=== PATIENT | female | born 1940 | race Caucasian/White ===

== ENCOUNTER 2017-06-12 18:31 | Inpatient (IN) | payer MEDICARE, MEDICAID ==
[~2017-06-12] VITALS: Ht 162.6 cm; Wt 72.6 kg
[~2017-06-12 18:31] MED LIST: ACET325T53 PO; BENZ0.5T3 PO; CLON0.5T4 PO; DEXT15DR6 EACHEYE; DOCU-141 PO; HYDR25TA4 PO; LEVO88TA5 PO; LISI-607 PO; MAG30ORA PO; MAGN400O6 PO; NA P133E RC; RISP1TAB7 PO; TEMA7.5C12 PO
--- NOTE | 2017-06-12 18:42 | NUR ---
PT BIBRA FROM SNF TO ER BED 14. PER REPORT , GENERALIZED WEAKNESS. PT IS C/O COUGH AND CONGESTION FOR WEEKS NOW. PLACED ON MONITOR. NAD NOTED. AWAITING MD JONES.
--- NOTE | 2017-06-12 19:03 | NUR ---
DR NASH AT BEDSIDE FOR EVAL.
--- NOTE | 2017-06-12 19:15 | NUR ---
IV LINE STARTED BLOOD DRAWN AND SENT TO LAB.
[2017-06-12 19:18] LABS: BASOPHILS # (AUTO) 0.2 /CMM (0.0-0.2); BASOPHILS % (AUTO) 2.9 % (0.0-2.0); EOSINOPHILS # (AUTO) 0.1 /CMM (0.0-0.7); EOSINOPHILS % (AUTO) 2.1 % (0.0-6.0); HEMATOCRIT 34 % (33-45); HEMOGLOBIN 11.7 g/dL (11.5-14.8); LYMPHOCYTES # (AUTO) 1.9 /CMM (0.8-4.8); LYMPHOCYTES % (AUTO) 26.7 % (20.0-44.0); MEAN CORPUSCULAR HEMOGLOBIN 30 PG (26.0-33.0); MEAN CORPUSCULAR HGB CONC 34 g/dl (31.0-36.0); MEAN CORPUSCULAR VOLUME 89 fL (82-100); MONOCYTES # (AUTO) 0.6 /CMM (0.1-1.30); MONOCYTES % (AUTO) 8.3 % (2.0-12.0); NEUTROPHILS # (AUTO) 4.3 /CMM (1.8-8.9); PLATELET COUNT (AUTO) 642 /CMM (150-450); RDW COEFFICIENT OF VARIATION 15.1 (11.5-15.0); RED BLOOD CELL COUNT(AUTO) 3.85 MIL/uL (4.0-5.2); WHITE BLOOD COUNT (AUTO) 7.1 K/uL (4.3-11.0)
[2017-06-12 19:29] LABS: CARBON DIOXIDE 25 mmol/L (21-32); CHLORIDE 103 mmol/L (98-107); GLUCOSE 170 mg/dL (74-106); POTASSIUM 4.1 mmol/L (3.5-5.1); SODIUM SERUM 133 mmol/L (136-145); UREA NITROGEN, BLOOD 13 mg/dL (7-18)
[2017-06-12] MEDS ORDERED: IPRATROPIUM NEB FS 0.5 MG/2.5 ML AMPUL.NEB NEB ONE (19:30)
[2017-06-12] MEDS ORDERED: ALBUTEROL FS 2.5 MG/3 ML VIAL.NEB NEB ONE (19:30)
[2017-06-12 19:33] LABS: INR 0.95 (0.85-1.15)
[2017-06-12 19:38] LABS: TROPONIN I < 0.017 ng/mL (0.00-0.056)
[2017-06-12] MEDS ORDERED: IPRATROPIUM NEB FS 0.5 MG/2.5 ML AMPUL.NEB ONE (19:49)
[2017-06-12] MEDS ORDERED: ALBUTEROL FS 2.5 MG/0.5 ML VIAL.NEB ONE (19:49)
[2017-06-12 20:29] LABS: APPEARANCE,URINE Clear (CLEAR); BILIRUBIN,URINE Negative (NEGATIVE); BLOOD, URINE Negative Ery/uL (NEGATIVE); COLOR,URINE Light yellow (YELLOW); KETONES,URINE Negative (NEGATIVE); LEUKOCYTE ESTERASE ,URINE Trace (NEGATIVE); NITRITE, URINE Negative (NEGATIVE); PROTEIN,URINE Negative (NEGATIVE); UGLUCOSE Negative (NEGATIVE); UROBILINOGEN,URINE 0.2 EU/dL (0.2)
[2017-06-12 20:43] LABS: BACTERIA,URINE Few /HPF (None Seen); RBC,URINE NONE SEEN /HPF (0-2); SQUAMOUS EPITHELIAL CELL,UR Rare /HPF (None Seen); YEAST,URINE Moderate /HPF (None Seen)
[2017-06-12] MEDS ORDERED: NITROFURANTOIN/NITROFURAN MAC 100 MG CAPSULE PO ONE (21:00)
[2017-06-12] MEDS ORDERED: NITROFURANTOIN/NITROFURAN MAC 100 MG CAPSULE ONE (21:03)
--- NOTE | 2017-06-12 22:02 | NUR ---
BLOOD SUGAR 139. ER AWARE.
[2017-06-12] MEDS ORDERED: ONDANSETRON HCL/PF 4 MG/2 ML VIAL IVP PRN (22:30)
[2017-06-12] MEDS ORDERED: MORPHINE SULFATE INJ 2 MG/ML DISP.SYRIN IV PRN (22:30)
[2017-06-12] MEDS ORDERED: ACETAMINOPHEN 325 MG TABLET PO PRN (22:30)
--- NOTE | 2017-06-12 22:48 | NUR ---
REPORT GIVEN TO JUVENCIO. PT AWAITING TRANSFER TO FLOOR.
[2017-06-12 23:00] VITALS: BP 118/52
[2017-06-12] MEDS ORDERED: IV NS 0.9% 1,000 ML IV PRN (23:00)
[2017-06-12] MEDS ORDERED: IPRATROPIUM NEB FS 0.5 MG/2.5 ML AMPUL.NEB NEB PRN (23:00)
[2017-06-12] MEDS ORDERED: ALBUTEROL FS 2.5 MG/3 ML VIAL.NEB NEB PRN (23:00)
[2017-06-12] MEDS ORDERED: GUAIFENESIN/D-METHORPHAN HB 5 ML UDC PO PRN (23:00)
[2017-06-12] MEDS ORDERED: MAG HYDROX/AL HYDROX/SIMETH 30 ML UDC PO PRN (23:00)
[2017-06-12] MEDS ORDERED: TEMAZEPAM 7.5 MG CAPSULE PO PRN (23:00)
[2017-06-12] MEDS ORDERED: MAGNESIUM HYDROXIDE 30 ML UDC PO PRN (23:00)
--- NOTE | 2017-06-12 23:05 | NUR ---
RN ADMITTING NOTES RECEIVED REPORT FROM ASSEMBLY HAND MABLE. Pt WAS BROUGHT UP VIA GURNEY, WAS ABLE TO AMBULATE FROM ER [place] TO ROOM BED WITH A STEADY GAIT. NO S/S OF ACUTE DISTRESS OR SOB NOTED. Pt IS A/OX3, VERBAL, ABLE TO MAKE TO NEEDS KNOWN. IV ACCESS ON RHAND #20G. SAFETY MEASURES IN PLACE. BED LOW, LOCKED, HOB ELEVATED, SIDE RAILS UP, CALL LIGHT AND BEDSIDE TABLE WITHIN REACH. WILL CONTINUE TO MONITOR Pt THROUGHOUT THE NIGHT FOR SAFETY.
[2017-06-12] MEDS ORDERED: BLOOD SUGAR DIAGNOSTIC 1 EACH STRIP IN ONE (23:45)
[2017-06-12] MEDS ORDERED: FLUCONAZOLE (100 MG) 100 MG TABLET PO ONE (23:45)
--- NOTE | 2017-06-13 | NUR ---
RN NOTES ACCUCHECK BG 106.
[2017-06-13] MEDS ORDERED: CEFTRIAXONE 1 G VIAL ONE (00:35)
[2017-06-13] MEDS: CEFTRIAXONE 1 G in IV D5W 50 ML IV SCH ×2 (00:43→23:15)
[2017-06-13] MEDS ORDERED: DEXTROSE 50%-WATER 50 ML DISP.SYRIN IV PRN (06:00)
[2017-06-13] MEDS: BLOOD SUGAR DIAGNOSTIC 1 EACH STRIP IN SCH ×3 (06:07→17:13)
[2017-06-13 06:27] LABS: ALANINE AMINOTRANSFERASE 20 U/L (12-78); ALBUMIN 2.6 g/dL (3.4-5.0); ALKALINE PHOSPHATASE 87 U/L (46-116); ASPARTATE AMINOTRANSFERASE 16 U/L (15-37); BILIRUBIN,TOTAL 0.3 mg/dL (0.2-1.0); CALCIUM, SERUM 9.5 mg/dL (8.5-10.1); CARBON DIOXIDE 25 mmol/L (21-32); CHLORIDE 107 mmol/L (98-107); CREATININE 0.7 mg/dL (0.6-1.3); GLUCOSE 110 mg/dL (74-106); PHOSPHORUS 3.2 mg/dL (2.5-4.9); POTASSIUM 3.8 mmol/L (3.5-5.1); SODIUM SERUM 139 mmol/L (136-145); TOTAL PROTEIN, SERUM 6.9 g/dL (6.4-8.2); UREA NITROGEN, BLOOD 13 mg/dL (7-18)
[2017-06-13 06:28] LABS: BASOPHILS % (AUTO) 0.2 % (0.0-2.0); EOSINOPHILS # (AUTO) 0.1 /CMM (0.0-0.7); EOSINOPHILS % (AUTO) 2.2 % (0.0-6.0); HEMATOCRIT 35 % (33-45); HEMOGLOBIN 11.8 g/dL (11.5-14.8); LYMPHOCYTES # (AUTO) 1.8 /CMM (0.8-4.8); LYMPHOCYTES % (AUTO) 29.9 % (20.0-44.0); MEAN CORPUSCULAR HEMOGLOBIN 31 PG (26.0-33.0); MEAN CORPUSCULAR HGB CONC 34 g/dl (31.0-36.0); MEAN CORPUSCULAR VOLUME 92 fL (82-100); MONOCYTES # (AUTO) 0.7 /CMM (0.1-1.30); NEUTROPHILS # (AUTO) 3.4 /CMM (1.8-8.9); NEUTROPHILS % (AUTO) 56.7 % (43.0-81.0); PLATELET COUNT (AUTO) 519 /CMM (150-450); RDW COEFFICIENT OF VARIATION 16.6 (11.5-15.0); RED BLOOD CELL COUNT(AUTO) 3.82 MIL/uL (4.0-5.2)
--- NOTE | 2017-06-13 06:30 | NUR ---
AC BG 103.
--- NOTE | 2017-06-13 06:40 | NUR ---
RN CLOSING NOTES NO SIGNIFICANT CHANGES IN Pt's CONDITION. Pt REMAINS IN STABLE CONDITION AT THIS TIME. NO S/S OF ACUTE DISTRESS OR SOB NOTED DURING THE NIGHT. ALL NEEDS MET AND ATTENDED TO. SAFETY MEASURES IN PLACE. WILL ENDORSE TO DAYSHIFT RN FOR Pt's HAILE.
[2017-06-13 06:41] LABS: CHOLESTEROL 205 mg/dL (<200); HDL CHOLESTEROL 62 mg/dL (40-60); LDL 132 mg/dL (0-99); THYROID STIMULATING HORMONE 19.947 uIU/mL (0.358-3.74); TRIGLYCERIDES 88 mg/dL (30-150)
--- NOTE | 2017-06-13 07:26 | NUR ---
MS RN OPENING NOTES PATIENT RECEIVED IN BED AWAKE AND IN NO ACUTE SIGNS OF DISTRESS. A/O X 3, SAME ABLE TO COMMUNICATE VERBALLY, DENIES PAIN OR DISCOMFORTS AT THIS TIME. ON ROOM AIR, BREATHING EVEN AND UNLABORED. IV ACCESS ON RIGHT HAND G#20 INTACT AND PATENT, IVF OF NS RUNNING @ 70ML/HR, NO SIGNS OF INFILTRATION NOTED. BED LOCKED AND IN LOWEST POSITION WITH SIDE-RAILS UP X2. BED ALARM ON AND CALL LIGHT IN REACH. WILL CONTINUE TO MONITOR PT ACCORDINGLY.
[2017-06-13 08:00] VITALS: BP 127/78
[2017-06-13] MEDS: LEVOTHYROXINE SODIUM 88 MCG TABLET PO SCH (08:24)
[2017-06-13] MEDS: DOCUSATE SODIUM 100 MG CAPSULE PO SCH (08:24)
[2017-06-13] MEDS: HYDROCHLOROTHIAZIDE 25 MG TABLET PO SCH (08:24)
[2017-06-13] MEDS: PANTOPRAZOLE 40 MG TABLET.DR PO SCH (08:24)
[2017-06-13] MEDS: FLUCONAZOLE (100 MG) 100 MG TABLET PO SCH (08:24)
[2017-06-13] MEDS: LISINOPRIL (5MG) 5 MG TABLET PO SCH (08:25)
[2017-06-13] MEDS ORDERED: POLYVINYL ALCOHOL 15 ML BOTTLE EACHEYE PRN (09:00)
[2017-06-13] MEDS ORDERED: MORPHINE SULFATE INJ 4 MG/ML DISP.SYRIN IV PRN (09:00)
[2017-06-13] MEDS: risperiDONE 1 MG TABLET PO SCH ×2 (09:34→17:10)
[2017-06-13] MEDS: BENZTROPINE MESYLATE (1 MG) 1 MG TABLET PO SCH ×2 (09:34→17:10)
[2017-06-13 16:00] VITALS: BP 106/66
--- NOTE | 2017-06-13 18:22 | NUR ---
MS RN CLOSING NOTES PATIENT RESTING AND WATCHING TV IN BED AT THIS TIME. A/O X 3, SAME VERBALLY RESPONSIVE. CALMED , QUIET AND COOPERATIVE DURING THE SHIFT. ON ROOM AIR, BREATHING EVEN AND UNLABORED. IV ACCESS ON RIGHT HAND G#20 INTACT AND PATENT WITH IVF OF NS @ 70ML/HR INFUSING WELL, NO SIGNS OF INFILTRATION NOTED. HOB KEPT ELEVATED. BED LOCKED AND IN LOWEST POSITION WITH SIDE-RAILS UP X2. BED ALARM ON AND CALL LIGHT IN REACH. ALL NEEDS AND CARE ATTENDED WELL. WILL ENDORSED TO AIR QUALITY MANAGER NURSE FOR HAILE.
[2017-06-13 20:00] VITALS: BP 115/67
--- NOTE | 2017-06-13 20:06 | NUR ---
RECEIVED PATIENT IN BED AWAKE AND ALERT NO ACUTE SIGNS OF DISTRESS.PATIENT IS A/O X 3, ABLE TO COMMUNICATE VERBALLY, DENIES PAIN OR DISCOMFORTS AT THIS TIME. ON ROOM AIR, BREATHING EVEN AND UNLABORED. IV ACCESS ON RIGHT HAND G#20 INTACT AND PATENT, IVF OF NS RUNNING @ 70ML/HR, NO SIGNS OF INFILTRATION NOTED. BED LOCKED AND IN LOWEST POSITION WITH SIDE-RAILS UP X2. BED ALARM ON AND CALL LIGHT IN REACH. WILL CONTINUE TO MONITOR PT ACCORDINGLY,FOR SAFETY AND FALL.
--- NOTE | 2017-06-14 05:16 | NUR ---
END OF SHIFT NOTE-NO CHANGES FROM BASE LINE PATIENT REMAIN STABLE CONDITIONS DENIES ANY PAIN OR DISCOMFORT AT THIS TIME, VITAL SIGN STABLE BREATHING EVEN UNLABORED NORMAL, AMBULATORY TO BATHROOM WITH ASSIST WILL ENDORSE TO THE MORNING NURSE TO CONTINUITY OF CARE.
[2017-06-14 06:40] LABS: BASOPHILS % (AUTO) 0.6 % (0.0-2.0); EOSINOPHILS # (AUTO) 0.1 /CMM (0.0-0.7); EOSINOPHILS % (AUTO) 2.6 % (0.0-6.0); HEMATOCRIT 34 % (33-45); HEMOGLOBIN 11.7 g/dL (11.5-14.8); LYMPHOCYTES # (AUTO) 1.8 /CMM (0.8-4.8); LYMPHOCYTES % (AUTO) 32.2 % (20.0-44.0); MEAN CORPUSCULAR HEMOGLOBIN 31 PG (26.0-33.0); MEAN CORPUSCULAR HGB CONC 34 g/dl (31.0-36.0); MEAN CORPUSCULAR VOLUME 90 fL (82-100); MONOCYTES # (AUTO) 0.6 /CMM (0.1-1.30); MONOCYTES % (AUTO) 9.9 % (2.0-12.0); NEUTROPHILS # (AUTO) 3.1 /CMM (1.8-8.9); NEUTROPHILS % (AUTO) 54.7 % (43.0-81.0); PLATELET COUNT (AUTO) 537 /CMM (150-450); RED BLOOD CELL COUNT(AUTO) 3.76 MIL/uL (4.0-5.2); WHITE BLOOD COUNT (AUTO) 5.7 K/uL (4.3-11.0)
[2017-06-14 06:54] LABS: CALCIUM, SERUM 9.2 mg/dL (8.5-10.1); CARBON DIOXIDE 21 mmol/L (21-32); CHLORIDE 104 mmol/L (98-107); CREATININE 0.9 mg/dL (0.6-1.3); GLUCOSE 123 mg/dL (74-106); MAGNESIUM 1.8 mg/dL (1.8-2.4); PHOSPHORUS 3.6 mg/dL (2.5-4.9); POTASSIUM 3.8 mmol/L (3.5-5.1); SODIUM SERUM 138 mmol/L (136-145); UREA NITROGEN, BLOOD 15 mg/dL (7-18)
--- NOTE | 2017-06-14 07:30 | NUR ---
MS/RN Patient received Patient received from carpenter labor supervisor. No needs at this time. Call light within re, will continue to monitor and ensure safety.
[2017-06-14 08:00] VITALS: BP 126/76
[2017-06-14] MEDS: FLUCONAZOLE (100 MG) 100 MG TABLET PO SCH (08:10)
[2017-06-14] MEDS: LEVOTHYROXINE SODIUM 88 MCG TABLET PO SCH (08:10)
[2017-06-14] MEDS: risperiDONE 1 MG TABLET PO SCH ×2 (08:10→16:31)
[2017-06-14] MEDS: DOCUSATE SODIUM 100 MG CAPSULE PO SCH (08:10)
[2017-06-14] MEDS: PANTOPRAZOLE 40 MG TABLET.DR PO SCH (08:10)
[2017-06-14] MEDS: BENZTROPINE MESYLATE (1 MG) 1 MG TABLET PO SCH ×2 (08:10→16:31)
[2017-06-14] MEDS: BLOOD SUGAR DIAGNOSTIC 1 EACH STRIP IN SCH ×2 (08:11→16:31)
[2017-06-14] MEDS: HYDROCHLOROTHIAZIDE 25 MG TABLET PO SCH (08:11)
[2017-06-14] MEDS: LISINOPRIL (5MG) 5 MG TABLET PO SCH (08:11)
--- NOTE | 2017-06-14 09:00 | NUR ---
MS/RN Medications Morning medications administered as ordered.
--- NOTE | 2017-06-14 12:28 | NUR ---
MS/RN S/B Dr Portillo Seen by Dr Portillo - patient for discharge back to [facility] tomorrow.
[2017-06-14 16:03] VITALS: BP 137/75
--- NOTE | 2017-06-14 18:28 | NUR ---
MS/RN End note No changes in care, patient for discharge planning back to SNF tomorrow per Dr Portillo. All needs attended, will endorse to machinist 2nd shift.
--- NOTE | 2017-06-14 19:00 | NUR ---
MS RN NOTE: PATIENT RESTING IN BED, A/OX 3. STABLE, NO ACUTE DISTRESS NOTED. BREATHING EVEN AND UNLABORED, NO SOB NOTED. BED LOCKED AND IN LOWEST POSITION, CALL LIGHT IN REACH. WILL CONTINUE TO MONITOR.
[2017-06-14 19:52] VITALS: BP 123/70
[2017-06-14 20:00] VITALS: BP 123/70
[2017-06-14] MEDS: CEFTRIAXONE 1 G in IV D5W 50 ML IV SCH (22:46)
--- NOTE | 2017-06-15 06:23 | NUR ---
MS RN CLOSING NOTES PT COMFORTABLY ASLEEP AND EASILY AWAKEN, TOLERATING ROOM AIR 02 SAT 98% IN STABLE CONDITION. RESPIRATION EVEN AND UNLABORED. KEPT CLEAN AND DRY AND COMFORTABLE, ALL NURSING CARE RENDERED. NEEDS ATTENDED AND ANTICIPATED, FREQUENT VISUAL CHECK DONE FOR SAFETY EVERY 2 HOURS. NO COMPLAINS OF PAIN. ON LOW BED AT ALL TIMES TO ENSURE SAFETY. SAFE HAZARD FREE ENVIRONMENT PROVIDED. CALL LIGHT WITHIN EASY TO REACH. WILL ENDORSE NEXT SHIFT CONTINUITY OF CARE
[2017-06-15 06:47] LABS: CALCIUM, SERUM 9.8 mg/dL (8.5-10.1); CARBON DIOXIDE 24 mmol/L (21-32); CHLORIDE 97 mmol/L (98-107); CREATININE 0.9 mg/dL (0.6-1.3); GLUCOSE 125 mg/dL (74-106); MAGNESIUM 1.9 mg/dL (1.8-2.4); PHOSPHORUS 3.8 mg/dL (2.5-4.9); POTASSIUM 3.9 mmol/L (3.5-5.1); SODIUM SERUM 131 mmol/L (136-145); UREA NITROGEN, BLOOD 19 mg/dL (7-18)
--- NOTE | 2017-06-15 07:20 | NUR ---
RN OPEN NOTES RECEIVED REPORT FROM TECHNOLOGY APPLICATIONS TEACHER NURSE. PATIENT IS IN BED, WITH HER EYES CLOSED. NO SIGNS AND SYMPTOMS OF DISTRESS. EASILY AROUSED TO CALLING HIS NAME. BED IN LOW POSITION, LOCKED AND TWO SIDE RAILS FOR SAFETY. CALL LIGHT WITHIN REACH FOR SAFETY. WILL CONTINUE TO ASSESS AND MONITOR PATIENT
[2017-06-15 07:23] LABS: BASOPHILS % (AUTO) 0.6 % (0.0-2.0); EOSINOPHILS # (AUTO) 0.2 /CMM (0.0-0.7); EOSINOPHILS % (AUTO) 2.7 % (0.0-6.0); HEMATOCRIT 35 % (33-45); HEMOGLOBIN 11.8 g/dL (11.5-14.8); LYMPHOCYTES # (AUTO) 1.7 /CMM (0.8-4.8); LYMPHOCYTES % (AUTO) 28.9 % (20.0-44.0); MEAN CORPUSCULAR HEMOGLOBIN 31 PG (26.0-33.0); MEAN CORPUSCULAR HGB CONC 34 g/dl (31.0-36.0); MEAN CORPUSCULAR VOLUME 90 fL (82-100); MONOCYTES # (AUTO) 0.7 /CMM (0.1-1.30); MONOCYTES % (AUTO) 11.4 % (2.0-12.0); NEUTROPHILS # (AUTO) 3.4 /CMM (1.8-8.9); NEUTROPHILS % (AUTO) 56.4 % (43.0-81.0); PLATELET COUNT (AUTO) 498 /CMM (150-450); RDW COEFFICIENT OF VARIATION 15.8 (11.5-15.0); RED BLOOD CELL COUNT(AUTO) 3.83 MIL/uL (4.0-5.2)
[2017-06-15 08:00] VITALS: BP 129/69
[2017-06-15] MEDS: DOCUSATE SODIUM 100 MG CAPSULE PO SCH (08:28)
[2017-06-15] MEDS: LEVOTHYROXINE SODIUM 88 MCG TABLET PO SCH (08:28)
[2017-06-15] MEDS: PANTOPRAZOLE 40 MG TABLET.DR PO SCH (08:28)
[2017-06-15] MEDS: FLUCONAZOLE (100 MG) 100 MG TABLET PO SCH (08:29)
[2017-06-15] MEDS: risperiDONE 1 MG TABLET PO SCH (08:29)
[2017-06-15 08:30] VITALS: BP 129/69
[2017-06-15] MEDS: HYDROCHLOROTHIAZIDE 25 MG TABLET PO SCH (08:30)
[2017-06-15] MEDS: BENZTROPINE MESYLATE (1 MG) 1 MG TABLET PO SCH (08:30)
[2017-06-15] MEDS: LISINOPRIL (5MG) 5 MG TABLET PO SCH (08:30)
[2017-06-15] MEDS: BLOOD SUGAR DIAGNOSTIC 1 EACH STRIP IN SCH (08:32)
[2017-06-15] MEDS ORDERED: FLUC100T8 PO (11:08)
--- NOTE | 2017-06-15 12:22 | NUR ---
REPORT WAS GIVEN TO JAS AT [facility]. PATIENT IS GOING TO ROOM 37C
--- NOTE | 2017-06-15 13:40 | NUR ---
LINEN CLERK NOTES DISCHARGE NOTES RECEIVED AND CHERYL OUT. PATIENT IS GOING BACK TO [facility]. PATIENT IS LEAVING IN A STABLE CONDITION. ALL PERSONAL BELONGING WITH PATIENT AT TIME OF DISCHARGE. ALL DISCHARGE INSTRUCTIONS EXPLAINED TO PATIENT AND REPORT GAVE TO [facility] RN JAS. PATIENT SIGNED BOTH BELONGING LIST FORM AND DISCHARGE PAPERS. BOTH PLACED IN THE CHART. IV SITE REMOVED. ID BAND REMOVED. SKIN IS INTACT, NO NEEDS FOR PICTURES. PATIENT PICKED UP BY AMBULANCE PROVIDED BY SO AND 2 coordinator of online programs
== END 2017-06-15 13:40 | DRG 758 ==
LOC: ER 18:35 → MEDSG2 22:44
PROVIDERS: ADMIT Nurse Practitioner Acute Care; ATTEND Nurse Practitioner Acute Care
DX: B37.49 Other urogenital candidiasis (principal); E87.1 Hypo-osmolality and hyponatremia; E87.8 Other disorders of electrolyte and fluid balance, not elsewhere classified; G20 Parkinson's disease; N39.0 Urinary tract infection, site not specified; F20.9 Schizophrenia, unspecified; F02.80 Dementia in other diseases classified elsewhere, unspecified severity, without behavioral disturbance, psychotic disturbance, mood disturbance, and anxiety; E03.9 Hypothyroidism, unspecified; I10 Essential (primary) hypertension; K21.9 Gastro-esophageal reflux disease without esophagitis; R53.1 Weakness; B96.89 Other specified bacterial agents as the cause of diseases classified elsewhere; F29 Unspecified psychosis not due to a substance or known physiological condition; J06.9 Acute upper respiratory infection, unspecified
CPT/HCPCS: 36415; 71045-TC; 80048-TC; 80053-TC; 80061-TC; 81000-TC; 82962-TC; 83735-TC; 84100-TC; 84443-TC; 84484-TC; 85025-TC; 85730-TC; 87081-TC; 87086-TC; 87400; A4606; J0696; J7030; J7060; Z7610

== ENCOUNTER 2018-06-19 15:56 | Inpatient (IN) | payer MEDICARE, MEDICAID ==
[~2018-06-19] VITALS: Ht 162.6 cm; Wt 63.0 kg
[~2018-06-19 15:56] MED LIST changes: -BENZ0.5T3 PO; +BENZ0.5T43 PO; +CLON0.5T12 PO; -CLON0.5T4 PO; +FLUC100T8 PO
[2018-06-19] MEDS ORDERED: ONDANSETRON HCL/PF 4 MG/2 ML VIAL ONE (16:23)
[2018-06-19] MEDS ORDERED: ONDANSETRON HCL/PF 4 MG/2 ML VIAL IVP ONE (16:30)
[2018-06-19] MEDS ORDERED: IV NS 0.9% 1,000 ML BAG IV ONE (16:30)
[2018-06-19 16:46] LABS: BASOPHILS # (AUTO) 0.1 /CMM (0.0-0.2); BASOPHILS % (AUTO) 0.7 % (0.0-2.0); EOSINOPHILS % (AUTO) 3.4 % (0.0-6.0); HEMATOCRIT 40 % (33-45); HEMOGLOBIN 13.4 g/dL (11.5-14.8); LYMPHOCYTES # (AUTO) 1.7 /CMM (0.8-4.8); LYMPHOCYTES % (AUTO) 20.1 % (20.0-44.0); MEAN CORPUSCULAR HGB CONC 33 g/dl (31.0-36.0); MEAN CORPUSCULAR VOLUME 91 fL (82-100); MONOCYTES # (AUTO) 0.8 /CMM (0.1-1.30); MONOCYTES % (AUTO) 9.5 % (2.0-12.0); NEUTROPHILS # (AUTO) 5.4 /CMM (1.8-8.9); NEUTROPHILS % (AUTO) 66.3 % (43.0-81.0); PLATELET COUNT (AUTO) 162 /CMM (150-450); RED BLOOD CELL COUNT(AUTO) 4.42 MIL/uL (4.0-5.2); WHITE BLOOD COUNT (AUTO) 8.2 K/uL (4.3-11.0)
--- NOTE | 2018-06-19 17:03 | NUR ---
URINE COLLECTED AND SENT TO STAT LAB
[2018-06-19 17:11] LABS: CALCIUM, SERUM 10.3 mg/dL (8.5-10.1); CARBON DIOXIDE 26 mmol/L (21-32); CHLORIDE 94 mmol/L (98-107); GLUCOSE 191 mg/dL (74-106); SODIUM SERUM 128 mmol/L (136-145); UREA NITROGEN, BLOOD 18 mg/dL (7-18)
[2018-06-19 17:17] LABS: ALANINE AMINOTRANSFERASE 16 U/L (12-78); ALBUMIN 3.3 g/dL (3.4-5.0); ALCOHOL, BLOOD < 3 mg/dL (0-0); ALKALINE PHOSPHATASE 88 U/L (46-116); ASPARTATE AMINOTRANSFERASE 14 U/L (15-37); BILIRUBIN,DIRECT 0.1 mg/dL (0.0-0.2); BILIRUBIN,TOTAL 0.3 mg/dL (0.2-1.0); TOTAL PROTEIN, SERUM 7.3 g/dL (6.4-8.2)
[2018-06-19 17:21] LABS: APPEARANCE,URINE Slightly Cloudy (CLEAR); BILIRUBIN,URINE Negative (NEGATIVE); BLOOD, URINE Trace-intact Ery/uL (NEGATIVE); COLOR,URINE Yellow (YELLOW); KETONES,URINE Negative (NEGATIVE); LEUKOCYTE ESTERASE ,URINE Large (NEGATIVE); NITRITE, URINE Positive (NEGATIVE); PROTEIN,URINE Negative (NEGATIVE); UGLUCOSE Negative (NEGATIVE); UROBILINOGEN,URINE 0.2 EU/dL (0.2)
[2018-06-19 17:28] LABS: BACTERIA,URINE Many /HPF (None Seen); SQUAMOUS EPITHELIAL CELL,UR Few /HPF (None Seen); URINE AMORPHOUS URATE Moderate /HPF (None Seen); WBC,URINE 81-100 /HPF (0-3)
[2018-06-19] MEDS ORDERED: CEFEPIME 1 GM in IV D5W 50 ML IV ONE (17:30)
[2018-06-19] MEDS ORDERED: CEFEPIME 1 GM VIAL ONE (17:32)
[2018-06-19] MEDS ORDERED: GLUC1TAB20 PO (18:03)
[2018-06-19] MEDS ORDERED: KRIL1CAP PO (18:03)
[2018-06-19] MEDS ORDERED: SENN-168 PO (18:03)
--- NOTE | 2018-06-19 18:04 | NUR ---
BIB PRIVATE EMT FROM [facility] PRIOR TO ADMISSION TO [facility]. PT IS AOX3, AMB, VSS, RR EVEN AND UNLABORED. SKIN INTACT. NO ACUTE DISTRESS NOTED. HOOKED TO MONITOR. READY FOR EVAL.
--- NOTE | 2018-06-19 18:10 | NUR ---
GOT BED 115-2
--- NOTE | 2018-06-19 18:22 | NUR ---
ASSISTED PT TO RESTROOM
--- NOTE | 2018-06-19 18:22 | NUR ---
KADIE SCHUSTER [phone] WILL BE HERE IN 60 MINS
--- NOTE | 2018-06-19 18:32 | NUR ---
CANCELLED MARIELY [phone]
--- NOTE | 2018-06-19 18:46 | NUR ---
REPORT GIVEN TO ELEN ARTHUR FOR 115-2 M/S
--- NOTE | 2018-06-19 18:50 | NUR ---
RECEIVED REPORT FROM ARUNA MYRICK. PATIENT IS BEING ADMITTED TO MS. WILL ENDORSE TO PM NURSE FOR ADMISSION AND HAILE.
--- NOTE | 2018-06-19 19:00 | NUR ---
REPORT GIVEN TO NIGHT RN FOR ADMISSION AND HAILE.
--- NOTE | 2018-06-19 19:00 | NUR ---
RN INITIAL NOTE PT A/O X3. PT RECEIVED FROM ED VIA STRETCHER. WAS GIVEN A SANDWICH. AMBULATES W/O ASSISTANCE BUT UNSTEADY GAIT - UTILIZED BRP AND PERFORMED ORAL SELF-CARE. IV L HAND 20G PATENT - FLUIDS INFUSED ORDERED. PT ORIENTED TO ROOM AND PLAN OF CARE DISCUSSED W PATIENT. ALL SAFETY PRECAUTIONS TAKEN, BED IN LOW AND LOCKED POSITION WITH BED ALARM ON. DVT PUMPS ON. CALL LIGHT WITHIN REACH. WILL CONTINUE TO MONITOR.
--- NOTE | 2018-06-19 19:01 | NUR ---
PT TRANSFERRED TO [facility]
[2018-06-19] MEDS ORDERED: MAG HYDROX/AL HYDROX/SIMETH 30 ML UDC PO PRN (19:30)
[2018-06-19] MEDS ORDERED: MAGNESIUM HYDROXIDE 30 ML UDC PO PRN (19:30)
[2018-06-19] MEDS ORDERED: HYDROCODONE/APAP 5/325MG 1 EACH TABLET PO PRN (19:30)
[2018-06-19] MEDS ORDERED: ZOLPIDEM TARTRATE 5 MG TABLET PO PRN (19:30)
[2018-06-19] MEDS ORDERED: ACETAMINOPHEN 325 MG TABLET PO PRN (19:30)
[2018-06-19] MEDS ORDERED: Z GUARD REMEDY 2 OZ OINT TP PRN (19:30)
[2018-06-19] MEDS ORDERED: ONDANSETRON HCL/PF 4 MG/2 ML VIAL IVP PRN (19:30)
[2018-06-19 20:00] VITALS: BP 145/89
[2018-06-19] MEDS: IV NS 0.9% 1,000 ML IV PRN (20:01)
[2018-06-19] MEDS: CEFTRIAXONE 1 G in IV D5W 50 ML IV SCH (20:56)
[2018-06-19] MEDS: SENNOSIDES 8.6 MG TABLET PO SCH (21:13)
[2018-06-20 04:00] VITALS: BP 119/65
--- NOTE | 2018-06-20 06:32 | NUR ---
RN CLOSING NOTES NO CHANGE IN PTS CONDITION OVER NIGHT, PT WAS ADMITTED. ALL NEEDS ANTICIPATED AND MET. ALL SAFETY PRECAUTIONS TAKEN. ALL DUE MEDS GIVEN. WILL ENDORSE TO AM RN.
[2018-06-20] MEDS ORDERED: LEVOTHYROXINE SODIUM 88 MCG TABLET PO SCH (07:30)
[2018-06-20 07:31] LABS: CALCIUM, SERUM 9.3 mg/dL (8.5-10.1); CARBON DIOXIDE 23 mmol/L (21-32); CHLORIDE 103 mmol/L (98-107); CREATININE 0.9 mg/dL (0.6-1.3); GLUCOSE 132 mg/dL (74-106); MAGNESIUM 2.1 mg/dL (1.8-2.4); PHOSPHORUS 3.1 mg/dL (2.5-4.9); POTASSIUM 4.4 mmol/L (3.5-5.1); SODIUM SERUM 136 mmol/L (136-145); UREA NITROGEN, BLOOD 13 mg/dL (7-18)
[2018-06-20 08:00] VITALS: BP 124/71
[2018-06-20 08:13] LABS: BASOPHILS # (AUTO) 0.1 /CMM (0.0-0.2); EOSINOPHILS % (AUTO) 4.1 % (0.0-6.0); HEMATOCRIT 35 % (33-45); LYMPHOCYTES # (AUTO) 1.6 /CMM (0.8-4.8); LYMPHOCYTES % (AUTO) 21.1 % (20.0-44.0); MEAN CORPUSCULAR HGB CONC 34 g/dl (31.0-36.0); MEAN CORPUSCULAR VOLUME 89 fL (82-100); MONOCYTES # (AUTO) 0.7 /CMM (0.1-1.30); MONOCYTES % (AUTO) 9.6 % (2.0-12.0); NEUTROPHILS # (AUTO) 4.8 /CMM (1.8-8.9); NEUTROPHILS % (AUTO) 64.2 % (43.0-81.0); PLATELET COUNT (AUTO) 296 /CMM (150-450); WHITE BLOOD COUNT (AUTO) 7.5 K/uL (4.3-11.0)
[2018-06-20] MEDS: DOCUSATE SODIUM 100 MG CAPSULE PO SCH ×2 (08:17→17:33)
[2018-06-20] MEDS: BENZTROPINE MESYLATE (1 MG) 1 MG TABLET PO SCH ×2 (08:17→17:34)
[2018-06-20] MEDS: risperiDONE 1 MG TABLET PO SCH ×2 (08:18→17:33)
[2018-06-20 08:23] LABS: CHOLESTEROL 164 mg/dL (<200); HDL CHOLESTEROL 67 mg/dL (40-60); LDL 88 mg/dL (0-99); THYROID STIMULATING HORMONE 0.304 uIU/mL (0.358-3.74); TRIGLYCERIDES 32 mg/dL (30-150)
[2018-06-20] MEDS: IV NS 0.9% 1,000 ML IV PRN (08:28)
[2018-06-20] MEDS ORDERED: LISINOPRIL (5MG) 5 MG TABLET PO SCH (09:00)
[2018-06-20] MEDS ORDERED: CEPH-570 PO (12:42)
[2018-06-20 16:00] VITALS: BP 123/61
--- NOTE | 2018-06-20 19:38 | NUR ---
PT REMAIN STABLE, A/O X4 , NEEDS ATTENDED. PT KEPT KLEAN AND COMFORTABLE. WILL ENDORSE TO NEXT SHIFT FOR HAILE.
--- NOTE | 2018-06-20 19:41 | NUR ---
MS RN RECEIVED PT ON BED, A/O X 3, NOT IN ANY FORM OF DISTRESS, RESPIRATIONS EVEN AND UNLABORED, NO SOB NOTED, STABLE CONDITION. SAFETY MEASURES IN PLACE. WILL CONTINUE TO MONITOR. FOR D/C GPS
[2018-06-20] MEDS: CEFTRIAXONE 1 G in IV D5W 50 ML IV SCH (20:49)
--- NOTE | 2018-06-20 21:00 | NUR ---
PT DOESNT WANT TO SIGN DC PAPERS CHARGE NURSE SIGNED DC PAPERS ALL BELONGINGS WAS SENT Addendum: 06/20/18 at 2222 by MAYA ROGER RN PT REFUSED TO SIGN DC PAPERS DESPITE EXPLAINING RISKS AND BENEFITS
[2018-06-20] MEDS: SENNOSIDES 8.6 MG TABLET PO SCH (21:12)
--- NOTE | 2018-06-20 21:32 | NUR ---
TRANSFERRED TO GPS STABLE CONDITION. PER PT SHE RECEIVED HER FLU VACCINE 02/2018 PT REFUSED PNUEMONIA VACCINE DESPITE EXPLAINING RISKS AND BENEFITS HOSPITALIST AWARE.
--- NOTE | 2018-06-20 22:09 | NUR ---
TRANSFER PT TO GPS UNIT ROOM 218 PATIENT ON STABLE CONDITION NO S/S OF DISTRESS NOTED, TOLERATING ROOM AIR, GAVE FULL REPORT TO GPS RN JAI. HEALTH EDUCATION AND EXIT CARE WAS PROVIDED, EDUCATION ABOUT DISEASE AND RISKS AND BENEFITS FOLLOW UP CARE PROVIDED, VERBALIZED UNDERSTANDING. DOCUMENTS WAS PROVIDED. CONTINUE MEDICATION PRESCRIPTION WAS PROVIDED. IV PERIPHERAL HEPLOCK WAS REMOVED KEPT CLEAN AND DRY. SPOKE TO PT'S RP SON RITCHIE GARCIA FOR TRANSFER SON APPRECIATIVE TO NURSES AND THANKFUL.
--- NOTE | 2018-06-21 01:19 | NUR ---
PER PT SHE RECEIVE PNA AND FLU VACCINE SHOT ALREADY Addendum: 06/21/18 at 0120 by MAYA ROGER RN DOCUMENTATION FOR 06/20/18 2100
== END 2018-06-20 21:47 | DRG 689 ==
LOC: ER 16:02 → MEDSG2 18:04 → MEDSG1 18:14
DX: N39.0 Urinary tract infection, site not specified (principal); G93.41 Metabolic encephalopathy; E87.1 Hypo-osmolality and hyponatremia; I10 Essential (primary) hypertension; F03.90 Unspecified dementia, unspecified severity, without behavioral disturbance, psychotic disturbance, mood disturbance, and anxiety; K21.9 Gastro-esophageal reflux disease without esophagitis; E03.9 Hypothyroidism, unspecified; B96.89 Other specified bacterial agents as the cause of diseases classified elsewhere; G20 Parkinson's disease; F20.9 Schizophrenia, unspecified; R26.9 Unspecified abnormalities of gait and mobility; T50.2X5A Adverse effect of carbonic-anhydrase inhibitors, benzothiadiazides and other diuretics, initial encounter
CPT/HCPCS: 36415; 80048-TC; 80061-TC; 80076-TC; 80305; 81000-TC; 83735-TC; 84100-TC; 84443-TC; 84484-TC; 85025-TC; 87081-TC; 87086-TC; 87186-TC; G0378; G0480; J0692; J0696; J2405; J7030; J7060

== ENCOUNTER 2018-06-20 22:44 | Inpatient (IN) | payer MEDICARE, MEDICAID ==
[~2018-06-20] VITALS: Ht 162.6 cm; Wt 63.0 kg
[2018-06-20 21:45] VITALS: BP 132/65
[~2018-06-20 22:44] MED LIST changes: +CEPH-570 PO; -CLON0.5T12 PO; -FLUC100T8 PO; +GLUC1TAB20 PO; +KRIL1CAP PO; +SENN-168 PO; -TEMA7.5C12 PO
[2018-06-20 23:00] VITALS: BP 132/65
--- NOTE | 2018-06-20 23:00 | NUR ---
GPS ADMISSION NOTE, RECEIVED PATIENT FROM [facility]. PATIENT ARRIVED ON THIS UNIT AT 2300 VIA STRETCHER WITH 1 GROUND INTELLIGENCE OFFICER ESCORT. PATIENT ADMITTED ON A 5150 HOLD FOR GD. PER HOLD PATIENT HAS BEEN INCREASINGLY PARANOID AND DELUSIONAL, PATIENT THINKS STAFF IS POISONING HER. PATIENT IS MAKING FALSE ACCUSATION TOWARD STAFF, ARGUING WITH ROOMMATE, AND STEALING HER ROOMMATES BELONGINGS WHILE CLAIMING THAT IT BELONGS TO HER. PATIENT IS UNABLE TO CARE FOR SELF IN THIS STATE. THE 5150 WAS REVIEWED AND THE DOCUMENTATION IN THE 5150 HOLD APPEARS TO REFLECT THE PRESENTATION OF THE PATIENT. UPON FACE TO FACE ASSESSMENT PATIENT IS CURRENTLY LYING IN BED AWAKE, HAS NO S/S OR COMPLAINTS OF PAIN. PATIENT IS DISPLAYING NO S/S OF APPARENT DISTRESS. PATIENT BREATHING IS UNLABORED WITH EQUAL RISE AND FALL OF THE CHEST. PATIENT IS ALERT AND ORIENTATED X 2 ON ROOM AIR. PATIENT ASSISTED WITH TURING AND REPOSITIONING Q2HR AND PRN FOR COMFORT AND CIRCULATION. PATIENT HAS NO NEEDS AT THIS TIME. PATIENT IS NOTED TO BEING PARANOID, ANXIOUS, DISHEVELED, DISORGANIZED, CONFUSED AT TIMES, COOPERATIVE, AND NEEDS REDIRECTION. PATIENT DENIES SUICIDE IDEATIONS AND HOMICIDAL IDEATIONS AT THIS TIME. PATIENT IS UNDER THE PSYCHIATRIC CARE OF DR. SOLIZ AND THE MEDICAL CARE OF DR LAM. PATIENT BELONGINGS WERE INVENTORIED AND CHECKED FOR CONTRABAND. ALL CONTRABAND REMOVED AND STORED IN PATIENT HALLWAY LOCKER. PATIENT ADVANCED DIRECTIVES PREFERENCE, IMMUNIZATIONS QUESTIONER, NECESSARY PAPERWORK COMPLETED. PATIENT REFUSES TO HAVE SKIN ASSESSMENT DONE AND REFUSES ALL PICTURES AND REFUSES TO SIGN PAPERWORK. PATIENT ORIENTATED TO ROOM, FLOOR, AND STAFF WITH ALL QUESTIONS ANSWERED. PATIENT EDUCATED ON THE USE OF THE CALL LACY. PATIENT BED SIDE RAILS ARE UP X 2 FOR SAFETY. PATIENT BED IS LOCKED, LOW AND I WILL CONTINUE TO MONITOR THIS PATIENT Q 15 MIN WITH THE HELP OF STAFF TO MAINTAIN SAFETY.
[2018-06-21] MEDS ORDERED: MAG HYDROX/AL HYDROX/SIMETH 30 ML UDC PO PRN ×2 (01:00→01:30)
[2018-06-21] MEDS ORDERED: LORAZEPAM 0.5 MG TABLET PO PRN (01:00)
[2018-06-21] MEDS ORDERED: ACETAMINOPHEN 325 MG TABLET PO PRN ×2 (01:00→01:30)
[2018-06-21] MEDS ORDERED: MAGNESIUM HYDROXIDE 30 ML UDC PO PRN ×2 (01:00→01:30)
[2018-06-21] MEDS ORDERED: NA PHOS,M-B/NA PHOS,DI-BA 1 EA ENEMA RC PRN (01:30)
[2018-06-21 08:00] VITALS: BP 127/68
[2018-06-21] MEDS: CEPHALEXIN MONOHYDRATE 500 MG CAPSULE PO SCH ×2 (09:01→16:34)
[2018-06-21] MEDS: DOCUSATE SODIUM 100 MG CAPSULE PO SCH ×2 (09:01→16:34)
[2018-06-21] MEDS: HYDROCHLOROTHIAZIDE 25 MG TABLET PO SCH (09:01)
[2018-06-21] MEDS: LEVOTHYROXINE SODIUM 88 MCG TABLET PO SCH (09:01)
[2018-06-21] MEDS: LISINOPRIL (5MG) 5 MG TABLET PO SCH (09:02)
--- NOTE | 2018-06-21 11:57 | NUR ---
MELANI called Jaime ([phone]), pt's son, and informed him that the pt has been admitted to [facility] and that the plan is currently for her to return to [facility]. MELANI informed him that the pt may not want to return and in that case we will look into other placements if possible. He stated that he would like to be informed regarding her treatment.
--- NOTE | 2018-06-21 12:01 | NUR ---
Initial Discharge Plan: Pt currently resides at [facility] located at [address] [place] [id number]; ([phone]). Per pt, she is not certain that she would want to return to that facility and may want to try a different one. SW contact Betzaida ([phone]), from [facility], and she stated that the pt can return. MELANI will work with the pt and the MD regarding appropriate discharge planning. MELANI will form a safe and proper discharge.
[2018-06-21] MEDS: POLYVINYL ALCOHOL 15 ML BOTTLE EACHEYE SCH ×3 (13:35→16:40)
[2018-06-21 16:00] VITALS: BP 120/71
[2018-06-21 20:00] VITALS: BP 159/83
[2018-06-21] MEDS: OLANZAPINE 2.5 MG TABLET PO SCH (21:31)
[2018-06-21] MEDS: SENNOSIDES 8.6 MG TABLET PO SCH (21:31)
[2018-06-22 08:00] VITALS: BP 135/73
[2018-06-22] MEDS: CEPHALEXIN MONOHYDRATE 500 MG CAPSULE PO SCH ×3 (09:00→17:29)
--- NOTE | 2018-06-22 09:00 | NUR ---
RN NOTES PATIENT REFUSED TAKE KEFLEX 500 PO SCHEDULED . PATIENT STATE "I HAVE A ALLERGY, AND I AM NOT GOING TO TAKE MEDICATION". EXPLAINED PATIENT HAS NO ALLERGY, BUT STILL REFUSED, CONTINUED MONITORING.
[2018-06-22] MEDS: DOCUSATE SODIUM 100 MG CAPSULE PO SCH ×2 (09:46→17:28)
[2018-06-22] MEDS: LEVOTHYROXINE SODIUM 88 MCG TABLET PO SCH (09:46)
[2018-06-22] MEDS: HYDROCHLOROTHIAZIDE 25 MG TABLET PO SCH (09:47)
[2018-06-22] MEDS: LISINOPRIL (5MG) 5 MG TABLET PO SCH (09:48)
[2018-06-22] MEDS: POLYVINYL ALCOHOL 15 ML BOTTLE EACHEYE SCH ×3 (09:48→17:29)
[2018-06-22 10:48] LABS: BASOPHILS % (AUTO) 0.7 % (0.0-2.0); CHOLESTEROL 174 mg/dL (<200); EOSINOPHILS % (AUTO) 3.1 % (0.0-6.0); HDL CHOLESTEROL 66 mg/dL (40-60); HEMATOCRIT 38 % (33-45); HEMOGLOBIN 12.8 g/dL (11.5-14.8); LDL 99 mg/dL (0-99); LYMPHOCYTES % (AUTO) 19.4 % (20.0-44.0); MEAN CORPUSCULAR HGB CONC 34 g/dl (31.0-36.0); MEAN CORPUSCULAR VOLUME 89 fL (82-100); MONOCYTES # (AUTO) 0.6 /CMM (0.1-1.30); MONOCYTES % (AUTO) 10.8 % (2.0-12.0); NEUTROPHILS # (AUTO) 3.5 /CMM (1.8-8.9); PLATELET COUNT (AUTO) 316 /CMM (150-450); RED BLOOD CELL COUNT(AUTO) 4.25 MIL/uL (4.0-5.2); TRIGLYCERIDES 48 mg/dL (30-150); WHITE BLOOD COUNT (AUTO) 5.2 K/uL (4.3-11.0)
[2018-06-22 10:52] LABS: ALANINE AMINOTRANSFERASE 13 U/L (12-78); ALKALINE PHOSPHATASE 73 U/L (46-116); ASPARTATE AMINOTRANSFERASE 11 U/L (15-37); BILIRUBIN,TOTAL 0.4 mg/dL (0.2-1.0); CALCIUM, SERUM 9.3 mg/dL (8.5-10.1); CARBON DIOXIDE 25 mmol/L (21-32); CHLORIDE 99 mmol/L (98-107); CREATININE 0.8 mg/dL (0.6-1.3); GLUCOSE 161 mg/dL (74-106); POTASSIUM 3.6 mmol/L (3.5-5.1); SODIUM SERUM 133 mmol/L (136-145); TOTAL PROTEIN, SERUM 6.8 g/dL (6.4-8.2); UREA NITROGEN, BLOOD 17 mg/dL (7-18)
[2018-06-22 16:00] VITALS: BP 147/60
[2018-06-22 20:00] VITALS: BP 150/77
[2018-06-22] MEDS: OLANZAPINE 2.5 MG TABLET PO SCH (21:36)
[2018-06-22] MEDS: SENNOSIDES 8.6 MG TABLET PO SCH (21:36)
[2018-06-22] MEDS: TEMAZEPAM 7.5 MG CAPSULE PO PRN (22:09)
[2018-06-23 08:00] VITALS: BP 125/66
[2018-06-23] MEDS: DOCUSATE SODIUM 100 MG CAPSULE PO SCH ×2 (09:25→16:34)
[2018-06-23] MEDS: CEPHALEXIN MONOHYDRATE 500 MG CAPSULE PO SCH ×2 (09:25→16:34)
[2018-06-23] MEDS: LEVOTHYROXINE SODIUM 88 MCG TABLET PO SCH (09:25)
[2018-06-23] MEDS: LISINOPRIL (5MG) 5 MG TABLET PO SCH (09:26)
[2018-06-23] MEDS: HYDROCHLOROTHIAZIDE 25 MG TABLET PO SCH (09:26)
[2018-06-23] MEDS: POLYVINYL ALCOHOL 15 ML BOTTLE EACHEYE SCH ×3 (09:27→16:36)
[2018-06-23 16:00] VITALS: BP 132/69
[2018-06-23 20:00] VITALS: BP 144/76
[2018-06-23] MEDS: SENNOSIDES 8.6 MG TABLET PO SCH (21:32)
[2018-06-23] MEDS: OLANZAPINE 2.5 MG TABLET PO SCH (21:32)
[2018-06-23] MEDS: TEMAZEPAM 7.5 MG CAPSULE PO PRN (22:05)
[2018-06-24 08:00] VITALS: BP 130/90
[2018-06-24] MEDS: DOCUSATE SODIUM 100 MG CAPSULE PO SCH ×2 (08:21→16:30)
[2018-06-24] MEDS: LEVOTHYROXINE SODIUM 88 MCG TABLET PO SCH (08:21)
[2018-06-24] MEDS: HYDROCHLOROTHIAZIDE 25 MG TABLET PO SCH (08:21)
[2018-06-24] MEDS: CEPHALEXIN MONOHYDRATE 500 MG CAPSULE PO SCH ×2 (08:21→16:30)
[2018-06-24] MEDS: LISINOPRIL (5MG) 5 MG TABLET PO SCH (08:22)
[2018-06-24] MEDS: POLYVINYL ALCOHOL 15 ML BOTTLE EACHEYE SCH ×3 (08:22→16:30)
--- NOTE | 2018-06-24 13:40 | NUR ---
MELANI faxed a referral to a detention facility called [facility] with attention to Dana to the fax number: [phone].
--- NOTE | 2018-06-24 13:57 | NUR ---
Sami ([phone]), admissions county administrator from [facility], called the SW and informed her that the pt is accepted to their facility. She inquired about the pt's discharge date but the SW stated that she does not have that information at this time but once she does she will be informing her.
[2018-06-24 16:00] VITALS: BP 134/71
[2018-06-24 20:00] VITALS: BP 140/65
[2018-06-24] MEDS: OLANZAPINE 2.5 MG TABLET PO SCH (21:36)
[2018-06-24] MEDS: SENNOSIDES 8.6 MG TABLET PO SCH (21:36)
[2018-06-25 08:00] VITALS: BP 121/56
[2018-06-25] MEDS: CEPHALEXIN MONOHYDRATE 500 MG CAPSULE PO SCH ×2 (08:42→18:07)
[2018-06-25] MEDS: HYDROCHLOROTHIAZIDE 25 MG TABLET PO SCH (08:42)
[2018-06-25] MEDS: DOCUSATE SODIUM 100 MG CAPSULE PO SCH ×2 (08:42→18:07)
[2018-06-25] MEDS: LEVOTHYROXINE SODIUM 88 MCG TABLET PO SCH (08:42)
[2018-06-25] MEDS: POLYVINYL ALCOHOL 15 ML BOTTLE EACHEYE SCH ×3 (08:43→18:07)
--- NOTE | 2018-06-25 09:27 | NUR ---
SW received a call from Dr. Marcin Marshall, automotive brake specialist, who stated that the pt has been a watermelon inspector pt at [facility] and asked the SW to speak to the pt to determine the reasoning behind her not wanting to return and asked if the SW can explain how these facilities work so that she would be willing to return. SW stated that she would speak to the pt to obtain more information.
--- NOTE | 2018-06-25 09:30 | NUR ---
SW spoke to the pt who stated that she does not have a problem returning to [facility] if the staff do not continue to poison her food and she can receive word from someone from the facility about this issue. SW stated that they will not be poisoning her food and that they will be taking very appropriate care of her. SW also stated that she would have someone from the facility speak to her for reassurance.
--- NOTE | 2018-06-25 09:32 | NUR ---
Betzaida ([phone]) from [facility] came to speak to the pt about their facility and reassured her that she does not have to worry about her food because as a facility they ensure that everything is safe for the pts. The pt stated that she would be willing to return to [facility] at her time of discharge.
--- NOTE | 2018-06-25 14:07 | NUR ---
MELANI called Jaime ([phone]), pt's son, and informed him that the pt has agreed to return to [facility] and that the facility is accepting her back as well.
[2018-06-25] MEDS: LISINOPRIL (5MG) 5 MG TABLET PO SCH (14:37)
[2018-06-25 16:08] VITALS: BP 121/61
--- NOTE | 2018-06-25 18:00 | NUR ---
QUIET,ISOLATIVE,MED COMPLIANT.
[2018-06-25] MEDS: OLANZAPINE 2.5 MG TABLET PO SCH (21:39)
[2018-06-25] MEDS: SENNOSIDES 8.6 MG TABLET PO SCH (21:39)
[2018-06-26 08:00] VITALS: BP 156/85
[2018-06-26] MEDS: LISINOPRIL (5MG) 5 MG TABLET PO SCH (09:26)
[2018-06-26] MEDS: DOCUSATE SODIUM 100 MG CAPSULE PO SCH ×2 (09:26→16:45)
[2018-06-26] MEDS: POLYVINYL ALCOHOL 15 ML BOTTLE EACHEYE SCH ×3 (09:26→16:47)
[2018-06-26] MEDS: CEPHALEXIN MONOHYDRATE 500 MG CAPSULE PO SCH ×2 (09:27→16:45)
[2018-06-26] MEDS: LEVOTHYROXINE SODIUM 88 MCG TABLET PO SCH (09:27)
[2018-06-26] MEDS: HYDROCHLOROTHIAZIDE 25 MG TABLET PO SCH (09:27)
[2018-06-26] MEDS ORDERED: SERTRALINE HCL 25 MG TABLET PO SCH (14:00)
[2018-06-26 16:00] VITALS: BP 157/88
[2018-06-26 20:29] VITALS: BP 120/55
[2018-06-26] MEDS: OLANZAPINE 2.5 MG TABLET PO SCH (21:40)
[2018-06-26] MEDS: SENNOSIDES 8.6 MG TABLET PO SCH (21:41)
[2018-06-26] MEDS: TEMAZEPAM 7.5 MG CAPSULE PO PRN (22:10)
[2018-06-27 08:00] VITALS: BP 107/61
[2018-06-27] MEDS: LEVOTHYROXINE SODIUM 88 MCG TABLET PO SCH (08:15)
[2018-06-27] MEDS: HYDROCHLOROTHIAZIDE 25 MG TABLET PO SCH (08:15)
[2018-06-27] MEDS: LISINOPRIL (5MG) 5 MG TABLET PO SCH (08:15)
[2018-06-27] MEDS: DOCUSATE SODIUM 100 MG CAPSULE PO SCH ×2 (08:15→16:10)
[2018-06-27] MEDS: POLYVINYL ALCOHOL 15 ML BOTTLE EACHEYE SCH ×3 (08:18→17:08)
[2018-06-27] MEDS: OLANZAPINE 2.5 MG TABLET PO SCH ×2 (11:27→21:41)
[2018-06-27 16:00] VITALS: BP 124/80
[2018-06-27 20:00] VITALS: BP 102/52
[2018-06-27] MEDS: SENNOSIDES 8.6 MG TABLET PO SCH (21:41)
[2018-06-28 08:00] VITALS: BP 114/68
[2018-06-28] MEDS: OLANZAPINE 2.5 MG TABLET PO SCH ×2 (08:27→22:12)
[2018-06-28] MEDS: LEVOTHYROXINE SODIUM 88 MCG TABLET PO SCH (08:27)
[2018-06-28] MEDS: DOCUSATE SODIUM 100 MG CAPSULE PO SCH ×3 (08:27→16:41)
[2018-06-28] MEDS: LISINOPRIL (5MG) 5 MG TABLET PO SCH (08:28)
[2018-06-28] MEDS: HYDROCHLOROTHIAZIDE 25 MG TABLET PO SCH (08:28)
[2018-06-28] MEDS: POLYVINYL ALCOHOL 15 ML BOTTLE EACHEYE SCH ×3 (09:10→16:41)
[2018-06-28 16:00] VITALS: BP 137/80
[2018-06-28 20:00] VITALS: BP 139/82
[2018-06-28] MEDS: SENNOSIDES 8.6 MG TABLET PO SCH (22:12)
[2018-06-28] MEDS: TEMAZEPAM 7.5 MG CAPSULE PO PRN (22:42)
[2018-06-29 08:00] VITALS: BP 138/71
[2018-06-29] MEDS: OLANZAPINE 2.5 MG TABLET PO SCH ×3 (08:34→21:33)
[2018-06-29] MEDS: LISINOPRIL (5MG) 5 MG TABLET PO SCH (08:35)
[2018-06-29] MEDS: LEVOTHYROXINE SODIUM 88 MCG TABLET PO SCH (08:35)
[2018-06-29] MEDS: DOCUSATE SODIUM 100 MG CAPSULE PO SCH ×2 (08:35→17:25)
[2018-06-29] MEDS: HYDROCHLOROTHIAZIDE 25 MG TABLET PO SCH (08:36)
[2018-06-29] MEDS: POLYVINYL ALCOHOL 15 ML BOTTLE EACHEYE SCH ×3 (08:37→17:25)
[2018-06-29 16:00] VITALS: BP 120/67
--- NOTE | 2018-06-29 19:30 | NUR ---
GPS RN NOTE, RECEIVED PATIENT AWAKE AND IN BED NO S/S OR COMPLAINTS OF PAIN AT THIS TIME. PATIENT IS DISPLAYING NO S/S OF APPARENT DISTRESS AT THIS TIME. PATIENT BREATHING IS UNLABORED WITH EQUAL RISE AND FALL OF THE CHEST. PATIENT IS ALERT AND ORIENTED X 2 ON ROOM AIR WITH A SPO2 0F 95%. PATIENT IS MED COMPLIANT, DISORGANIZED, DELUSIONAL, COOPERATIVE, CONFUSED AT TIME, ISOLATIVE, AND NEEDS REORIENTATION. PATIENT DENIES SUICIDE AND HOMICIDAL IDEATIONS AT THIS TIME. PATIENT ASSISTED WITH TURNING AND REPOSITIONING Q2HR AND PRN FOR COMFORT AND CIRCULATION. PATIENT HAS NO NEEDS AT THIS TIME. PATIENT EDUCATED ON THE USE OF THE CALL LACY. PATIENT BED SIDE RAILS ARE UP X 2 FOR SAFETY, BED IS LOCKED AND LOW. WILL CONTINUE TO MONITOR AND MAINTAIN SAFETY Q15 MIN WITH THE HELP OF STAFF.
[2018-06-29 20:00] VITALS: BP 116/59
[2018-06-29] MEDS: SENNOSIDES 8.6 MG TABLET PO SCH (21:33)
[2018-06-30] MEDS: LEVOTHYROXINE SODIUM 88 MCG TABLET PO SCH (07:30)
[2018-06-30 08:00] VITALS: BP 128/60
[2018-06-30] MEDS: OLANZAPINE 2.5 MG TABLET PO SCH ×3 (08:00→21:53)
[2018-06-30] MEDS: LISINOPRIL (5MG) 5 MG TABLET PO SCH (09:00)
[2018-06-30] MEDS: HYDROCHLOROTHIAZIDE 25 MG TABLET PO SCH (09:00)
[2018-06-30] MEDS: DOCUSATE SODIUM 100 MG CAPSULE PO SCH ×2 (09:00→18:20)
[2018-06-30] MEDS: POLYVINYL ALCOHOL 15 ML BOTTLE EACHEYE SCH ×3 (09:00→18:19)
[2018-06-30] MEDS: risperiDONE 0.25 MG TABLET PO SCH ×2 (12:49→18:20)
[2018-06-30] MEDS: LORAZEPAM 0.5 MG TABLET PO SCH ×2 (13:42→18:19)
[2018-06-30 16:00] VITALS: BP 130/67
--- NOTE | 2018-06-30 19:30 | NUR ---
GPS RN NOTE, RECEIVED PATIENT AWAKE AND IN BED NO S/S OR COMPLAINTS OF PAIN AT THIS TIME. PATIENT IS DISPLAYING NO S/S OF APPARENT DISTRESS AT THIS TIME. PATIENT BREATHING IS UNLABORED WITH EQUAL RISE AND FALL OF THE CHEST. PATIENT IS ALERT AND ORIENTED X 2 ON ROOM AIR WITH A SPO2 0F 95%. PATIENT IS MED COMPLIANT, DISORGANIZED, DEPRESSED, COOPERATIVE, CONFUSED AT TIME, ISOLATIVE, AND NEEDS REORIENTATION. PATIENT DENIES SUICIDE AND HOMICIDAL IDEATIONS AT THIS TIME. PATIENT ASSISTED WITH TURNING AND REPOSITIONING Q2HR AND PRN FOR COMFORT AND CIRCULATION. PATIENT HAS NO NEEDS AT THIS TIME. PATIENT EDUCATED ON THE USE OF THE CALL LACY. PATIENT BED SIDE RAILS ARE UP X 2 FOR SAFETY, BED IS LOCKED AND LOW. WILL CONTINUE TO MONITOR AND MAINTAIN SAFETY Q15 MIN WITH THE HELP OF STAFF.
[2018-06-30 20:30] VITALS: BP 118/70
[2018-06-30] MEDS: SENNOSIDES 8.6 MG TABLET PO SCH (21:52)
--- NOTE | 2018-06-30 21:53 | NUR ---
GPS RN NOTE, PATIENT REFUSED TO TAKE SENOKOT 8.6MG PO HS AND ZYPREXA 5 MG PO HS. OFFERED SENOKOT AND ZYPREXA THREE TIMES AND STILL PATIENT REFUSED STATING, " I'M HAVING LOSE STOOL AND I THINK I'M GETTING TO MUCH ZYPREXA ". EDUCATED THIS PATIENT ON THE RISKS AND BENEFITS OF TAKING AND REFUSING ZYPREXA AND SENOKOT. WILL CONTINUE TO MONITOR THIS PATIENT.
[2018-07-01 08:00] VITALS: BP 100/56
[2018-07-01] MEDS: OLANZAPINE 2.5 MG TABLET PO SCH ×3 (08:00→21:39)
[2018-07-01] MEDS: LORAZEPAM 0.5 MG TABLET PO SCH ×3 (08:31→17:45)
[2018-07-01] MEDS: LEVOTHYROXINE SODIUM 88 MCG TABLET PO SCH (08:31)
[2018-07-01] MEDS: HYDROCHLOROTHIAZIDE 25 MG TABLET PO SCH (08:32)
[2018-07-01] MEDS: LISINOPRIL (5MG) 5 MG TABLET PO SCH (08:33)
[2018-07-01] MEDS: DOCUSATE SODIUM 100 MG CAPSULE PO SCH ×2 (08:34→18:22)
[2018-07-01] MEDS: risperiDONE 0.25 MG TABLET PO SCH ×2 (08:41→17:00)
[2018-07-01] MEDS: POLYVINYL ALCOHOL 15 ML BOTTLE EACHEYE SCH ×3 (09:09→17:00)
[2018-07-01 16:00] VITALS: BP 102/55
[2018-07-01 20:14] VITALS: BP 125/57
[2018-07-01] MEDS: SENNOSIDES 8.6 MG TABLET PO SCH (21:40)
[2018-07-01] MEDS: TEMAZEPAM 7.5 MG CAPSULE PO PRN (21:40)
[2018-07-02] MEDS: HYDROCHLOROTHIAZIDE 25 MG TABLET PO SCH (08:32)
[2018-07-02] MEDS: DOCUSATE SODIUM 100 MG CAPSULE PO SCH ×2 (08:32→17:41)
[2018-07-02] MEDS: LORAZEPAM 0.5 MG TABLET PO SCH ×3 (08:32→17:41)
[2018-07-02] MEDS: LEVOTHYROXINE SODIUM 88 MCG TABLET PO SCH (08:32)
[2018-07-02] MEDS: LISINOPRIL (5MG) 5 MG TABLET PO SCH (08:32)
[2018-07-02] MEDS: OLANZAPINE 2.5 MG TABLET PO SCH ×3 (08:33→21:25)
[2018-07-02] MEDS: risperiDONE 0.25 MG TABLET PO SCH ×2 (08:34→17:41)
[2018-07-02] MEDS: POLYVINYL ALCOHOL 15 ML BOTTLE EACHEYE SCH ×3 (08:35→17:42)
--- NOTE | 2018-07-02 08:35 | NUR ---
RN-NOTES PATIENT WAS BROUGHT IN FROM GEROPSYCH UNIT, AWAKE,ALERT SITTING IN THE WHEELCHAIR ,NO ACUTE DISTRESS NOTED. PATIENT WAS ASSISTED UP IN THE BED. ALL NEEDS ATTENDED AND ANTICIPATED. WILL CONT. MONITORING Q15 MINS. FOR SAFETY AND BEHAVIOR.
--- NOTE | 2018-07-02 14:34 | NUR ---
SW spoke to the pt in her room and she stated that she feels nervous about any placement that becomes an option for her because she does not trust people easily and is worried about the finances. The SW stated that the pt does not have to worry about the finances because her insurance is handling that aspect. SW encouraged her to give these placements an opportunity to assist her with her needs and informed her that if it is not a good fit for her then she has the right to go to a different facility.
--- NOTE | 2018-07-02 16:15 | NUR ---
MELANI faxed a referral to [facility] with attention to Christopher to the fax number: [phone].
--- NOTE | 2018-07-02 16:17 | NUR ---
MELANI called Jaime ([phone]), pt's son, and informed him that the SW sent a referral to the [facility] facility that is next to [facility] called [facility]. MELANI stated that the reason for this is because the pt does not trust the staff at [facility] and would like to be placed elsewhere. MELANI stated that the pt's psychiatrist and coffee machine technician would remain the same. MELANI also informed him that the pt was refusing her medications for two days but she did take them today so her discharge is tentatively set for .
--- NOTE | 2018-07-02 18:51 | NUR ---
RN-NOTES PATIENT SLEEPING IN BED ,NO ACUTE DISTRESS NOTED.PATIENT GUARDED,CALM AND COOPERATIVE ,COMPLIANT WITH MEDICATIONS. AMBULATORY WITH ASSIST. ALL NEEDS ATTENDED AND ANTICIPATED. ON 1:1 MONITORING FOR SAFETY AND BEHAVIOR.WILL ENDORSE TO INCOMING NURSE FOR CONTINUITY OF CARE.
--- NOTE | 2018-07-02 20:21 | NUR ---
RECIEVED ALERT AND ORIENTATED X3 SPEECH CLEAR REQUISTING TO AMBULATE IN THE CORRIDOR WITH WALKER. SHE IS PLEASENT AND COOPERATIVE. OOB WITH CROCHETER HAND AND SHE AMBULATED THE CORRIDOR WITH CROCHETER HAND FOR STANDBY ASSIST AND SHE USING A WALKER. SLOW AND STEADY.
[2018-07-02] MEDS: SENNOSIDES 8.6 MG TABLET PO SCH (21:24)
[2018-07-02 23:22] VITALS: BP 105/62
[2018-07-03] MEDS: TEMAZEPAM 7.5 MG CAPSULE PO PRN (02:04)
--- NOTE | 2018-07-03 05:02 | NUR ---
ENDING NOTES: AMBULATED THE HALLS LAST LAST NIGHT. COMMENTED SHE FEEL LESS LIKE A ZOMBIE AND HAS "MORE ENERGY" SHE REQUESTED THE SLEEPING PILL, REFUSING EARLIER WHEN OFFERED. SHE IS POLITE AND GRATEFUL TO THE NURSES EXPRESSING HER THANKS. SNACK SERVED LAST NIGHT AND SHE CONSUMED THE SNACK 100%. SITTER AT THE BEDSIDE THRU THE NIGHT. SHE WAS COOPERATIVE. NO PARANOIA VERBALIZED OR BEHAVIOR SEEN. SHE WILL LOOK AT THE MEDICINE GIVEN TO HER AND QUESTION WHAT THEY ARE FOR.
--- NOTE | 2018-07-03 07:35 | NUR ---
GPS RN OPENING NOTE, RECEIVED PATIENT IN BED, ALERT ORIENTED X3. ON ROOM AIR, TOLERATING WELL, IN NO NO APPARENT DISTRESS OR DISCOMFORT AT THIS TIME. RESPIRATIONS EVEN AND UNLABORED. DENIES PAIN AND SOB. PATIENT IS COMPLIANT AND COOPERATIVE. PATIENT DENIES SUICIDE AND HOMICIDAL IDEATIONS AT THIS TIME. PATIENT REQUIRES MINIMAL ASSISTANCE WITH MOBILITY, ABLE TO COMMUNICATE NEEDS. SITTER AT BEDSIDE. SAFETY MEASURES IN PLACE, BED IN LOW LOCKED POSITION, SIDE RAILS UP X2, CALL LIGHT WITHIN EASY REACH. WILL CONTINUE TO MONITOR AND MAINTAIN SAFETY Q15 MIN WITH THE HELP OF STAFF.
[2018-07-03 08:00] VITALS: BP 105/54
[2018-07-03] MEDS: LEVOTHYROXINE SODIUM 88 MCG TABLET PO SCH (08:57)
[2018-07-03] MEDS: DOCUSATE SODIUM 100 MG CAPSULE PO SCH ×2 (08:57→17:30)
[2018-07-03] MEDS: LORAZEPAM 0.5 MG TABLET PO SCH ×3 (08:58→17:30)
[2018-07-03] MEDS: OLANZAPINE 2.5 MG TABLET PO SCH ×3 (08:59→21:32)
[2018-07-03] MEDS: risperiDONE 0.25 MG TABLET PO SCH ×3 (08:59→17:30)
[2018-07-03] MEDS: LISINOPRIL (5MG) 5 MG TABLET PO SCH (09:00)
[2018-07-03] MEDS: HYDROCHLOROTHIAZIDE 25 MG TABLET PO SCH (09:00)
[2018-07-03] MEDS: POLYVINYL ALCOHOL 15 ML BOTTLE EACHEYE SCH ×3 (09:01→17:29)
--- NOTE | 2018-07-03 13:52 | NUR ---
RECEIVED TELEPHONE ORDER FROM DR. SOLIZ TO ORDER RISPERDAL 0.25 MG PO DAILY AT 1300, FIRST DOSE NOW. ORDER READ BACK AND VERIFIED. NOTED AND CARRIED OUT.
--- NOTE | 2018-07-03 14:33 | NUR ---
Tramaine ([phone]), behavioral health care coordinator for [facility], contacted the SW and informed her that the pt was accepted to their facility. SW informed him that she would be discharged by Sunday.
--- NOTE | 2018-07-03 19:49 | NUR ---
GPS RN CLOSING NOTE, PATIENT IN BED, ALERT ORIENTED X3. ON ROOM AIR, TOLERATING WELL, IN NO NO APPARENT DISTRESS OR DISCOMFORT AT THIS TIME. RESPIRATIONS EVEN AND UNLABORED. DENIES PAIN AND SOB. PATIENT IS COMPLIANT AND COOPERATIVE. PATIENT DENIES SUICIDE AND HOMICIDAL IDEATIONS AT THIS TIME. PATIENT REQUIRES MINIMAL ASSISTANCE WITH MOBILITY, ABLE TO COMMUNICATE NEEDS. SITTER AT BEDSIDE. SAFETY MEASURES IN PLACE, BED IN LOW LOCKED POSITION, SIDE RAILS UP X2, CALL LIGHT WITHIN EASY REACH. WILL ENDORSE TO PM NURSE FOR HAILE.
[2018-07-03] MEDS: SENNOSIDES 8.6 MG TABLET PO SCH (21:32)
[2018-07-03 21:34] VITALS: BP 120/69
--- NOTE | 2018-07-04 06:32 | NUR ---
MS RN/GPS OVERFLOW No acute events overnight. Calm and cooperative, compliant with medication, denies pain. Ambulates with walker, standby assist. Psych following, continued on [facility]/GPS hosp. 14 day hold . Labs today. Sitter at the bedside. Will endorse to oncoming RN.
--- NOTE | 2018-07-04 08:15 | NUR ---
ms rn received on bed, awake,alert,oriented x3,gps overflow,not in any form of distress, respirations even and unlabored,no sob noted, w/ sitter for safety and comfort, will monitor patient.
[2018-07-04 08:49] LABS: CALCIUM, SERUM 9.5 mg/dL (8.5-10.1); CARBON DIOXIDE 21 mmol/L (21-32); CHLORIDE 103 mmol/L (98-107); CREATININE 0.8 mg/dL (0.6-1.3); GLUCOSE 83 mg/dL (74-106); MAGNESIUM 2.1 mg/dL (1.8-2.4); POTASSIUM 4.8 mmol/L (3.5-5.1); SODIUM SERUM 135 mmol/L (136-145); UREA NITROGEN, BLOOD 21 mg/dL (7-18)
[2018-07-04 08:53] LABS: BASOPHILS # (AUTO) 0.1 /CMM (0.0-0.2); BASOPHILS % (AUTO) 1.9 % (0.0-2.0); EOSINOPHILS % (AUTO) 5.9 % (0.0-6.0); HEMATOCRIT 36 % (33-45); HEMOGLOBIN 12.2 g/dL (11.5-14.8); LYMPHOCYTES # (AUTO) 1.8 /CMM (0.8-4.8); LYMPHOCYTES % (AUTO) 25.4 % (20.0-44.0); MEAN CORPUSCULAR HGB CONC 34 g/dl (31.0-36.0); MEAN CORPUSCULAR VOLUME 90 fL (82-100); MONOCYTES # (AUTO) 0.7 /CMM (0.1-1.30); MONOCYTES % (AUTO) 10.2 % (2.0-12.0); NEUTROPHILS % (AUTO) 56.6 % (43.0-81.0); RED BLOOD CELL COUNT(AUTO) 3.96 MIL/uL (4.0-5.2); WHITE BLOOD COUNT (AUTO) 7.1 K/uL (4.3-11.0)
[2018-07-04 08:57] LABS: PLATELET COUNT (AUTO) 103 /CMM (150-450)
[2018-07-04] MEDS: POLYVINYL ALCOHOL 15 ML BOTTLE EACHEYE SCH ×3 (09:00→17:00)
--- NOTE | 2018-07-04 10:00 | NUR ---
MS MYRICK BREAKFAST SERVED,DUE MEDS GIVEN,TOLERATED WELL.
[2018-07-04] MEDS: LORAZEPAM 0.5 MG TABLET PO SCH ×3 (10:14→18:38)
[2018-07-04] MEDS: risperiDONE 0.25 MG TABLET PO SCH ×3 (10:15→18:38)
[2018-07-04] MEDS: DOCUSATE SODIUM 100 MG CAPSULE PO SCH ×2 (10:15→18:38)
[2018-07-04] MEDS: LISINOPRIL (5MG) 5 MG TABLET PO SCH (10:16)
[2018-07-04] MEDS: HYDROCHLOROTHIAZIDE 25 MG TABLET PO SCH (10:17)
[2018-07-04] MEDS: LEVOTHYROXINE SODIUM 88 MCG TABLET PO SCH (10:20)
[2018-07-04] MEDS: OLANZAPINE 2.5 MG TABLET PO SCH ×2 (10:20→13:55)
--- NOTE | 2018-07-04 16:16 | NUR ---
MELANI called Jaime ([phone]), pt's son, and informed him that the pt will be discharged tomorrow at 11AM to [facility]. He stated that he would try to visit her over the weekend.
--- NOTE | 2018-07-04 16:17 | NUR ---
MELANI called Priscilla ([phone]), from the [employer], and informed her that the pt will be discharged to [facility] tomorrow.
--- NOTE | 2018-07-04 18:00 | NUR ---
M SRN ON BED, NO DISTRESS NOTED,ALL NEEDS ATTENDED.
--- NOTE | 2018-07-04 19:27 | NUR ---
MS RN PT RECEIVE IN BED. A/O X 3 WITH PERIOD OF FORGETFULNESS. NOT IN ANY FORM OF DISTRESS, RESPIRATIONS EVEN AND UNLABORED, NO SOB NOTED, STABLE CONDITION. SAFETY MEASURES IN PLACE. WILL CONTINUE TO MONITOR.
[2018-07-04 20:00] VITALS: BP 108/55
[2018-07-04] MEDS: TEMAZEPAM 7.5 MG CAPSULE PO PRN (21:09)
[2018-07-04] MEDS: SENNOSIDES 8.6 MG TABLET PO SCH (21:09)
[2018-07-04] MEDS ORDERED: OLANZAPINE 2.5 MG TABLET PO SCH (22:00)
--- NOTE | 2018-07-05 06:28 | NUR ---
RN CLOSING NOTE ASLEEP AND EASILY AWAKEN. IN NO APPARENT DISTRESS OR DISCOMFORT AT THIS TIME. RESPIRATIONS EVEN AND UNLABORED. DENIES PAIN AND SOB AT THIS TIME. PATIENT KEPT CLEAN AND COMFORTABLE. ALL NEEDS ATTENDED. 1:1 SITTER AT BEDSIDE, NO PSYCHIATRIC INSTABILITY. SAFETY MEASURES IN PLACE, BED IN LOW LOCKED POSITION, CALL LIGHT WITHIN EASY REACH. ENDORSE TO NEXT SHIFT CONTINUITY OF CARE.
--- NOTE | 2018-07-05 07:26 | NUR ---
GPS RN OPENING NOTES RECEIVED PT AWAKE, RESTING IN BED BED, A/O X3. TOLERATING RA WITH NO ANY ACUTE RESPIRATORY DISTRESS. DENIES PAIN OR ANY DISCOMFORT AT THIS MOMENT. 1:1 SITTER PRESENT BEDSIDE. PT KEPT IN BED; IN LOWEST, LOCKED POSITION. CALL LIGHT KEPT WITHIN REACH. WILL CONTINUE PLAN OF CARE.
[2018-07-05] MEDS: LEVOTHYROXINE SODIUM 88 MCG TABLET PO SCH (07:49)
[2018-07-05] MEDS: OLANZAPINE 2.5 MG TABLET PO SCH (07:49)
[2018-07-05] MEDS: LORAZEPAM 0.5 MG TABLET PO SCH (08:46)
[2018-07-05] MEDS: DOCUSATE SODIUM 100 MG CAPSULE PO SCH (08:46)
[2018-07-05] MEDS: risperiDONE 0.25 MG TABLET PO SCH (08:46)
[2018-07-05 08:47] VITALS: BP 120/67
[2018-07-05] MEDS: LISINOPRIL (5MG) 5 MG TABLET PO SCH (08:47)
[2018-07-05] MEDS: HYDROCHLOROTHIAZIDE 25 MG TABLET PO SCH (08:47)
[2018-07-05] MEDS: POLYVINYL ALCOHOL 15 ML BOTTLE EACHEYE SCH (08:53)
--- NOTE | 2018-07-05 10:08 | NUR ---
DR. SOLIZ GAVE AN ORDER TO D/C HOLD AND [facility], TO CONTINUE SAME MEDS INCLUDING PRN AND TO FOLLOW UP WITH PSYCH AND MEDICAL DOCTORS.
--- NOTE | 2018-07-05 11:39 | NUR ---
GPS OVERFLOW DISCHARGE NOTES PT AWAKE A/O X3. [facility], REPORT GIVEN TO DAISY AT THAT SNF. PT REFUSED TO SIGN DISCHARGE PAPERS DUE TO VISUAL PROBLEM. PT TOLERATING RA, WITHOUT DISTRESS NOTED. DENIES HISI. DENIES ANY PAIN OR DISCOMFORT AT THE TIME OF GIVING DISCHARGE INSTRUCTION AT 1115. PT ABLE TO TRANSFER HERSELF WITH FWW TO [facility], WITH 2 PERSON ASSIST OF INVENTORY TRANSCRIBER. ALL NEEDS AND CARE PROVIDED. PT LEFT THE UNIT AT 1120 WITH 2 INVENTORY TRANSCRIBER. CN AND MD AWARE OF DISCHARGE. Addendum: 07/05/18 at 1222 by SEBLE [facility] RN ADDENDUM: PATIENT DENIES HI/SI.
--- NOTE | 2018-07-05 12:29 | NUR ---
Discharge Note: Pt was discharged to [facility] (SNF) [place] [address] [place] [address]; ([phone]). Pt was transported via [facility] (Trip #[id number]) at 11AM. Pts son, Jaime ([phone]), was informed of the discharge. Upon discharge, the pt appeared to be in a depressed mood and presented with an anxious affect. Pt denied both suicidal and homicidal ideation as well as auditory and visual hallucinations. Pt stated that she was feeling anxious about her placement because she is not sure if she can trust the staff at the next facility. Pt will be under the care of her psychiatrist, Dr. Loredo, [place] at [address] [place] [address]; and her consultant in ergonomics and safety, Dr. Dunne, located at [address], [address] [place] [address]; .
== END 2018-07-05 11:27 | DRG 885 ==
LOC: GPS 22:44 → GPSOV 07-02 08:46
PROVIDERS: ADMIT Psychiatry & Neurology Psychosomatic Medicine
DX: F25.1 Schizoaffective disorder, depressive type (principal); N39.0 Urinary tract infection, site not specified; E87.1 Hypo-osmolality and hyponatremia; F41.9 Anxiety disorder, unspecified; E78.5 Hyperlipidemia, unspecified; E03.9 Hypothyroidism, unspecified; F03.90 Unspecified dementia, unspecified severity, without behavioral disturbance, psychotic disturbance, mood disturbance, and anxiety; I10 Essential (primary) hypertension; B96.20 Unspecified Escherichia coli [E. coli] as the cause of diseases classified elsewhere; F09 Unspecified mental disorder due to known physiological condition
CPT/HCPCS: 36415; 80048-TC; 80053-TC; 80061-TC; 83735-TC; 84100-TC; 85025-TC

== ENCOUNTER 2018-09-07 22:03 | Emergency (ER) | payer MEDICARE, MEDICAID ==
[~2018-09-07] VITALS: Ht 160 cm; Wt 64.9 kg
--- NOTE | 2018-09-07 22:10 | NUR ---
PT [id number] FROM [facility] C/O "VERTIGO" X 1 WEEK. DENIES N/V. NAD NOTED. RESP EVEN AND UNLABORED. PT DENIES PAIN AT THIS TIME. AOX4. PT ON MONITOR IN BED 10. WILL CONTINUE TO MONITOR.
[2018-09-07] MEDS ORDERED: MECLIZINE HCL 12.5 MG TABLET PO ONE (22:30)
[2018-09-07] MEDS ORDERED: IV NS 0.9% 500 ML BAG IV ONE (22:30)
--- NOTE | 2018-09-07 22:30 | NUR ---
URINE COLLECTED AND SENT TO LAB
--- NOTE | 2018-09-07 22:37 | NUR ---
BLOOD DRAWN AND GIVEN TO LAB
[2018-09-07 22:38] LABS: APPEARANCE,URINE Clear (CLEAR); BILIRUBIN,URINE Negative (NEGATIVE); BLOOD, URINE Negative Ery/uL (NEGATIVE); COLOR,URINE Light yellow (YELLOW); KETONES,URINE Negative (NEGATIVE); LEUKOCYTE ESTERASE ,URINE Negative (NEGATIVE); NITRITE, URINE Negative (NEGATIVE); PROTEIN,URINE Negative (NEGATIVE); UGLUCOSE Negative (NEGATIVE); UROBILINOGEN,URINE 0.2 EU/dL (0.2)
[2018-09-07 22:46] LABS: BASOPHILS % (AUTO) 0.7 % (0.0-2.0); EOSINOPHILS % (AUTO) 6.2 % (0.0-6.0); HEMATOCRIT 36 % (33-45); HEMOGLOBIN 12.5 g/dL (11.5-14.8); LYMPHOCYTES # (AUTO) 2.2 /CMM (0.8-4.8); LYMPHOCYTES % (AUTO) 35.5 % (20.0-44.0); MEAN CORPUSCULAR HGB CONC 35 g/dl (31.0-36.0); MEAN CORPUSCULAR VOLUME 90 fL (82-100); MONOCYTES # (AUTO) 0.7 /CMM (0.1-1.30); MONOCYTES % (AUTO) 11.2 % (2.0-12.0); NEUTROPHILS # (AUTO) 2.8 /CMM (1.8-8.9); NEUTROPHILS % (AUTO) 46.4 % (43.0-81.0); PLATELET COUNT (AUTO) 326 /CMM (150-450); RED BLOOD CELL COUNT(AUTO) 4.03 MIL/uL (4.0-5.2); WHITE BLOOD COUNT (AUTO) 6.1 K/uL (4.3-11.0)
[2018-09-07] MEDS ORDERED: MECLIZINE HCL 25 MG TABLET ONE (22:52)
[2018-09-07 22:54] LABS: CALCIUM, SERUM 9.5 mg/dL (8.5-10.1); CARBON DIOXIDE 26 mmol/L (21-32); CHLORIDE 102 mmol/L (98-107); CREATININE 0.9 mg/dL (0.6-1.3); GLUCOSE 107 mg/dL (74-106); SODIUM SERUM 136 mmol/L (136-145); UREA NITROGEN, BLOOD 23 mg/dL (7-18)
--- NOTE | 2018-09-07 22:59 | NUR ---
PT RETURNED FROM RADIOLOGY. PT TOLERATED WELL.
[2018-09-07 23:00] LABS: ALANINE AMINOTRANSFERASE 18 U/L (12-78); ALBUMIN 3.1 g/dL (3.4-5.0); ALKALINE PHOSPHATASE 99 U/L (46-116); ASPARTATE AMINOTRANSFERASE 15 U/L (15-37); BILIRUBIN,TOTAL 0.2 mg/dL (0.2-1.0); TOTAL PROTEIN, SERUM 7.3 g/dL (6.4-8.2)
--- NOTE | 2018-09-07 23:03 | NUR ---
TECH AT BEDSIDE FOR EKG
[2018-09-08 00:07] VITALS: BP 139/111
--- NOTE | 2018-09-08 00:08 | NUR ---
PT RESTING COMFORTABLY IN BED. NO PAIN AT THIS TIME. VSS.
--- NOTE | 2018-09-08 00:37 | NUR ---
[facility] CALLED FOR BLS TRANSPORT. ETA 2-2.5 HRS.
--- NOTE | 2018-09-08 02:38 | NUR ---
REPORT GIVEN TO DAVE AT [facility] FOR HAILE
== END 2018-09-08 02:47 | disposition home or self-care (01) ==
LOC: ER 22:06
DX: R42 Dizziness and giddiness (principal); I10 Essential (primary) hypertension; G20 Parkinson's disease; F02.80 Dementia in other diseases classified elsewhere, unspecified severity, without behavioral disturbance, psychotic disturbance, mood disturbance, and anxiety; K21.9 Gastro-esophageal reflux disease without esophagitis; M62.81 Muscle weakness (generalized); F20.9 Schizophrenia, unspecified; F41.9 Anxiety disorder, unspecified; E03.9 Hypothyroidism, unspecified; Z87.442 Personal history of urinary calculi; Z87.440 Personal history of urinary (tract) infections; Z90.89 Acquired absence of other organs; Z98.890 Other specified postprocedural states
CPT/HCPCS: 36415; 70450; 80048; 80076; 81001; 84484; 85025; 85730; 93005; 99284; J7040; J8597; 81000-TC

== ENCOUNTER 2019-03-28 18:35 | Emergency (ER) | payer MEDICAID, MEDICARE ==
[~2019-03-28] VITALS: Ht 160 cm; Wt 74.8 kg
--- NOTE | 2019-03-28 18:55 | NUR ---
PT AAOX4. AMBULATORY USING WALKER. BRENDA FROM [facility], C/O GEN WEAKNESS FOR 2 DAYS, HX SYNCOPAL. RR EVEN AND UNLABORED. NO ACUTE DISTRESS NOTED. PT ABLE TO GRASP HANDS, PUSH AND PULL. PLACED ON MONITOR AND PULSE OX. AWAITING FOR MD FOR EVAL.
[2019-03-28] MEDS ORDERED: NA P133E RC (19:03)
[2019-03-28] MEDS ORDERED: OLAN2.5T3 PO ×2 (19:03)
[2019-03-28] MEDS ORDERED: LORA-259 PO (19:03)
[2019-03-28] MEDS ORDERED: POLY15DR40 EACHEYE (19:03)
[2019-03-28] MEDS ORDERED: BISA10SU11 RC (19:03)
[2019-03-28] MEDS ORDERED: OMEG1CAP PO (19:03)
--- NOTE | 2019-03-28 19:18 | NUR ---
PT AMBULATED TO RESTROOM USING WALKER.
[2019-03-28 20:21] LABS: BASOPHILS # (AUTO) 0.1 /CMM (0.0-0.2); BASOPHILS % (AUTO) 1.1 % (0.0-2.0); EOSINOPHILS % (AUTO) 7.1 % (0.0-6.0); HEMATOCRIT 37 % (33-45); HEMOGLOBIN 12.8 g/dL (11.5-14.8); LYMPHOCYTES # (AUTO) 1.9 /CMM (0.8-4.8); LYMPHOCYTES % (AUTO) 32.1 % (20.0-44.0); MEAN CORPUSCULAR HGB CONC 34 g/dl (31.0-36.0); MEAN CORPUSCULAR VOLUME 89 fL (82-100); MONOCYTES # (AUTO) 0.7 /CMM (0.1-1.30); MONOCYTES % (AUTO) 11.1 % (2.0-12.0); NEUTROPHILS # (AUTO) 2.8 /CMM (1.8-8.9); NEUTROPHILS % (AUTO) 48.6 % (43.0-81.0); PLATELET COUNT (AUTO) 307 /CMM (150-450); RED BLOOD CELL COUNT(AUTO) 4.17 MIL/uL (4.0-5.2); WHITE BLOOD COUNT (AUTO) 5.9 K/uL (4.3-11.0)
[2019-03-28 20:31] LABS: CALCIUM, SERUM 9.6 mg/dL (8.5-10.1); CARBON DIOXIDE 26 mmol/L (21-32); CHLORIDE 97 mmol/L (98-107); GLUCOSE 141 mg/dL (74-106); POTASSIUM 3.7 mmol/L (3.5-5.1); SODIUM SERUM 130 mmol/L (136-145); UREA NITROGEN, BLOOD 19 mg/dL (7-18)
[2019-03-28] MEDS ORDERED: IV NS 0.9% 1,000 ML BAG IV ONE (21:30)
--- NOTE | 2019-03-28 21:31 | NUR ---
SPOKE TO [facility] WAS TOLD PT VERBALIZED SHE HAS BEEN HAVING [facility] FOR THE PAST WEEK AND IS NOT ABLE TO "AMBULATE PER USUAL" WAS SENT FOR EVAL OF [facility].
--- NOTE | 2019-03-28 21:46 | NUR ---
URINE COLLECTED AND SENT TO LAB
[2019-03-28 21:53] LABS: APPEARANCE,URINE Clear (CLEAR); BILIRUBIN,URINE Negative (NEGATIVE); BLOOD, URINE Negative Ery/uL (NEGATIVE); COLOR,URINE Yellow (YELLOW); KETONES,URINE Negative (NEGATIVE); LEUKOCYTE ESTERASE ,URINE Trace (NEGATIVE); NITRITE, URINE Negative (NEGATIVE); PROTEIN,URINE Negative (NEGATIVE); UGLUCOSE Negative (NEGATIVE); UROBILINOGEN,URINE 0.2 EU/dL (0.2)
[2019-03-28 22:31] LABS: BACTERIA,URINE None seen /HPF (None Seen); RBC,URINE 0-2 /HPF (0-2); SQUAMOUS EPITHELIAL CELL,UR Few /HPF (None Seen)
--- NOTE | 2019-03-28 22:34 | NUR ---
[facility] ETA [address] [facility] [id number]
--- NOTE | 2019-03-28 23:21 | NUR ---
[facility] AT BEDSIDE REPORT GIVEN
--- NOTE | 2019-03-28 23:30 | NUR ---
Patient discharged to home in stable condition. Written and verbal after care instructions given. Patient verbalizes understanding of instruction. IV removed. Catheter intact and site benign. Pressure and 4x4 applied to site. No bleeding noted. Copies of labs given to [facility] to hand to facility. PT transfered via [facility].
[2019-03-28 23:58] VITALS: BP 124/68
== END 2019-03-28 23:40 ==
LOC: ER 18:36
DX: R55 Syncope and collapse (principal); G20 Parkinson's disease; F02.80 Dementia in other diseases classified elsewhere, unspecified severity, without behavioral disturbance, psychotic disturbance, mood disturbance, and anxiety; I10 Essential (primary) hypertension; E03.9 Hypothyroidism, unspecified; K21.9 Gastro-esophageal reflux disease without esophagitis; R53.1 Weakness; F20.9 Schizophrenia, unspecified; F41.9 Anxiety disorder, unspecified; Z87.442 Personal history of urinary calculi; Z87.440 Personal history of urinary (tract) infections; Z90.89 Acquired absence of other organs; Z98.890 Other specified postprocedural states; Z88.0 Allergy status to penicillin; Z88.2 Allergy status to sulfonamides; Z88.1 Allergy status to other antibiotic agents; Z79.899 Other long term (current) drug therapy
CPT/HCPCS: 36415; 71045; 80048; 81001; 84484; 85025; 93005; 99285; J7040; 81000-TC; J7030

== ENCOUNTER 2020-12-30 14:26 | Inpatient (IN) | payer MEDICARE, OTHER ==
[~2020-12-30] VITALS: Ht 160 cm; Wt 73.5 kg
[~2020-12-30 14:26] MED LIST changes: -BENZ0.5T43 PO; +BISA10SU11 RC; -CEPH-570 PO; -DEXT15DR6 EACHEYE; -KRIL1CAP PO; -LISI-607 PO; +LISI-768 PO; +LORA-259 PO; -MAG30ORA PO; +OLAN2.5T3 PO; +OMEG1CAP PO; +POLY15DR40 EACHEYE; -RISP1TAB7 PO; -SENN-168 PO
--- NOTE | 2020-12-30 14:33 | NUR ---
CALLED DR. KUNZ, SPEAKING WITH DR. HARRY. [phone]
--- NOTE | 2020-12-30 14:40 | NUR ---
CALLED [facility] [phone] ABOUT PT COVID VACCINE STATUS MODERNA 05/12/20 AND 06/10/20 PER NAHOMY
--- NOTE | 2020-12-30 14:50 | NUR ---
[facility], SENT FOR L BREAST BIOPSY. DENIES ANY DISCOMFORT PER EMS REPORT [facility] SN[facility] FOR L BREAST LESION. THE PATIENT DENIES PAIN. IN ROOM AIR AND DENIES SOB. RESPIRATION REGULAR AND UNLABORED. WILL CONTINUE TO MONITOR THE PATIENT.
[2020-12-30] MEDS ORDERED: CARB15DR OP (15:17)
[2020-12-30] MEDS ORDERED: MELA3TAB41 PO (15:17)
[2020-12-30] MEDS ORDERED: CRAN400C PO (15:17)
[2020-12-30] MEDS ORDERED: LORA-258 PO (15:17)
[2020-12-30] MEDS ORDERED: NEPA3DRO EACHEYE (15:17)
[2020-12-30] MEDS ORDERED: SODI100037 PO (15:17)
[2020-12-30 15:35] LABS: BASOPHILS # (AUTO) 0.1 K/uL (0.0-0.2); HEMATOCRIT 37 % (33-45); HEMOGLOBIN 12.4 g/dL (11.5-14.8); LYMPHOCYTES # (AUTO) 1.3 K/uL (0.8-4.8); MEAN CORPUSCULAR HGB CONC 34 g/dl (31.0-36.0); MEAN CORPUSCULAR VOLUME 91 fL (82-100); MONOCYTES # (AUTO) 0.6 K/uL (0.1-1.30); MONOCYTES % (AUTO) 11.9 % (2.0-12.0); NEUTROPHILS # (AUTO) 3.3 K/uL (1.8-8.9); NEUTROPHILS % (AUTO) 62.1 % (43.0-81.0); PLATELET COUNT (AUTO) 292 K/uL (150-450); RED BLOOD CELL COUNT(AUTO) 4.06 MIL/uL (4.0-5.2); WHITE BLOOD COUNT (AUTO) 5.4 K/uL (4.3-11.0)
--- NOTE | 2020-12-30 15:56 | NUR ---
COVID SWAB DONE AND SENT TO THE LAB
[2020-12-30 16:07] LABS: CALCIUM, SERUM 9.3 mg/dL (8.5-10.1); CREATININE 1.1 mg/dL (0.6-1.3); POTASSIUM 4.2 mmol/L (3.5-5.1)
--- NOTE | 2020-12-30 17:02 | NUR ---
PSYCHIATRIC CALLED [facility].
[2020-12-30] MEDS ORDERED: MAGNESIUM HYDROXIDE 30 ML UDC PO PRN ×2 (19:30)
[2020-12-30] MEDS ORDERED: ACETAMINOPHEN 325 MG TABLET PO PRN ×2 (19:30)
[2020-12-30] MEDS ORDERED: ZOLPIDEM TARTRATE 5 MG TABLET PO PRN (19:30)
[2020-12-30] MEDS ORDERED: ONDANSETRON HCL/PF 4 MG/2 ML VIAL IVP PRN (19:30)
[2020-12-30] MEDS ORDERED: Z GUARD REMEDY 2 OZ OINT TP PRN (19:30)
[2020-12-30] MEDS ORDERED: MAG HYDROX/AL HYDROX/SIMETH 30 ML UDC PO PRN (19:30)
[2020-12-30] MEDS ORDERED: NA PHOS,M-B/NA PHOS,DI-BA 1 EA ENEMA RC PRN (19:30)
--- NOTE | 2020-12-30 19:30 | NUR ---
RONENID SWABBED, SENT TO LAB.
--- NOTE | 2020-12-30 21:13 | NUR ---
REPORT GIVEN TO SHAHEEN MYRICK FOR HAILE
--- NOTE | 2020-12-30 21:32 | NUR ---
PT TRANSFERED PER ACLS PROTOCOL
[2020-12-30 22:00] VITALS: BP 165/68
[2020-12-30] MEDS: LORAZEPAM 0.5 MG TABLET PO SCH (22:00)
[2020-12-30] MEDS ORDERED: MELATONIN 3 MG TABLET PO SCH (22:00)
[2020-12-30] MEDS: SODIUM CHLORIDE 1000 MG TABLET PO SCH (22:00)
--- NOTE | 2020-12-30 22:00 | NUR ---
ADMITTED PATIENT FROM ED DUE TO LEFT BREAST MASS AND NEEDING TO HAVE A BIOPSY. ALERT/ORIENTED X3, LUNGS ARE CLEAR, ABDOMEN SOFT AND NON-TENDER, COVID VACCINATED MODERNA X2, AFEBRILE, 98% ON ROOM AIR, NO COUGHING, CXR CLEAR. GENERALIZED WEAKNESS, HX OF PARKINSON'S DISEASE, UNSTEADY GAIT, NEEDS ASSISTANCE WITH AMBULATION, CONTINENT OF BOWEL AND BLADDER, BRP WITH ASSIST. LEFT BREAST ASSESSED, SKIN INTACT, PALPABLE MASS.
--- NOTE | 2020-12-30 22:09 | NUR ---
Melatonin not given, medication not available
[2020-12-31 00:29] VITALS: BP 154/68
--- NOTE | 2020-12-31 06:27 | NUR ---
ALERT/ORIENTED X3, ROOM AIR, CALM, COOPERATIVE, AFEBRILE, NO COUGHING, PENDING PCR TEST, ASSISTED TO TOILET, GENERALIZED WEAKNESS, FOR LEFT BREAST BIOPSY, CONSENT SIGNED AND IN CHART.
--- NOTE | 2020-12-31 07:18 | NUR ---
MS RN OPENING NOTE RECEIVED ON BED ALERT AND ORIENTED x 4. NO S/SX OF ACUTE DISTRESS AT THIS TIME. NO SOB NOTED, WITH REGULAR, EVEN AND UNLABORED BREATHING. ON ROOM AIR WITH OXYGEN SATURATION OF 95%. NOTED IV SITE ON L AC#20; PATENT, INTACT AND FLUSHING WELL; NO S/S OF INFECTION OR INFILTRATION. PATIENT IS AMBULATORY WITH ASSIST AND ABLE TO VERBALIZE NEEDS. SAFETY MEASURES HAVE BEEN PROVIDED AND IMPLEMENTED. PATIENT BED ALARM IS ON. HEAD OF BED ELEVATED. BED IS LOCKED AND IN LOWEST POSITION AND SIDE RAILS UP. CALL LIGHT WITHIN REACH OF THE PATIENT. APPLICABLE ISOLATION PRECAUTIONS IN PLACE. WILL CONTINUE TO MONITOR PATIENT.
--- NOTE | 2020-12-31 08:30 | NUR ---
MS RN NOTE RECEIVED A CALL FROM [facility] OF RADIOLOGY DEPARTMENT SAYING THE BIOPSY CANNOT BE DONE BECAUSE THEY DONT HAVE THE BIOPSY SET AND THAT IT IS USUALLY DONE OUTPATIENT AND THAT ULTRASOUND SHOULD BE DONE WHERE BIOPSY WILL BE DONE. CHARGE NURSE AWARE. WILL WAIT FOR FURTHER ORDER. WILL CONTINUE TO MONITOR PATIENT.
[2020-12-31] MEDS: LEVOTHYROXINE SODIUM 75 MCG TABLET PO SCH (08:33)
[2020-12-31] MEDS: DOCUSATE SODIUM 100 MG CAPSULE PO SCH ×2 (08:38→16:50)
[2020-12-31] MEDS: LORAZEPAM 0.5 MG TABLET PO SCH ×2 (08:39→21:23)
[2020-12-31] MEDS: OLANZAPINE 2.5 MG TABLET PO SCH ×3 (08:39→16:51)
[2020-12-31] MEDS: LISINOPRIL (5MG) 5 MG TABLET PO SCH (08:39)
[2020-12-31] MEDS ORDERED: Medication Not On Formulary EA (Nepafenac (Nevanac) 1 DROP) OP SCH (09:00)
[2020-12-31] MEDS: CARBOXYMETHYLCELLULOSE SODIUM 0.4 ML DROPERETTE OP SCH ×3 (10:09→16:51)
--- NOTE | 2020-12-31 15:00 | NUR ---
MS RN NOTE PATIENT SEEN BY DREW BENTLEY UNDER DR. KUNZ WITH ORDER FOR CT SCAN WITH CONTRAST BUT PATIENT VERBALIZED NOT BEING COMFORTABLE GETTING THE CT SCAN WITHOUT CONTRAST. INITIALLY SHE SAID THAT SHE HAVE/ MIGHT HAVE AN ALLERGY. WHEN ASKED WHAT KIND OF REACTION SHE HAD/ MIGHT HAVE GOTTEN BEFORE, SHE SAID SHE IS AFTRAID SHE MIGHT HAVE A REACTION AND PREFERS TO HAVE THE CT SCAN WITHOUT CONTRAST. DREW BENTLEY NOTIFIED. AWAITING ORDER/ INSTRUCTION. WILL CONTINUE TO MONITOR PATIENT.
[2020-12-31] MEDS ORDERED: Medication Not On Formulary EA (Omega-3 Fatty Acids/Fish Oil (Fish Oil 1,000 Mg Capsule) PO SCH (17:00)
--- NOTE | 2020-12-31 18:00 | NUR ---
MS RN NOTE PATIENT REFUSED TO HAVE CT SCAN DONE ALTOGETHER. HARDBOARD SUPERVISOR MC NOTIFIED. SHE SAID SHE WILL TALK TO PATIENT AGAIN TOMORROW TO DISCUSS RISKS AND BENEFITS FOR THE PATIENT. WILL CONTINUE TO MONITOR PATIENT.
--- NOTE | 2020-12-31 18:58 | NUR ---
MS RN CLOSING NOTE PATIENT ON BED ALERT AND ORIENTED x 4. NO S/SX OF ACUTE DISTRESS AT THIS TIME. NO SOB NOTED, WITH REGULAR, EVEN AND UNLABORED BREATHING. ON ROOM AIR WITH OXYGEN SATURATION OF 95%. NOTED IV SITE ON L AC#20; PATENT, INTACT AND FLUSHING WELL; NO S/S OF INFECTION OR INFILTRATION. PATIENT IS AMBULATORY WITH ASSIST AND ABLE TO VERBALIZE NEEDS. SAFETY MEASURES HAVE BEEN PROVIDED AND IMPLEMENTED. PATIENT BED ALARM IS ON. HEAD OF BED ELEVATED. BED IS LOCKED AND IN LOWEST POSITION AND SIDE RAILS UP. CALL LIGHT WITHIN REACH OF THE PATIENT. APPLICABLE ISOLATION PRECAUTIONS IN PLACE. WILL ENDORSE TO NEXT SHIFT FOR CONTINUITY OF CARE.
[2020-12-31 20:00] VITALS: BP 151/69
[2020-12-31] MEDS: SODIUM CHLORIDE 1000 MG TABLET PO SCH (21:23)
[2020-12-31 22:09] LABS: BASOPHILS # (AUTO) 0.1 K/uL (0.0-0.2); BASOPHILS % (AUTO) 1.3 % (0.0-2.0); EOSINOPHILS % (AUTO) 0.1 % (0.0-6.0); HEMATOCRIT 34 % (33-45); HEMOGLOBIN 11.8 g/dL (11.5-14.8); LYMPHOCYTES # (AUTO) 1.6 K/uL (0.8-4.8); LYMPHOCYTES % (AUTO) 27.9 % (20.0-44.0); MEAN CORPUSCULAR HGB CONC 34 g/dl (31.0-36.0); MEAN CORPUSCULAR VOLUME 90 fL (82-100); MONOCYTES # (AUTO) 0.7 K/uL (0.1-1.30); MONOCYTES % (AUTO) 11.8 % (2.0-12.0); NEUTROPHILS # (AUTO) 3.5 K/uL (1.8-8.9); NEUTROPHILS % (AUTO) 58.9 % (43.0-81.0); PLATELET COUNT (AUTO) 316 K/uL (150-450); RED BLOOD CELL COUNT(AUTO) 3.81 MIL/uL (4.0-5.2); WHITE BLOOD COUNT (AUTO) 5.9 K/uL (4.3-11.0)
[2020-12-31 22:24] LABS: PHOSPHORUS 2.8 mg/dL (2.5-4.9); POTASSIUM 3.9 mmol/L (3.5-5.1)
[2021-01-01 04:00] VITALS: BP 149/76
--- NOTE | 2021-01-01 07:30 | NUR ---
RN NOTE PT FOUND IN SEMI FOWLERS POSITION, DISPLAYING NO S/S OF DISTRESS, PT ENDORSES NO PAIN AND BREATHING IS EVEN AND UNLABORED. L AC 20G, IV PATIENT AND INTACT. WILL CONTINUE TO MONITOR. SAFETY MEASURES IN PLACE, BED LOCKED AND IN LOWEST POSITION, SIDE RAILS UPX2, CALL LIGHT WITHIN REACH, PT INSTRUCTED TO CALL FOR ASSISTANCE.
[2021-01-01] MEDS: LEVOTHYROXINE SODIUM 75 MCG TABLET PO SCH (08:29)
[2021-01-01] MEDS: LISINOPRIL (5MG) 5 MG TABLET PO SCH (09:16)
[2021-01-01] MEDS: CARBOXYMETHYLCELLULOSE SODIUM 0.4 ML DROPERETTE OP SCH ×3 (09:16→17:33)
[2021-01-01] MEDS: LORAZEPAM 0.5 MG TABLET PO SCH ×2 (09:17→21:17)
[2021-01-01] MEDS: OLANZAPINE 2.5 MG TABLET PO SCH ×3 (09:17→17:33)
[2021-01-01] MEDS: DOCUSATE SODIUM 100 MG CAPSULE PO SCH ×2 (09:17→17:33)
--- NOTE | 2021-01-01 10:00 | NUR ---
MD VISIT DR KAYE SAW PT. ADVISED PT TO GET CT W/ CONTRAST AND BIOPSY. PT NEITHER AGREED NOR DENIED PROCEDURE. DR KAYE INFORMED PT THAT HE'LL COMMUNICATE WITH OTHER PROVIDER.
[2021-01-01 12:00] VITALS: BP 158/67
[2021-01-01] MEDS ORDERED: CLONIDINE HCL 0.1 MG TABLET PO PRN (17:30)
--- NOTE | 2021-01-01 19:00 | NUR ---
RN NOTE PT FOUND IN SEMI FOWLERS POSITION, DISPLAYING NO S/S OF DISTRESS, PT ENDORSES NO PAIN AND BREATHING IS EVEN AND UNLABORED. L AC 20G, IV PATIENT AND INTACT. SAFETY MEASURES IN PLACE, BED LOCKED AND IN LOWEST POSITION, SIDE RAILS UPX2, CALL LIGHT WITHIN REACH, PT INSTRUCTED TO CALL FOR ASSISTANCE. DESPATCHING AND RECEIVING CLERK GIVEN REPORT, ALL QUESTIONS ANSWERED.
[2021-01-01 20:00] VITALS: BP 123/71
[2021-01-01] MEDS: SODIUM CHLORIDE 1000 MG TABLET PO SCH (21:16)
[2021-01-02 04:00] VITALS: BP 149/57
--- NOTE | 2021-01-02 07:10 | NUR ---
RN OPENING NOTES RECEIVED PT IN BED. A/O X4. STABLE ON ROOM AIR. NO SOB OR ANY S/SX OF ACUTE RESPIRATORY DISTRESS NOTED. IV SITE ON L AC#20 INTACT, PATENT AND FLUSHED. AMBULATORY WITH ASSIST. NO PAIN REPORTED AT THIS TIME. SAFETY MEASURES IMPLEMENTED. CALL LIGHT WITHIN REACH. HOB ELEVATED. BED LOCKED AND IN LOWEST POSITION WITH SIDE RAILS UP X2. WILL CONTINUE TO MONITOR.
[2021-01-02] MEDS: LEVOTHYROXINE SODIUM 75 MCG TABLET PO SCH (08:26)
[2021-01-02] MEDS: DOCUSATE SODIUM 100 MG CAPSULE PO SCH ×2 (08:27→17:26)
[2021-01-02] MEDS: LORAZEPAM 0.5 MG TABLET PO SCH ×2 (08:27→21:14)
[2021-01-02] MEDS: LISINOPRIL (5MG) 5 MG TABLET PO SCH (08:27)
[2021-01-02] MEDS: OLANZAPINE 2.5 MG TABLET PO SCH ×3 (08:27→17:26)
[2021-01-02] MEDS: CARBOXYMETHYLCELLULOSE SODIUM 0.4 ML DROPERETTE OP SCH ×3 (09:21→17:26)
[2021-01-02 12:00] VITALS: BP 147/83
--- NOTE | 2021-01-02 18:50 | NUR ---
RN CLOSING NOTES NO SIGNIFICANT CHANGES THROUGHOUT THE SHIFT. NO SOB OR ANY DISTRESS NOTED. NO PAIN REPORTED AT THIS TIME. KEPT CLEAN AND COMFORTABLE. ALL DUE MEDS GIVEN. NEEDS ATTENDED. SAFETY MEASURES IN PLACE. WILL ENDORSE TO NIGHT RN FOR HAILE.
[2021-01-02 20:00] VITALS: BP 145/75
[2021-01-02] MEDS: SODIUM CHLORIDE 1000 MG TABLET PO SCH (21:15)
[2021-01-03 04:00] VITALS: BP 139/64
--- NOTE | 2021-01-03 06:59 | NUR ---
RN CLOSING NOTES NO SIGNIFICANT CHANGES IN CONDITION DURING THE NIGHT, REMAIN STABLE, NO SOB OR ANY DISTRESS NOTED AT ROOM AIR, ALL SAFETY MEASURES IN PLACE, AMBULATORY WITH WALKER, SUPERVISION REQUIRED, CALL LIGHT W/I REACH, BED LOCKED AND LOWEST CONDITION, WILL ENDORSE TO ONCOMING NURSE FOR CONTINUATION CARE.
[2021-01-03 07:34] LABS: BASOPHILS # (AUTO) 0.1 K/uL (0.0-0.2); BASOPHILS % (AUTO) 1.2 % (0.0-2.0); HEMATOCRIT 37 % (33-45); HEMOGLOBIN 12.4 g/dL (11.5-14.8); LYMPHOCYTES # (AUTO) 1.9 K/uL (0.8-4.8); LYMPHOCYTES % (AUTO) 33.3 % (20.0-44.0); MEAN CORPUSCULAR HGB CONC 34 g/dl (31.0-36.0); MEAN CORPUSCULAR VOLUME 91 fL (82-100); MONOCYTES # (AUTO) 0.6 K/uL (0.1-1.30); MONOCYTES % (AUTO) 10.4 % (2.0-12.0); NEUTROPHILS # (AUTO) 3.2 K/uL (1.8-8.9); NEUTROPHILS % (AUTO) 55.1 % (43.0-81.0); PLATELET COUNT (AUTO) 323 K/uL (150-450); RED BLOOD CELL COUNT(AUTO) 4.06 MIL/uL (4.0-5.2); WHITE BLOOD COUNT (AUTO) 5.8 K/uL (4.3-11.0)
[2021-01-03 07:37] LABS: CALCIUM, SERUM 9.6 mg/dL (8.5-10.1); CREATININE 0.8 mg/dL (0.6-1.3); MAGNESIUM 2.4 mg/dL (1.8-2.4); PHOSPHORUS 3.4 mg/dL (2.5-4.9); POTASSIUM 4.2 mmol/L (3.5-5.1)
--- NOTE | 2021-01-03 07:45 | NUR ---
MS RN Opening Note Received patient in bed, a/o x4, stable on room air with no SOB or any s/sx of respiratory distress. IV site on L AC #20 infiltrated on assessment. Patient is ambulatory with assist, reporting no pain at this time. Safety measure in place with bed in lowest, locked position, call light within reach and HOB elevated, with side rails up x2.
[2021-01-03] MEDS: OLANZAPINE 2.5 MG TABLET PO SCH ×3 (08:07→16:07)
[2021-01-03] MEDS: LORAZEPAM 0.5 MG TABLET PO SCH ×2 (08:07→20:46)
[2021-01-03] MEDS: DOCUSATE SODIUM 100 MG CAPSULE PO SCH ×2 (08:07→16:07)
[2021-01-03] MEDS: LISINOPRIL (5MG) 5 MG TABLET PO SCH (08:08)
[2021-01-03] MEDS: LEVOTHYROXINE SODIUM 75 MCG TABLET PO SCH (08:08)
[2021-01-03] MEDS: CARBOXYMETHYLCELLULOSE SODIUM 0.4 ML DROPERETTE OP SCH ×3 (08:17→16:10)
--- NOTE | 2021-01-03 11:31 | NUR ---
MS RN Notes Removed patient's L AC 20 gauge. Pt refusing insertion of new IV access. Educated pt on importance of maintaining IV access. Pt still refused.
[2021-01-03 12:00] VITALS: BP 126/63
--- NOTE | 2021-01-03 12:00 | NUR ---
RN NOTE PATIENT REFUSED CT WITH CONTRAST. EXPLAINED BENEFITS/RISKS OF PROCEDURE. PATIENT STILL REFUSED.
--- NOTE | 2021-01-03 18:03 | NUR ---
MS RN Note Notified MD of BP 146/76. Said it was okay to give PRN clonidine 0.1mg.
--- NOTE | 2021-01-03 18:35 | NUR ---
MS RN Closing Note Pt alert and eating dinner in bed comfortably on RA, with no signs of respiratory distress and no complaints of pain. Pt will be NPO after midnight for procedure 01/04 @0800. Pt able to make needs known. Safety measures in place with bed in lowest locked position and call light within reach.
[2021-01-03 20:00] VITALS: BP 130/60
[2021-01-03] MEDS: SODIUM CHLORIDE 1000 MG TABLET PO SCH (21:07)
[2021-01-04 04:00] VITALS: BP 127/48
[2021-01-04] MEDS: LEVOTHYROXINE SODIUM 75 MCG TABLET PO SCH (07:56)
[2021-01-04 08:00] VITALS: BP 159/70
[2021-01-04] MEDS: CARBOXYMETHYLCELLULOSE SODIUM 0.4 ML DROPERETTE OP SCH ×3 (08:00→17:38)
[2021-01-04] MEDS: DOCUSATE SODIUM 100 MG CAPSULE PO SCH ×2 (08:01→17:38)
[2021-01-04] MEDS: OLANZAPINE 2.5 MG TABLET PO SCH ×3 (08:02→17:38)
[2021-01-04] MEDS: LISINOPRIL (5MG) 5 MG TABLET PO SCH (08:03)
[2021-01-04] MEDS: LORAZEPAM 0.5 MG TABLET PO SCH ×2 (08:06→20:41)
--- NOTE | 2021-01-04 08:20 | NUR ---
RN NOTES, PATIENT TAKEN TO CT SCAN, PATIENT REFUSED AGAIN CT WITH CONTRAST, EDUCATION PROVIDED PRONS AND CONS , STILL REFUSED, WILL HAVE CT WO CONTRAST.
[2021-01-04 12:00] VITALS: BP 118/54
[2021-01-04 16:00] VITALS: BP 124/58
--- NOTE | 2021-01-04 19:12 | NUR ---
RN NOTES, PATIENT STABLE, WILL BE NPO AFTER MIDNIGHT FOR MRI IN AM 0800, SEEN BY DR KUNZ'S POOL HAND SUKHDEV Gillespie AND EXPLAINED PLAN OF CARE, WILL ENDORSE TO ONCOMING NURSE FOR CONTINUITY OF CARE.
--- NOTE | 2021-01-04 19:20 | NUR ---
RN NOTE RECEIVED PATIENT IN BED RESTING ALERT ORIENTED X3 VERBALLY RESPONSIVE ON ROOM AIR O2:96% AMBULATORY BY WALKER CONTINET TO BOWEL/BLADDER,SAFETY MEASURE IMPLEMENT, CALL LIGHT WITHIN REACH,PATIENT IN NPO AFTER MIDNIGHT FOR MRI TOMORROW MORNING,CONTINUE TO MONITOR.
[2021-01-04 20:00] VITALS: BP 129/67
[2021-01-04] MEDS: SODIUM CHLORIDE 1000 MG TABLET PO SCH (21:02)
--- NOTE | 2021-01-04 23:53 | NUR ---
RN NOTE STARTED A NEW IV LINE ON RIGHT HAND 24 G WITH GOOD BLOOD RETURN NO SWELLING NO INFILTRATION CONTINUE TO MONITOR.
[2021-01-05 04:00] VITALS: BP 141/71
--- NOTE | 2021-01-05 06:43 | NUR ---
RN NOTE PATIENT REMAINS ON ALERT ORIENTED X3 VERBALLY RESPONSIVE ON ROOM AIR O2:96% NO SOB NOT ACUTE DISTRESS NOTED AMBULATORY BY WALKER CONTINET TO BOWEL/BLADDER,IV SITE IS ON RIGHT HAND INTACT PATENT NPO AFTER MIDNIGHT FOR MRI WITHOUT CONTRAST,KEPT CALL LIGHT WITHIN REACH,ALL NEEDS MET ENDORSE NEXT COMING SHIFT FOR CONTINUATION OF CARE.
--- NOTE | 2021-01-05 07:54 | NUR ---
RN OPENING NOTE Pt is asleep, arousable to stimuli, no respiratory distress, no SOB, denies any distress. Right hand IV 24G intact with no s/sx of infiltration. Safety precautions implemented, bed locked in lowest position, call light within reach.
[2021-01-05] MEDS: OLANZAPINE 2.5 MG TABLET PO SCH ×3 (09:47→17:59)
[2021-01-05] MEDS: LISINOPRIL (5MG) 5 MG TABLET PO SCH (09:48)
[2021-01-05] MEDS: DOCUSATE SODIUM 100 MG CAPSULE PO SCH ×2 (09:48→17:59)
[2021-01-05] MEDS: LORAZEPAM 0.5 MG TABLET PO SCH ×2 (09:48→21:38)
[2021-01-05] MEDS: LEVOTHYROXINE SODIUM 75 MCG TABLET PO SCH (09:49)
[2021-01-05] MEDS: CARBOXYMETHYLCELLULOSE SODIUM 0.4 ML DROPERETTE OP SCH ×3 (10:05→17:59)
[2021-01-05 12:00] VITALS: BP 131/92
--- NOTE | 2021-01-05 12:30 | NUR ---
TRANSFER FROM [facility] TO [place] Endorsed and gave report to ELEN Linares for continuation of care.
--- NOTE | 2021-01-05 12:40 | NUR ---
RECEIVED PT. PER W/C.ALERT AND ORIENTED,VERY WORRIESOME.VS STABLE.SIDE RAILS UP. INSTRUCTED NOT TO GET OOB WITHOUT HELP.
[2021-01-05 13:00] VITALS: BP 126/63
[2021-01-05 16:00] VITALS: BP 145/63
--- NOTE | 2021-01-05 18:00 | NUR ---
NO CHANGE IN STATUS.CONSENT SIGNED FOR BX TOMORROW.
[2021-01-05 20:00] VITALS: BP 133/73
--- NOTE | 2021-01-05 20:37 | NUR ---
RN NOTES RECEIVED PATIENT IN BED RESTING ALERT ORIENTED X3 VERBALLY RESPONSIVE ON ROOM AIR O2:96% AMBULATORY BY WALKER CONTINENT TO BOWEL/BLADDER,SAFETY MEASURE IMPLEMENT, CALL LIGHT WITHIN REACH, CONTINUE TO MONITOR.
[2021-01-05] MEDS: SODIUM CHLORIDE 1000 MG TABLET PO SCH (21:38)
--- NOTE | 2021-01-06 06:42 | NUR ---
RN NOTES PATIENT IN BED RESTING ALERT ORIENTED X3 VERBALLY RESPONSIVE ON ROOM AIR O2:96% AMBULATORY BY WALKER CONTINENT TO BOWEL/BLADDER,SAFETY MEASURE IMPLEMENT, CALL LIGHT WITHIN REACH, ALL SAFETY MEASURES FOLLOWED AT ALL TIMES. WILL ENDORSE CARE.
[2021-01-06 07:04] LABS: BILIRUBIN,TOTAL 0.3 mg/dL (0.2-1.0); CALCIUM, SERUM 9.1 mg/dL (8.5-10.1); CREATININE 0.9 mg/dL (0.6-1.3); POTASSIUM 3.7 mmol/L (3.5-5.1); TOTAL PROTEIN, SERUM 7.5 g/dL (6.4-8.2)
[2021-01-06 07:20] LABS: BASOPHILS % (AUTO) 0.9 % (0.0-2.0); HEMATOCRIT 35 % (33-45); HEMOGLOBIN 11.9 g/dL (11.5-14.8); LYMPHOCYTES # (AUTO) 1.7 K/uL (0.8-4.8); LYMPHOCYTES % (AUTO) 32.1 % (20.0-44.0); MEAN CORPUSCULAR HGB CONC 34 g/dl (31.0-36.0); MEAN CORPUSCULAR VOLUME 91 fL (82-100); MONOCYTES # (AUTO) 0.6 K/uL (0.1-1.30); MONOCYTES % (AUTO) 10.7 % (2.0-12.0); NEUTROPHILS % (AUTO) 56.3 % (43.0-81.0); PLATELET COUNT (AUTO) 299 K/uL (150-450); RED BLOOD CELL COUNT(AUTO) 3.88 MIL/uL (4.0-5.2); WHITE BLOOD COUNT (AUTO) 5.3 K/uL (4.3-11.0)
--- NOTE | 2021-01-06 07:30 | NUR ---
MS RN NOTES RECEIVED PATIENT IN BED, AWAKE, ALERT ORIENTED X3 VERBALLY RESPONSIVE. ON ROOM AIR TOLERATING WELL, IN NO ACUTE DISTRESS NOTED, AMBULATORY BY WALKER, CONTINENT TO BOWEL/BLADDER. SAFETY MEASURE IN PLACE: BED ON LOWEST LOCKED POSITION, SIDE RAILS UP X 2, CALL LIGHT WITHIN REACH. WILL CONTINUE TO MONITOR ACCORDINGLY.
[2021-01-06] MEDS: LEVOTHYROXINE SODIUM 75 MCG TABLET PO SCH (07:44)
[2021-01-06 08:00] VITALS: BP 146/82
[2021-01-06] MEDS: LISINOPRIL (5MG) 5 MG TABLET PO SCH (08:58)
[2021-01-06] MEDS: OLANZAPINE 2.5 MG TABLET PO SCH ×2 (08:58→14:24)
[2021-01-06] MEDS: DOCUSATE SODIUM 100 MG CAPSULE PO SCH (08:59)
[2021-01-06] MEDS: LORAZEPAM 0.5 MG TABLET PO SCH (08:59)
[2021-01-06] MEDS: CARBOXYMETHYLCELLULOSE SODIUM 0.4 ML DROPERETTE OP SCH ×2 (09:16→13:00)
[2021-01-06 15:53] VITALS: BP 141/69
--- NOTE | 2021-01-06 17:02 | NUR ---
MS TEST DATA DEVELOPER NOTES DISCHARGED PATIENT IN STABLE CONDITION. VITAL SIGNS WITHIN NORMAL LIMITS. MEDICATION INSTRUCTIONS PROVIDED TO PATIENT AND SNF RN TARAN, HEALTH EDUCATION PROVIDED. REPORT GIVEN TO T[facility] MYRICK [facility], INFORMED SNF RN TO FOLLOW UP BIOPSY RESULT IN 3 DAYS. BELONGINGS ACCOUNTED AND SIGNED FOR. IV ACCESS REMOVED, COVER WITH GAUZE AND SECURE WITH TAPE. NO BLEEDING NOTED. ARMBAND REMOVED. PICKED UP BY 2 EMT'S FROM [facility] [address] AT 1700. LEFT UNIT IN STABLE CONDITION.
== END 2021-01-06 17:00 | DRG 598 ==
LOC: ER 14:41 → MEDSG1 21:20 → MED 01-05 12:40
PROVIDERS: ADMIT Internal Medicine; ATTEND Internal Medicine
PROC: 0H9U3ZX Drainage of Left Breast, Percutaneous Approach, Diagnostic (ICD-10-PCS; principal; 2021-01-06)
DX: C50.612 Malignant neoplasm of axillary tail of left female breast (principal); E87.1 Hypo-osmolality and hyponatremia; C77.3 Secondary and unspecified malignant neoplasm of axilla and upper limb lymph nodes; Z20.822 Contact with and (suspected) exposure to COVID-19; K21.9 Gastro-esophageal reflux disease without esophagitis; Z88.0 Allergy status to penicillin; Z88.2 Allergy status to sulfonamides; E03.9 Hypothyroidism, unspecified; J42 Unspecified chronic bronchitis; I10 Essential (primary) hypertension; F02.80 Dementia in other diseases classified elsewhere, unspecified severity, without behavioral disturbance, psychotic disturbance, mood disturbance, and anxiety; G20 Parkinson's disease; Z87.442 Personal history of urinary calculi; R26.9 Unspecified abnormalities of gait and mobility; F20.9 Schizophrenia, unspecified; I70.8 Atherosclerosis of other arteries; E78.5 Hyperlipidemia, unspecified; M79.7 Fibromyalgia; F41.9 Anxiety disorder, unspecified; Z79.899 Other long term (current) drug therapy; Z88.1 Allergy status to other antibiotic agents; E86.1 Hypovolemia; K42.9 Umbilical hernia without obstruction or gangrene; K44.9 Diaphragmatic hernia without obstruction or gangrene; K57.90 Diverticulosis of intestine, part unspecified, without perforation or abscess without bleeding; K76.9 Liver disease, unspecified
CPT/HCPCS: 36415; 71045-TC; 71250-TC; 74181-TC; 76641-TC; 76942-TC; 80048-TC; 80053-TC; 83735-TC; 84100-TC; 84484-TC; 85025-TC; 85610-TC; 85730-TC; 86300; 86850-TC; 87081-TC; 88305-TC; 88333-TC; 88341; 88342; 88360; G0378; U0003

== ENCOUNTER 2021-01-25 08:30 | Outpatient (CLI) | payer MEDICARE, OTHER ==
[~2021-01-25 08:30] MED LIST changes: +CARB15DR OP; +CRAN400C PO; -GLUC1TAB20 PO; +LORA-258 PO; -LORA-259 PO; +MELA3TAB41 PO; +NEPA3DRO EACHEYE; -POLY15DR40 EACHEYE; +SODI100037 PO
== END 2021-01-25 23:59 | disposition home health service (06) ==
LOC: WOU 08:30
PROVIDERS: ATTEND Surgery
DX: C50.912 Malignant neoplasm of unspecified site of left female breast (principal); Z87.891 Personal history of nicotine dependence
CPT/HCPCS: G0463

== ENCOUNTER 2021-01-31 12:13 | Inpatient (IN) | payer MEDICARE, OTHER ==
[~2021-01-31] VITALS: Ht 160 cm; Wt 73.5 kg
--- NOTE | 2021-01-31 12:17 | NUR ---
[facility] FOR 2D ECHO AND ANA-CATH INSERTION RECENTLY DIAGNOSED WITH LEFT BREAST CA. THE PATIENT IS ALERT AND ORIENTED X3. DENIES PAIN. IN ROOM AIR AND DENIES SOB. RESPIRATION REGULAR AND UNLABORED. ATTACHED TO THE MONITOR. WARM BLANKET PROVIDED FOR COMFORT. WILL CONTINUE TO MONITOR THE PATIENT.
[2021-01-31] MEDS ORDERED: POLY15DR40 EACHEYE (12:38)
[2021-01-31] MEDS ORDERED: CRAN425C6 PO (12:38)
[2021-01-31] MEDS ORDERED: GLUC1CAP30 PO (12:38)
[2021-01-31] MEDS ORDERED: LACT-58 PO (12:38)
[2021-01-31] MEDS ORDERED: ANAS1TAB50 NG (12:38)
[2021-01-31] MEDS ORDERED: AMIN30LI27 PO (12:38)
--- NOTE | 2021-01-31 13:16 | NUR ---
PHLEBATOMIST IS AT THE BEDSIDE.
--- NOTE | 2021-01-31 13:23 | NUR ---
CALLED [facility] AND PAGED DR LAM.
[2021-01-31 13:33] LABS: BASOPHILS # (AUTO) 0.1 K/uL (0.0-0.2); BASOPHILS % (AUTO) 0.9 % (0.0-2.0); HEMATOCRIT 38 % (33-45); HEMOGLOBIN 12.7 g/dL (11.5-14.8); LYMPHOCYTES # (AUTO) 1.4 K/uL (0.8-4.8); LYMPHOCYTES % (AUTO) 23.4 % (20.0-44.0); MEAN CORPUSCULAR HGB CONC 34 g/dl (31.0-36.0); MEAN CORPUSCULAR VOLUME 91 fL (82-100); MONOCYTES # (AUTO) 0.5 K/uL (0.1-1.30); MONOCYTES % (AUTO) 8.4 % (2.0-12.0); NEUTROPHILS # (AUTO) 4.1 K/uL (1.8-8.9); NEUTROPHILS % (AUTO) 67.3 % (43.0-81.0); PLATELET COUNT (AUTO) 324 K/uL (150-450); RED BLOOD CELL COUNT(AUTO) 4.15 MIL/uL (4.0-5.2); WHITE BLOOD COUNT (AUTO) 6.1 K/uL (4.3-11.0)
--- NOTE | 2021-01-31 14:00 | NUR ---
CONOR IBRAHIM DONE AND SENT TO THE LAB
[2021-01-31 14:02] LABS: CALCIUM, SERUM 9.8 mg/dL (8.5-10.1); CARBON DIOXIDE 26 mmol/L (21-32); CHLORIDE 102 mmol/L (98-107); CREATININE 0.9 mg/dL (0.6-1.3); GLUCOSE 107 mg/dL (74-106); POTASSIUM 4.3 mmol/L (3.5-5.1); SODIUM SERUM 135 mmol/L (136-145); UREA NITROGEN, BLOOD 17 mg/dL (7-18)
--- NOTE | 2021-01-31 14:57 | NUR ---
room 111-1
--- NOTE | 2021-01-31 15:55 | NUR ---
REPORT GIVEN TO NURSE SÁNCHEZ
[2021-01-31 16:00] VITALS: BP 139/73
[2021-01-31] MEDS ORDERED: ACETAMINOPHEN 325 MG TABLET PO PRN (16:00)
[2021-01-31] MEDS ORDERED: MAGNESIUM HYDROXIDE 30 ML UDC PO PRN (16:00)
[2021-01-31] MEDS ORDERED: NA PHOS,M-B/NA PHOS,DI-BA 1 EA ENEMA RC PRN (16:00)
[2021-01-31] MEDS ORDERED: BISACODYL SUPP (10 MG) 10 MG/SUPP.RECT SUPP.RECT RC PRN (16:00)
[2021-01-31] MEDS: DOCUSATE SODIUM 100 MG CAPSULE PO SCH (17:11)
[2021-01-31] MEDS: OLANZAPINE 2.5 MG TABLET PO SCH (17:11)
--- NOTE | 2021-01-31 17:48 | NUR ---
RN NOTE Dr. Marshall with new orders to resume 2gm NA low cholesterol diet for dinner, NPO after midnight for portacath placement at 1030. Noted and carried out.
[2021-01-31] MEDS ORDERED: ANASTROZOLE 1 MG TABLET NG SCH (18:00)
--- NOTE | 2021-01-31 18:03 | NUR ---
RN CLOSING NOTES; RECEIVED PT FROM ER WITH CC FOR 2D ECHO AND ANA CATH INSERTION. PT RECENTLY DIAGNOSED BREAST CANCER. NO SOB, DISTRESS NOTED. PT TOLERATING RA. PT A/OX2 WITH MILD CONFUSION. PT CAN VERBALIZED NEEDS. PT SKIN IS INTACT. PT ON 2GM NA LOW CHOLESTEROL DIET, NPO AFTER MIDNIGHT FOR EHSAN-CATH PLACEMENT IN THE MORNING. SAFETY MEASURES RENDERED, BED IN LOWEST POS. LOCKED, WITH CALL LIGHT WITHIN REACH. ENDORSED TO OIL WELL DIRECTIONAL SURVEYOR NURSE IN STABLE CONDITION.
[2021-01-31] MEDS: ENSURE ENLIVE 237 ML LIQUID (VANILLA) PO SCH (18:26)
[2021-01-31] MEDS ORDERED: ANESTHESIA TRAY IN PYXIS 1 EA TRAY MC ONE (18:42)
[2021-01-31 20:00] VITALS: BP 129/65
[2021-01-31 20:12] LABS: BASOPHILS % (AUTO) 0.6 % (0.0-2.0); HEMATOCRIT 39 % (33-45); HEMOGLOBIN 13.1 g/dL (11.5-14.8); LYMPHOCYTES # (AUTO) 1.8 K/uL (0.8-4.8); LYMPHOCYTES % (AUTO) 25.3 % (20.0-44.0); MEAN CORPUSCULAR HGB CONC 34 g/dl (31.0-36.0); MEAN CORPUSCULAR VOLUME 92 fL (82-100); MONOCYTES # (AUTO) 0.4 K/uL (0.1-1.30); MONOCYTES % (AUTO) 5.1 % (2.0-12.0); NEUTROPHILS # (AUTO) 4.8 K/uL (1.8-8.9); PLATELET COUNT (AUTO) 300 K/uL (150-450); RED BLOOD CELL COUNT(AUTO) 4.25 MIL/uL (4.0-5.2)
[2021-01-31] MEDS: LORAZEPAM 0.5 MG TABLET PO SCH (21:08)
[2021-01-31 21:40] LABS: CALCIUM, SERUM 9.2 mg/dL (8.5-10.1); POTASSIUM 3.6 mmol/L (3.5-5.1)
[2021-02-01] VITALS: BP 130/57
[2021-02-01 04:00] VITALS: BP 130/57
--- NOTE | 2021-02-01 06:27 | NUR ---
monitored the new perm cath left chest wal drsg CDI pt ontundent bed bath given max assit with care aspiration precautions gt feeding 45 ml hr as ordered
[2021-02-01] MEDS ORDERED: HEPARIN SODIUM, PORCINE 1,000 UNIT/ML VIAL ONE (06:47)
[2021-02-01] MEDS ORDERED: LIDOCAINE 1% INJ 50 ML MDV IJ ONE (06:48)
[2021-02-01] MEDS ORDERED: CEFAZOLIN 1 GM VIAL IM SCH (07:00)
[2021-02-01] MEDS ORDERED: LEVOTHYROXINE SODIUM 75 MCG TABLET PO SCH (07:30)
[2021-02-01 08:00] VITALS: BP 122/71
--- NOTE | 2021-02-01 08:00 | NUR ---
MS RN NOTE PATIENT NOT ROOM ,TAKEN TO SURGERY
[2021-02-01] MEDS ORDERED: FENTANYL PF 100MCG/2ML AMPUL ONE (08:07)
[2021-02-01] MEDS ORDERED: CLINDAMYCIN 900 MG/6 ML VIAL ONE (08:10)
[2021-02-01 09:00] VITALS: BP 122/60
[2021-02-01] MEDS ORDERED: HYDROCHLOROTHIAZIDE 25 MG TABLET PO SCH (09:00)
[2021-02-01] MEDS: LORAZEPAM 0.5 MG TABLET PO SCH (09:00)
[2021-02-01] MEDS ORDERED: LISINOPRIL (5MG) 5 MG TABLET PO SCH (09:00)
[2021-02-01] MEDS: DOCUSATE SODIUM 100 MG CAPSULE PO SCH (09:55)
[2021-02-01] MEDS: OLANZAPINE 2.5 MG TABLET PO SCH ×2 (09:55→12:32)
[2021-02-01] MEDS: ENSURE ENLIVE 237 ML LIQUID (VANILLA) PO SCH (09:57)
--- NOTE | 2021-02-01 09:58 | NUR ---
MS RN NOTE PATIENT CAME FROM SURGERY S\P PORTHA CATH, ALERT ,ORIENTED,ON RA NO SOB NOTED AT THIS TIME PER OR DOCTOT OK TO START EAT , ATIVAN AND BP MEDS HELD FOE NOW JUST CAME FROM OR, DR NOGUERA AT BEDSIDE AWARE OF IT . PORTHA CATH IN PLACED DRY INCISION INTACT NO BLEEDING VS TAKEN 122/76 HR 71 SATURATION 97%, NO SOB , LT FA HL INTACT AND FLUSHED WELL
--- NOTE | 2021-02-01 10:00 | NUR ---
MS RN NOTE PER DR CONSTANTINO QUINTANA TO D\C TODAY
--- NOTE | 2021-02-01 12:00 | NUR ---
ms rnn note called to [facility] report given to Jane
--- NOTE | 2021-02-01 14:28 | NUR ---
MS RN NOTE AMBULANCE ARRIVED REPORT GIVEN , HL REMOVED ,BELONGING CHECKED, WENT TO SNF WITH STABLE CONDITION
== END 2021-02-01 19:41 | DRG 580 ==
LOC: ER 12:20 → MEDSG1 14:48
PROVIDERS: ATTEND Internal Medicine
PROC: B546ZZA Ultrasonography of Right Subclavian Vein, Guidance (ICD-10-PCS; 2021-01-31)
PROC: 0JH63WZ Insertion of Totally Implantable Vascular Access Device into Chest Subcutaneous Tissue and Fascia, Percutaneous Approach (ICD-10-PCS; principal; 2021-02-01)
PROC: 02H633Z Insertion of Infusion Device into Right Atrium, Percutaneous Approach (ICD-10-PCS; 2021-02-01)
PROC: B518YZA Fluoroscopy of Superior Vena Cava using Other Contrast, Guidance (ICD-10-PCS; 2021-02-01)
DX: C50.912 Malignant neoplasm of unspecified site of left female breast (principal); E87.1 Hypo-osmolality and hyponatremia; C77.3 Secondary and unspecified malignant neoplasm of axilla and upper limb lymph nodes; Z46.89 Encounter for fitting and adjustment of other specified devices; E03.9 Hypothyroidism, unspecified; E86.1 Hypovolemia; F20.9 Schizophrenia, unspecified; I10 Essential (primary) hypertension; G20 Parkinson's disease; F02.80 Dementia in other diseases classified elsewhere, unspecified severity, without behavioral disturbance, psychotic disturbance, mood disturbance, and anxiety; Z20.822 Contact with and (suspected) exposure to COVID-19; M79.7 Fibromyalgia; J42 Unspecified chronic bronchitis; K21.9 Gastro-esophageal reflux disease without esophagitis; E78.5 Hyperlipidemia, unspecified; Z88.0 Allergy status to penicillin; Z88.2 Allergy status to sulfonamides; R26.9 Unspecified abnormalities of gait and mobility
CPT/HCPCS: 36415; 71045-TC; 80048-TC; 84484-TC; 85025-TC; 85730-TC; 87081-TC; A4649; C1788; G0378; J1644; J2704; J3010; J3490; J7030; U0003

== ENCOUNTER 2021-07-11 15:19 | Inpatient (IN) | payer MEDICARE, OTHER ==
[~2021-07-11] VITALS: Ht 160 cm; Wt 68.9 kg
[~2021-07-11 15:19] MED LIST changes: +AMIN30LI27 PO; +ANAS1TAB50 NG; -CARB15DR OP; -CRAN400C PO; +CRAN425C6 PO; +GLUC1CAP30 PO; +LACT-58 PO; +POLY15DR40 EACHEYE
--- NOTE | 2021-07-11 15:30 | NUR ---
BRENDA FROM [facility] SENT BY PMD FOR LOW HEMOGLOBIN 6.5. THE PATIENT IS ALERT AND ORIENTED X3. IN ROOM AIR AND DENIES SOB. RESPIRATION REGULAR AND UNLABORED. ATTACHED TO THE MONITOR. WARM BLANKET PROVIDED FOR COMFORT. WILL CONTINUE TO MONITOR THE PATIENT.
[2021-07-11] MEDS ORDERED: FERR325T23 PO (15:31)
[2021-07-11] MEDS ORDERED: LOPE-195 PO (15:31)
[2021-07-11] MEDS ORDERED: BENZ1LOZ PO (15:31)
[2021-07-11] MEDS ORDERED: ONDA4TAB5 PO (15:31)
[2021-07-11] MEDS ORDERED: PROC10TA13 PO (15:31)
--- NOTE | 2021-07-11 15:45 | NUR ---
COVID ANTOGEN SWAB DONE AND SENT TO THE LAB
--- NOTE | 2021-07-11 16:06 | NUR ---
Tony rodriguez in [facility] - 07/11/21 at 1617 by GRETTA RAKESH AARON ESTABLISHED, BLOOD DRAWN AND SENT TO LAB
--- NOTE | 2021-07-11 16:08 | NUR ---
MIDLINE INSERTED ON RIGHT UPPER ARM USING G20 NEEDLE. BLOOD DRAWN AND GIVEN TO PRODUCTION LINE.
--- NOTE | 2021-07-11 16:10 | NUR ---
PATIENT HAS A PORTACATH ON THE CHEST.
[2021-07-11 16:29] LABS: BASOPHILS # (AUTO) 0.1 K/uL (0.0-0.2); BASOPHILS % (AUTO) 1.2 % (0.0-2.0); LYMPHOCYTES # (AUTO) 1.4 K/uL (0.8-4.8); LYMPHOCYTES % (AUTO) 19.9 % (20.0-44.0); MEAN CORPUSCULAR HGB CONC 32 g/dl (31.0-36.0); MEAN CORPUSCULAR VOLUME 93 fL (82-100); MONOCYTES # (AUTO) 0.8 K/uL (0.1-1.30); MONOCYTES % (AUTO) 11.9 % (2.0-12.0); NEUTROPHILS # (AUTO) 4.7 K/uL (1.8-8.9); PLATELET COUNT (AUTO) 464 K/uL (150-450); WHITE BLOOD COUNT (AUTO) 7.1 K/uL (4.3-11.0)
[2021-07-11 16:48] LABS: HEMATOCRIT 20 % (33-45); HEMOGLOBIN 6.3 g/dL (11.5-14.8)
[2021-07-11 17:06] LABS: CARBON DIOXIDE 23 mmol/L (21-32); CHLORIDE 102 mmol/L (98-107); GLUCOSE 134 mg/dL (74-106); SODIUM SERUM 133 mmol/L (136-145); UREA NITROGEN, BLOOD 15 mg/dL (7-18)
[2021-07-11 17:24] LABS: ALANINE AMINOTRANSFERASE 21 U/L (12-78); ALBUMIN 2.4 g/dL (3.4-5.0); ALKALINE PHOSPHATASE 92 U/L (46-116); ASPARTATE AMINOTRANSFERASE 56 U/L (15-37); BILIRUBIN,TOTAL 0.2 mg/dL (0.2-1.0); TOTAL PROTEIN, SERUM 6.3 g/dL (6.4-8.2)
--- NOTE | 2021-07-11 17:37 | NUR ---
CALLED NURSING REGARDING PT BED
[2021-07-11 17:57] LABS: LIPASE 129 U/L (73-393)
--- NOTE | 2021-07-11 18:03 | NUR ---
CALLED LAB TO FOLLOW UP COVID RESULTS, WILL FOLLOW UP
--- NOTE | 2021-07-11 18:12 | NUR ---
CUT OFF SAWYER AT BEDSIDE
--- NOTE | 2021-07-11 18:13 | NUR ---
CALLED NURSE CIPRIANO FOR MIDLINE NURSE
--- NOTE | 2021-07-11 18:13 | NUR ---
CXR DONE AT BEDSIDE
[2021-07-11 18:25] LABS: BASOPHILS % (MANUAL) 1 % (0.0-2.0); EOSINOPHILS % (MANUAL) 1 % (0-4); LYMPHOCYTES % (MANUAL) 21 % (16-48); MONOCYTES % (MANUAL) 12 % (0-11.0); NEUTROPHILS % (MANUAL) 65 (42-76)
[2021-07-11] MEDS ORDERED: MAG HYDROX/AL HYDROX/SIMETH 30 ML UDC PO PRN (18:30)
[2021-07-11] MEDS ORDERED: MAGNESIUM HYDROXIDE 30 ML UDC PO PRN ×2 (18:30→19:00)
[2021-07-11] MEDS ORDERED: ZOLPIDEM TARTRATE 5 MG TABLET PO PRN (18:30)
[2021-07-11] MEDS ORDERED: ONDANSETRON HCL/PF 4 MG/2 ML VIAL IVP PRN (18:30)
[2021-07-11] MEDS ORDERED: Z GUARD REMEDY 4 OZ OINT TP PRN (18:30)
[2021-07-11] MEDS ORDERED: ACETAMINOPHEN 325 MG TABLET PO PRN ×2 (18:30→19:00)
[2021-07-11] MEDS ORDERED: IV NS 0.9% 1,000 ML IV PRN (18:30)
--- NOTE | 2021-07-11 18:30 | NUR ---
SEEN BY DR PRESSLEY
--- NOTE | 2021-07-11 18:42 | NUR ---
MIDLINE NURSE AT BEDSIDE
--- NOTE | 2021-07-11 18:59 | NUR ---
ROOM 329 AFTER SHIFT CHANGE
[2021-07-11] MEDS ORDERED: LOPERAMIDE HCL (2 MG CAP) 2 MG CAPSULE PO PRN (19:00)
[2021-07-11] MEDS ORDERED: NA PHOS,M-B/NA PHOS,DI-BA 1 EA ENEMA RC PRN (19:00)
[2021-07-11] MEDS ORDERED: PROCHLORPERAZINE MALEATE 10 MG TABLET PO PRN (19:00)
[2021-07-11] MEDS ORDERED: BISACODYL SUPP (10 MG) 10 MG/SUPP.RECT SUPP.RECT RC PRN (19:00)
[2021-07-11] MEDS: ENSURE ENLIVE CHOC 237 ML CAN PO SCH (19:41)
[2021-07-11] MEDS ORDERED: ONDANSETRON 4 MG TAB.RAPDIS PO PRN (20:00)
[2021-07-11] MEDS ORDERED: MENTHOL/CETYLPYRD (CEPACOL) 1 LOZ LOZENGE PO PRN (20:00)
--- NOTE | 2021-07-11 20:00 | NUR ---
GAVE REPORT TO ELEN VALLES FOR PATIENT WHO WILL BE GOING TO RM 329.
--- NOTE | 2021-07-11 20:20 | NUR ---
TRANSFERRED PATIENT TO [facility] VIA STRETCHER ATTACHED TO AIRPLANE FUELER. PATIENT IS ALERT, ORIENTED X4. TOLERATING THE TRANSFER VERY WELL
--- NOTE | 2021-07-11 20:25 | NUR ---
TRANSFERRED TO 329 UNDER ACLS
[2021-07-11 20:32] VITALS: BP 155/70
[2021-07-11] MEDS ORDERED: [UNRECOGNIZED DRUG - OTHER] PO SCH (21:00)
[2021-07-11] MEDS: LORAZEPAM 0.5 MG TABLET PO SCH (21:00)
--- NOTE | 2021-07-11 23:23 | NUR ---
PT ARRIVED @ 2021 VIA GURNEY ACCOMPANIED BY EMT AND RN. AOx3. ON RA AND TOLERATING WELL. NO SOB NOTED. NO S/SX OF RESPIRATORY DISTRESS. IV ACCESS IN LFA #20 RUNNING NS @ 75 ML/HR AND EDGAR MIDLINE #20. TELE MONITOR DETECTS SINUS RHYTHM WITH RATE OF 87. ER NURSE SAID NO TRANSFUSION WAS GIVEN BECAUSE THERE WAS NO IV ACCESS. PATIENT STATES SHE IS ANXIOUS ABOUT BLOOD TRANSFUSION. PROVIDED PATIENT WITH EDUCATION. SAFETY PRECAUTIONS IN PLACE: BED IN LOWEST, LOCKED POSITION, SIDERAILS UPx2, AND BRAKES ON. TABLE AND CALL LIGHT WITHIN REACH. WILL CONTINUE TO MONITOR.
[2021-07-12] VITALS (10 sets, daily range): BP systolic 109–151; BP diastolic 56–72
--- NOTE | 2021-07-12 02:15 | NUR ---
DR. AYERS MADE AWARE OF SECOND TYPE AND SCREEN BEING CANCELLED. ALSO AWARE OF NO CLS AVAILABLE TO DISTRIBUTE BLOOD. STATED "TO MONITOR PATIENT'S VITALS BECAUSE SHE MAY NEED FLUIDS." WILL CONTINUE TO MONITOR.
[2021-07-12 06:41] LABS: BASOPHILS % (AUTO) 0.6 % (0.0-2.0); LYMPHOCYTES # (AUTO) 1.4 K/uL (0.8-4.8); LYMPHOCYTES % (AUTO) 19.9 % (20.0-44.0); MEAN CORPUSCULAR HGB CONC 32 g/dl (31.0-36.0); MEAN CORPUSCULAR VOLUME 94 fL (82-100); MONOCYTES # (AUTO) 0.8 K/uL (0.1-1.30); MONOCYTES % (AUTO) 10.6 % (2.0-12.0); NEUTROPHILS # (AUTO) 4.9 K/uL (1.8-8.9); NEUTROPHILS % (AUTO) 68.9 % (43.0-81.0); PLATELET COUNT (AUTO) 408 K/uL (150-450); RED BLOOD CELL COUNT(AUTO) 2.06 MIL/uL (4.0-5.2); WHITE BLOOD COUNT (AUTO) 7.1 K/uL (4.3-11.0)
[2021-07-12 06:57] LABS: HEMATOCRIT 19 % (33-45); HEMOGLOBIN 6.2 g/dL (11.5-14.8)
--- NOTE | 2021-07-12 06:57 | NUR ---
RECEIVED CRITICAL VALUE OF 6.2 FOR HEMOGLOBIN. WILL ENDORSE TO DAYSHIFT NURSE FOR HAILE.
[2021-07-12 07:25] LABS: CALCIUM, SERUM 8.5 mg/dL (8.5-10.1); CREATININE 0.8 mg/dL (0.6-1.3); PHOSPHORUS 2.8 mg/dL (2.5-4.9); POTASSIUM 3.9 mmol/L (3.5-5.1)
[2021-07-12] MEDS ORDERED: PANTOPRAZOLE 40 MG TABLET.DR PO SCH (07:30)
--- NOTE | 2021-07-12 07:35 | NUR ---
RN CLOSING NOTES PT IN BED, AWAKE. AOx4. ON RA AND TOLERATING WELL. NO SOB NOTED. NO S/SX OF RESPIRATORY DISTRESS.TELE MONITOR DETECTS SINUS RHYTHM WITH RATE OF 87. IV ACCESS IN LFA #20 RUNNING NS @ 75 ML/HR AND EDGAR MIDLINE #20. BEGAN TRANSFUSION AND NO COMPLAINTS OF SIDE EFFECTS AND TOLERATING WELL. ALL NEEDS MET. PT KEPT CLEAN AND DRY. SAFETY PRECAUTIONS IN PLACE: BED IN LOWEST, LOCKED POSITION, SIDERAILS UPx2, AND BRAKES ON. TABLE AND CALL LIGHT WITHIN REACH. WILL ENDORSE TO ONCOMING SHIFT FOR HAILE.
--- NOTE | 2021-07-12 08:17 | NUR ---
RN OPENING NOTES PATIENT AWAKE, A/O X4. NO S/S OF PAIN NOTED AT THIS TIME. PATIENT ON ROOM AIR, NO DISTRESS OR SHORTNESS OF BREATH. IV ACCESS EDGAR MIDLINE, INTACT, PATENT AND FLUSHING WELL. FALL AND SAFETY MEASURES IN PLACE, BED ALARM ON, BED IN LOW AND LOCK POSITION, CALL LIGHT AND TABLE WITHIN EASY REACH, SIDE RAILS UP X2. WILL CONTINUE TO MONITOR.
[2021-07-12] MEDS ORDERED: Medication Not On Formulary EA (Nepafenac (Nevanac) 1 DROP) OP SCH (09:00)
[2021-07-12] MEDS: PROSOURCE / PROSTAT (PYXIS) 30 ML UDC PO SCH (09:00)
[2021-07-12] MEDS ORDERED: Medication Not On Formulary EA (Cranberry Extract (Cranberry) 850 MG) PO SCH (09:00)
[2021-07-12] MEDS: SODIUM CHLORIDE 1000 MG TABLET PO SCH (09:43)
[2021-07-12] MEDS: DOCUSATE SODIUM 100 MG CAPSULE PO SCH ×2 (09:43→17:00)
[2021-07-12] MEDS: FERROUS SULFATE (325 MG) 325 MG/TAB TABLET PO SCH ×2 (09:43→17:00)
[2021-07-12] MEDS: OLANZAPINE 2.5 MG TABLET PO SCH ×3 (09:44→17:19)
[2021-07-12] MEDS: LEVOTHYROXINE SODIUM 75 MCG TABLET PO SCH (09:45)
[2021-07-12] MEDS: LORAZEPAM 0.5 MG TABLET PO SCH ×2 (09:45→20:05)
[2021-07-12] MEDS: HYDROCHLOROTHIAZIDE 25 MG TABLET PO SCH (09:46)
[2021-07-12] MEDS: LISINOPRIL (5MG) 5 MG TABLET PO SCH (09:47)
[2021-07-12] MEDS: ENSURE ENLIVE CHOC 237 ML CAN PO SCH ×3 (10:21→17:30)
[2021-07-12] MEDS: POLYVINYL ALCOHOL 15 ML BOTTLE EACHEYE SCH ×3 (11:37→17:21)
[2021-07-12] MEDS: PANTOPRAZOLE 40 MG VIAL IV SCH ×2 (11:46→17:18)
--- NOTE | 2021-07-12 12:00 | NUR ---
RN NOTES AMINA COFFMAN CALLED AND OFFERED PATIENT AN UPPER GI ENDOSCOPY BUT PATIENT REFUSED. PATIENT SAID SHE DOES NOT FEEL LIKE DOING AN ENDOSCOPY TODAY.
[2021-07-12] MEDS ORDERED: diphenhydrAMINE HCL 50 MG/ML VIAL IV ONE (12:40)
[2021-07-12 16:34] LABS: HEMOGLOBIN 9.1 g/dL (11.5-14.8)
[2021-07-12 16:55] LABS: IRON, SERUM 27 ug/dl (50-175); TOTAL IRON BINDING CAPACITY 289 ug/dl (250-450)
[2021-07-12 17:15] LABS: FERRITIN 41 ng/mL (8-388)
[2021-07-12] MEDS ORDERED: ANASTROZOLE 1 MG TABLET NG SCH (18:00)
[2021-07-12] MEDS ORDERED: Medication Not On Formulary EA (Omega-3 Fatty Acids/Fish Oil (Fish Oil 1,000 Mg Capsule) PO SCH (18:00)
--- NOTE | 2021-07-12 19:10 | NUR ---
RN CLOSING NOTE PATIENT AWAKE, A/O X4. NO S/S OF PAIN NOTED AT THIS TIME. PATIENT ON ROOM AIR, NO DISTRESS OR SHORTNESS OF BREATH. IV ACCESS EDGAR MIDLINE, LFA #20G INTACT, PATENT AND FLUSHING WELL. PATIENT HAVE EXTERNAL COLLEGE INTERN WITH CURRENT READING OF SR AND HR OF 88. FALL AND SAFETY MEASURES IN PLACE, BED ALARM ON, BED IN LOW AND LOCK POSITION, CALL LIGHT AND TABLE WITHIN EASY REACH, SIDE RAILS UP X2. WILL ENDORSE TO CHILD WELFARE CONSULTANT.
--- NOTE | 2021-07-12 19:59 | NUR ---
RN OPENING NOTES RECEIVED PT IN BED, AWAKE. AOx4, ABLE TO MAKE NEEDS KNOWN. ON RA AND TOLERATING WELL. NO SOB NOTED. NO S/SX OF RESPIRATORY DISTRESS. IV ACCESS IN LFA #20 RUNNING NS @ 75 ML/HR AND EDGAR MIDLINE #20. TELE MONITOR DETECTS SINUS RHYTHM WITH RATE OF 85. SAFETY PRECAUTIONS IN PLACE: BED IN LOWEST, LOCKED POSITION, SIDERAILS UPx2, AND BRAKES ON. TABLE AND CALL LIGHT WITHIN REACH. WILL CONTINUE TO MONITOR.
[2021-07-12 20:20] LABS: HEMOGLOBIN 9.3 g/dL (11.5-14.8)
[2021-07-13] VITALS: BP 119/58
[2021-07-13 03:49] LABS: BASOPHILS % (AUTO) 0.3 % (0.0-2.0); HEMATOCRIT 26 % (33-45); HEMOGLOBIN 8.5 g/dL (11.5-14.8); LYMPHOCYTES # (AUTO) 1.2 K/uL (0.8-4.8); LYMPHOCYTES % (AUTO) 14.7 % (20.0-44.0); MEAN CORPUSCULAR HGB CONC 33 g/dl (31.0-36.0); MEAN CORPUSCULAR VOLUME 92 fL (82-100); MONOCYTES # (AUTO) 0.8 K/uL (0.1-1.30); MONOCYTES % (AUTO) 9.1 % (2.0-12.0); NEUTROPHILS # (AUTO) 6.4 K/uL (1.8-8.9); NEUTROPHILS % (AUTO) 75.9 % (43.0-81.0); PLATELET COUNT (AUTO) 362 K/uL (150-450); RED BLOOD CELL COUNT(AUTO) 2.78 MIL/uL (4.0-5.2); WHITE BLOOD COUNT (AUTO) 8.4 K/uL (4.3-11.0)
[2021-07-13 04:00] VITALS: BP 125/66
--- NOTE | 2021-07-13 06:53 | NUR ---
RN CLOSING NOTES PT IN BED, AWAKE. AOx4, ABLE TO MAKE NEEDS KNOWN. ON RA AND TOLERATING WELL. NO SOB NOTED. NO S/SX OF RESPIRATORY DISTRESS. IV ACCESS IN LFA #20 RUNNING NS @ 75 ML/HR AND EDGAR MIDLINE #20. TELE MONITOR DETECTS SINUS RHYTHM WITH RATE OF 85. ALL NEEDS MET. PT KEPT CLEAN AND DRY. SAFETY PRECAUTIONS IN PLACE: BED IN LOWEST, LOCKED POSITION, SIDERAILS UPx2, AND BRAKES ON. TABLE AND CALL LIGHT WITHIN REACH. WILL ENDORSE TO ONCOMING SHIFT FOR HAILE.
[2021-07-13 08:00] VITALS: BP 136/56
--- NOTE | 2021-07-13 08:30 | NUR ---
verbalizes that she is overwhelmed and sad about her situation,offered social science instructor and pt. changed subject.
[2021-07-13] MEDS: PROSOURCE / PROSTAT (PYXIS) 30 ML UDC PO SCH (09:00)
[2021-07-13] MEDS: FERROUS SULFATE (325 MG) 325 MG/TAB TABLET PO SCH (09:47)
[2021-07-13] MEDS: LORAZEPAM 0.5 MG TABLET PO SCH (09:48)
[2021-07-13] MEDS: LISINOPRIL (5MG) 5 MG TABLET PO SCH (09:48)
[2021-07-13] MEDS: SODIUM CHLORIDE 1000 MG TABLET PO SCH (09:49)
[2021-07-13] MEDS: HYDROCHLOROTHIAZIDE 25 MG TABLET PO SCH (09:49)
[2021-07-13] MEDS: OLANZAPINE 2.5 MG TABLET PO SCH ×2 (09:49→13:00)
[2021-07-13] MEDS: PANTOPRAZOLE 40 MG VIAL IV SCH (09:50)
[2021-07-13] MEDS: DOCUSATE SODIUM 100 MG CAPSULE PO SCH (09:51)
[2021-07-13] MEDS: POLYVINYL ALCOHOL 15 ML BOTTLE EACHEYE SCH ×2 (09:57→13:52)
[2021-07-13] MEDS: LEVOTHYROXINE SODIUM 75 MCG TABLET PO SCH (09:57)
[2021-07-13] MEDS: ENSURE ENLIVE CHOC 237 ML CAN PO SCH ×2 (10:26→12:00)
[2021-07-13 11:49] LABS: HEMOGLOBIN 8.6 g/dL (11.5-14.8)
[2021-07-13 12:00] VITALS: BP 124/56
--- NOTE | 2021-07-13 14:30 | NUR ---
refusing dc photos.hep locks removed.
--- NOTE | 2021-07-13 15:00 | NUR ---
ambulance here,report to drivers,report called to facility.[facility].
== END 2021-07-13 15:00 | DRG 598 ==
LOC: ER 15:23 → TELE 19:25
PROVIDERS: ADMIT Student in an Organized Health Care Education/Training Program; ATTEND Internal Medicine
PROC: 05H633Z Insertion of Infusion Device into Left Subclavian Vein, Percutaneous Approach (ICD-10-PCS; 2021-07-11)
PROC: B547ZZA Ultrasonography of Left Subclavian Vein, Guidance (ICD-10-PCS; 2021-07-11)
PROC: 30233N1 Transfusion of Nonautologous Red Blood Cells into Peripheral Vein, Percutaneous Approach (ICD-10-PCS; principal; 2021-07-12)
DX: C50.912 Malignant neoplasm of unspecified site of left female breast (principal); E44.0 Moderate protein-calorie malnutrition; E87.1 Hypo-osmolality and hyponatremia; C77.3 Secondary and unspecified malignant neoplasm of axilla and upper limb lymph nodes; D63.0 Anemia in neoplastic disease; K21.9 Gastro-esophageal reflux disease without esophagitis; F02.80 Dementia in other diseases classified elsewhere, unspecified severity, without behavioral disturbance, psychotic disturbance, mood disturbance, and anxiety; G20 Parkinson's disease; E03.9 Hypothyroidism, unspecified; E78.5 Hyperlipidemia, unspecified; D50.9 Iron deficiency anemia, unspecified; D75.839 Thrombocytosis, unspecified; E88.09 Other disorders of plasma-protein metabolism, not elsewhere classified; F25.9 Schizoaffective disorder, unspecified; M79.7 Fibromyalgia; Z66 Do not resuscitate; R74.01 Elevation of levels of liver transaminase levels; Z68.26 Body mass index [BMI] 26.0-26.9, adult; I10 Essential (primary) hypertension; Z20.822 Contact with and (suspected) exposure to COVID-19; K64.9 Unspecified hemorrhoids
CPT/HCPCS: 36415; 71045-TC; 80048-TC; 80076-TC; 82728-TC; 83540-TC; 83690-TC; 83735-TC; 84100-TC; 84484-TC; 85025-TC; 85027-TC; 85730-TC; 86850-TC; 87081-TC; C9113; C9803; G0378; J1200; J7030; P9016; Q0162; Q0164

== ENCOUNTER 2022-12-06 18:39 | Inpatient (IN) | payer MEDICARE, OTHER ==
[~2022-12-06] VITALS: Ht 162.6 cm; Wt 73.5 kg
[~2022-12-06 18:39] MED LIST changes: +BENZ1LOZ PO; +FERR325T23 PO; +LOPE-195 PO; -MELA3TAB41 PO; +ONDA4TAB5 PO; +PROC10TA13 PO
[2022-12-06] MEDS ORDERED: ASCO-340 PO (19:24)
[2022-12-06] MEDS ORDERED: ZINC220C6 PO (19:24)
[2022-12-06] MEDS ORDERED: LAPA250T PO (19:24)
[2022-12-06] MEDS ORDERED: CYCL5.5D EACHEYE (19:24)
[2022-12-06] MEDS ORDERED: FLUO10TA PO (19:24)
[2022-12-06] MEDS ORDERED: HYDR12.55 PO (19:24)
[2022-12-06] MEDS ORDERED: LETR2.5T PO (19:24)
[2022-12-06 20:15] LABS: BASOPHILS % (AUTO) 0.4 % (0.0-2.0); HEMATOCRIT 44 % (33-45); HEMOGLOBIN 14.7 g/dL (11.5-14.8); LYMPHOCYTES # (AUTO) 1.7 K/uL (0.8-4.8); LYMPHOCYTES % (AUTO) 20.8 % (20.0-44.0); MEAN CORPUSCULAR HEMOGLOBIN 31 PG (26.0-33.0); MEAN CORPUSCULAR HGB CONC 34 g/dl (31.0-36.0); MEAN CORPUSCULAR VOLUME 91 fL (82-100); MONOCYTES # (AUTO) 0.7 K/uL (0.1-1.30); NEUTROPHILS # (AUTO) 5.6 K/uL (1.8-8.9); NEUTROPHILS % (AUTO) 69.8 % (43.0-81.0); PLATELET COUNT (AUTO) 275 K/uL (150-450); RED BLOOD CELL COUNT(AUTO) 4.83 MIL/uL (4.0-5.2); RED CELL DISTRIBUTION WIDTH 13.6 % (11.5-15.0); WHITE BLOOD COUNT (AUTO) 8.1 K/uL (4.3-11.0)
[2022-12-06 20:32] LABS: CALCIUM, SERUM 10.9 mg/dL (8.5-10.1); CARBON DIOXIDE 21 mmol/L (21-32); CHLORIDE 99 mmol/L (98-107); CREATININE 1.4 mg/dL (0.6-1.3); GLUCOSE 148 mg/dL (74-106); POTASSIUM 4.1 mmol/L (3.5-5.1); SODIUM SERUM 134 mmol/L (136-145); UREA NITROGEN, BLOOD 56 mg/dL (7-18)
[2022-12-06 20:37] LABS: ALANINE AMINOTRANSFERASE 26 U/L (12-78); ALBUMIN 3.3 g/dL (3.4-5.0); ALCOHOL, BLOOD < 3 mg/dL (0-10); ALKALINE PHOSPHATASE 97 U/L (46-116); ASPARTATE AMINOTRANSFERASE 32 U/L (15-37); BILIRUBIN,DIRECT 0.1 mg/dL (0.0-0.2); BILIRUBIN,TOTAL 0.6 mg/dL (0.2-1.0); TOTAL PROTEIN, SERUM 8.7 g/dL (6.4-8.2)
[2022-12-06 20:40] LABS: ACETAMINOPHEN <10 ug/ml (10-30); SALICYLATE < 2.3 mg/dL (2.8-20.0)
[2022-12-06 21:07] LABS: APPEARANCE,URINE CLOUDY (CLEAR); BILIRUBIN,URINE 1+ (NEGATIVE); BLOOD, URINE 2+ Ery/uL (NEGATIVE); COLOR,URINE YELLOW (YELLOW); KETONES,URINE NEGATIVE (NEGATIVE); LEUKOCYTE ESTERASE ,URINE 3+ (NEGATIVE); NITRITE, URINE NEGATIVE (NEGATIVE); PROTEIN,URINE 1+ mg/dl (NEGATIVE); UGLUCOSE NEGATIVE (NEGATIVE); UROBILINOGEN,URINE 0.2 EU/dL (0.2)
[2022-12-06 21:25] LABS: ADD URINE CULTURE YES; BACTERIA,URINE 3+ /HPF (None Seen); WBC,URINE TOO NUMEROUS TO COUN /HPF (0-3)
[2022-12-06 21:26] LABS: MUCUS,URINE Moderate /LPF (None Seen); SQUAMOUS EPITHELIAL CELL,UR 0-2 /HPF (None Seen)
[2022-12-06 21:40] VITALS: BP 130/84; TEMP 97.8; O2SAT 98
[2022-12-06 21:57] LABS: AMPHETAMINE, URINE NEGATIVE (NEGATIVE); BARBITURATE, URINE NEGATIVE (NEGATIVE); BENZODIAZEPINE, URINE NEGATIVE (NEGATIVE); CANNABINOID, URINE NEGATIVE (NEGATIVE); COCCAINE, URINE NEGATIVE (NEGATIVE); OPIATE, URINE NEGATIVE (NEGATIVE); PHENCYCLIDINE SCREEN,URINE NEGATIVE (NEGATIVE)
[2022-12-06] MEDS ORDERED: MAGNESIUM HYDROXIDE 30 ML UDC PO PRN (23:00)
[2022-12-06] MEDS ORDERED: ACETAMINOPHEN 325 MG TABLET PO PRN (23:00)
[2022-12-06] MEDS ORDERED: ONDANSETRON HCL/PF 4 MG/2 ML VIAL IVP PRN (23:00)
[2022-12-06] MEDS ORDERED: MAG HYDROX/AL HYDROX/SIMETH 30 ML UDC PO PRN (23:00)
[2022-12-06] MEDS ORDERED: Z GUARD REMEDY 4 OZ OINT TP PRN (23:00)
[2022-12-06] MEDS: IV NS 0.9% 1,000 ML IV PRN (23:09)
[2022-12-06] MEDS: ENOXAPARIN SODIUM 30 MG/0.3 ML DISP.SYRIN SQ SCH (23:13)
[2022-12-06] MEDS ORDERED: CEFTRIAXONE 1GM BAG (ER ONLY) 50 ML IV ONE (23:33)
[2022-12-06] MEDS: CEFTRIAXONE 1 G in IV D5W 50 ML IV SCH (23:59)
[2022-12-07 04:00] VITALS: BP 144/77; TEMP 97.4; O2SAT 98
[2022-12-07] MEDS: LEVOTHYROXINE SODIUM 75 MCG TABLET PO SCH (07:53)
[2022-12-07 08:17] LABS: BASOPHILS % (AUTO) 0.7 % (0.0-2.0); HEMATOCRIT 44 % (33-45); HEMOGLOBIN 14.5 g/dL (11.5-14.8); LYMPHOCYTES # (AUTO) 1.7 K/uL (0.8-4.8); LYMPHOCYTES % (AUTO) 24.2 % (20.0-44.0); MEAN CORPUSCULAR HEMOGLOBIN 30 PG (26.0-33.0); MEAN CORPUSCULAR HGB CONC 33 g/dl (31.0-36.0); MEAN CORPUSCULAR VOLUME 92 fL (82-100); MONOCYTES # (AUTO) 0.7 K/uL (0.1-1.30); MONOCYTES % (AUTO) 10.1 % (2.0-12.0); NEUTROPHILS # (AUTO) 4.6 K/uL (1.8-8.9); PLATELET COUNT (AUTO) 230 K/uL (150-450); RED BLOOD CELL COUNT(AUTO) 4.76 MIL/uL (4.0-5.2); RED CELL DISTRIBUTION WIDTH 14.3 % (11.5-15.0); WHITE BLOOD COUNT (AUTO) 7.1 K/uL (4.3-11.0)
[2022-12-07] MEDS: ENSURE ENLIVE CHOC 237 ML CAN PO SCH ×3 (08:23→16:46)
[2022-12-07] MEDS: LISINOPRIL (5MG) 5 MG TABLET PO SCH (08:49)
[2022-12-07] MEDS: ASCORBIC ACID 500 MG TABLET PO SCH (08:49)
[2022-12-07] MEDS: SODIUM CHLORIDE 1000 MG TABLET PO SCH ×2 (08:50→16:49)
[2022-12-07] MEDS: DOCUSATE SODIUM 100 MG CAPSULE PO SCH ×2 (08:50→16:49)
[2022-12-07] MEDS: FERROUS SULFATE (325 MG) 325 MG/TAB TABLET PO SCH ×2 (08:50→16:49)
[2022-12-07] MEDS: PANTOPRAZOLE 40 MG VIAL IV SCH (08:51)
[2022-12-07] MEDS: PROSTAT (PYXIS) 30 ML UDC PO SCH (08:51)
[2022-12-07 08:55] LABS: THYROID STIMULATING HORMONE 1.677 uIU/mL (0.358-3.74)
[2022-12-07] MEDS ORDERED: LAPATINIB DITOSYLATE PO SCH (09:00)
[2022-12-07] MEDS ORDERED: Medication Not On Formulary EA (Cyclosporine (Restasis Multidose) 1 DROP) EACHEYE SCH (09:00)
[2022-12-07] MEDS ORDERED: Medication Not On Formulary EA (Cranberry Extract (Cranberry) 850 MG) PO SCH (09:00)
[2022-12-07] MEDS: LETROZOLE 2.5 MG TABLET PO SCH (09:07)
[2022-12-07] MEDS: HYDROCHLOROTHIAZIDE 25 MG TABLET PO SCH (09:07)
[2022-12-07 09:11] LABS: CALCIUM, SERUM 10.8 mg/dL (8.5-10.1); CREATININE 1.1 mg/dL (0.6-1.3); MAGNESIUM 2.5 mg/dL (1.8-2.4); PHOSPHORUS 3.2 mg/dL (2.5-4.9); POTASSIUM 3.8 mmol/L (3.5-5.1)
[2022-12-07 10:00] VITALS: BP 156/67; TEMP 98.5; O2SAT 99
[2022-12-07 12:00] VITALS: BP 156/67; TEMP 98.5; O2SAT 99
[2022-12-07] MEDS: IV NS 0.9% 1,000 ML IV PRN (17:06)
[2022-12-07 20:00] VITALS: BP_SYST 157; BP_SYST 168; BP_DIAS 66; BP_DIAS 98; TEMP 98; O2SAT 98; O2SAT 99
[2022-12-07] MEDS: ENOXAPARIN SODIUM 30 MG/0.3 ML DISP.SYRIN SQ SCH (21:22)
[2022-12-07] MEDS: CEFTRIAXONE 1 G in IV D5W 50 ML IV SCH (23:08)
[2022-12-08 04:00] VITALS: BP 153/86; TEMP 98.3; O2SAT 96
[2022-12-08] MEDS: IV NS 0.9% 1,000 ML IV PRN (06:15)
[2022-12-08 06:39] LABS: BASOPHILS % (AUTO) 0.5 % (0.0-2.0); EOSINOPHILS % (AUTO) 0.1 % (0.0-6.0); HEMATOCRIT 44 % (33-45); HEMOGLOBIN 14.2 g/dL (11.5-14.8); LYMPHOCYTES # (AUTO) 1.2 K/uL (0.8-4.8); LYMPHOCYTES % (AUTO) 20.2 % (20.0-44.0); MEAN CORPUSCULAR HEMOGLOBIN 30 PG (26.0-33.0); MEAN CORPUSCULAR HGB CONC 33 g/dl (31.0-36.0); MEAN CORPUSCULAR VOLUME 93 fL (82-100); MONOCYTES # (AUTO) 0.6 K/uL (0.1-1.30); MONOCYTES % (AUTO) 9.3 % (2.0-12.0); NEUTROPHILS # (AUTO) 4.3 K/uL (1.8-8.9); NEUTROPHILS % (AUTO) 69.9 % (43.0-81.0); PLATELET COUNT (AUTO) 215 K/uL (150-450); RED BLOOD CELL COUNT(AUTO) 4.66 MIL/uL (4.0-5.2); RED CELL DISTRIBUTION WIDTH 14.3 % (11.5-15.0); WHITE BLOOD COUNT (AUTO) 6.1 K/uL (4.3-11.0)
[2022-12-08 06:56] LABS: CALCIUM, SERUM 10.1 mg/dL (8.5-10.1); CREATININE 0.8 mg/dL (0.6-1.3); MAGNESIUM 2.4 mg/dL (1.8-2.4); PHOSPHORUS 2.2 mg/dL (2.5-4.9); POTASSIUM 3.6 mmol/L (3.5-5.1)
[2022-12-08 08:00] VITALS: BP 161/85; TEMP 98.7; O2SAT 96
[2022-12-08] MEDS: PANTOPRAZOLE 40 MG VIAL IV SCH (08:09)
[2022-12-08] MEDS: HYDROCHLOROTHIAZIDE 25 MG TABLET PO SCH (08:10)
[2022-12-08] MEDS: LISINOPRIL (5MG) 5 MG TABLET PO SCH (08:11)
[2022-12-08] MEDS: LEVOTHYROXINE SODIUM 75 MCG TABLET PO SCH (08:11)
[2022-12-08] MEDS: FERROUS SULFATE (325 MG) 325 MG/TAB TABLET PO SCH ×2 (08:11→17:30)
[2022-12-08] MEDS: DOCUSATE SODIUM 100 MG CAPSULE PO SCH ×2 (08:11→17:30)
[2022-12-08] MEDS: SODIUM CHLORIDE 1000 MG TABLET PO SCH ×2 (08:11→17:31)
[2022-12-08] MEDS: ASCORBIC ACID 500 MG TABLET PO SCH (08:11)
[2022-12-08] MEDS: ENSURE ENLIVE CHOC 237 ML CAN PO SCH ×3 (08:12→17:30)
[2022-12-08] MEDS: PROSTAT (PYXIS) 30 ML UDC PO SCH (08:13)
[2022-12-08] MEDS: LETROZOLE 2.5 MG TABLET PO SCH (08:14)
[2022-12-08 10:08] LABS: CANCER AG, 15-3 27.2 U/mL (0.0-25.0)
[2022-12-08] MEDS ORDERED: K PHOS NEUTRAL 250 MG TABLET PO ONE (10:12)
[2022-12-08] MEDS ORDERED: IOHEXOL-300 100 ML VIAL IV ONE (15:20)
[2022-12-08] MEDS ORDERED: IV NS 0.9% 250 ML IV ONE (15:20)
[2022-12-08] MEDS ORDERED: CT SWABBABLE VALVE TRANS SET 1 EA INFUS.SET MC ONE (15:20)
[2022-12-08 16:00] VITALS: BP 146/85; TEMP 98.2; O2SAT 96
[2022-12-08 20:00] VITALS: BP 146/85; TEMP 98.2; O2SAT 96
[2022-12-08] MEDS: CEFTRIAXONE 1 G in IV D5W 50 ML IV SCH (21:45)
[2022-12-08] MEDS: MUPIROCIN OINT 2% 22 GM TUBE TP SCH (21:45)
[2022-12-08] MEDS: ENOXAPARIN SODIUM 30 MG/0.3 ML DISP.SYRIN SQ SCH (21:48)
[2022-12-08] MEDS: ZOLPIDEM TARTRATE 5 MG TABLET PO PRN (22:47)
[2022-12-09 04:00] VITALS: BP 139/82; TEMP 98.2; O2SAT 96
[2022-12-09 06:42] LABS: BASOPHILS % (AUTO) 0.7 % (0.0-2.0); HEMATOCRIT 41 % (33-45); HEMOGLOBIN 13.6 g/dL (11.5-14.8); LYMPHOCYTES # (AUTO) 1.7 K/uL (0.8-4.8); LYMPHOCYTES % (AUTO) 28.6 % (20.0-44.0); MEAN CORPUSCULAR HEMOGLOBIN 31 PG (26.0-33.0); MEAN CORPUSCULAR HGB CONC 34 g/dl (31.0-36.0); MEAN CORPUSCULAR VOLUME 91 fL (82-100); MONOCYTES # (AUTO) 0.5 K/uL (0.1-1.30); MONOCYTES % (AUTO) 8.8 % (2.0-12.0); NEUTROPHILS # (AUTO) 3.8 K/uL (1.8-8.9); NEUTROPHILS % (AUTO) 61.9 % (43.0-81.0); PLATELET COUNT (AUTO) 234 K/uL (150-450); RED BLOOD CELL COUNT(AUTO) 4.44 MIL/uL (4.0-5.2); WHITE BLOOD COUNT (AUTO) 6.1 K/uL (4.3-11.0)
[2022-12-09 07:16] LABS: CALCIUM, SERUM 10.4 mg/dL (8.5-10.1); CREATININE 0.9 mg/dL (0.6-1.3); PHOSPHORUS 3.3 mg/dL (2.5-4.9); POTASSIUM 3.2 mmol/L (3.5-5.1)
[2022-12-09] MEDS: LEVOTHYROXINE SODIUM 75 MCG TABLET PO SCH (07:43)
[2022-12-09 08:00] VITALS: BP 124/71; TEMP 97.9; O2SAT 98
[2022-12-09] MEDS: SODIUM CHLORIDE 1000 MG TABLET PO SCH ×2 (08:39→16:24)
[2022-12-09] MEDS: FERROUS SULFATE (325 MG) 325 MG/TAB TABLET PO SCH ×2 (08:39→16:24)
[2022-12-09] MEDS: LETROZOLE 2.5 MG TABLET PO SCH (08:39)
[2022-12-09] MEDS: ASCORBIC ACID 500 MG TABLET PO SCH (08:40)
[2022-12-09] MEDS: HYDROCHLOROTHIAZIDE 25 MG TABLET PO SCH (08:40)
[2022-12-09] MEDS: DOCUSATE SODIUM 100 MG CAPSULE PO SCH ×2 (08:40→16:24)
[2022-12-09] MEDS: LISINOPRIL (5MG) 5 MG TABLET PO SCH (08:40)
[2022-12-09] MEDS: PANTOPRAZOLE 40 MG TABLET.DR PO SCH (08:40)
[2022-12-09] MEDS: ENSURE ENLIVE CHOC 237 ML CAN PO SCH ×3 (08:41→17:13)
[2022-12-09] MEDS: MUPIROCIN OINT 2% 22 GM TUBE TP SCH ×2 (08:41→21:01)
[2022-12-09] MEDS: PROSTAT (PYXIS) 30 ML UDC PO SCH (09:02)
[2022-12-09] MEDS: POTASSIUM CHLORIDE 20 MEQ POWDER PACKET PO SCH ×2 (10:25→11:36)
[2022-12-09] MEDS ORDERED: POTASSIUM CHLORIDE 20 MEQ TAB.PRT.SR PO SCH (10:30)
[2022-12-09] MEDS: IV NS 0.9% 1,000 ML IV PRN (13:59)
[2022-12-09 16:00] VITALS: BP 114/73; TEMP 98.5; O2SAT 96
[2022-12-09 20:00] VITALS: BP 127/78; TEMP 98.1; O2SAT 96
[2022-12-09] MEDS: ENOXAPARIN SODIUM 30 MG/0.3 ML DISP.SYRIN SQ SCH (20:57)
[2022-12-09] MEDS: CEFTRIAXONE 1 G in IV D5W 50 ML IV SCH (22:03)
[2022-12-09] MEDS: ZOLPIDEM TARTRATE 5 MG TABLET PO PRN (22:10)
[2022-12-10 04:00] VITALS: BP_SYST 112; BP_SYST 143; BP_DIAS 71; BP_DIAS 77; TEMP 97.8; O2SAT 95
[2022-12-10] MEDS: IV NS 0.9% 1,000 ML IV PRN ×2 (05:29→21:22)
[2022-12-10 06:17] LABS: BASOPHILS % (AUTO) 0.5 % (0.0-2.0); HEMATOCRIT 38 % (33-45); HEMOGLOBIN 12.6 g/dL (11.5-14.8); LYMPHOCYTES % (AUTO) 31.8 % (20.0-44.0); MEAN CORPUSCULAR HEMOGLOBIN 30 PG (26.0-33.0); MEAN CORPUSCULAR HGB CONC 34 g/dl (31.0-36.0); MEAN CORPUSCULAR VOLUME 91 fL (82-100); MONOCYTES # (AUTO) 0.6 K/uL (0.1-1.30); MONOCYTES % (AUTO) 8.7 % (2.0-12.0); NEUTROPHILS # (AUTO) 3.8 K/uL (1.8-8.9); PLATELET COUNT (AUTO) 216 K/uL (150-450); RED BLOOD CELL COUNT(AUTO) 4.14 MIL/uL (4.0-5.2); RED CELL DISTRIBUTION WIDTH 13.6 % (11.5-15.0); WHITE BLOOD COUNT (AUTO) 6.4 K/uL (4.3-11.0)
[2022-12-10 06:41] LABS: CALCIUM, SERUM 10.1 mg/dL (8.5-10.1); CARBON DIOXIDE 20 mmol/L (21-32); CHLORIDE 108 mmol/L (98-107); CREATININE 0.7 mg/dL (0.6-1.3); GLUCOSE 108 mg/dL (74-106); MAGNESIUM 1.9 mg/dL (1.8-2.4); PHOSPHORUS 2.5 mg/dL (2.5-4.9); POTASSIUM 3.3 mmol/L (3.5-5.1); SODIUM SERUM 140 mmol/L (136-145); UREA NITROGEN, BLOOD 24 mg/dL (7-18)
[2022-12-10] MEDS: LEVOTHYROXINE SODIUM 75 MCG TABLET PO SCH (07:54)
[2022-12-10] MEDS: DOCUSATE SODIUM 100 MG CAPSULE PO SCH ×2 (07:54→17:06)
[2022-12-10] MEDS: ENSURE ENLIVE CHOC 237 ML CAN PO SCH ×3 (07:54→17:06)
[2022-12-10] MEDS: LETROZOLE 2.5 MG TABLET PO SCH (07:55)
[2022-12-10] MEDS: FERROUS SULFATE (325 MG) 325 MG/TAB TABLET PO SCH ×2 (07:55→17:06)
[2022-12-10] MEDS: MUPIROCIN OINT 2% 22 GM TUBE TP SCH ×2 (07:55→21:12)
[2022-12-10] MEDS: ASCORBIC ACID 500 MG TABLET PO SCH (07:55)
[2022-12-10] MEDS: SODIUM CHLORIDE 1000 MG TABLET PO SCH ×2 (07:55→17:06)
[2022-12-10] MEDS: PANTOPRAZOLE 40 MG TABLET.DR PO SCH (07:56)
[2022-12-10] MEDS: PROSTAT (PYXIS) 30 ML UDC PO SCH (07:58)
[2022-12-10 08:00] VITALS: BP 133/73; TEMP 97.9; O2SAT 98
[2022-12-10] MEDS: HYDROCHLOROTHIAZIDE 25 MG TABLET PO SCH (08:03)
[2022-12-10] MEDS: LISINOPRIL (5MG) 5 MG TABLET PO SCH (08:04)
[2022-12-10] MEDS: SERTRALINE HCL 25 MG TABLET PO SCH (08:39)
[2022-12-10] MEDS ORDERED: POTASSIUM CHLORIDE 20 MEQ TAB.PRT.SR PO ONE (09:30)
[2022-12-10 16:00] VITALS: BP 155/81; TEMP 97.7; O2SAT 96
[2022-12-10 20:00] VITALS: BP 132/85; TEMP 98.2; O2SAT 99
[2022-12-10] MEDS: ENOXAPARIN SODIUM 30 MG/0.3 ML DISP.SYRIN SQ SCH (21:12)
[2022-12-10] MEDS: CEFTRIAXONE 1 G in IV D5W 50 ML IV SCH (22:08)
[2022-12-10] MEDS: ZOLPIDEM TARTRATE 5 MG TABLET PO PRN (22:10)
[2022-12-11 04:00] VITALS: BP 139/69; TEMP 98; O2SAT 99
[2022-12-11] MEDS: LEVOTHYROXINE SODIUM 75 MCG TABLET PO SCH (07:48)
[2022-12-11 08:11] LABS: BASOPHILS % (AUTO) 0.5 % (0.0-2.0); HEMATOCRIT 38 % (33-45); HEMOGLOBIN 12.7 g/dL (11.5-14.8); LYMPHOCYTES # (AUTO) 1.5 K/uL (0.8-4.8); LYMPHOCYTES % (AUTO) 23.6 % (20.0-44.0); MEAN CORPUSCULAR HEMOGLOBIN 30 PG (26.0-33.0); MEAN CORPUSCULAR HGB CONC 33 g/dl (31.0-36.0); MEAN CORPUSCULAR VOLUME 90 fL (82-100); MONOCYTES # (AUTO) 0.6 K/uL (0.1-1.30); MONOCYTES % (AUTO) 8.6 % (2.0-12.0); NEUTROPHILS # (AUTO) 4.4 K/uL (1.8-8.9); NEUTROPHILS % (AUTO) 67.3 % (43.0-81.0); PLATELET COUNT (AUTO) 218 K/uL (150-450); RED CELL DISTRIBUTION WIDTH 13.7 % (11.5-15.0); WHITE BLOOD COUNT (AUTO) 6.5 K/uL (4.3-11.0)
[2022-12-11 08:21] LABS: CALCIUM, SERUM 9.3 mg/dL (8.5-10.1); CREATININE 0.7 mg/dL (0.6-1.3); MAGNESIUM 1.5 mg/dL (1.8-2.4)
[2022-12-11] MEDS: SODIUM CHLORIDE 1000 MG TABLET PO SCH ×2 (08:58→18:03)
[2022-12-11] MEDS: PANTOPRAZOLE 40 MG TABLET.DR PO SCH (08:59)
[2022-12-11] MEDS: HYDROCHLOROTHIAZIDE 25 MG TABLET PO SCH (08:59)
[2022-12-11] MEDS: MUPIROCIN OINT 2% 22 GM TUBE TP SCH ×2 (08:59→21:15)
[2022-12-11] MEDS: SERTRALINE HCL 25 MG TABLET PO SCH (08:59)
[2022-12-11] MEDS: ASCORBIC ACID 500 MG TABLET PO SCH (08:59)
[2022-12-11] MEDS: DOCUSATE SODIUM 100 MG CAPSULE PO SCH ×2 (08:59→18:03)
[2022-12-11] MEDS: LETROZOLE 2.5 MG TABLET PO SCH (09:00)
[2022-12-11] MEDS: LISINOPRIL (5MG) 5 MG TABLET PO SCH (09:00)
[2022-12-11] MEDS: PROSTAT (PYXIS) 30 ML UDC PO SCH (09:00)
[2022-12-11] MEDS: FERROUS SULFATE (325 MG) 325 MG/TAB TABLET PO SCH ×2 (09:00→18:03)
[2022-12-11] MEDS: ENSURE ENLIVE CHOC 237 ML CAN PO SCH ×3 (09:00→18:03)
[2022-12-11 10:21] VITALS: BP 138/73; TEMP 98.1; O2SAT 100
[2022-12-11] MEDS ORDERED: CEFP200T14 PO (11:04)
[2022-12-11] MEDS ORDERED: MAGNESIUM OXIDE 400 MG TABLET PO ONE (12:00)
[2022-12-11] MEDS: POTASSIUM CHLORIDE 20 MEQ TAB.PRT.SR PO SCH ×3 (12:12→13:46)
[2022-12-11] MEDS ORDERED: K PHOS NEUTRAL 250 MG TABLET PO ONE (13:00)
[2022-12-11 18:58] VITALS: BP 170/100; TEMP 98; O2SAT 100
[2022-12-11] MEDS ORDERED: HYDROCHLOROTHIAZIDE 25 MG TABLET PO ONE (19:00)
[2022-12-11 20:00] VITALS: BP 147/77; TEMP 98.2; O2SAT 99
[2022-12-11 20:45] VITALS: BP_SYST 170; BP_SYST 230; BP_DIAS 100; BP_DIAS 110; BP_DIAS 90
[2022-12-11] MEDS ORDERED: hydrALAZINE HCL IV 20 MG VIAL IV PRN (21:00)
[2022-12-11] MEDS: ENOXAPARIN SODIUM 30 MG/0.3 ML DISP.SYRIN SQ SCH (21:19)
[2022-12-11] MEDS: CEFTRIAXONE 1 G in IV D5W 50 ML IV SCH (22:50)
[2022-12-11] MEDS: IV NS 0.9% 1,000 ML IV PRN (22:58)
[2022-12-12] MEDS: ZOLPIDEM TARTRATE 5 MG TABLET PO PRN (00:44)
[2022-12-12 04:00] VITALS: BP 148/82; TEMP 97.1; O2SAT 98
[2022-12-12 08:00] VITALS: BP 143/77; TEMP 97.6; O2SAT 99
[2022-12-12 08:14] LABS: CALCIUM, SERUM 9.4 mg/dL (8.5-10.1); CREATININE 0.7 mg/dL (0.6-1.3); MAGNESIUM 1.7 mg/dL (1.8-2.4); PHOSPHORUS 2.6 mg/dL (2.5-4.9); POTASSIUM 3.2 mmol/L (3.5-5.1)
[2022-12-12] MEDS: MUPIROCIN OINT 2% 22 GM TUBE TP SCH (08:38)
[2022-12-12] MEDS: ASCORBIC ACID 500 MG TABLET PO SCH (08:42)
[2022-12-12] MEDS: PANTOPRAZOLE 40 MG TABLET.DR PO SCH (08:42)
[2022-12-12] MEDS: SERTRALINE HCL 25 MG TABLET PO SCH (08:42)
[2022-12-12] MEDS: LETROZOLE 2.5 MG TABLET PO SCH (08:42)
[2022-12-12] MEDS: LISINOPRIL (5MG) 5 MG TABLET PO SCH (08:42)
[2022-12-12 08:43] VITALS: BP 143/77
[2022-12-12] MEDS: DOCUSATE SODIUM 100 MG CAPSULE PO SCH (08:43)
[2022-12-12] MEDS: SODIUM CHLORIDE 1000 MG TABLET PO SCH (08:43)
[2022-12-12] MEDS: HYDROCHLOROTHIAZIDE 25 MG TABLET PO SCH (08:43)
[2022-12-12] MEDS: ENSURE ENLIVE CHOC 237 ML CAN PO SCH (08:43)
[2022-12-12] MEDS: PROSTAT (PYXIS) 30 ML UDC PO SCH (08:43)
[2022-12-12] MEDS: LEVOTHYROXINE SODIUM 75 MCG TABLET PO SCH (08:43)
[2022-12-12] MEDS: FERROUS SULFATE (325 MG) 325 MG/TAB TABLET PO SCH (08:43)
[2022-12-12] MEDS ORDERED: MAGNESIUM OXIDE 400 MG TABLET PO ONE (11:00)
[2022-12-12] MEDS ORDERED: POTASSIUM CHLORIDE 20 MEQ TAB.PRT.SR PO SCH (11:00)
[2022-12-12] MEDS ORDERED: ALPRAZOLAM 0.25 MG TABLET PO ONE (11:30)
[2022-12-12] MEDS ORDERED: ENOXAPARIN SODIUM 40 MG/0.4 ML DISP.SYRIN SQ SCH (21:00)
== END 2022-12-12 12:32 | DRG 682 ==
LOC: ER 18:42 → MED 21:09 → MEDSG1 21:15
PROVIDERS: ADMIT Nurse Practitioner Acute Care; ATTEND Nurse Practitioner Acute Care
DX: N17.0 Acute kidney failure with tubular necrosis (principal); G93.41 Metabolic encephalopathy; N39.0 Urinary tract infection, site not specified; F02.83 Dementia in other diseases classified elsewhere, unspecified severity, with mood disturbance; F02.84 Dementia in other diseases classified elsewhere, unspecified severity, with anxiety; F02.818 Dementia in other diseases classified elsewhere, unspecified severity, with other behavioral disturbance; C77.3 Secondary and unspecified malignant neoplasm of axilla and upper limb lymph nodes; E87.1 Hypo-osmolality and hyponatremia; G20 Parkinson's disease; F25.9 Schizoaffective disorder, unspecified; I10 Essential (primary) hypertension; E78.5 Hyperlipidemia, unspecified; K21.9 Gastro-esophageal reflux disease without esophagitis; R26.9 Unspecified abnormalities of gait and mobility; R53.1 Weakness; M79.7 Fibromyalgia; E03.9 Hypothyroidism, unspecified; Z98.890 Other specified postprocedural states; F32.A Depression, unspecified; Z88.1 Allergy status to other antibiotic agents; Z88.0 Allergy status to penicillin; Z88.2 Allergy status to sulfonamides; Z79.899 Other long term (current) drug therapy; E83.52 Hypercalcemia; I70.0 Atherosclerosis of aorta; Z79.890 Hormone replacement therapy; C50.912 Malignant neoplasm of unspecified site of left female breast; D63.8 Anemia in other chronic diseases classified elsewhere; B96.20 Unspecified Escherichia coli [E. coli] as the cause of diseases classified elsewhere
CPT/HCPCS: 36415; 71045-TC; 71260-TC; 80048-TC; 80061-TC; 80076-TC; 81001; 82040-TC; 82306; 82378; 82607-TC; 83540-TC; 83735-TC; 83970; 84100-TC; 84443-TC; 85025-TC; 86300; 87081-TC; 87086-TC; 93307-TC; 97112-TC; 97116-TC; 97530-TC; A4223; C9113; G0378; G0480; J0696; J1650; J7030; J7050; J7060; Q9967

== ENCOUNTER 2023-01-01 19:56 | Inpatient (IN) | payer MEDICARE, OTHER ==
[~2023-01-01] VITALS: Ht 160 cm; Wt 68.9 kg
[~2023-01-01 19:56] MED LIST changes: -ANAS1TAB50 NG; +ASCO-340 PO; -BENZ1LOZ PO; +CEFP200T14 PO; +CYCL5.5D EACHEYE; +FLUO10TA PO; +HYDR12.55 PO; -HYDR25TA4 PO; +LAPA250T PO; +LETR2.5T PO; -PROC10TA13 PO; +ZINC220C6 PO
[2023-01-01 21:12] LABS: BASOPHILS % (AUTO) 0.3 % (0.0-2.0); HEMATOCRIT 34 % (33-45); HEMOGLOBIN 11.5 g/dL (11.5-14.8); LYMPHOCYTES # (AUTO) 1.4 K/uL (0.8-4.8); LYMPHOCYTES % (AUTO) 19.6 % (20.0-44.0); MEAN CORPUSCULAR HEMOGLOBIN 30 PG (26.0-33.0); MEAN CORPUSCULAR HGB CONC 34 g/dl (31.0-36.0); MEAN CORPUSCULAR VOLUME 89 fL (82-100); MONOCYTES # (AUTO) 0.9 K/uL (0.1-1.30); MONOCYTES % (AUTO) 12.2 % (2.0-12.0); NEUTROPHILS # (AUTO) 4.9 K/uL (1.8-8.9); NEUTROPHILS % (AUTO) 67.9 % (43.0-81.0); PLATELET COUNT (AUTO) 301 K/uL (150-450); RED BLOOD CELL COUNT(AUTO) 3.82 MIL/uL (4.0-5.2); RED CELL DISTRIBUTION WIDTH 14.4 % (11.5-15.0); WHITE BLOOD COUNT (AUTO) 7.2 K/uL (4.3-11.0)
[2023-01-01 21:21] LABS: CALCIUM, SERUM 9.9 mg/dL (8.5-10.1); CARBON DIOXIDE 24 mmol/L (21-32); CHLORIDE 101 mmol/L (98-107); CREATININE 0.7 mg/dL (0.6-1.3); GLUCOSE 140 mg/dL (74-106); SODIUM SERUM 137 mmol/L (136-145); UREA NITROGEN, BLOOD 7 mg/dL (7-18)
[2023-01-01 21:24] LABS: POTASSIUM 2.8 mmol/L (3.5-5.1)
[2023-01-01 21:29] LABS: APPEARANCE,URINE CLOUDY (CLEAR); BILIRUBIN,URINE 1+ (NEGATIVE); BLOOD, URINE TRACE-INTA Ery/uL (NEGATIVE); COLOR,URINE YELLOW (YELLOW); KETONES,URINE 2+ mg/dL (NEGATIVE); LEUKOCYTE ESTERASE ,URINE 3+ (NEGATIVE); NITRITE, URINE NEGATIVE (NEGATIVE); PROTEIN,URINE 1+ mg/dl (NEGATIVE); UGLUCOSE NEGATIVE (NEGATIVE)
[2023-01-01] MEDS: POTASSIUM CL. PREMIX PERIPHER. 50 ML IV SCH ×2 (21:40→22:55)
[2023-01-01 22:12] LABS: ADD URINE CULTURE YES; BACTERIA,URINE 3+ /HPF (None Seen); SQUAMOUS EPITHELIAL CELL,UR 0-2 /HPF (None Seen); WBC,URINE 51-80 /HPF (0-3)
[2023-01-01] MEDS ORDERED: Z GUARD REMEDY 4 OZ OINT TP PRN (22:30)
[2023-01-01] MEDS ORDERED: ZOLPIDEM TARTRATE 5 MG TABLET PO PRN (22:30)
[2023-01-01] MEDS ORDERED: MAG HYDROX/AL HYDROX/SIMETH 30 ML UDC PO PRN (22:30)
[2023-01-01] MEDS ORDERED: ONDANSETRON HCL/PF 4 MG/2 ML VIAL IVP PRN (22:30)
[2023-01-01] MEDS ORDERED: ACETAMINOPHEN 325 MG TABLET PO PRN (22:30)
[2023-01-01] MEDS ORDERED: MAGNESIUM HYDROXIDE 30 ML UDC PO PRN (22:30)
[2023-01-01] MEDS ORDERED: LEVOFLOXACIN 250 MG /D5W 50 ML 250 MG/50 ML PIGGYBACK IV STA (22:49)
[2023-01-01] MEDS ORDERED: POTASSIUM CL. PREMIX PERIPHER. 50 ML ONE (22:53)
[2023-01-01] MEDS ORDERED: LEVOFLOXACIN 250 MG /D5W 50 ML 50 ML IV ONE (23:03)
[2023-01-01] MEDS ORDERED: CEFTRIAXONE 1GM BAG (ER ONLY) 50 ML IV ONE (23:31)
[2023-01-01] MEDS: IV 1/2NS 1000 ML 1,000 ML IV PRN (23:58)
[2023-01-02] MEDS: CEFTRIAXONE 1 G in IV D5W 50 ML IV SCH ×2 (00:47→23:09)
[2023-01-02] MEDS: ENOXAPARIN SODIUM 40 MG/0.4 ML DISP.SYRIN SQ SCH ×2 (00:49→21:26)
[2023-01-02] MEDS ORDERED: POTASSIUM CL. PREMIX PERIPHER. 100 ML ONE (04:04)
[2023-01-02] MEDS: POTASSIUM CL. PREMIX PERIPHER. 50 ML IV SCH ×2 (04:11→05:11)
[2023-01-02] MEDS: PANTOPRAZOLE 40 MG TABLET.DR PO SCH (07:30)
[2023-01-02 08:00] VITALS: BP 123/83; TEMP 98.2; O2SAT 98
[2023-01-02] MEDS ORDERED: LEVE100S GT (08:04)
[2023-01-02] MEDS ORDERED: SENN-261 PO (08:04)
[2023-01-02] MEDS ORDERED: LEVO88TA5 PO (08:04)
[2023-01-02] MEDS ORDERED: LEVO500T90 PO (08:04)
[2023-01-02] MEDS ORDERED: ATOR20TA PO (08:04)
[2023-01-02] MEDS ORDERED: ASPI-1169 PO (08:04)
[2023-01-02 09:12] LABS: BASOPHILS % (AUTO) 0.3 % (0.0-2.0); HEMATOCRIT 34 % (33-45); HEMOGLOBIN 11.5 g/dL (11.5-14.8); LYMPHOCYTES # (AUTO) 0.9 K/uL (0.8-4.8); LYMPHOCYTES % (AUTO) 9.4 % (20.0-44.0); MEAN CORPUSCULAR HEMOGLOBIN 30 PG (26.0-33.0); MEAN CORPUSCULAR HGB CONC 34 g/dl (31.0-36.0); MEAN CORPUSCULAR VOLUME 90 fL (82-100); MONOCYTES # (AUTO) 0.9 K/uL (0.1-1.30); MONOCYTES % (AUTO) 8.6 % (2.0-12.0); NEUTROPHILS # (AUTO) 8.1 K/uL (1.8-8.9); NEUTROPHILS % (AUTO) 81.7 % (43.0-81.0); PLATELET COUNT (AUTO) 291 K/uL (150-450); RED BLOOD CELL COUNT(AUTO) 3.79 MIL/uL (4.0-5.2); RED CELL DISTRIBUTION WIDTH 14.9 % (11.5-15.0)
[2023-01-02 09:53] LABS: CALCIUM, SERUM 9.7 mg/dL (8.5-10.1); CREATININE 0.7 mg/dL (0.6-1.3); MAGNESIUM 1.9 mg/dL (1.8-2.4); PHOSPHORUS 1.6 mg/dL (2.5-4.9); POTASSIUM 3.5 mmol/L (3.5-5.1)
[2023-01-02] MEDS ORDERED: Z GUARD REMEDY 4 OZ OINT TP PRN (10:00)
[2023-01-02 10:06] LABS: THYROID STIMULATING HORMONE 11.382 uIU/mL (0.358-3.74)
[2023-01-02] MEDS ORDERED: Sodium Phosphate 15 MMOL in IV NS 0.9% 245 ML IV ONE (16:00)
[2023-01-02] MEDS: CLOTRIMAZOLE/BETAMETASONE DIPROPIONATE 15 GM TUBE TP SCH (16:11)
[2023-01-02 16:20] VITALS: BP 147/130; TEMP 100; O2SAT 98
[2023-01-02 20:00] VITALS: BP 115/56; TEMP 99.5; O2SAT 95
[2023-01-02] MEDS ORDERED: ACETAMINOPHEN 650 MG/SUPP.RECT RC PRN (22:00)
[2023-01-03] MEDS: IV 1/2NS 1000 ML 1,000 ML IV PRN ×2 (03:43→20:49)
[2023-01-03 07:00] VITALS: BP 131/60; TEMP 98.6; O2SAT 98
[2023-01-03] MEDS: PANTOPRAZOLE 40 MG TABLET.DR PO SCH (07:30)
[2023-01-03] MEDS: LETROZOLE 2.5 MG TABLET GT SCH (09:00)
[2023-01-03 09:24] LABS: BASOPHILS % (AUTO) 0.1 % (0.0-2.0); HEMATOCRIT 35 % (33-45); HEMOGLOBIN 11.5 g/dL (11.5-14.8); LYMPHOCYTES # (AUTO) 0.9 K/uL (0.8-4.8); LYMPHOCYTES % (AUTO) 6.5 % (20.0-44.0); MEAN CORPUSCULAR HEMOGLOBIN 30 PG (26.0-33.0); MEAN CORPUSCULAR HGB CONC 33 g/dl (31.0-36.0); MEAN CORPUSCULAR VOLUME 92 fL (82-100); MONOCYTES % (AUTO) 6.8 % (2.0-12.0); NEUTROPHILS # (AUTO) 12.1 K/uL (1.8-8.9); NEUTROPHILS % (AUTO) 86.6 % (43.0-81.0); PLATELET COUNT (AUTO) 323 K/uL (150-450); RED BLOOD CELL COUNT(AUTO) 3.83 MIL/uL (4.0-5.2); RED CELL DISTRIBUTION WIDTH 14.7 % (11.5-15.0)
[2023-01-03 09:33] LABS: CALCIUM, SERUM 9.3 mg/dL (8.5-10.1); CARBON DIOXIDE 22 mmol/L (21-32); CHLORIDE 98 mmol/L (98-107); CREATININE 0.7 mg/dL (0.6-1.3); GLUCOSE 143 mg/dL (74-106); POTASSIUM 3.1 mmol/L (3.5-5.1); SODIUM SERUM 132 mmol/L (136-145); UREA NITROGEN, BLOOD 11 mg/dL (7-18)
[2023-01-03] MEDS: CLOTRIMAZOLE/BETAMETASONE DIPROPIONATE 15 GM TUBE TP SCH ×2 (10:31→17:09)
[2023-01-03] MEDS: POTASSIUM CL. PREMIX PERIPHER. 50 ML IV SCH ×4 (11:16→14:32)
[2023-01-03 16:00] VITALS: BP 181/71; TEMP 99.1; O2SAT 98
[2023-01-03] MEDS: hydrALAZINE HCL IV 20 MG VIAL IV PRN ×2 (17:18→23:51)
[2023-01-03 18:12] VITALS: BP 137/57
[2023-01-03 20:00] VITALS: BP 122/50; TEMP 98.6; O2SAT 95
[2023-01-03] MEDS: ENOXAPARIN SODIUM 40 MG/0.4 ML DISP.SYRIN SQ SCH (21:03)
[2023-01-03] MEDS: CEFTRIAXONE 1 G in IV D5W 50 ML IV SCH (23:10)
[2023-01-04] VITALS (22 sets, daily range): BP systolic 81–162; BP diastolic 45–80; TEMP 97.4–99.1; O2SAT 94–98
[2023-01-04] MEDS ORDERED: LORAZEPAM INJ 2 MG/ML VIAL IV STA (01:56)
[2023-01-04] MEDS ORDERED: LEVETIRACETAM (500MG) 1,000 MG in IV NS 0.9% 100 ML IV SCH (02:30)
[2023-01-04] MEDS ORDERED: LEVETIRACETAM (500MG) 500 MG/5 ML VIAL IV ONE (02:44)
[2023-01-04] MEDS ORDERED: Sodium Bicarbonate 150 MEQ in IV D5W 1,000 ML IV PRN (04:30)
[2023-01-04] MEDS ORDERED: Sodium Bicarbonate 150 MEQ in IV D5W 1,000 ML IV SCH ×2 (04:30→07:25)
[2023-01-04] MEDS ORDERED: SODIUM BICARBONATE SYR 50 MEQ/50 ML DISP.SYRIN ONE (04:36)
[2023-01-04] MEDS: hydrALAZINE HCL IV 20 MG VIAL IV PRN (06:04)
[2023-01-04] MEDS: PANTOPRAZOLE 40 MG TABLET.DR PO SCH (07:30)
[2023-01-04] MEDS: LETROZOLE 2.5 MG TABLET GT SCH (08:17)
[2023-01-04 08:29] LABS: ABG BASE EXCESS -12.1 mmol/L; ABG OXYGEN SATURATION 98.3 % (92.0-98.5); ABG PCO2 18.6 mmHg (35.0-45.0); ABG PH 7.375 (7.350-7.450); ABG PO2 122.4 mmHg (75.0-100.0); ABG TOTAL HEMOGLOBIN 13.3 G/dL (12.0-16.0); AaDO2 170.1 mmHg; COHb 0.2 % (0.5-1.5); MetHb 0.2 % (0.0-1.5); O2Hb 97.9 % (94.0-97.0); SITE, ABG Left Radial; VENT MODE, BG Nasal Cannula
[2023-01-04 08:29] LABS: ABG OXYGEN SATURATION 94.3 % (92.0-98.5); ABG PCO2 33.4 mmHg (35.0-45.0); ABG PH 7.343 (7.350-7.450); ABG PO2 75.9 mmHg (75.0-100.0); ABG TOTAL HEMOGLOBIN 12.5 G/dL (12.0-16.0); AaDO2 84.3 mmHg; COHb 0.1 % (0.5-1.5); MetHb 0.1 % (0.0-1.5); O2Hb 94.1 % (94.0-97.0); SITE, ABG Right Radial
[2023-01-04 08:52] LABS: CALCIUM, SERUM 9.4 mg/dL (8.5-10.1); CARBON DIOXIDE 19 mmol/L (21-32); CHLORIDE 94 mmol/L (98-107); MAGNESIUM 1.7 mg/dL (1.8-2.4); POTASSIUM 3.1 mmol/L (3.5-5.1); SODIUM SERUM 129 mmol/L (136-145); UREA NITROGEN, BLOOD 22 mg/dL (7-18)
[2023-01-04 09:05] LABS: GLUCOSE 416 mg/dL (74-106)
[2023-01-04 09:08] LABS: BASOPHILS # (AUTO) 0.1 K/uL (0.0-0.2); BASOPHILS % (AUTO) 0.4 % (0.0-2.0); HEMATOCRIT 33 % (33-45); HEMOGLOBIN 10.9 g/dL (11.5-14.8); LYMPHOCYTES # (AUTO) 0.4 K/uL (0.8-4.8); LYMPHOCYTES % (AUTO) 2.4 % (20.0-44.0); MEAN CORPUSCULAR HEMOGLOBIN 30 PG (26.0-33.0); MEAN CORPUSCULAR HGB CONC 33 g/dl (31.0-36.0); MEAN CORPUSCULAR VOLUME 91 fL (82-100); MONOCYTES # (AUTO) 0.8 K/uL (0.1-1.30); MONOCYTES % (AUTO) 5.2 % (2.0-12.0); NEUTROPHILS # (AUTO) 13.7 K/uL (1.8-8.9); PLATELET COUNT (AUTO) 356 K/uL (150-450); RED BLOOD CELL COUNT(AUTO) 3.63 MIL/uL (4.0-5.2); RED CELL DISTRIBUTION WIDTH 15.1 % (11.5-15.0); WHITE BLOOD COUNT (AUTO) 14.9 K/uL (4.3-11.0)
[2023-01-04] MEDS ORDERED: IV NS 0.9% 250 ML IV ONE (09:30)
[2023-01-04] MEDS ORDERED: NOREPINEPHRINE 8 MG in IV NS 0.9% 242 ML IV PRN (09:30)
[2023-01-04 09:58] LABS: THYROID STIMULATING HORMONE 3.074 uIU/mL (0.358-3.74)
[2023-01-04] MEDS: LEVETIRACETAM (500MG) 1,000 MG in IV NS 0.9% 100 ML IV SCH ×2 (10:07→21:05)
[2023-01-04] MEDS: CLOTRIMAZOLE/BETAMETASONE DIPROPIONATE 15 GM TUBE TP SCH ×2 (10:08→16:31)
[2023-01-04] MEDS: PANTOPRAZOLE 40 MG VIAL IV SCH (10:09)
[2023-01-04] MEDS ORDERED: ANESTHESIA TRAY IN PYXIS 1 EA TRAY MC ONE (13:08)
[2023-01-04] MEDS ORDERED: IV D5W 1,000 ML IV ONE (15:30)
[2023-01-04] MEDS ORDERED: IV D5W 1,000 ML IV PRN (15:30)
[2023-01-04 16:57] LABS: ABG BASE EXCESS -0.6 mmol/L; ABG OXYGEN SATURATION 96.4 % (92.0-98.5); ABG PCO2 23.1 mmHg (35.0-45.0); ABG PH 7.559 (7.350-7.450); ABG PO2 79.9 mmHg (75.0-100.0); ABG TOTAL HEMOGLOBIN 11.7 G/dL (12.0-16.0); AaDO2 106.9 mmHg; COHb 0.3 % (0.5-1.5); MetHb 0.1 % (0.0-1.5); SITE, ABG Right Radial; VENT MODE, BG BIPAP 18/ RR 10
[2023-01-04] MEDS: ENOXAPARIN SODIUM 40 MG/0.4 ML DISP.SYRIN SQ SCH (20:54)
[2023-01-04] MEDS: CEFTRIAXONE 1 G in IV D5W 50 ML IV SCH (23:31)
[2023-01-05] VITALS (24 sets, daily range): BP systolic 99–134; BP diastolic 46–92; TEMP 97.5–99.2; O2SAT 93–99
[2023-01-05 08:38] LABS: BASOPHILS % (AUTO) 0.2 % (0.0-2.0); HEMATOCRIT 27 % (33-45); LYMPHOCYTES # (AUTO) 0.9 K/uL (0.8-4.8); LYMPHOCYTES % (AUTO) 6.6 % (20.0-44.0); MEAN CORPUSCULAR HEMOGLOBIN 30 PG (26.0-33.0); MEAN CORPUSCULAR HGB CONC 34 g/dl (31.0-36.0); MEAN CORPUSCULAR VOLUME 90 fL (82-100); MONOCYTES # (AUTO) 1.1 K/uL (0.1-1.30); NEUTROPHILS # (AUTO) 11.4 K/uL (1.8-8.9); NEUTROPHILS % (AUTO) 85.2 % (43.0-81.0); PLATELET COUNT (AUTO) 229 K/uL (150-450); RED BLOOD CELL COUNT(AUTO) 2.97 MIL/uL (4.0-5.2); RED CELL DISTRIBUTION WIDTH 15.4 % (11.5-15.0); WHITE BLOOD COUNT (AUTO) 13.4 K/uL (4.3-11.0)
[2023-01-05] MEDS: PANTOPRAZOLE 40 MG VIAL IV SCH (08:39)
[2023-01-05] MEDS: LETROZOLE 2.5 MG TABLET GT SCH (08:39)
[2023-01-05] MEDS: CLOTRIMAZOLE/BETAMETASONE DIPROPIONATE 15 GM TUBE TP SCH ×2 (08:40→17:48)
[2023-01-05] MEDS: LEVETIRACETAM (500MG) 1,000 MG in IV NS 0.9% 100 ML IV SCH (08:50)
[2023-01-05] MEDS: IV D5/ 0.9% NACL 1,000 ML IV PRN (08:50)
[2023-01-05 08:55] LABS: ALANINE AMINOTRANSFERASE 16 U/L (12-78); ALBUMIN 1.8 g/dL (3.4-5.0); ALKALINE PHOSPHATASE 61 U/L (46-116); ASPARTATE AMINOTRANSFERASE 13 U/L (15-37); BILIRUBIN,DIRECT 0.1 mg/dL (0.0-0.2); BILIRUBIN,TOTAL 0.3 mg/dL (0.2-1.0); CARBON DIOXIDE 20 mmol/L (21-32); CHLORIDE 105 mmol/L (98-107); CREATININE 0.7 mg/dL (0.6-1.3); GLUCOSE 143 mg/dL (74-106); MAGNESIUM 1.3 mg/dL (1.8-2.4); PHOSPHORUS 1.2 mg/dL (2.5-4.9); SODIUM SERUM 136 mmol/L (136-145); TOTAL PROTEIN, SERUM 5.1 g/dL (6.4-8.2); UREA NITROGEN, BLOOD 23 mg/dL (7-18)
[2023-01-05] MEDS ORDERED: DEXTROSE 50%-WATER 50 ML DISP.SYRIN IV PRN (09:00)
[2023-01-05 09:07] LABS: POTASSIUM 2.2 mmol/L (3.5-5.1)
[2023-01-05] MEDS ORDERED: POTASSIUM CL. PREMIX PERIPHER. 50 ML IV SCH (09:30)
[2023-01-05] MEDS ORDERED: IOHEXOL-350 100 ML VIAL IV ONE (09:47)
[2023-01-05] MEDS ORDERED: IV NS 0.9% 250 ML IV ONE (09:47)
[2023-01-05] MEDS ORDERED: Magnesium 1GM/D5W 100ML PREMIX 100 ML IV SCH (10:00)
[2023-01-05] MEDS: Magnesium 1GM/D5W 100ML PREMIX 100 ML IV SCH ×2 (10:23→10:39)
[2023-01-05] MEDS: POTASSIUM CL. PREMIX PERIPHER. 50 ML IV SCH ×6 (10:39→23:24)
[2023-01-05] MEDS: BLOOD SUGAR DIAGNOSTIC 1 EACH STRIP IN SCH ×2 (11:59→17:46)
[2023-01-05] MEDS: INSULIN REGULAR, HUMAN 100 UNIT/ML 3 ML VIAL SQ PRN (12:03)
[2023-01-05] MEDS: POTASSIUM PHOSPHATE MM 7.5 MMOL in IV NS 0.9% 100 ML IV SCH ×2 (12:14→15:17)
[2023-01-05 16:52] LABS: ABG OXYGEN SATURATION 94.4 % (92.0-98.5); ABG PH 7.506 (7.350-7.450); ABG PO2 71.5 mmHg (75.0-100.0); ABG TOTAL HEMOGLOBIN 10.5 G/dL (12.0-16.0); AaDO2 93.9 mmHg; COHb 0.1 % (0.5-1.5); O2Hb 94.3 % (94.0-97.0); VENT MODE, BG NC @ 2LPM
[2023-01-05] MEDS ORDERED: LEVETIRACETAM (500MG) 2,000 MG in IV NS 0.9% 100 ML IV STA (18:36)
[2023-01-05 19:36] LABS: CALCIUM, SERUM 9.7 mg/dL (8.5-10.1); CARBON DIOXIDE 27 mmol/L (21-32); CHLORIDE 99 mmol/L (98-107); CREATININE 0.8 mg/dL (0.6-1.3); GLUCOSE 157 mg/dL (74-106); MAGNESIUM 2.2 mg/dL (1.8-2.4); PHOSPHORUS 2.3 mg/dL (2.5-4.9); POTASSIUM 3.3 mmol/L (3.5-5.1); SODIUM SERUM 134 mmol/L (136-145); UREA NITROGEN, BLOOD 20 mg/dL (7-18)
[2023-01-05] MEDS ORDERED: LACOSAMIDE 100 MG in IV NS 0.9% 50 ML IV SCH (21:00)
[2023-01-05] MEDS ORDERED: VIMPAT 200 MG in IV NS 0.9% 100 ML IV ONE (21:00)
[2023-01-05] MEDS ORDERED: LACOSAMIDE 200 MG in IV NS 0.9% 100 ML IV ONE (21:00)
[2023-01-05] MEDS: ENOXAPARIN SODIUM 40 MG/0.4 ML DISP.SYRIN SQ SCH (21:42)
[2023-01-05] MEDS: LEVETIRACETAM (500MG) 1,500 MG in IV NS 0.9% 100 ML IV SCH (22:21)
[2023-01-05] MEDS: CEFTRIAXONE 1 G in IV D5W 50 ML IV SCH (22:52)
[2023-01-06] VITALS (24 sets, daily range): BP systolic 112–158; BP diastolic 38–97; TEMP 97.5–99.5; O2SAT 94–100
[2023-01-06] MEDS: BLOOD SUGAR DIAGNOSTIC 1 EACH STRIP IN SCH ×4 (00:24→17:37)
[2023-01-06] MEDS: INSULIN REGULAR, HUMAN 100 UNIT/ML 3 ML VIAL SQ PRN ×2 (00:25→06:26)
[2023-01-06] MEDS: IV D5/ 0.9% NACL 1,000 ML IV PRN ×2 (04:08→19:20)
[2023-01-06] MEDS: IV NS 0.9% 250 ML IV PRN (06:20)
[2023-01-06] MEDS ORDERED: POTASSIUM CL. PREMIX PERIPHER. 50 ML IV SCH (08:00)
[2023-01-06] MEDS ORDERED: POTASSIUM PHOSPHATE MM 7.5 MMOL in IV NS 0.9% 100 ML IV SCH (08:00)
[2023-01-06] MEDS: LETROZOLE 2.5 MG TABLET GT SCH (08:17)
[2023-01-06] MEDS: PANTOPRAZOLE 40 MG VIAL IV SCH (08:17)
[2023-01-06] MEDS: CLOTRIMAZOLE/BETAMETASONE DIPROPIONATE 15 GM TUBE TP SCH ×2 (08:17→16:36)
[2023-01-06 08:21] LABS: BASOPHILS % (AUTO) 0.1 % (0.0-2.0); HEMATOCRIT 28 % (33-45); HEMOGLOBIN 9.2 g/dL (11.5-14.8); LYMPHOCYTES % (AUTO) 7.9 % (20.0-44.0); MEAN CORPUSCULAR HEMOGLOBIN 30 PG (26.0-33.0); MEAN CORPUSCULAR HGB CONC 33 g/dl (31.0-36.0); MEAN CORPUSCULAR VOLUME 91 fL (82-100); MONOCYTES # (AUTO) 0.8 K/uL (0.1-1.30); MONOCYTES % (AUTO) 6.4 % (2.0-12.0); NEUTROPHILS # (AUTO) 10.7 K/uL (1.8-8.9); NEUTROPHILS % (AUTO) 85.6 % (43.0-81.0); PLATELET COUNT (AUTO) 272 K/uL (150-450); RED BLOOD CELL COUNT(AUTO) 3.09 MIL/uL (4.0-5.2); RED CELL DISTRIBUTION WIDTH 15.5 % (11.5-15.0); WHITE BLOOD COUNT (AUTO) 12.5 K/uL (4.3-11.0)
[2023-01-06 08:34] LABS: CALCIUM, SERUM 8.9 mg/dL (8.5-10.1); CARBON DIOXIDE 23 mmol/L (21-32); CHLORIDE 104 mmol/L (98-107); CREATININE 0.7 mg/dL (0.6-1.3); GLUCOSE 172 mg/dL (74-106); MAGNESIUM 1.8 mg/dL (1.8-2.4); PHOSPHORUS 1.7 mg/dL (2.5-4.9); POTASSIUM 3.1 mmol/L (3.5-5.1); SODIUM SERUM 137 mmol/L (136-145); UREA NITROGEN, BLOOD 14 mg/dL (7-18)
[2023-01-06] MEDS: LEVETIRACETAM (500MG) 1,500 MG in IV NS 0.9% 100 ML IV SCH ×2 (08:37→19:28)
[2023-01-06 08:38] LABS: INR 1.11 (0.91-1.10); PROTHROMBIN TIME 11.6 SECS (9.2-11.1)
[2023-01-06] MEDS ORDERED: LACOSAMIDE 100 MG in IV NS 0.9% 50 ML IV SCH (09:00)
[2023-01-06] MEDS: POTASSIUM CL. PREMIX PERIPHER. 50 ML IV SCH ×4 (10:57→15:07)
[2023-01-06] MEDS: FLUCONAZOLE IN NS 100 MG in PREMIX 1 EA IV SCH ×2 (11:38)
[2023-01-06] MEDS: POTASSIUM PHOSPHATE MM 7.5 MMOL in IV NS 0.9% 100 ML IV SCH ×2 (15:07→18:05)
[2023-01-06] MEDS: LACOSAMIDE 100 MG in IV NS 0.9% 50 ML IV SCH (17:16)
[2023-01-06] MEDS: ENOXAPARIN SODIUM 40 MG/0.4 ML DISP.SYRIN SQ SCH (21:15)
[2023-01-07] VITALS (24 sets, daily range): BP systolic 113–162; BP diastolic 46–95; TEMP 98.2–99.6; O2SAT 95–99
[2023-01-07] MEDS: BLOOD SUGAR DIAGNOSTIC 1 EACH STRIP IN SCH ×4 (00:46→17:40)
[2023-01-07] MEDS: INSULIN REGULAR, HUMAN 100 UNIT/ML 3 ML VIAL SQ PRN ×2 (00:47→18:38)
[2023-01-07 04:14] LABS: BASOPHILS % (AUTO) 0.3 % (0.0-2.0); HEMATOCRIT 26 % (33-45); HEMOGLOBIN 8.9 g/dL (11.5-14.8); LYMPHOCYTES % (AUTO) 8.3 % (20.0-44.0); MEAN CORPUSCULAR HEMOGLOBIN 30 PG (26.0-33.0); MEAN CORPUSCULAR HGB CONC 34 g/dl (31.0-36.0); MEAN CORPUSCULAR VOLUME 89 fL (82-100); MONOCYTES # (AUTO) 0.7 K/uL (0.1-1.30); MONOCYTES % (AUTO) 6.2 % (2.0-12.0); NEUTROPHILS # (AUTO) 9.8 K/uL (1.8-8.9); NEUTROPHILS % (AUTO) 85.2 % (43.0-81.0); PLATELET COUNT (AUTO) 280 K/uL (150-450); RED BLOOD CELL COUNT(AUTO) 2.95 MIL/uL (4.0-5.2); RED CELL DISTRIBUTION WIDTH 15.5 % (11.5-15.0); WHITE BLOOD COUNT (AUTO) 11.5 K/uL (4.3-11.0)
[2023-01-07 04:27] LABS: CALCIUM, SERUM 8.8 mg/dL (8.5-10.1); CARBON DIOXIDE 25 mmol/L (21-32); CHLORIDE 106 mmol/L (98-107); CREATININE 0.7 mg/dL (0.6-1.3); GLUCOSE 91 mg/dL (74-106); MAGNESIUM 1.5 mg/dL (1.8-2.4); PHOSPHORUS 2.2 mg/dL (2.5-4.9); POTASSIUM 3.3 mmol/L (3.5-5.1); SODIUM SERUM 138 mmol/L (136-145); UREA NITROGEN, BLOOD 6 mg/dL (7-18)
[2023-01-07] MEDS: IV NS 0.9% 250 ML IV PRN ×2 (06:07→09:44)
[2023-01-07] MEDS: PANTOPRAZOLE 40 MG VIAL IV SCH (07:33)
[2023-01-07] MEDS: POTASSIUM CL. PREMIX PERIPHER. 50 ML IV SCH ×4 (07:33→10:58)
[2023-01-07] MEDS: LEVETIRACETAM (500MG) 1,500 MG in IV NS 0.9% 100 ML IV SCH (07:44)
[2023-01-07] MEDS: LACOSAMIDE 100 MG in IV NS 0.9% 50 ML IV SCH (08:22)
[2023-01-07] MEDS: LETROZOLE 2.5 MG TABLET GT SCH (08:22)
[2023-01-07] MEDS: CLOTRIMAZOLE/BETAMETASONE DIPROPIONATE 15 GM TUBE TP SCH ×2 (09:10→16:24)
[2023-01-07] MEDS ORDERED: LEVETIRACETAM (500MG) 1,000 MG in IV NS 0.9% 100 ML IV ONE (09:30)
[2023-01-07] MEDS: POTASSIUM PHOSPHATE MM 7.5 MMOL in IV NS 0.9% 100 ML IV SCH ×2 (09:36→12:43)
[2023-01-07] MEDS ORDERED: LACOSAMIDE 100 MG in IV NS 0.9% 50 ML IV ONE (10:00)
[2023-01-07] MEDS: FLUCONAZOLE IN NS 100 MG in PREMIX 1 EA IV SCH ×2 (11:35)
[2023-01-07] MEDS: Magnesium 1GM/D5W 100ML PREMIX 100 ML IV SCH ×2 (15:39→16:48)
[2023-01-07] MEDS: IV D5/ 0.9% NACL 1,000 ML IV PRN (16:15)
[2023-01-07] MEDS: hydrALAZINE HCL IV 20 MG VIAL IV PRN (16:20)
[2023-01-07] MEDS: LACOSAMIDE 150 MG in IV NS 0.9% 50 ML IV SCH (17:39)
[2023-01-07] MEDS: LEVETIRACETAM (500MG) 2,000 MG in IV NS 0.9% 100 ML IV SCH ×2 (19:30→19:56)
[2023-01-07] MEDS: LORAZEPAM INJ 2 MG/ML VIAL IV PRN ×2 (19:47→23:56)
[2023-01-07] MEDS: ENOXAPARIN SODIUM 40 MG/0.4 ML DISP.SYRIN SQ SCH (21:08)
[2023-01-08] VITALS (24 sets, daily range): BP systolic 98–164; BP diastolic 43–100; TEMP 96.6–98.3; O2SAT 91–100
[2023-01-08] MEDS: BLOOD SUGAR DIAGNOSTIC 1 EACH STRIP IN SCH ×5 (00:47→23:50)
[2023-01-08] MEDS: INSULIN REGULAR, HUMAN 100 UNIT/ML 3 ML VIAL SQ PRN ×4 (00:52→23:52)
[2023-01-08 04:25] LABS: BASOPHILS % (AUTO) 0.1 % (0.0-2.0); HEMATOCRIT 27 % (33-45); HEMOGLOBIN 8.9 g/dL (11.5-14.8); LYMPHOCYTES # (AUTO) 1.2 K/uL (0.8-4.8); LYMPHOCYTES % (AUTO) 10.4 % (20.0-44.0); MEAN CORPUSCULAR HEMOGLOBIN 31 PG (26.0-33.0); MEAN CORPUSCULAR HGB CONC 34 g/dl (31.0-36.0); MEAN CORPUSCULAR VOLUME 91 fL (82-100); MONOCYTES # (AUTO) 0.8 K/uL (0.1-1.30); MONOCYTES % (AUTO) 6.6 % (2.0-12.0); NEUTROPHILS # (AUTO) 9.7 K/uL (1.8-8.9); NEUTROPHILS % (AUTO) 82.9 % (43.0-81.0); PLATELET COUNT (AUTO) 277 K/uL (150-450); RED BLOOD CELL COUNT(AUTO) 2.94 MIL/uL (4.0-5.2); RED CELL DISTRIBUTION WIDTH 15.9 % (11.5-15.0); WHITE BLOOD COUNT (AUTO) 11.7 K/uL (4.3-11.0)
[2023-01-08 05:05] LABS: CALCIUM, SERUM 8.7 mg/dL (8.5-10.1); CREATININE 0.7 mg/dL (0.6-1.3); PHOSPHORUS 2.5 mg/dL (2.5-4.9); POTASSIUM 3.6 mmol/L (3.5-5.1)
[2023-01-08] MEDS: IV D5/ 0.9% NACL 1,000 ML IV PRN ×2 (05:15→18:02)
[2023-01-08] MEDS: LEVETIRACETAM (500MG) 2,000 MG in IV NS 0.9% 100 ML IV SCH ×2 (07:34→20:17)
[2023-01-08] MEDS: PANTOPRAZOLE 40 MG VIAL IV SCH (07:34)
[2023-01-08] MEDS: CLOTRIMAZOLE/BETAMETASONE DIPROPIONATE 15 GM TUBE TP SCH ×2 (08:57→16:39)
[2023-01-08] MEDS: IV NS 0.9% 250 ML IV PRN (09:24)
[2023-01-08] MEDS: LETROZOLE 2.5 MG TABLET GT SCH (09:24)
[2023-01-08] MEDS: LACOSAMIDE 150 MG in IV NS 0.9% 50 ML IV SCH ×2 (09:30→17:09)
[2023-01-08] MEDS: FLUCONAZOLE IN NS 100 MG in PREMIX 1 EA IV SCH ×2 (10:49)
[2023-01-08] MEDS: GLUCERNA 1.2 1,000 ML BOTTLE NG PRN (12:49)
[2023-01-08 12:51] LABS: ABG BASE EXCESS -1.6 mmol/L; ABG OXYGEN SATURATION 94.9 % (92.0-98.5); ABG PH 7.499 (7.350-7.450); ABG PO2 72.1 mmHg (75.0-100.0); ABG TOTAL HEMOGLOBIN 11.4 G/dL (12.0-16.0); AaDO2 95.7 mmHg; MetHb 0.1 % (0.0-1.5); O2Hb 94.8 % (94.0-97.0); SITE, ABG Right Radial
[2023-01-08] MEDS: hydrALAZINE HCL IV 20 MG VIAL IV PRN (15:09)
[2023-01-08] MEDS: ENOXAPARIN SODIUM 40 MG/0.4 ML DISP.SYRIN SQ SCH (20:19)
[2023-01-09] VITALS (25 sets, daily range): BP systolic 99–168; BP diastolic 46–95; TEMP 97.5–99; O2SAT 95–100
[2023-01-09 04:26] LABS: BASOPHILS % (AUTO) 0.2 % (0.0-2.0); HEMATOCRIT 27 % (33-45); HEMOGLOBIN 9.2 g/dL (11.5-14.8); LYMPHOCYTES # (AUTO) 0.8 K/uL (0.8-4.8); LYMPHOCYTES % (AUTO) 7.7 % (20.0-44.0); MEAN CORPUSCULAR HEMOGLOBIN 31 PG (26.0-33.0); MEAN CORPUSCULAR HGB CONC 34 g/dl (31.0-36.0); MEAN CORPUSCULAR VOLUME 91 fL (82-100); MONOCYTES # (AUTO) 0.8 K/uL (0.1-1.30); NEUTROPHILS # (AUTO) 8.7 K/uL (1.8-8.9); NEUTROPHILS % (AUTO) 84.1 % (43.0-81.0); PLATELET COUNT (AUTO) 294 K/uL (150-450); RED BLOOD CELL COUNT(AUTO) 2.99 MIL/uL (4.0-5.2); RED CELL DISTRIBUTION WIDTH 16.3 % (11.5-15.0); WHITE BLOOD COUNT (AUTO) 10.3 K/uL (4.3-11.0)
[2023-01-09 04:41] LABS: CALCIUM, SERUM 8.8 mg/dL (8.5-10.1); CREATININE 0.8 mg/dL (0.6-1.3); MAGNESIUM 1.7 mg/dL (1.8-2.4); PHOSPHORUS 2.6 mg/dL (2.5-4.9); POTASSIUM 3.2 mmol/L (3.5-5.1)
[2023-01-09] MEDS: IV D5/ 0.9% NACL 1,000 ML IV PRN ×2 (05:24→19:29)
[2023-01-09] MEDS: BLOOD SUGAR DIAGNOSTIC 1 EACH STRIP IN SCH ×4 (05:24→23:10)
[2023-01-09] MEDS: INSULIN REGULAR, HUMAN 100 UNIT/ML 3 ML VIAL SQ PRN ×4 (05:36→23:12)
[2023-01-09] MEDS ORDERED: Magnesium 1GM/D5W 100ML PREMIX 100 ML IV SCH (07:30)
[2023-01-09] MEDS: LACOSAMIDE ORAL SOLN 50 MG/5 ML UDC NG SCH ×2 (09:24→19:10)
[2023-01-09] MEDS: PANTOPRAZOLE 40 MG/PACK PACK NG SCH (09:24)
[2023-01-09] MEDS: LEVETIRACETAM (500MG) 2,000 MG in IV NS 0.9% 100 ML IV SCH (09:24)
[2023-01-09] MEDS: POTASSIUM CL. PREMIX PERIPHER. 50 ML IV SCH ×4 (09:25→13:53)
[2023-01-09] MEDS: LETROZOLE 2.5 MG TABLET GT SCH (09:33)
[2023-01-09] MEDS: CLOTRIMAZOLE/BETAMETASONE DIPROPIONATE 15 GM TUBE TP SCH ×2 (10:09→19:10)
[2023-01-09 11:10] LABS: CHOLESTEROL 178 mg/dL (<200); HDL CHOLESTEROL 44 mg/dL (40-60); LDL 93 mg/dL (0-99); TRIGLYCERIDES 86 mg/dL (30-150)
[2023-01-09] MEDS: FLUCONAZOLE IN NS 100 MG in PREMIX 1 EA IV SCH ×2 (11:34)
[2023-01-09] MEDS: ASPIRIN 81 MG TAB.CHEW NG SCH (11:34)
[2023-01-09] MEDS: GLUCERNA 1.2 1,000 ML BOTTLE NG PRN (13:58)
[2023-01-09] MEDS: CLOPIDOGREL BISULFATE 75 MG TABLET NG SCH (19:07)
[2023-01-09] MEDS: IV NS 0.9% 250 ML IV PRN (19:31)
[2023-01-09] MEDS: LEVETIRACETAM SOL (5 ML) 100 MG/ML UDC GT SCH (21:06)
[2023-01-09] MEDS: ATORVASTATIN 40 MG TABLET NG SCH (21:07)
[2023-01-09] MEDS: ENOXAPARIN SODIUM 40 MG/0.4 ML DISP.SYRIN SQ SCH (21:07)
[2023-01-09] MEDS: hydrALAZINE HCL IV 20 MG VIAL IV PRN (21:19)
[2023-01-10] VITALS (24 sets, daily range): BP systolic 89–157; BP diastolic 48–93; TEMP 97–98.8; O2SAT 96–100
[2023-01-10 03:42] LABS: BASOPHILS % (AUTO) 0.3 % (0.0-2.0); HEMATOCRIT 25 % (33-45); HEMOGLOBIN 8.5 g/dL (11.5-14.8); LYMPHOCYTES # (AUTO) 0.8 K/uL (0.8-4.8); LYMPHOCYTES % (AUTO) 9.4 % (20.0-44.0); MEAN CORPUSCULAR HEMOGLOBIN 31 PG (26.0-33.0); MEAN CORPUSCULAR HGB CONC 34 g/dl (31.0-36.0); MEAN CORPUSCULAR VOLUME 90 fL (82-100); MONOCYTES # (AUTO) 0.9 K/uL (0.1-1.30); MONOCYTES % (AUTO) 10.9 % (2.0-12.0); NEUTROPHILS # (AUTO) 6.6 K/uL (1.8-8.9); NEUTROPHILS % (AUTO) 79.4 % (43.0-81.0); PLATELET COUNT (AUTO) 297 K/uL (150-450); RED BLOOD CELL COUNT(AUTO) 2.75 MIL/uL (4.0-5.2); RED CELL DISTRIBUTION WIDTH 16.1 % (11.5-15.0); WHITE BLOOD COUNT (AUTO) 8.3 K/uL (4.3-11.0)
[2023-01-10 04:05] LABS: CALCIUM, SERUM 8.6 mg/dL (8.5-10.1); CREATININE 0.8 mg/dL (0.6-1.3); MAGNESIUM 1.6 mg/dL (1.8-2.4); PHOSPHORUS 2.2 mg/dL (2.5-4.9); POTASSIUM 3.3 mmol/L (3.5-5.1)
[2023-01-10] MEDS: GLUCERNA 1.2 1,000 ML BOTTLE NG PRN ×2 (05:05→17:49)
[2023-01-10] MEDS: BLOOD SUGAR DIAGNOSTIC 1 EACH STRIP IN SCH ×3 (05:28→17:09)
[2023-01-10] MEDS: INSULIN REGULAR, HUMAN 100 UNIT/ML 3 ML VIAL SQ PRN ×3 (05:33→17:11)
[2023-01-10] MEDS: IV D5/ 0.9% NACL 1,000 ML IV PRN ×2 (06:07→21:58)
[2023-01-10] MEDS ORDERED: MAGNESIUM OXIDE 400 MG TABLET GT ONE ×2 (07:30→10:00)
[2023-01-10] MEDS ORDERED: Magnesium 1GM/D5W 100ML PREMIX 100 ML IV SCH (07:30)
[2023-01-10] MEDS: POTASSIUM CL. PREMIX PERIPHER. 50 ML IV SCH ×4 (07:57→11:16)
[2023-01-10] MEDS: ASPIRIN 81 MG TAB.CHEW NG SCH (08:10)
[2023-01-10] MEDS: LETROZOLE 2.5 MG TABLET GT SCH (08:10)
[2023-01-10] MEDS: CLOPIDOGREL BISULFATE 75 MG TABLET NG SCH (08:10)
[2023-01-10] MEDS: PANTOPRAZOLE 40 MG/PACK PACK NG SCH (08:10)
[2023-01-10] MEDS: CLOTRIMAZOLE/BETAMETASONE DIPROPIONATE 15 GM TUBE TP SCH ×2 (08:11→16:32)
[2023-01-10] MEDS: LORAZEPAM INJ 2 MG/ML VIAL IV PRN ×2 (08:14→23:21)
[2023-01-10] MEDS: hydrALAZINE HCL IV 20 MG VIAL IV PRN (08:14)
[2023-01-10] MEDS: POTASSIUM PHOSPHATE MM 7.5 MMOL in IV NS 0.9% 100 ML IV SCH ×2 (08:53→11:15)
[2023-01-10] MEDS: LEVETIRACETAM SOL (5 ML) 100 MG/ML UDC GT SCH ×2 (09:22→21:24)
[2023-01-10] MEDS ORDERED: GADOTERATE MEGLUMINE 10 MMOL/20 ML VIAL IV ONE (09:23)
[2023-01-10] MEDS: LACOSAMIDE ORAL SOLN 50 MG/5 ML UDC NG SCH ×2 (10:20→16:31)
[2023-01-10] MEDS ORDERED: NEUTRA PHOS 1 POWD.PACKET NG ONE (17:00)
[2023-01-10] MEDS: ATORVASTATIN 40 MG TABLET NG SCH (21:24)
[2023-01-10] MEDS: ENOXAPARIN SODIUM 40 MG/0.4 ML DISP.SYRIN SQ SCH (21:25)
[2023-01-11] VITALS (25 sets, daily range): BP systolic 107–164; BP diastolic 46–97; TEMP 98.3–98.6; O2SAT 95–99
[2023-01-11] MEDS: BLOOD SUGAR DIAGNOSTIC 1 EACH STRIP IN SCH ×4 (00:31→17:21)
[2023-01-11] MEDS: INSULIN REGULAR, HUMAN 100 UNIT/ML 3 ML VIAL SQ PRN ×4 (00:32→17:23)
[2023-01-11 04:36] LABS: BASOPHILS % (AUTO) 0.5 % (0.0-2.0); HEMATOCRIT 26 % (33-45); HEMOGLOBIN 8.7 g/dL (11.5-14.8); LYMPHOCYTES # (AUTO) 0.9 K/uL (0.8-4.8); LYMPHOCYTES % (AUTO) 13.2 % (20.0-44.0); MEAN CORPUSCULAR HEMOGLOBIN 31 PG (26.0-33.0); MEAN CORPUSCULAR HGB CONC 34 g/dl (31.0-36.0); MEAN CORPUSCULAR VOLUME 91 fL (82-100); MONOCYTES % (AUTO) 13.5 % (2.0-12.0); NEUTROPHILS # (AUTO) 5.2 K/uL (1.8-8.9); NEUTROPHILS % (AUTO) 72.8 % (43.0-81.0); PLATELET COUNT (AUTO) 328 K/uL (150-450); RED BLOOD CELL COUNT(AUTO) 2.81 MIL/uL (4.0-5.2); RED CELL DISTRIBUTION WIDTH 16.1 % (11.5-15.0); WHITE BLOOD COUNT (AUTO) 7.2 K/uL (4.3-11.0)
[2023-01-11 04:54] LABS: CALCIUM, SERUM 8.8 mg/dL (8.5-10.1); CARBON DIOXIDE 26 mmol/L (21-32); CHLORIDE 105 mmol/L (98-107); CREATININE 0.7 mg/dL (0.6-1.3); GLUCOSE 220 mg/dL (74-106); MAGNESIUM 1.8 mg/dL (1.8-2.4); PHOSPHORUS 3.5 mg/dL (2.5-4.9); POTASSIUM 4.1 mmol/L (3.5-5.1); SODIUM SERUM 138 mmol/L (136-145); UREA NITROGEN, BLOOD 9 mg/dL (7-18)
[2023-01-11] MEDS: IV NS 0.9% 250 ML IV PRN (07:39)
[2023-01-11] MEDS: LEVETIRACETAM SOL (5 ML) 100 MG/ML UDC GT SCH ×2 (09:17→20:22)
[2023-01-11] MEDS: ASPIRIN 81 MG TAB.CHEW NG SCH (09:17)
[2023-01-11] MEDS: LACOSAMIDE ORAL SOLN 50 MG/5 ML UDC NG SCH ×2 (09:17→16:55)
[2023-01-11] MEDS: LETROZOLE 2.5 MG TABLET GT SCH (09:17)
[2023-01-11] MEDS: CLOPIDOGREL BISULFATE 75 MG TABLET NG SCH (09:17)
[2023-01-11] MEDS: PANTOPRAZOLE 40 MG/PACK PACK NG SCH (09:17)
[2023-01-11] MEDS: CLOTRIMAZOLE/BETAMETASONE DIPROPIONATE 15 GM TUBE TP SCH ×2 (09:18→16:55)
[2023-01-11] MEDS: hydrALAZINE HCL IV 20 MG VIAL IV PRN (10:09)
[2023-01-11] MEDS: IV D5/ 0.9% NACL 1,000 ML IV PRN (10:16)
[2023-01-11] MEDS: GLUCERNA 1.2 1,000 ML BOTTLE NG PRN (11:36)
[2023-01-11] MEDS: ENOXAPARIN SODIUM 40 MG/0.4 ML DISP.SYRIN SQ SCH (20:24)
[2023-01-11] MEDS: ATORVASTATIN 40 MG TABLET NG SCH (21:06)
[2023-01-12] VITALS (24 sets, daily range): BP systolic 116–156; BP diastolic 43–92; TEMP 97.8–99; O2SAT 96–99
[2023-01-12] MEDS: BLOOD SUGAR DIAGNOSTIC 1 EACH STRIP IN SCH ×5 (00:11→23:53)
[2023-01-12] MEDS: INSULIN REGULAR, HUMAN 100 UNIT/ML 3 ML VIAL SQ PRN ×5 (00:12→23:55)
[2023-01-12] MEDS: IV D5/ 0.9% NACL 1,000 ML IV PRN ×2 (00:14→17:26)
[2023-01-12] MEDS ORDERED: DEXTROSE 50%-WATER 50 ML DISP.SYRIN IV PRN (08:00)
[2023-01-12] MEDS ORDERED: MAGNESIUM HYDROXIDE 30 ML UDC NG PRN (08:18)
[2023-01-12] MEDS ORDERED: MAG HYDROX/AL HYDROX/SIMETH 30 ML UDC NG PRN (08:18)
[2023-01-12] MEDS ORDERED: ACETAMINOPHEN 650 MG/20.3 ML UDC NG PRN (08:30)
[2023-01-12 08:44] LABS: BASOPHILS % (AUTO) 0.5 % (0.0-2.0); HEMATOCRIT 24 % (33-45); LYMPHOCYTES # (AUTO) 0.9 K/uL (0.8-4.8); LYMPHOCYTES % (AUTO) 14.9 % (20.0-44.0); MEAN CORPUSCULAR HEMOGLOBIN 31 PG (26.0-33.0); MEAN CORPUSCULAR HGB CONC 34 g/dl (31.0-36.0); MEAN CORPUSCULAR VOLUME 92 fL (82-100); MONOCYTES # (AUTO) 0.7 K/uL (0.1-1.30); MONOCYTES % (AUTO) 11.5 % (2.0-12.0); NEUTROPHILS # (AUTO) 4.4 K/uL (1.8-8.9); NEUTROPHILS % (AUTO) 73.1 % (43.0-81.0); PLATELET COUNT (AUTO) 330 K/uL (150-450); RED BLOOD CELL COUNT(AUTO) 2.58 MIL/uL (4.0-5.2); RED CELL DISTRIBUTION WIDTH 16.4 % (11.5-15.0)
[2023-01-12] MEDS: GLUCERNA 1.2 1,000 ML BOTTLE NG PRN (09:18)
[2023-01-12 09:49] LABS: CALCIUM, SERUM 9.2 mg/dL (8.5-10.1); CREATININE 0.8 mg/dL (0.6-1.3); MAGNESIUM 1.8 mg/dL (1.8-2.4); POTASSIUM 4.1 mmol/L (3.5-5.1)
[2023-01-12] MEDS: PANTOPRAZOLE 40 MG/PACK PACK NG SCH (09:51)
[2023-01-12] MEDS: LETROZOLE 2.5 MG TABLET GT SCH (09:51)
[2023-01-12] MEDS: CLOPIDOGREL BISULFATE 75 MG TABLET NG SCH (09:51)
[2023-01-12] MEDS: ASPIRIN 81 MG TAB.CHEW NG SCH (09:51)
[2023-01-12] MEDS: LEVETIRACETAM SOL (5 ML) 100 MG/ML UDC GT SCH ×2 (09:51→21:29)
[2023-01-12] MEDS: CLOTRIMAZOLE/BETAMETASONE DIPROPIONATE 15 GM TUBE TP SCH ×2 (09:52→17:01)
[2023-01-12] MEDS: LACOSAMIDE ORAL SOLN 50 MG/5 ML UDC NG SCH ×2 (10:08→17:01)
[2023-01-12 18:44] LABS: THYROID STIMULATING HORMONE 44.429 uIU/mL (0.358-3.74); URIC ACID 1.6 mg/dL (2.6-7.2)
[2023-01-12] MEDS: ATORVASTATIN 40 MG TABLET NG SCH (21:29)
[2023-01-12] MEDS: ENOXAPARIN SODIUM 40 MG/0.4 ML DISP.SYRIN SQ SCH (21:30)
[2023-01-13] VITALS (24 sets, daily range): BP systolic 115–146; BP diastolic 47–77; TEMP 97.4–98.1; O2SAT 94–100
[2023-01-13 05:06] LABS: BASOPHILS % (AUTO) 0.3 % (0.0-2.0); HEMATOCRIT 26 % (33-45); HEMOGLOBIN 8.7 g/dL (11.5-14.8); LYMPHOCYTES % (AUTO) 13.4 % (20.0-44.0); MEAN CORPUSCULAR HEMOGLOBIN 30 PG (26.0-33.0); MEAN CORPUSCULAR HGB CONC 33 g/dl (31.0-36.0); MEAN CORPUSCULAR VOLUME 91 fL (82-100); MONOCYTES # (AUTO) 0.7 K/uL (0.1-1.30); MONOCYTES % (AUTO) 9.1 % (2.0-12.0); NEUTROPHILS # (AUTO) 5.6 K/uL (1.8-8.9); NEUTROPHILS % (AUTO) 77.2 % (43.0-81.0); PLATELET COUNT (AUTO) 368 K/uL (150-450); RED BLOOD CELL COUNT(AUTO) 2.87 MIL/uL (4.0-5.2); RED CELL DISTRIBUTION WIDTH 16.3 % (11.5-15.0); WHITE BLOOD COUNT (AUTO) 7.3 K/uL (4.3-11.0)
[2023-01-13 05:20] LABS: CALCIUM, SERUM 9.4 mg/dL (8.5-10.1); CARBON DIOXIDE 28 mmol/L (21-32); CHLORIDE 100 mmol/L (98-107); CREATININE 0.7 mg/dL (0.6-1.3); GLUCOSE 184 mg/dL (74-106); MAGNESIUM 2.1 mg/dL (1.8-2.4); PHOSPHORUS 3.1 mg/dL (2.5-4.9); POTASSIUM 3.9 mmol/L (3.5-5.1); SODIUM SERUM 132 mmol/L (136-145); UREA NITROGEN, BLOOD 8 mg/dL (7-18)
[2023-01-13] MEDS: BLOOD SUGAR DIAGNOSTIC 1 EACH STRIP IN SCH ×3 (06:55→18:16)
[2023-01-13] MEDS: INSULIN REGULAR, HUMAN 100 UNIT/ML 3 ML VIAL SQ PRN ×3 (07:02→18:18)
[2023-01-13] MEDS: GLUCERNA 1.2 1,000 ML BOTTLE NG PRN (08:08)
[2023-01-13] MEDS: LETROZOLE 2.5 MG TABLET GT SCH (10:07)
[2023-01-13] MEDS: LEVETIRACETAM SOL (5 ML) 100 MG/ML UDC GT SCH ×2 (10:08→21:10)
[2023-01-13] MEDS: PANTOPRAZOLE 40 MG/PACK PACK NG SCH (10:08)
[2023-01-13] MEDS: LACOSAMIDE ORAL SOLN 50 MG/5 ML UDC NG SCH ×2 (10:08→18:16)
[2023-01-13] MEDS: CLOPIDOGREL BISULFATE 75 MG TABLET NG SCH (10:09)
[2023-01-13] MEDS: ASPIRIN 81 MG TAB.CHEW NG SCH (10:09)
[2023-01-13] MEDS: CLOTRIMAZOLE/BETAMETASONE DIPROPIONATE 15 GM TUBE TP SCH ×2 (10:09→18:17)
[2023-01-13] MEDS: IV NS 0.9% 250 ML IV PRN (12:05)
[2023-01-13] MEDS: ATORVASTATIN 40 MG TABLET NG SCH (21:10)
[2023-01-13] MEDS: ENOXAPARIN SODIUM 40 MG/0.4 ML DISP.SYRIN SQ SCH (21:11)
[2023-01-14] VITALS (24 sets, daily range): BP systolic 96–153; BP diastolic 44–99; TEMP 97–98.5; O2SAT 88–100
[2023-01-14] MEDS: INSULIN REGULAR, HUMAN 100 UNIT/ML 3 ML VIAL SQ PRN ×4 (00:34→23:33)
[2023-01-14] MEDS: BLOOD SUGAR DIAGNOSTIC 1 EACH STRIP IN SCH ×5 (00:34→23:32)
[2023-01-14] MEDS: GLUCERNA 1.2 1,000 ML BOTTLE NG PRN (05:23)
[2023-01-14 05:57] LABS: BASOPHILS % (AUTO) 0.6 % (0.0-2.0); HEMATOCRIT 26 % (33-45); LYMPHOCYTES # (AUTO) 1.1 K/uL (0.8-4.8); LYMPHOCYTES % (AUTO) 16.7 % (20.0-44.0); MEAN CORPUSCULAR HEMOGLOBIN 31 PG (26.0-33.0); MEAN CORPUSCULAR HGB CONC 34 g/dl (31.0-36.0); MEAN CORPUSCULAR VOLUME 91 fL (82-100); MONOCYTES # (AUTO) 0.7 K/uL (0.1-1.30); MONOCYTES % (AUTO) 10.4 % (2.0-12.0); NEUTROPHILS # (AUTO) 4.7 K/uL (1.8-8.9); NEUTROPHILS % (AUTO) 72.3 % (43.0-81.0); PLATELET COUNT (AUTO) 374 K/uL (150-450); RED CELL DISTRIBUTION WIDTH 15.8 % (11.5-15.0); WHITE BLOOD COUNT (AUTO) 6.5 K/uL (4.3-11.0)
[2023-01-14 06:13] LABS: CALCIUM, SERUM 9.6 mg/dL (8.5-10.1); CREATININE 0.7 mg/dL (0.6-1.3); PHOSPHORUS 3.7 mg/dL (2.5-4.9); POTASSIUM 4.1 mmol/L (3.5-5.1)
[2023-01-14 06:21] LABS: FERRITIN 524 ng/mL (8-388)
[2023-01-14 07:11] LABS: IRON, SERUM 39 ug/dl (50-175); TOTAL IRON BINDING CAPACITY 168 ug/dl (250-450)
[2023-01-14] MEDS: LEVETIRACETAM SOL (5 ML) 100 MG/ML UDC GT SCH ×2 (08:04→21:07)
[2023-01-14] MEDS: CLOPIDOGREL BISULFATE 75 MG TABLET NG SCH (08:04)
[2023-01-14] MEDS: LACOSAMIDE ORAL SOLN 50 MG/5 ML UDC NG SCH ×2 (08:04→17:07)
[2023-01-14] MEDS: ASPIRIN 81 MG TAB.CHEW NG SCH (08:05)
[2023-01-14] MEDS: PANTOPRAZOLE 40 MG/PACK PACK NG SCH (08:05)
[2023-01-14] MEDS: CLOTRIMAZOLE/BETAMETASONE DIPROPIONATE 15 GM TUBE TP SCH ×2 (08:05→16:54)
[2023-01-14] MEDS: LETROZOLE 2.5 MG TABLET GT SCH (08:06)
[2023-01-14] MEDS: ENOXAPARIN SODIUM 40 MG/0.4 ML DISP.SYRIN SQ SCH (21:06)
[2023-01-14] MEDS: ATORVASTATIN 40 MG TABLET NG SCH (21:07)
[2023-01-14] MEDS ORDERED: LORAZEPAM INJ 2 MG/ML VIAL IV ONE (23:00)
[2023-01-15] VITALS (21 sets, daily range): BP systolic 87–156; BP diastolic 47–117; TEMP 97.3–98.2; O2SAT 83–100
[2023-01-15 04:54] LABS: BASOPHILS % (AUTO) 0.7 % (0.0-2.0); HEMATOCRIT 26 % (33-45); HEMOGLOBIN 8.6 g/dL (11.5-14.8); LYMPHOCYTES % (AUTO) 16.8 % (20.0-44.0); MEAN CORPUSCULAR HEMOGLOBIN 31 PG (26.0-33.0); MEAN CORPUSCULAR HGB CONC 34 g/dl (31.0-36.0); MEAN CORPUSCULAR VOLUME 92 fL (82-100); MONOCYTES # (AUTO) 0.6 K/uL (0.1-1.30); NEUTROPHILS # (AUTO) 4.3 K/uL (1.8-8.9); NEUTROPHILS % (AUTO) 72.5 % (43.0-81.0); PLATELET COUNT (AUTO) 412 K/uL (150-450); RED CELL DISTRIBUTION WIDTH 15.9 % (11.5-15.0); WHITE BLOOD COUNT (AUTO) 5.9 K/uL (4.3-11.0)
[2023-01-15 05:24] LABS: CALCIUM, SERUM 9.8 mg/dL (8.5-10.1); CREATININE 0.8 mg/dL (0.6-1.3); MAGNESIUM 2.1 mg/dL (1.8-2.4); PHOSPHORUS 3.9 mg/dL (2.5-4.9); POTASSIUM 3.9 mmol/L (3.5-5.1)
[2023-01-15] MEDS: BLOOD SUGAR DIAGNOSTIC 1 EACH STRIP IN SCH ×3 (06:02→17:13)
[2023-01-15] MEDS: INSULIN REGULAR, HUMAN 100 UNIT/ML 3 ML VIAL SQ PRN ×2 (06:03→11:11)
[2023-01-15] MEDS: GLUCERNA 1.2 1,000 ML BOTTLE NG PRN (07:03)
[2023-01-15 08:06] LABS: IMMUNOGLOBULIN A, SERUM 393 mg/dL (64-422); IMMUNOGLOBULIN G, SERUM 1258 mg/dL (586-1602); IMMUNOGLOBULIN M, SERUM 68 mg/dL (26-217)
[2023-01-15] MEDS: ASPIRIN 81 MG TAB.CHEW NG SCH (08:52)
[2023-01-15] MEDS: CLOTRIMAZOLE/BETAMETASONE DIPROPIONATE 15 GM TUBE TP SCH ×2 (08:52→17:09)
[2023-01-15] MEDS: PANTOPRAZOLE 40 MG/PACK PACK NG SCH (08:52)
[2023-01-15] MEDS: CLOPIDOGREL BISULFATE 75 MG TABLET NG SCH (08:52)
[2023-01-15] MEDS: LEVETIRACETAM SOL (5 ML) 100 MG/ML UDC GT SCH ×2 (08:52→21:37)
[2023-01-15] MEDS: LETROZOLE 2.5 MG TABLET GT SCH (08:54)
[2023-01-15 09:07] LABS: FOLIC ACID 8.2 ng/mL (>3.0)
[2023-01-15] MEDS: LACOSAMIDE ORAL SOLN 50 MG/5 ML UDC NG SCH ×2 (10:24→17:12)
[2023-01-15] MEDS: ENOXAPARIN SODIUM 40 MG/0.4 ML DISP.SYRIN SQ SCH (21:00)
[2023-01-15] MEDS: ATORVASTATIN 40 MG TABLET NG SCH (21:37)
[2023-01-16] VITALS: BP 138/63; TEMP 97.6; O2SAT 99
[2023-01-16] MEDS: BLOOD SUGAR DIAGNOSTIC 1 EACH STRIP IN SCH ×5 (00:17→23:36)
[2023-01-16 05:12] VITALS: BP 144/70; TEMP 97.7; O2SAT 100
[2023-01-16 06:07] LABS: *SPE A/G RATIO 0.7 (0.7-1.7); *SPE ALBUMIN 2.4 g/dL (2.9-4.4); *SPE ALPHA-1-GLOBULIN 0.3 g/dL (0.0-0.4); *SPE ALPHA-2-GLOBULIN 0.9 g/dL (0.4-1.0); *SPE BETA GLOBULIN 0.9 g/dL (0.7-1.3); *SPE GLOBULIN, TOTAL 3.4 g/dL (2.2-3.9); *SPE M-SPIKE Not Observed g/dL (Not Observed); *SPE PROTEIN TOTAL 5.8 g/dL (6.0-8.5); *SPEGAMMA GLOBULIN 1.2 g/dL (0.4-1.8)
[2023-01-16 06:59] LABS: BASOPHILS % (AUTO) 0.7 % (0.0-2.0); HEMATOCRIT 25 % (33-45); HEMOGLOBIN 8.3 g/dL (11.5-14.8); LYMPHOCYTES # (AUTO) 0.9 K/uL (0.8-4.8); LYMPHOCYTES % (AUTO) 18.6 % (20.0-44.0); MEAN CORPUSCULAR HEMOGLOBIN 31 PG (26.0-33.0); MEAN CORPUSCULAR HGB CONC 33 g/dl (31.0-36.0); MEAN CORPUSCULAR VOLUME 92 fL (82-100); MONOCYTES # (AUTO) 0.4 K/uL (0.1-1.30); MONOCYTES % (AUTO) 9.6 % (2.0-12.0); NEUTROPHILS # (AUTO) 3.3 K/uL (1.8-8.9); NEUTROPHILS % (AUTO) 71.1 % (43.0-81.0); PLATELET COUNT (AUTO) 402 K/uL (150-450); RED BLOOD CELL COUNT(AUTO) 2.72 MIL/uL (4.0-5.2); RED CELL DISTRIBUTION WIDTH 16.4 % (11.5-15.0); WHITE BLOOD COUNT (AUTO) 4.7 K/uL (4.3-11.0)
[2023-01-16 07:20] LABS: CALCIUM, SERUM 9.6 mg/dL (8.5-10.1); CREATININE 0.8 mg/dL (0.6-1.3); PHOSPHORUS 3.6 mg/dL (2.5-4.9); POTASSIUM 3.7 mmol/L (3.5-5.1)
[2023-01-16 08:00] VITALS: BP 119/64; TEMP 98.4; O2SAT 100
[2023-01-16] MEDS: LACOSAMIDE ORAL SOLN 50 MG/5 ML UDC NG SCH ×2 (09:00→17:00)
[2023-01-16] MEDS: ASPIRIN 81 MG TAB.CHEW NG SCH (09:00)
[2023-01-16] MEDS: CLOPIDOGREL BISULFATE 75 MG TABLET NG SCH (09:00)
[2023-01-16] MEDS: LETROZOLE 2.5 MG TABLET GT SCH (09:00)
[2023-01-16] MEDS: PANTOPRAZOLE 40 MG/PACK PACK NG SCH (09:00)
[2023-01-16] MEDS: LEVETIRACETAM SOL (5 ML) 100 MG/ML UDC GT SCH ×2 (09:00→21:11)
[2023-01-16] MEDS: CLOTRIMAZOLE/BETAMETASONE DIPROPIONATE 15 GM TUBE TP SCH ×2 (09:27→17:17)
[2023-01-16] MEDS: INSULIN REGULAR, HUMAN 100 UNIT/ML 3 ML VIAL SQ PRN ×3 (11:44→23:38)
[2023-01-16 12:00] VITALS: BP 154/78; TEMP 97.7; O2SAT 100
[2023-01-16 16:00] VITALS: BP 155/69; TEMP 97.7; O2SAT 100
[2023-01-16 20:00] VITALS: BP 154/80; TEMP 98.2; O2SAT 98
[2023-01-16] MEDS: IV D5/ 0.9% NACL 1,000 ML IV PRN (20:42)
[2023-01-16] MEDS: ENOXAPARIN SODIUM 40 MG/0.4 ML DISP.SYRIN SQ SCH (21:00)
[2023-01-16] MEDS: ATORVASTATIN 40 MG TABLET NG SCH (21:11)
[2023-01-17] VITALS: BP 150/75; TEMP 98; O2SAT 97
[2023-01-17 04:00] VITALS: BP 149/78; TEMP 98.4; O2SAT 100
[2023-01-17] MEDS: BLOOD SUGAR DIAGNOSTIC 1 EACH STRIP IN SCH ×3 (06:10→17:11)
[2023-01-17] MEDS: INSULIN REGULAR, HUMAN 100 UNIT/ML 3 ML VIAL SQ PRN ×3 (06:12→17:11)
[2023-01-17 07:07] LABS: BASOPHILS % (AUTO) 0.3 % (0.0-2.0); HEMATOCRIT 26 % (33-45); HEMOGLOBIN 8.9 g/dL (11.5-14.8); LYMPHOCYTES # (AUTO) 0.9 K/uL (0.8-4.8); LYMPHOCYTES % (AUTO) 14.1 % (20.0-44.0); MEAN CORPUSCULAR HEMOGLOBIN 31 PG (26.0-33.0); MEAN CORPUSCULAR HGB CONC 34 g/dl (31.0-36.0); MEAN CORPUSCULAR VOLUME 93 fL (82-100); MONOCYTES # (AUTO) 0.5 K/uL (0.1-1.30); MONOCYTES % (AUTO) 7.9 % (2.0-12.0); NEUTROPHILS # (AUTO) 5.1 K/uL (1.8-8.9); NEUTROPHILS % (AUTO) 77.7 % (43.0-81.0); PLATELET COUNT (AUTO) 428 K/uL (150-450); RED BLOOD CELL COUNT(AUTO) 2.84 MIL/uL (4.0-5.2); RED CELL DISTRIBUTION WIDTH 16.6 % (11.5-15.0); WHITE BLOOD COUNT (AUTO) 6.5 K/uL (4.3-11.0)
[2023-01-17 07:10] LABS: CALCIUM, SERUM 9.9 mg/dL (8.5-10.1); CARBON DIOXIDE 23 mmol/L (21-32); CHLORIDE 101 mmol/L (98-107); CREATININE 0.8 mg/dL (0.6-1.3); GLUCOSE 169 mg/dL (74-106); MAGNESIUM 2.2 mg/dL (1.8-2.4); PHOSPHORUS 3.1 mg/dL (2.5-4.9); POTASSIUM 3.4 mmol/L (3.5-5.1); SODIUM SERUM 133 mmol/L (136-145); UREA NITROGEN, BLOOD 13 mg/dL (7-18)
[2023-01-17 08:00] VITALS: BP 136/65; TEMP 97.3; O2SAT 100
[2023-01-17] MEDS: LACOSAMIDE ORAL SOLN 50 MG/5 ML UDC NG SCH ×2 (09:00→16:50)
[2023-01-17] MEDS: LETROZOLE 2.5 MG TABLET GT SCH (09:00)
[2023-01-17] MEDS: CLOPIDOGREL BISULFATE 75 MG TABLET NG SCH (09:00)
[2023-01-17] MEDS: LEVETIRACETAM SOL (5 ML) 100 MG/ML UDC GT SCH ×2 (09:00→21:00)
[2023-01-17] MEDS: ASPIRIN 81 MG TAB.CHEW NG SCH (09:00)
[2023-01-17] MEDS: PANTOPRAZOLE 40 MG/PACK PACK NG SCH (09:00)
[2023-01-17] MEDS: CLOTRIMAZOLE/BETAMETASONE DIPROPIONATE 15 GM TUBE TP SCH ×2 (09:37→16:54)
[2023-01-17] MEDS ORDERED: POTASSIUM CHLORIDE 20 MEQ TAB.PRT.SR PO ONE (11:00)
[2023-01-17] MEDS ORDERED: POTASSIUM CHLORIDE 20 MEQ POWDER PACKET GT ONE (11:00)
[2023-01-17] MEDS: POTASSIUM CL. PREMIX PERIPHER. 50 ML IV SCH ×2 (11:24→12:25)
[2023-01-17 12:00] VITALS: BP 153/76; TEMP 97.8; O2SAT 100
[2023-01-17 16:00] VITALS: BP 149/64; TEMP 97.9; O2SAT 100
[2023-01-17] MEDS ORDERED: ANESTHESIA TRAY IN PYXIS 1 EA TRAY MC ONE ×2 (19:06→20:18)
[2023-01-17 20:00] VITALS: BP 147/70; TEMP 98.4; O2SAT 99
[2023-01-17] MEDS ORDERED: LEVETIRACETAM (500MG) 1,500 MG in IV NS 0.9% 85 ML IV ONE (21:30)
[2023-01-17] MEDS ORDERED: LEVETIRACETAM (500MG) 500 MG/5 ML VIAL IV ONE ×2 (21:41→21:43)
[2023-01-17] MEDS: IV D5/ 0.9% NACL 1,000 ML IV PRN (21:44)
[2023-01-17] MEDS: ENOXAPARIN SODIUM 40 MG/0.4 ML DISP.SYRIN SQ SCH (21:45)
[2023-01-17] MEDS: ATORVASTATIN 40 MG TABLET NG SCH (22:00)
[2023-01-18] VITALS: BP 168/77; TEMP 98.8; O2SAT 100
[2023-01-18] MEDS: hydrALAZINE HCL IV 20 MG VIAL IV PRN (00:23)
[2023-01-18] MEDS: BLOOD SUGAR DIAGNOSTIC 1 EACH STRIP IN SCH ×3 (00:27→11:27)
[2023-01-18] MEDS: INSULIN REGULAR, HUMAN 100 UNIT/ML 3 ML VIAL SQ PRN ×3 (00:28→11:29)
[2023-01-18 01:25] VITALS: BP 117/57; O2SAT 100
[2023-01-18 04:00] VITALS: BP 154/75; TEMP 98.4; O2SAT 100
[2023-01-18 05:49] LABS: BASOPHILS % (AUTO) 0.3 % (0.0-2.0); HEMATOCRIT 28 % (33-45); LYMPHOCYTES # (AUTO) 0.6 K/uL (0.8-4.8); LYMPHOCYTES % (AUTO) 5.6 % (20.0-44.0); MEAN CORPUSCULAR HEMOGLOBIN 30 PG (26.0-33.0); MEAN CORPUSCULAR HGB CONC 33 g/dl (31.0-36.0); MEAN CORPUSCULAR VOLUME 92 fL (82-100); MONOCYTES # (AUTO) 0.6 K/uL (0.1-1.30); MONOCYTES % (AUTO) 5.2 % (2.0-12.0); NEUTROPHILS % (AUTO) 88.9 % (43.0-81.0); PLATELET COUNT (AUTO) 448 K/uL (150-450); RED CELL DISTRIBUTION WIDTH 16.3 % (11.5-15.0); WHITE BLOOD COUNT (AUTO) 11.2 K/uL (4.3-11.0)
[2023-01-18 06:15] LABS: ALANINE AMINOTRANSFERASE 42 U/L (12-78); ALBUMIN 2.5 g/dL (3.4-5.0); ALKALINE PHOSPHATASE 94 U/L (46-116); ASPARTATE AMINOTRANSFERASE 40 U/L (15-37); BILIRUBIN,TOTAL 0.3 mg/dL (0.2-1.0); CALCIUM, SERUM 9.9 mg/dL (8.5-10.1); CARBON DIOXIDE 21 mmol/L (21-32); CHLORIDE 106 mmol/L (98-107); CREATININE 0.8 mg/dL (0.6-1.3); GLUCOSE 210 mg/dL (74-106); MAGNESIUM 1.9 mg/dL (1.8-2.4); PHOSPHORUS 2.6 mg/dL (2.5-4.9); POTASSIUM 3.9 mmol/L (3.5-5.1); SODIUM SERUM 138 mmol/L (136-145); UREA NITROGEN, BLOOD 12 mg/dL (7-18)
[2023-01-18] MEDS: GLUCERNA 1.2 1,000 ML BOTTLE NG PRN (06:33)
[2023-01-18 07:30] VITALS: BP 157/70; TEMP 98.2; O2SAT 100
[2023-01-18 08:00] VITALS: BP 157/70; TEMP 98.2; O2SAT 100
[2023-01-18] MEDS: CLOPIDOGREL BISULFATE 75 MG TABLET NG SCH (09:06)
[2023-01-18] MEDS: LEVETIRACETAM SOL (5 ML) 100 MG/ML UDC GT SCH (09:06)
[2023-01-18] MEDS: ASPIRIN 81 MG TAB.CHEW NG SCH (09:06)
[2023-01-18] MEDS: PANTOPRAZOLE 40 MG/PACK PACK NG SCH (09:06)
[2023-01-18] MEDS: LETROZOLE 2.5 MG TABLET GT SCH (09:09)
[2023-01-18] MEDS: LACOSAMIDE ORAL SOLN 50 MG/5 ML UDC NG SCH ×2 (09:09→16:18)
[2023-01-18] MEDS: CLOTRIMAZOLE/BETAMETASONE DIPROPIONATE 15 GM TUBE TP SCH ×2 (09:10→16:19)
[2023-01-18] MEDS ORDERED: LETR2.5T GT (15:29)
[2023-01-18] MEDS ORDERED: LEVE100S GT (15:29)
[2023-01-18] MEDS ORDERED: CLOP75TA15 NG (15:29)
[2023-01-18] MEDS ORDERED: PANT40SU2 NG (15:29)
[2023-01-18] MEDS ORDERED: LACO10SO NG (15:29)
[2023-01-18 16:00] VITALS: BP_SYST 138; BP_SYST 147; BP_DIAS 73; BP_DIAS 75; TEMP 97.5; TEMP 98.3; O2SAT 100
== END 2023-01-18 18:28 | DRG 100 ==
LOC: ER 19:57 → MED 22:47 → TELE 01-04 01:45 → ICU 01-04 03:54 → TELE1 01-15 20:11 → MEDSG1 01-18 10:25
PROVIDERS: ADMIT Student in an Organized Health Care Education/Training Program; ATTEND Internal Medicine
PROC: 05HA33Z Insertion of Infusion Device into Left Brachial Vein, Percutaneous Approach (ICD-10-PCS; principal; 2023-01-02)
PROC: 5A09357 Assistance with Respiratory Ventilation, Less than 24 Consecutive Hours, Continuous Positive Airway Pressure (ICD-10-PCS; 2023-01-04)
PROC: 02HV33Z Insertion of Infusion Device into Superior Vena Cava, Percutaneous Approach (ICD-10-PCS; 2023-01-06)
PROC: B548ZZA Ultrasonography of Superior Vena Cava, Guidance (ICD-10-PCS; 2023-01-06)
PROC: 0DH63UZ Insertion of Feeding Device into Stomach, Percutaneous Approach (ICD-10-PCS; 2023-01-17)
DX: R56.9 Unspecified convulsions (principal); G93.41 Metabolic encephalopathy; I63.9 Cerebral infarction, unspecified; B37.49 Other urogenital candidiasis; F02.83 Dementia in other diseases classified elsewhere, unspecified severity, with mood disturbance; I69.351 Hemiplegia and hemiparesis following cerebral infarction affecting right dominant side; F02.818 Dementia in other diseases classified elsewhere, unspecified severity, with other behavioral disturbance; E87.20 Acidosis, unspecified; E22.2 Syndrome of inappropriate secretion of antidiuretic hormone; C77.3 Secondary and unspecified malignant neoplasm of axilla and upper limb lymph nodes; R47.01 Aphasia; R62.7 Adult failure to thrive; I10 Essential (primary) hypertension; G20 Parkinson's disease; M79.7 Fibromyalgia; K21.9 Gastro-esophageal reflux disease without esophagitis; E03.9 Hypothyroidism, unspecified; E83.52 Hypercalcemia; E87.6 Hypokalemia; R13.10 Dysphagia, unspecified; C50.912 Malignant neoplasm of unspecified site of left female breast; K29.70 Gastritis, unspecified, without bleeding; I70.0 Atherosclerosis of aorta; F25.9 Schizoaffective disorder, unspecified; F32.A Depression, unspecified; Z88.1 Allergy status to other antibiotic agents; Z88.2 Allergy status to sulfonamides; Z88.0 Allergy status to penicillin; Z79.899 Other long term (current) drug therapy; B96.89 Other specified bacterial agents as the cause of diseases classified elsewhere; E78.5 Hyperlipidemia, unspecified; Z79.811 Long term (current) use of aromatase inhibitors; Z85.3 Personal history of malignant neoplasm of breast; I65.21 Occlusion and stenosis of right carotid artery; Z98.890 Other specified postprocedural states
CPT/HCPCS: 31720; 36410; 36415; 36569; 36600; 43246; 70450-TC; 70496-TC; 70498-TC; 70553-TC; 71045-TC; 80048-TC; 80053-TC; 80061-TC; 80076-TC; 81001; 82533; 82607-TC; 82728-TC; 82784; 82803-TC; 82962-TC; 83540-TC; 83735-TC; 84100-TC; 84155; 84165; 84300-TC; 84439-TC; 84443-TC; 84550-TC; 85025-TC; 85610-TC; 86334; 87040-TC; 87086-TC; 92526; 92611-TC; 93307-TC; 94799-TC; 95819-TC; A4216; A4223; A9563; A9575; C9113; G0378; J0360; J0696; J1450; J1650; J1815; J1953; J1956; J2060; J2704; J3475; J3480; J3490; J7030; J7040; J7042; J7050; J7060; J7070; Q9967

== ENCOUNTER → 2023-02-02 | Emergency (ER) | payer MEDICARE, OTHER ==
[~2023-02-02] VITALS: Ht 167.6 cm; Wt 73.9 kg
[~2023-02-02] MED LIST changes: -AMIN30LI27 PO; -ASCO-340 PO; +ASPI-1169 PO; +ATOR20TA PO; -CEFP200T14 PO; +CLOP75TA15 NG; -CYCL5.5D EACHEYE; +DIATR MEGLU/DIATRIZOATE SODIUM 30 ML BOTTLE (GASTROGRAPHIN) ONE; -FERR325T23 PO; -FLUO10TA PO; -GLUC1CAP30 PO; +LACO10SO NG; -LACT-58 PO; -LAPA250T PO; +LETR2.5T GT; -LETR2.5T PO; +LEVE100S GT; -LOPE-195 PO; -LORA-258 PO; -NA P133E RC; -NEPA3DRO EACHEYE; -OLAN2.5T3 PO; -OMEG1CAP PO; -ONDA4TAB5 PO; +PANT40SU2 NG; -POLY15DR40 EACHEYE; +SENN-261 PO; -SODI100037 PO; -ZINC220C6 PO
[2023-02-03 02:17] VITALS: BP 98/45; TEMP 98.4; O2SAT 100
== END ==
LOC: ER 23:05
DX: K94.23 Gastrostomy malfunction (principal); G20 Parkinson's disease; F03.90 Unspecified dementia, unspecified severity, without behavioral disturbance, psychotic disturbance, mood disturbance, and anxiety; I10 Essential (primary) hypertension; K21.9 Gastro-esophageal reflux disease without esophagitis; F20.9 Schizophrenia, unspecified; E03.9 Hypothyroidism, unspecified; Z79.82 Long term (current) use of aspirin; Z79.899 Other long term (current) drug therapy; Z98.890 Other specified postprocedural states; Z88.1 Allergy status to other antibiotic agents; Z88.2 Allergy status to sulfonamides
CPT/HCPCS: 99284; 43762; 74018; Q9963

== ENCOUNTER 2023-04-28 01:49 | Inpatient (IN) | payer MEDICARE, OTHER ==
[~2023-04-28] VITALS: Ht 160 cm; Wt 73.5 kg
[~2023-04-28 01:49] MED LIST changes: +ACET325T53 GT; -ACET325T53 PO; +ASPI-1169 GT; -ASPI-1169 PO; +ATOR20TA GT; -ATOR20TA PO; +CRAN425C6 GT; -CRAN425C6 PO; -DIATR MEGLU/DIATRIZOATE SODIUM 30 ML BOTTLE (GASTROGRAPHIN) ONE; +DOCU-141 GT; -DOCU-141 PO; +HYDR12.55 GT; -HYDR12.55 PO; +LISI-768 GT; -LISI-768 PO; +MAGN400O6 GT; -MAGN400O6 PO; +SENN-261 GT; -SENN-261 PO
[2023-04-28 03:09] LABS: BASOPHILS % (AUTO) 0.3 % (0.0-2.0); EOSINOPHILS % (AUTO) 0.3 % (0.0-6.0); HEMATOCRIT 34 % (33-45); HEMOGLOBIN 11.3 g/dL (11.5-14.8); LYMPHOCYTES # (AUTO) 0.9 K/uL (0.8-4.8); LYMPHOCYTES % (AUTO) 14.1 % (20.0-44.0); MEAN CORPUSCULAR HEMOGLOBIN 30 PG (26.0-33.0); MEAN CORPUSCULAR HGB CONC 33 g/dl (31.0-36.0); MEAN CORPUSCULAR VOLUME 90 fL (82-100); MONOCYTES # (AUTO) 0.7 K/uL (0.1-1.30); MONOCYTES % (AUTO) 10.4 % (2.0-12.0); NEUTROPHILS # (AUTO) 4.8 K/uL (1.8-8.9); NEUTROPHILS % (AUTO) 74.9 % (43.0-81.0); PLATELET COUNT (AUTO) 351 K/uL (150-450); RED BLOOD CELL COUNT(AUTO) 3.74 MIL/uL (4.0-5.2); WHITE BLOOD COUNT (AUTO) 6.4 K/uL (4.3-11.0)
[2023-04-28 03:17] LABS: CALCIUM, SERUM 10.1 mg/dL (8.5-10.1); CREATININE 0.7 mg/dL (0.6-1.3); POTASSIUM 4.2 mmol/L (3.5-5.1)
[2023-04-28 03:20] LABS: INR 0.99 (0.91-1.10); PARTIAL THROMBOPLASTIN TIME 27.9 SEC (24.3-34.3); PROTHROMBIN TIME 10.5 SECS (9.2-11.1)
[2023-04-28 03:23] LABS: ALBUMIN 2.9 g/dL (3.4-5.0); BILIRUBIN,DIRECT 0.1 mg/dL (0.0-0.2); BILIRUBIN,TOTAL 0.3 mg/dL (0.2-1.0)
[2023-04-28 04:05] LABS: OCCULT BLOOD STOOL POSITIVE (NEGATIVE)
[2023-04-28] MEDS ORDERED: LORAZEPAM INJ 2 MG/ML VIAL ONE (04:06)
[2023-04-28] MEDS ORDERED: LORAZEPAM INJ 2 MG/ML VIAL IV ONE (04:30)
[2023-04-28] MEDS ORDERED: ACETAMINOPHEN 325 MG TABLET PO PRN (07:30)
[2023-04-28] MEDS ORDERED: ONDANSETRON HCL/PF 4 MG/2 ML VIAL IVP PRN (07:30)
[2023-04-28] MEDS ORDERED: NUTR250L50 GT (08:01)
[2023-04-28] MEDS ORDERED: CHOL100043 GT (08:01)
[2023-04-28] MEDS ORDERED: LACT10SO3 GT (08:01)
[2023-04-28] MEDS ORDERED: CLOP75TA15 GT (08:01)
[2023-04-28] MEDS ORDERED: LEVO200T8 GT (08:01)
[2023-04-28] MEDS ORDERED: HYDR-4303 GT (08:01)
[2023-04-28] MEDS ORDERED: PANT40SU2 GT (08:01)
[2023-04-28] MEDS ORDERED: LORA-259 GT (08:01)
[2023-04-28] MEDS ORDERED: LACO10SO GT (08:01)
[2023-04-28] MEDS ORDERED: LETR2.5T GT (08:01)
[2023-04-28] MEDS ORDERED: LEVE500T9 GT (08:01)
[2023-04-28] MEDS ORDERED: FLUD0.1T GT (08:01)
[2023-04-28] MEDS ORDERED: POLY15DR40 EACHEYE (08:01)
[2023-04-28] MEDS ORDERED: PANTOPRAZOLE 40 MG VIAL IV SCH (09:00)
[2023-04-28 12:46] LABS: HEMOGLOBIN 12.9 g/dL (11.5-14.8)
[2023-04-28] MEDS ORDERED: POLYVINYL ALCOHOL 15 ML BOTTLE EACHEYE PRN (14:30)
[2023-04-28] MEDS ORDERED: BISACODYL SUPP (10 MG) 10 MG/SUPP.RECT SUPP.RECT RC PRN (14:30)
[2023-04-28] MEDS ORDERED: MAGNESIUM HYDROXIDE 30 ML UDC GT PRN (14:30)
[2023-04-28] MEDS ORDERED: LACOSAMIDE ORAL SOLN 50 MG/5 ML UDC ONE (17:28)
[2023-04-28] MEDS: LACOSAMIDE ORAL SOLN 50 MG/5 ML UDC GT SCH (17:49)
[2023-04-28 20:47] VITALS: O2SAT 97
[2023-04-28 21:24] VITALS: BP 117/100; TEMP 98; O2SAT 100
[2023-04-28] MEDS ORDERED: ATORVASTATIN 10 MG TABLET PO SCH (22:00)
[2023-04-28] MEDS: SENNOSIDES 8.6 MG TABLET GT SCH (22:18)
[2023-04-28] MEDS: LORAZEPAM 0.5 MG TABLET GT SCH (22:18)
[2023-04-28] MEDS: LEVETIRACETAM SOL (5 ML) 100 MG/ML UDC GT SCH (22:18)
[2023-04-29] MEDS: IV NS 0.9% 1,000 ML IV PRN ×2 (01:40→16:23)
[2023-04-29] MEDS: HYDROCODONE/APAP 5/325MG TABLET GT PRN ×2 (05:00→14:35)
[2023-04-29] MEDS: LEVOTHYROXINE SODIUM 100 MCG TABLET GT SCH (07:44)
[2023-04-29 08:00] VITALS: BP 102/61; TEMP 98.6; O2SAT 94
[2023-04-29] MEDS: CHOLECALCIFEROL 1,000 UNIT TABLET (VIT D3) GT SCH (08:41)
[2023-04-29] MEDS: LISINOPRIL (5MG) 5 MG TABLET GT SCH (08:42)
[2023-04-29] MEDS: LORAZEPAM 0.5 MG TABLET GT SCH ×2 (08:42→21:12)
[2023-04-29] MEDS: PANTOPRAZOLE 40 MG/PACK PACK GT SCH (08:42)
[2023-04-29] MEDS: LEVETIRACETAM SOL (5 ML) 100 MG/ML UDC GT SCH ×2 (08:42→21:11)
[2023-04-29] MEDS: DOCUSATE SODIUM LIQ 100 MG/10 ML UDC GT SCH (08:42)
[2023-04-29] MEDS: FLUDROCORTISONE 0.1 MG TABLET GT SCH (08:42)
[2023-04-29] MEDS: JEVITY 1.2 CAL 1,000 ML BOTTLE GT PRN (08:44)
[2023-04-29] MEDS ORDERED: KEY,NONCONTROL,TO KEEP IN PYXI 1 EA MC ONE (08:54)
[2023-04-29 09:05] LABS: BASOPHILS % (AUTO) 0.2 % (0.0-2.0); EOSINOPHILS % (AUTO) 0.6 % (0.0-6.0); HEMATOCRIT 33 % (33-45); LYMPHOCYTES # (AUTO) 1.1 K/uL (0.8-4.8); LYMPHOCYTES % (AUTO) 21.3 % (20.0-44.0); MEAN CORPUSCULAR HEMOGLOBIN 30 PG (26.0-33.0); MEAN CORPUSCULAR HGB CONC 34 g/dl (31.0-36.0); MEAN CORPUSCULAR VOLUME 89 fL (82-100); MONOCYTES # (AUTO) 0.5 K/uL (0.1-1.30); MONOCYTES % (AUTO) 9.9 % (2.0-12.0); NEUTROPHILS # (AUTO) 3.6 K/uL (1.8-8.9); PLATELET COUNT (AUTO) 334 K/uL (150-450); RED BLOOD CELL COUNT(AUTO) 3.65 MIL/uL (4.0-5.2); RED CELL DISTRIBUTION WIDTH 13.8 % (11.5-15.0); WHITE BLOOD COUNT (AUTO) 5.3 K/uL (4.3-11.0)
[2023-04-29] MEDS: LACOSAMIDE ORAL SOLN 50 MG/5 ML UDC GT SCH ×2 (09:11→16:52)
[2023-04-29 09:14] LABS: CALCIUM, SERUM 10.3 mg/dL (8.5-10.1); CARBON DIOXIDE 27 mmol/L (21-32); CHLORIDE 96 mmol/L (98-107); CREATININE 0.7 mg/dL (0.6-1.3); GLUCOSE 133 mg/dL (74-106); MAGNESIUM 1.9 mg/dL (1.8-2.4); PHOSPHORUS 3.2 mg/dL (2.5-4.9); SODIUM SERUM 129 mmol/L (136-145); UREA NITROGEN, BLOOD 16 mg/dL (7-18)
[2023-04-29] MEDS: LETROZOLE 2.5 MG TABLET GT SCH (09:19)
[2023-04-29 16:00] VITALS: BP 126/82; TEMP 98.2; O2SAT 94
[2023-04-29 20:00] VITALS: BP 156/74; TEMP 98.8; O2SAT 97
[2023-04-29] MEDS: ATORVASTATIN 10 MG TABLET GT SCH (21:12)
[2023-04-29] MEDS: SENNOSIDES 8.6 MG TABLET GT SCH (21:12)
[2023-04-30] MEDS: HYDROCODONE/APAP 5/325MG TABLET GT PRN ×3 (01:58→22:01)
[2023-04-30] MEDS: JEVITY 1.2 CAL 1,000 ML BOTTLE GT PRN ×2 (06:25→23:56)
[2023-04-30] MEDS: IV NS 0.9% 1,000 ML IV PRN ×2 (06:32→23:52)
[2023-04-30 07:30] VITALS: BP_SYST 137; BP_SYST 157; BP_DIAS 107; BP_DIAS 76; TEMP 97.9; TEMP 99.1; O2SAT 100; O2SAT 99
[2023-04-30] MEDS: LEVOTHYROXINE SODIUM 100 MCG TABLET GT SCH (07:37)
[2023-04-30] MEDS: LEVETIRACETAM SOL (5 ML) 100 MG/ML UDC GT SCH ×2 (08:20→20:26)
[2023-04-30] MEDS: DOCUSATE SODIUM LIQ 100 MG/10 ML UDC GT SCH (08:20)
[2023-04-30] MEDS: CHOLECALCIFEROL 1,000 UNIT TABLET (VIT D3) GT SCH (08:20)
[2023-04-30] MEDS: LACOSAMIDE ORAL SOLN 50 MG/5 ML UDC GT SCH ×2 (08:21→17:36)
[2023-04-30] MEDS: FLUDROCORTISONE 0.1 MG TABLET GT SCH (08:21)
[2023-04-30] MEDS: PANTOPRAZOLE 40 MG/PACK PACK GT SCH (08:21)
[2023-04-30] MEDS: LETROZOLE 2.5 MG TABLET GT SCH (08:21)
[2023-04-30] MEDS: LORAZEPAM 0.5 MG TABLET GT SCH ×2 (08:21→20:26)
[2023-04-30] MEDS: LISINOPRIL (5MG) 5 MG TABLET GT SCH (08:21)
[2023-04-30] MEDS: ACETAMINOPHEN 650 MG/20.3 ML UDC GT PRN (10:07)
[2023-04-30 16:00] VITALS: BP 141/67; TEMP 97.5; O2SAT 100
[2023-04-30] MEDS: ATORVASTATIN 10 MG TABLET GT SCH (21:20)
[2023-04-30] MEDS: SENNOSIDES 8.6 MG TABLET GT SCH (21:20)
[2023-05-01 07:30] VITALS: BP 157/77; TEMP 98.1; O2SAT 90
[2023-05-01] MEDS: LORAZEPAM 0.5 MG TABLET GT SCH ×2 (08:09→22:04)
[2023-05-01] MEDS: LEVOTHYROXINE SODIUM 100 MCG TABLET GT SCH (08:09)
[2023-05-01] MEDS: ACETAMINOPHEN 650 MG/20.3 ML UDC GT PRN (08:09)
[2023-05-01] MEDS: FLUDROCORTISONE 0.1 MG TABLET GT SCH (08:09)
[2023-05-01] MEDS: LEVETIRACETAM SOL (5 ML) 100 MG/ML UDC GT SCH ×2 (08:09→22:05)
[2023-05-01] MEDS: CHOLECALCIFEROL 1,000 UNIT TABLET (VIT D3) GT SCH (08:09)
[2023-05-01] MEDS: PANTOPRAZOLE 40 MG/PACK PACK GT SCH (08:09)
[2023-05-01] MEDS: DOCUSATE SODIUM LIQ 100 MG/10 ML UDC GT SCH (08:09)
[2023-05-01] MEDS: LISINOPRIL (5MG) 5 MG TABLET GT SCH (08:10)
[2023-05-01] MEDS: LETROZOLE 2.5 MG TABLET GT SCH (08:14)
[2023-05-01] MEDS: HYDROCODONE/APAP 5/325MG TABLET GT PRN (10:56)
[2023-05-01] MEDS: LACOSAMIDE ORAL SOLN 50 MG/5 ML UDC GT SCH ×2 (15:28→17:30)
[2023-05-01] MEDS: hydrALAZINE HCL IV 20 MG VIAL IV PRN (17:31)
[2023-05-01] MEDS: ATORVASTATIN 10 MG TABLET GT SCH (22:04)
[2023-05-01] MEDS: SENNOSIDES 8.6 MG TABLET GT SCH (22:34)
[2023-05-02] MEDS: IV NS 0.9% 1,000 ML IV PRN ×2 (02:46→16:18)
[2023-05-02] MEDS: JEVITY 1.2 CAL 1,000 ML BOTTLE GT PRN (02:57)
[2023-05-02] MEDS: LORAZEPAM 0.5 MG TABLET GT SCH ×2 (08:42→22:09)
[2023-05-02] MEDS: LISINOPRIL (5MG) 5 MG TABLET GT SCH (08:42)
[2023-05-02] MEDS: CHOLECALCIFEROL 1,000 UNIT TABLET (VIT D3) GT SCH (08:42)
[2023-05-02] MEDS: FLUDROCORTISONE 0.1 MG TABLET GT SCH (08:42)
[2023-05-02] MEDS: DOCUSATE SODIUM LIQ 100 MG/10 ML UDC GT SCH (08:42)
[2023-05-02] MEDS: PANTOPRAZOLE 40 MG/PACK PACK GT SCH (08:42)
[2023-05-02] MEDS: LETROZOLE 2.5 MG TABLET GT SCH (08:42)
[2023-05-02] MEDS: LEVETIRACETAM SOL (5 ML) 100 MG/ML UDC GT SCH ×2 (08:45→22:09)
[2023-05-02] MEDS: LEVOTHYROXINE SODIUM 100 MCG TABLET GT SCH (08:45)
[2023-05-02] MEDS: LACOSAMIDE ORAL SOLN 50 MG/5 ML UDC GT SCH ×2 (08:46→16:16)
[2023-05-02] MEDS: ATORVASTATIN 10 MG TABLET GT SCH (22:09)
[2023-05-02] MEDS: SENNOSIDES 8.6 MG TABLET GT SCH (22:09)
[2023-05-03] MEDS: LEVOTHYROXINE SODIUM 100 MCG TABLET GT SCH (09:03)
[2023-05-03] MEDS: LORAZEPAM 0.5 MG TABLET GT SCH (09:03)
[2023-05-03] MEDS: FLUDROCORTISONE 0.1 MG TABLET GT SCH (09:03)
[2023-05-03] MEDS: DOCUSATE SODIUM LIQ 100 MG/10 ML UDC GT SCH (09:04)
[2023-05-03] MEDS: CHOLECALCIFEROL 1,000 UNIT TABLET (VIT D3) GT SCH (09:04)
[2023-05-03] MEDS: LEVETIRACETAM SOL (5 ML) 100 MG/ML UDC GT SCH (09:04)
[2023-05-03] MEDS: PANTOPRAZOLE 40 MG/PACK PACK GT SCH (09:04)
[2023-05-03] MEDS: LISINOPRIL (5MG) 5 MG TABLET GT SCH (09:07)
[2023-05-03] MEDS: LETROZOLE 2.5 MG TABLET GT SCH (09:20)
[2023-05-03] MEDS: LACOSAMIDE ORAL SOLN 50 MG/5 ML UDC GT SCH ×2 (09:21→17:14)
[2023-05-03 16:19] VITALS: BP 173/84
[2023-05-03] MEDS: hydrALAZINE HCL IV 20 MG VIAL IV PRN (16:19)
== END 2023-05-03 18:40 | DRG 393 ==
LOC: ER 01:52 → TRANSITION 14:12 → MED 20:51 → TELE-TD 05-01 16:05 → MEDSG1 05-01 16:19
PROVIDERS: ATTEND Nurse Practitioner Acute Care
DX: K64.9 Unspecified hemorrhoids (principal); U07.1 COVID-19; F02.83 Dementia in other diseases classified elsewhere, unspecified severity, with mood disturbance; G93.49 Other encephalopathy; G81.91 Hemiplegia, unspecified affecting right dominant side; G40.909 Epilepsy, unspecified, not intractable, without status epilepticus; M79.7 Fibromyalgia; K21.9 Gastro-esophageal reflux disease without esophagitis; R13.10 Dysphagia, unspecified; G20.A1 Parkinson's disease without dyskinesia, without mention of fluctuations; E78.5 Hyperlipidemia, unspecified; E03.9 Hypothyroidism, unspecified; I70.0 Atherosclerosis of aorta; Z93.1 Gastrostomy status; Z79.899 Other long term (current) drug therapy; Z98.890 Other specified postprocedural states; Z88.2 Allergy status to sulfonamides; Z88.0 Allergy status to penicillin; Z88.1 Allergy status to other antibiotic agents; Z79.02 Long term (current) use of antithrombotics/antiplatelets; Z79.890 Hormone replacement therapy; Z85.3 Personal history of malignant neoplasm of breast; F20.9 Schizophrenia, unspecified; F32.A Depression, unspecified; I10 Essential (primary) hypertension; Z86.39 Personal history of other endocrine, nutritional and metabolic disease
CPT/HCPCS: 36415; 71045-TC; 80048-TC; 80076-TC; 82272-TC; 83735-TC; 84100-TC; 85025-TC; 85027-TC; 85378-TC; 85730-TC; 86140-TC; 86850-TC; A4223; A6403; C9113; G0378; J0360; J1953; J2060; J7030

== ENCOUNTER 2023-10-22 02:03 | Emergency (ER) | payer MEDICARE, OTHER ==
[~2023-10-22] VITALS: Ht 170.2 cm; Wt 127.0 kg
[~2023-10-22 02:03] MED LIST changes: +CHOL100043 GT; +CLOP75TA15 GT; -CLOP75TA15 NG; +FLUD0.1T GT; +HYDR-4303 GT; +LACO10SO GT; -LACO10SO NG; +LACT10SO3 GT; -LEVE100S GT; +LEVE500T9 GT; +LEVO200T8 GT; -LEVO88TA5 PO; +LORA-259 GT; +NUTR250L50 GT; +PANT40SU2 GT; -PANT40SU2 NG; +POLY15DR40 EACHEYE
[2023-10-22 04:23] LABS: BASOPHILS # (AUTO) 0.1 K/uL (0.0-0.2); BASOPHILS % (AUTO) 0.6 % (0.0-2.0); EOSINOPHILS # (AUTO) 0.4 K/uL (0.0-0.7); EOSINOPHILS % (AUTO) 3.5 % (0.0-6.0); HEMATOCRIT 31 % (33-45); HEMOGLOBIN 10.4 g/dL (11.5-14.8); LYMPHOCYTES # (AUTO) 1.7 K/uL (0.8-4.8); MEAN CORPUSCULAR HEMOGLOBIN 30 PG (26.0-33.0); MEAN CORPUSCULAR HGB CONC 34 g/dl (31.0-36.0); MEAN CORPUSCULAR VOLUME 91 fL (82-100); MONOCYTES % (AUTO) 8.8 % (2.0-12.0); NEUTROPHILS # (AUTO) 8.7 K/uL (1.8-8.9); NEUTROPHILS % (AUTO) 73.1 % (43.0-81.0); PLATELET COUNT (AUTO) 315 K/uL (150-450); RED BLOOD CELL COUNT(AUTO) 3.43 MIL/uL (4.0-5.2); RED CELL DISTRIBUTION WIDTH 15.4 % (11.5-15.0); WHITE BLOOD COUNT (AUTO) 11.9 K/uL (4.3-11.0)
[2023-10-22 04:40] LABS: CALCIUM, SERUM 11.2 mg/dL (8.5-10.1); CARBON DIOXIDE 25 mmol/L (21-32); CHLORIDE 103 mmol/L (98-107); CREATININE 0.8 mg/dL (0.6-1.3); GLUCOSE 183 mg/dL (74-106); POTASSIUM 4.4 mmol/L (3.5-5.1); SODIUM SERUM 139 mmol/L (136-145); UREA NITROGEN, BLOOD 38 mg/dL (7-18)
[2023-10-22 04:46] LABS: ALANINE AMINOTRANSFERASE 26 U/L (12-78); ALKALINE PHOSPHATASE 117 U/L (46-116); ASPARTATE AMINOTRANSFERASE 17 U/L (15-37); BILIRUBIN,TOTAL 0.4 mg/dL (0.2-1.0); TOTAL PROTEIN, SERUM 7.8 g/dL (6.4-8.2)
[2023-10-22 08:02] VITALS: BP 120/80; TEMP 98.3; O2SAT 99
== END 2023-10-22 08:03 ==
LOC: ER 02:05
DX: K94.23 Gastrostomy malfunction (principal); F03.90 Unspecified dementia, unspecified severity, without behavioral disturbance, psychotic disturbance, mood disturbance, and anxiety; I10 Essential (primary) hypertension; K21.9 Gastro-esophageal reflux disease without esophagitis; E03.9 Hypothyroidism, unspecified; Z98.890 Other specified postprocedural states; Z79.899 Other long term (current) drug therapy; Z88.0 Allergy status to penicillin; Z88.2 Allergy status to sulfonamides
CPT/HCPCS: 36415; 74018; 80053-TC; 85025-TC

== ENCOUNTER 2023-12-04 12:01 | Emergency (ER) | payer MEDICARE, OTHER ==
[~2023-12-04] VITALS: Ht 154.9 cm; Wt 75.7 kg
[2023-12-04 12:33] VITALS: BP 127/62; TEMP 98.7; O2SAT 100
[2023-12-04] MEDS ORDERED: DIATR MEGLU/DIATRIZOATE SODIUM 30 ML BOTTLE (GASTROGRAPHIN) ONE (14:26)
[2023-12-04] MEDS: DIATR MEGLU/DIATRIZOATE SODIUM 120 ML BOTTLE (GASTROGRAPHIN) PO ONE (14:36)
== END 2023-12-04 17:33 ==
LOC: ER 12:04
DX: K94.23 Gastrostomy malfunction (principal); G20.A1 Parkinson's disease without dyskinesia, without mention of fluctuations; F02.80 Dementia in other diseases classified elsewhere, unspecified severity, without behavioral disturbance, psychotic disturbance, mood disturbance, and anxiety; I10 Essential (primary) hypertension; K21.9 Gastro-esophageal reflux disease without esophagitis; E03.9 Hypothyroidism, unspecified; I70.90 Unspecified atherosclerosis; F20.9 Schizophrenia, unspecified; Z85.3 Personal history of malignant neoplasm of breast; Z86.73 Personal history of transient ischemic attack (TIA), and cerebral infarction without residual deficits; Z90.89 Acquired absence of other organs; Z88.0 Allergy status to penicillin; Z88.2 Allergy status to sulfonamides; Z88.8 Allergy status to other drugs, medicaments and biological substances; Y83.3 Surgical operation with formation of external stoma as the cause of abnormal reaction of the patient, or of later complication, without mention of misadventure at the time of the procedure; Y82.8 Other medical devices associated with adverse incidents
CPT/HCPCS: 99284; 43762; 74018; Q9963 ×2

== ENCOUNTER 2024-01-11 12:22 | Inpatient (IN) | payer MEDICARE, OTHER ==
[~2024-01-11] VITALS: Ht 167.6 cm; Wt 77.1 kg
[2024-01-11] MEDS ORDERED: ONDANSETRON HCL/PF 4 MG/2 ML VIAL ONE (13:05)
[2024-01-11] MEDS ORDERED: FAMOTIDINE/PF INJ 20 MG/2 ML VIAL IV ONE (13:05)
[2024-01-11 14:09] LABS: HEMATOCRIT 34 % (33-45); HEMOGLOBIN 10.8 g/dL (11.5-14.8); LYMPHOCYTES # (AUTO) 0.5 K/uL (0.8-4.8); LYMPHOCYTES % (AUTO) 2.2 % (20.0-44.0); MEAN CORPUSCULAR HEMOGLOBIN 29 PG (26.0-33.0); MEAN CORPUSCULAR HGB CONC 32 g/dl (31.0-36.0); MEAN CORPUSCULAR VOLUME 90 fL (82-100); MONOCYTES # (AUTO) 0.7 K/uL (0.1-1.30); MONOCYTES % (AUTO) 2.9 % (2.0-12.0); NEUTROPHILS # (AUTO) 22.9 K/uL (1.8-8.9); NEUTROPHILS % (AUTO) 94.9 % (43.0-81.0); PLATELET COUNT (AUTO) 389 K/uL (150-450); RED BLOOD CELL COUNT(AUTO) 3.77 MIL/uL (4.0-5.2); WHITE BLOOD COUNT (AUTO) 24.1 K/uL (4.3-11.0)
[2024-01-11 14:26] LABS: CALCIUM, SERUM 10.5 mg/dL (8.5-10.1); CARBON DIOXIDE 28 mmol/L (21-32); CHLORIDE 94 mmol/L (98-107); CREATININE 1.1 mg/dL (0.6-1.3); GLUCOSE 349 mg/dL (74-106); POTASSIUM 3.9 mmol/L (3.5-5.1); SODIUM SERUM 132 mmol/L (136-145); UREA NITROGEN, BLOOD 32 mg/dL (7-18)
[2024-01-11] MEDS: ONDANSETRON HCL/PF 4 MG/2 ML VIAL IVP ONE (14:27)
[2024-01-11] MEDS: FAMOTIDINE/PF INJ 20 MG/2 ML VIAL IV ONE (14:28)
[2024-01-11] MEDS ORDERED: FERR325T28 GT (14:30)
[2024-01-11] MEDS ORDERED: LORA2VIA11 IM (14:30)
[2024-01-11] MEDS ORDERED: OMEP20CA15 GT (14:30)
[2024-01-11] MEDS ORDERED: NUT.237L30 GT (14:30)
[2024-01-11] MEDS ORDERED: LEVO100T GT (14:30)
[2024-01-11] MEDS ORDERED: LEVE100S GT (14:30)
[2024-01-11] MEDS ORDERED: NA P133E RC (14:30)
[2024-01-11 14:32] LABS: ALANINE AMINOTRANSFERASE 19 U/L (12-78); ALKALINE PHOSPHATASE 98 U/L (46-116); ASPARTATE AMINOTRANSFERASE 13 U/L (15-37); BILIRUBIN,DIRECT 0.1 mg/dL (0.0-0.2); BILIRUBIN,TOTAL 0.5 mg/dL (0.2-1.0); LIPASE 16 U/L (16-77); TOTAL PROTEIN, SERUM 8.1 g/dL (6.4-8.2)
[2024-01-11 15:27] LABS: APPEARANCE,URINE Clear (CLEAR); BILIRUBIN,URINE Negative (NEGATIVE); BLOOD, URINE Trace-intact Ery/uL (NEGATIVE); COLOR,URINE YELLOW (YELLOW); KETONES,URINE Negative (NEGATIVE); LEUKOCYTE ESTERASE ,URINE Small (NEGATIVE); NITRITE, URINE Negative (NEGATIVE); PH,URINE 5.5 (5.0-8.0); PROTEIN,URINE 100 mg/dl (NEGATIVE); UGLUCOSE >=1000 mg/dL (NEGATIVE); UROBILINOGEN,URINE 0.2 EU/dL (0.2)
[2024-01-11 15:36] LABS: LYMPHOCYTES % (MANUAL) 3 % (16-48); MONOCYTES % (MANUAL) 1 % (0-11.0); NEUTROPHILS % (MANUAL) 96 (42-76); PLATELET ESTIMATE ADEQUATE
[2024-01-11 15:37] LABS: STOMATOCYTES 1+
[2024-01-11 15:45] LABS: ADD URINE CULTURE YES; BACTERIA,URINE Many /HPF (None Seen); RBC,URINE 21-50 /HPF (0-2); SQUAMOUS EPITHELIAL CELL,UR Few /HPF (None Seen); WBC,URINE 21-50 /HPF (0-3); YEAST,URINE Few /HPF (None Seen)
[2024-01-11] MEDS ORDERED: INSULIN REGULAR, HUMAN 100 UNIT/ML 10 ML VIAL SQ ONE (16:00)
[2024-01-11] MEDS: IV NS 0.9% 500 ML BAG IV ONE (16:46)
[2024-01-11] MEDS ORDERED: ZOLPIDEM TARTRATE 5 MG TABLET PO PRN (17:30)
[2024-01-11] MEDS ORDERED: MAG HYDROX/AL HYDROX/SIMETH 30 ML UDC PO PRN (17:30)
[2024-01-11] MEDS ORDERED: ONDANSETRON HCL/PF 4 MG/2 ML VIAL IVP PRN (17:30)
[2024-01-11] MEDS ORDERED: Z GUARD REMEDY 4 OZ OINT TP PRN (17:30)
[2024-01-11] MEDS ORDERED: LEVOFLOXACIN 500 MG /D5W 100ML 500 MG in PREMIX 1 EA IV SCH (17:30)
[2024-01-11] MEDS ORDERED: BISACODYL SUPP (10 MG) 10 MG/SUPP.RECT SUPP.RECT RC PRN (17:30)
[2024-01-11] MEDS ORDERED: MAGNESIUM HYDROXIDE 30 ML UDC PO PRN (17:30)
[2024-01-11 17:53] LABS: LACTIC ACID 4.6 mmol/L (0.4-2.0)
[2024-01-11] MEDS: INSULIN REGULAR, HUMAN 100 UNIT/ML 3 ML VIAL SQ ONE (18:00)
[2024-01-11] MEDS ORDERED: DEXTROSE 50%-WATER 50 ML DISP.SYRIN IV PRN (18:30)
[2024-01-11] MEDS: *INSULIN REGULAR(HUMULIN R)HUM 100 UNIT/ML VIAL SQ PRN (18:39)
[2024-01-11 20:00] VITALS: BP 110/54; TEMP 99
[2024-01-11] MEDS: IV NS 0.9% 1,000 ML IV PRN (21:09)
[2024-01-11] MEDS: LEVOFLOXACIN 500 MG /D5W 100ML 500 MG in PREMIX 1 EA IV ONE (21:11)
[2024-01-11] MEDS: BLOOD SUGAR DIAGNOSTIC 1 EACH STRIP IN SCH (21:51)
[2024-01-11] MEDS: ENOXAPARIN SODIUM 40 MG/0.4 ML DISP.SYRIN SQ SCH (22:05)
[2024-01-11] MEDS: HYDROCHLOROTHIAZIDE 25 MG TABLET GT SCH (22:06)
[2024-01-11] MEDS: CHOLECALCIFEROL 1,000 UNIT TABLET (VIT D3) GT SCH (22:07)
[2024-01-11] MEDS: LORAZEPAM 1 MG TABLET GT SCH (22:08)
[2024-01-11] MEDS: ATORVASTATIN 10 MG TABLET GT SCH (22:11)
[2024-01-11] MEDS: VANCOMYCIN 1 GM in IV D5W 250 ML IV ONE (22:17)
[2024-01-12] VITALS: BP 98/54; TEMP 97.3
[2024-01-12 04:00] VITALS: BP 121/60; TEMP 97.9; O2SAT 95
[2024-01-12 06:01] LABS: BASOPHILS % (AUTO) 0.2 % (0.0-2.0); HEMATOCRIT 32 % (33-45); HEMOGLOBIN 10.2 g/dL (11.5-14.8); LYMPHOCYTES # (AUTO) 0.9 K/uL (0.8-4.8); LYMPHOCYTES % (AUTO) 6.5 % (20.0-44.0); MEAN CORPUSCULAR HEMOGLOBIN 29 PG (26.0-33.0); MEAN CORPUSCULAR HGB CONC 32 g/dl (31.0-36.0); MEAN CORPUSCULAR VOLUME 91 fL (82-100); MONOCYTES # (AUTO) 1.2 K/uL (0.1-1.30); MONOCYTES % (AUTO) 8.4 % (2.0-12.0); NEUTROPHILS # (AUTO) 12.1 K/uL (1.8-8.9); NEUTROPHILS % (AUTO) 84.9 % (43.0-81.0); PLATELET COUNT (AUTO) 306 K/uL (150-450); RED BLOOD CELL COUNT(AUTO) 3.47 MIL/uL (4.0-5.2); RED CELL DISTRIBUTION WIDTH 16.4 % (11.5-15.0); WHITE BLOOD COUNT (AUTO) 14.3 K/uL (4.3-11.0)
[2024-01-12 06:24] LABS: CALCIUM, SERUM 9.8 mg/dL (8.5-10.1); CARBON DIOXIDE 26 mmol/L (21-32); CHLORIDE 101 mmol/L (98-107); CREATININE 0.9 mg/dL (0.6-1.3); GLUCOSE 145 mg/dL (74-106); MAGNESIUM 2.3 mg/dL (1.8-2.4); PHOSPHORUS 2.1 mg/dL (2.5-4.9); POTASSIUM 4.6 mmol/L (3.5-5.1); SODIUM SERUM 136 mmol/L (136-145); UREA NITROGEN, BLOOD 42 mg/dL (7-18)
[2024-01-12] MEDS: INSULIN REGULAR, HUMAN 100 UNIT/ML 3 ML VIAL SQ PRN (07:48)
[2024-01-12 08:00] VITALS: BP 123/54; TEMP 98.4; O2SAT 95
[2024-01-12] MEDS: LEVOTHYROXINE SODIUM 100 MCG TABLET GT SCH (09:26)
[2024-01-12] MEDS: ASPIRIN 81 MG TAB.CHEW GT SCH (09:26)
[2024-01-12] MEDS: DOCUSATE SODIUM 100 MG CAPSULE PO SCH ×2 (09:26→12:27)
[2024-01-12] MEDS: LEVETIRACETAM SOL (5 ML) 100 MG/ML UDC GT SCH (09:26)
[2024-01-12] MEDS: LACOSAMIDE ORAL SOLN 50 MG/5 ML UDC GT SCH (09:28)
[2024-01-12] MEDS: CLOPIDOGREL BISULFATE 75 MG TABLET GT SCH (09:28)
[2024-01-12] MEDS: LETROZOLE 2.5 MG TABLET GT SCH (09:29)
[2024-01-12] MEDS: LISINOPRIL (5MG) 5 MG TABLET GT SCH (09:29)
[2024-01-12] MEDS ORDERED: POLYETHYLENE GLYCOL 3350 17 GM POWD.PACK GT PRN (11:30)
[2024-01-12] MEDS ORDERED: SENNOSIDES 8.6 MG TABLET PO PRN (11:30)
[2024-01-12 12:00] VITALS: BP 99/51; TEMP 98.7; O2SAT 94
[2024-01-12] MEDS: GLUCERNA 1.2 1,000 ML BOTTLE GT PRN (13:55)
[2024-01-12 16:00] VITALS: BP 106/55; TEMP 98.9; O2SAT 96
[2024-01-12] MEDS: NEUTRA PHOS 1 POWD.PACKET PO ONE (16:41)
[2024-01-12] MEDS: VANCOMYCIN HCL 1.25 GM in IV D5W 250 ML IV SCH (18:02)
[2024-01-12] MEDS: LEVOFLOXACIN 250 MG /D5W 50 ML 250 MG in PREMIX 1 EA IV SCH (18:02)
[2024-01-12 20:00] VITALS: BP 118/62; TEMP 99; O2SAT 96
[2024-01-12] MEDS: ACETAMINOPHEN 325 MG TABLET PO PRN (22:35)
[2024-01-13] VITALS: BP 123/78; TEMP 98.9; O2SAT 96
[2024-01-13 06:35] VITALS: BP 103/53; TEMP 97.9; O2SAT 96
[2024-01-13 07:16] LABS: CALCIUM, SERUM 10.1 mg/dL (8.5-10.1); CARBON DIOXIDE 26 mmol/L (21-32); CHLORIDE 101 mmol/L (98-107); GLUCOSE 161 mg/dL (74-106); PHOSPHORUS 2.1 mg/dL (2.5-4.9); POTASSIUM 3.1 mmol/L (3.5-5.1); SODIUM SERUM 134 mmol/L (136-145); UREA NITROGEN, BLOOD 34 mg/dL (7-18)
[2024-01-13 07:36] LABS: BASOPHILS % (AUTO) 0.1 % (0.0-2.0); EOSINOPHILS # (AUTO) 0.1 K/uL (0.0-0.7); EOSINOPHILS % (AUTO) 0.5 % (0.0-6.0); HEMATOCRIT 31 % (33-45); LYMPHOCYTES % (AUTO) 6.6 % (20.0-44.0); MEAN CORPUSCULAR HEMOGLOBIN 29 PG (26.0-33.0); MEAN CORPUSCULAR HGB CONC 32 g/dl (31.0-36.0); MEAN CORPUSCULAR VOLUME 91 fL (82-100); MONOCYTES # (AUTO) 1.5 K/uL (0.1-1.30); MONOCYTES % (AUTO) 9.9 % (2.0-12.0); NEUTROPHILS # (AUTO) 12.7 K/uL (1.8-8.9); NEUTROPHILS % (AUTO) 82.9 % (43.0-81.0); PLATELET COUNT (AUTO) 298 K/uL (150-450); WHITE BLOOD COUNT (AUTO) 15.3 K/uL (4.3-11.0)
[2024-01-13 08:00] VITALS: BP 119/60; TEMP 98.5; O2SAT 96
[2024-01-13] MEDS: POTASSIUM CHLORIDE 20 MEQ POWDER PACKET NG SCH (11:31)
[2024-01-13 11:38] LABS: HIV-1 p24 ANTIGEN NON REACTIVE (NONREACTIVE); HIV-1/2 ANTIBODY NON REACTIVE (NONREACTIVE)
[2024-01-13 12:00] VITALS: BP 102/60; TEMP 98.3; O2SAT 96
[2024-01-13] MEDS: METRONIDAZOLE 500MG/ NS 100ML 500 MG in PREMIX 1 EA IV SCH (14:28)
[2024-01-13 16:00] VITALS: BP 100/60; TEMP 98; O2SAT 98
[2024-01-13] MEDS: NEUTRA PHOS 1 POWD.PACKET GT ONE (16:08)
[2024-01-13 20:00] VITALS: BP 95/66; TEMP 98.6; O2SAT 100
[2024-01-14] VITALS: BP 113/41; TEMP 98.4; O2SAT 96
[2024-01-14 04:00] VITALS: BP 129/53; TEMP 98.2; O2SAT 93
[2024-01-14] MEDS: HYDROCODONE/APAP 5/325MG TABLET GT PRN (04:45)
[2024-01-14] MEDS ORDERED: SENNOSIDES 8.6 MG TABLET GT PRN (06:51)
[2024-01-14] MEDS ORDERED: MAGNESIUM HYDROXIDE 30 ML UDC GT PRN (06:51)
[2024-01-14] MEDS ORDERED: MAG HYDROX/AL HYDROX/SIMETH 30 ML UDC GT PRN (06:51)
[2024-01-14 07:12] LABS: CALCIUM, SERUM 8.9 mg/dL (8.5-10.1); CARBON DIOXIDE 27 mmol/L (21-32); CHLORIDE 105 mmol/L (98-107); CREATININE 0.7 mg/dL (0.6-1.3); GLUCOSE 184 mg/dL (74-106); PHOSPHORUS 1.8 mg/dL (2.5-4.9); POTASSIUM 3.4 mmol/L (3.5-5.1); SODIUM SERUM 139 mmol/L (136-145); UREA NITROGEN, BLOOD 25 mg/dL (7-18)
[2024-01-14 07:53] LABS: BASOPHILS % (AUTO) 0.2 % (0.0-2.0); EOSINOPHILS # (AUTO) 0.1 K/uL (0.0-0.7); EOSINOPHILS % (AUTO) 1.2 % (0.0-6.0); HEMATOCRIT 25 % (33-45); HEMOGLOBIN 8.2 g/dL (11.5-14.8); LYMPHOCYTES # (AUTO) 0.6 K/uL (0.8-4.8); MEAN CORPUSCULAR HEMOGLOBIN 30 PG (26.0-33.0); MEAN CORPUSCULAR HGB CONC 33 g/dl (31.0-36.0); MEAN CORPUSCULAR VOLUME 89 fL (82-100); MONOCYTES # (AUTO) 0.9 K/uL (0.1-1.30); MONOCYTES % (AUTO) 7.5 % (2.0-12.0); NEUTROPHILS # (AUTO) 10.8 K/uL (1.8-8.9); NEUTROPHILS % (AUTO) 86.1 % (43.0-81.0); PLATELET COUNT (AUTO) 278 K/uL (150-450); RED BLOOD CELL COUNT(AUTO) 2.77 MIL/uL (4.0-5.2); RED CELL DISTRIBUTION WIDTH 15.7 % (11.5-15.0); WHITE BLOOD COUNT (AUTO) 12.6 K/uL (4.3-11.0)
[2024-01-14 08:00] VITALS: BP 122/56; TEMP 97.7; O2SAT 96
[2024-01-14] MEDS ORDERED: DOCUSATE SODIUM 100 MG CAPSULE PO SCH (09:00)
[2024-01-14] MEDS: POTASSIUM CHLORIDE 20 MEQ POWDER PACKET NG SCH (10:19)
[2024-01-14 12:00] VITALS: BP 97/84; TEMP 97.7; O2SAT 95
[2024-01-14 13:37] LABS: HIV-1 p24 ANTIGEN NON REACTIVE (NONREACTIVE); HIV-1/2 ANTIBODY NON REACTIVE (NONREACTIVE)
[2024-01-14 16:00] VITALS: BP 117/44; TEMP 99.7; O2SAT 99
[2024-01-14] MEDS: NEUTRA PHOS 1 POWD.PACKET GT ONE (16:57)
[2024-01-14] MEDS: ACETAMINOPHEN 650 MG/20.3 ML UDC GT PRN (17:00)
[2024-01-14] MEDS: GLUCERNA 1.2 1,000 ML BOTTLE GT PRN (17:52)
[2024-01-14 20:00] VITALS: BP 115/58; TEMP 98.8; O2SAT 96
[2024-01-15] VITALS (7 sets, daily range): BP systolic 108–153; BP diastolic 52–83; TEMP 98.2–99.1; O2SAT 96–97
[2024-01-15 07:07] LABS: CALCIUM, SERUM 9.4 mg/dL (8.5-10.1); CARBON DIOXIDE 27 mmol/L (21-32); CHLORIDE 104 mmol/L (98-107); CREATININE 0.8 mg/dL (0.6-1.3); GLUCOSE 223 mg/dL (74-106); POTASSIUM 3.9 mmol/L (3.5-5.1); SODIUM SERUM 137 mmol/L (136-145); UREA NITROGEN, BLOOD 19 mg/dL (7-18)
[2024-01-15] MEDS ORDERED: ZOLPIDEM TARTRATE 5 MG TABLET GT PRN (07:34)
[2024-01-15 11:25] LABS: BASOPHILS # (AUTO) 0.1 K/uL (0.0-0.2); BASOPHILS % (AUTO) 0.5 % (0.0-2.0); EOSINOPHILS # (AUTO) 0.3 K/uL (0.0-0.7); EOSINOPHILS % (AUTO) 2.8 % (0.0-6.0); HEMATOCRIT 28 % (33-45); LYMPHOCYTES # (AUTO) 0.8 K/uL (0.8-4.8); LYMPHOCYTES % (AUTO) 6.8 % (20.0-44.0); MEAN CORPUSCULAR HEMOGLOBIN 29 PG (26.0-33.0); MEAN CORPUSCULAR HGB CONC 32 g/dl (31.0-36.0); MEAN CORPUSCULAR VOLUME 90 fL (82-100); NEUTROPHILS % (AUTO) 81.9 % (43.0-81.0); PLATELET COUNT (AUTO) 295 K/uL (150-450); RED CELL DISTRIBUTION WIDTH 15.7 % (11.5-15.0); WHITE BLOOD COUNT (AUTO) 12.2 K/uL (4.3-11.0)
[2024-01-15] MEDS: NEUTRA PHOS 1 POWD.PACKET PO ONE (16:13)
[2024-01-16 04:00] VITALS: BP 108/78; TEMP 98.9; O2SAT 95
[2024-01-16 07:30] LABS: BASOPHILS % (AUTO) 0.2 % (0.0-2.0); EOSINOPHILS # (AUTO) 0.6 K/uL (0.0-0.7); EOSINOPHILS % (AUTO) 4.4 % (0.0-6.0); HEMATOCRIT 27 % (33-45); HEMOGLOBIN 8.8 g/dL (11.5-14.8); LYMPHOCYTES # (AUTO) 1.3 K/uL (0.8-4.8); LYMPHOCYTES % (AUTO) 9.5 % (20.0-44.0); MEAN CORPUSCULAR HEMOGLOBIN 29 PG (26.0-33.0); MEAN CORPUSCULAR HGB CONC 33 g/dl (31.0-36.0); MEAN CORPUSCULAR VOLUME 90 fL (82-100); MONOCYTES # (AUTO) 1.2 K/uL (0.1-1.30); MONOCYTES % (AUTO) 8.6 % (2.0-12.0); NEUTROPHILS # (AUTO) 10.4 K/uL (1.8-8.9); NEUTROPHILS % (AUTO) 77.3 % (43.0-81.0); PLATELET COUNT (AUTO) 294 K/uL (150-450); RED BLOOD CELL COUNT(AUTO) 2.99 MIL/uL (4.0-5.2); RED CELL DISTRIBUTION WIDTH 15.8 % (11.5-15.0); WHITE BLOOD COUNT (AUTO) 13.5 K/uL (4.3-11.0)
[2024-01-16 07:46] LABS: CALCIUM, SERUM 9.1 mg/dL (8.5-10.1); CARBON DIOXIDE 25 mmol/L (21-32); CHLORIDE 99 mmol/L (98-107); CREATININE 0.8 mg/dL (0.6-1.3); GLUCOSE 198 mg/dL (74-106); MAGNESIUM 1.8 mg/dL (1.8-2.4); PHOSPHORUS 2.5 mg/dL (2.5-4.9); POTASSIUM 3.6 mmol/L (3.5-5.1); SODIUM SERUM 134 mmol/L (136-145); UREA NITROGEN, BLOOD 17 mg/dL (7-18)
[2024-01-16 12:00] VITALS: BP 125/57; TEMP 98.6; O2SAT 95
[2024-01-16 20:00] VITALS: BP 120/76; TEMP 97.9; O2SAT 95
[2024-01-16] MEDS: LORAZEPAM 0.5 MG TABLET GT SCH (21:09)
[2024-01-17 04:00] VITALS: BP 128/75; TEMP 98.3; O2SAT 95
[2024-01-17] MEDS ORDERED: LEVO500T90 PO (09:37)
[2024-01-17 11:03] LABS: BASOPHILS % (AUTO) 0.2 % (0.0-2.0); EOSINOPHILS # (AUTO) 0.5 K/uL (0.0-0.7); EOSINOPHILS % (AUTO) 4.4 % (0.0-6.0); HEMATOCRIT 29 % (33-45); HEMOGLOBIN 9.2 g/dL (11.5-14.8); LYMPHOCYTES # (AUTO) 1.1 K/uL (0.8-4.8); LYMPHOCYTES % (AUTO) 9.8 % (20.0-44.0); MEAN CORPUSCULAR HEMOGLOBIN 29 PG (26.0-33.0); MEAN CORPUSCULAR HGB CONC 32 g/dl (31.0-36.0); MEAN CORPUSCULAR VOLUME 90 fL (82-100); MONOCYTES % (AUTO) 9.3 % (2.0-12.0); NEUTROPHILS # (AUTO) 8.6 K/uL (1.8-8.9); NEUTROPHILS % (AUTO) 76.3 % (43.0-81.0); PLATELET COUNT (AUTO) 338 K/uL (150-450); RED BLOOD CELL COUNT(AUTO) 3.18 MIL/uL (4.0-5.2); RED CELL DISTRIBUTION WIDTH 15.9 % (11.5-15.0); WHITE BLOOD COUNT (AUTO) 11.3 K/uL (4.3-11.0)
[2024-01-17 11:18] LABS: CALCIUM, SERUM 9.5 mg/dL (8.5-10.1); CARBON DIOXIDE 27 mmol/L (21-32); CHLORIDE 97 mmol/L (98-107); CREATININE 0.8 mg/dL (0.6-1.3); GLUCOSE 220 mg/dL (74-106); PHOSPHORUS 2.7 mg/dL (2.5-4.9); POTASSIUM 4.1 mmol/L (3.5-5.1); SODIUM SERUM 131 mmol/L (136-145); UREA NITROGEN, BLOOD 20 mg/dL (7-18)
[2024-01-17 12:00] VITALS: BP 121/70; TEMP 99; O2SAT 95
== END 2024-01-17 16:50 | DRG 871 ==
LOC: ER 12:26 → MEDSG1 16:14 → TELE1 20:10 → MEDSG1 01-15 09:52
PROVIDERS: ADMIT Internal Medicine; ATTEND Nurse Practitioner Acute Care
DX: A41.9 Sepsis, unspecified organism (principal); G93.41 Metabolic encephalopathy; J96.01 Acute respiratory failure with hypoxia; J69.0 Pneumonitis due to inhalation of food and vomit; J96.21 Acute and chronic respiratory failure with hypoxia; R53.2 Functional quadriplegia; E87.1 Hypo-osmolality and hyponatremia; N17.9 Acute kidney failure, unspecified; N39.0 Urinary tract infection, site not specified; D68.69 Other thrombophilia; K52.89 Other specified noninfective gastroenteritis and colitis; E03.9 Hypothyroidism, unspecified; E78.5 Hyperlipidemia, unspecified; E83.52 Hypercalcemia; E86.0 Dehydration; E86.1 Hypovolemia; G40.909 Epilepsy, unspecified, not intractable, without status epilepticus; M79.7 Fibromyalgia; Z79.82 Long term (current) use of aspirin; Z86.73 Personal history of transient ischemic attack (TIA), and cerebral infarction without residual deficits; Z88.0 Allergy status to penicillin; Z88.2 Allergy status to sulfonamides; Z93.1 Gastrostomy status; K21.9 Gastro-esophageal reflux disease without esophagitis; K56.41 Fecal impaction; K76.89 Other specified diseases of liver; R13.10 Dysphagia, unspecified; Z85.3 Personal history of malignant neoplasm of breast; G20.A1 Parkinson's disease without dyskinesia, without mention of fluctuations; R53.1 Weakness; B96.89 Other specified bacterial agents as the cause of diseases classified elsewhere; E86.9 Volume depletion, unspecified; I10 Essential (primary) hypertension; F25.9 Schizoaffective disorder, unspecified; F02.80 Dementia in other diseases classified elsewhere, unspecified severity, without behavioral disturbance, psychotic disturbance, mood disturbance, and anxiety
CPT/HCPCS: 31720; 36415; 70450-TC; 71045-TC; 80048-TC; 80076-TC; 80202-TC; 81001; 82962-TC; 83605-TC; 83690-TC; 83735-TC; 84100-TC; 84484-TC; 85025-TC; 86803; 87040-TC; 87081-TC; 87086-TC; 87186-TC; 87806; 94760-TC; 94762-TC; 94799-TC; A4216; A6403; G0378; J1650; J1815; J1953; J1956; J2405; J3370; J3490; J7030; J7040; J7060

== ENCOUNTER 2024-03-19 18:45 | Inpatient (IN) | payer MEDICARE, OTHER ==
[~2024-03-19] VITALS: Ht 167.6 cm; Wt 79.8 kg
[~2024-03-19 18:45] MED LIST changes: +FERR325T28 GT; -FLUD0.1T GT; +LEVE100S GT; -LEVE500T9 GT; +LEVO100T GT; -LEVO200T8 GT; +LEVO500T90 PO; +LORA2VIA11 IM; +NA P133E RC; +NUT.237L30 GT; -NUTR250L50 GT; +OMEP20CA15 GT; -PANT40SU2 GT; -SENN-261 GT; +SOD62.5V IV
[2024-03-19 19:30] VITALS: O2SAT 97
[2024-03-19] MEDS ORDERED: IPRA4AER IH (19:31)
[2024-03-19] MEDS ORDERED: AMIN30LI66 GT (19:31)
[2024-03-19] MEDS ORDERED: GLUC1KIT IM (19:31)
[2024-03-19] MEDS ORDERED: *INS REG SQ (19:31)
[2024-03-19] MEDS ORDERED: IRON GLYCINATE GT (19:31)
[2024-03-19] MEDS ORDERED: CLOB15CR5 TP (19:34)
[2024-03-19 20:16] LABS: BASOPHILS % (AUTO) 0.2 % (0.0-2.0); EOSINOPHILS % (AUTO) 17.4 % (0.0-6.0); HEMATOCRIT 34 % (33-45); LYMPHOCYTES # (AUTO) 0.8 K/uL (0.8-4.8); LYMPHOCYTES % (AUTO) 7.3 % (20.0-44.0); MEAN CORPUSCULAR HEMOGLOBIN 29 PG (26.0-33.0); MEAN CORPUSCULAR HGB CONC 33 g/dl (31.0-36.0); MEAN CORPUSCULAR VOLUME 88 fL (82-100); MONOCYTES # (AUTO) 0.9 K/uL (0.1-1.30); MONOCYTES % (AUTO) 8.1 % (2.0-12.0); NEUTROPHILS # (AUTO) 7.8 K/uL (1.8-8.9); PLATELET COUNT (AUTO) 432 K/uL (150-450); RED BLOOD CELL COUNT(AUTO) 3.82 MIL/uL (4.0-5.2); RED CELL DISTRIBUTION WIDTH 16.9 % (11.5-15.0); WHITE BLOOD COUNT (AUTO) 11.7 K/uL (4.3-11.0)
[2024-03-19 20:23] LABS: CALCIUM, SERUM 10.1 mg/dL (8.5-10.1); CARBON DIOXIDE 27 mmol/L (21-32); CHLORIDE 100 mmol/L (98-107); CREATININE 0.8 mg/dL (0.6-1.3); GLUCOSE 232 mg/dL (74-106); POTASSIUM 4.6 mmol/L (3.5-5.1); SODIUM SERUM 136 mmol/L (136-145); UREA NITROGEN, BLOOD 28 mg/dL (7-18)
[2024-03-19 20:27] LABS: INR 1.03 (0.91-1.10); PARTIAL THROMBOPLASTIN TIME 26.6 SEC (24.3-34.3); PROTHROMBIN TIME 10.9 SECS (9.2-11.1)
[2024-03-19] MEDS: CIPROFLOXACIN IV RTU 400 MG in PREMIX 1 EA IV SCH (20:30)
[2024-03-19 20:34] LABS: LACTIC ACID 1.3 mmol/L (0.4-2.0)
[2024-03-19 20:36] LABS: ALANINE AMINOTRANSFERASE 19 U/L (12-78); ALBUMIN 2.6 g/dL (3.4-5.0); ALKALINE PHOSPHATASE 100 U/L (46-116); ASPARTATE AMINOTRANSFERASE 16 U/L (15-37); BILIRUBIN,DIRECT 0.1 mg/dL (0.0-0.2); BILIRUBIN,TOTAL 0.3 mg/dL (0.2-1.0); PREGNANCY TEST SERUM QUAN 1 mIU/mL (0-6); TOTAL PROTEIN, SERUM 7.2 g/dL (6.4-8.2)
[2024-03-19] MEDS ORDERED: IOHEXOL-300 100 ML VIAL IV ONE (20:36)
[2024-03-19] MEDS ORDERED: CT SWABBABLE VALVE TRANS SET 1 EA INFUS.SET MC ONE (20:36)
[2024-03-19] MEDS ORDERED: IV NS 0.9% 250 ML IV ONE (20:36)
[2024-03-19] MEDS ORDERED: ONDANSETRON HCL/PF 4 MG/2 ML VIAL IVP PRN (22:00)
[2024-03-19] MEDS ORDERED: Z GUARD REMEDY 4 OZ OINT TP PRN (22:00)
[2024-03-19] MEDS ORDERED: ACETAMINOPHEN 325 MG TABLET PO PRN (22:00)
[2024-03-19] MEDS ORDERED: MAG HYDROX/AL HYDROX/SIMETH 30 ML UDC PO PRN (22:00)
[2024-03-19] MEDS ORDERED: MAGNESIUM HYDROXIDE 30 ML UDC PO PRN (22:00)
[2024-03-19] MEDS ORDERED: CIPROFLOXACIN IV RTU 200 ML IV ONE (22:45)
[2024-03-19] MEDS: IV NS 0.9% 1,000 ML BAG IV ONE (22:47)
[2024-03-20 00:51] VITALS: BP 138/99; TEMP 98.4; O2SAT 92
[2024-03-20] MEDS: IV NS 0.9% 1,000 ML IV PRN (05:02)
[2024-03-20] MEDS ORDERED: HYDROCODONE/APAP 5/325MG TABLET GT PRN (05:30)
[2024-03-20] MEDS ORDERED: SODIUM FERRIC GLUCONATE COMPLEX IV SCH (05:30)
[2024-03-20] MEDS ORDERED: [UNRECOGNIZED DRUG - OTHER] IV SCH (05:30)
[2024-03-20] MEDS ORDERED: Medication Not On Formulary EA (Ipratropium/Albuterol Sulfate (Combivent Respimat 20-100 IH PRN (05:30)
[2024-03-20] MEDS ORDERED: MAG HYDROX/AL HYDROX/SIMETH 30 ML UDC GT PRN (07:29)
[2024-03-20] MEDS ORDERED: MAGNESIUM HYDROXIDE 30 ML UDC GT PRN (07:29)
[2024-03-20 07:30] VITALS: BP 129/99; TEMP 98.2; O2SAT 99
[2024-03-20] MEDS ORDERED: PANTOPRAZOLE 40 MG TABLET.DR PO SCH (07:30)
[2024-03-20] MEDS ORDERED: PANTOPRAZOLE 40 MG/PACK PACK NG SCH (07:30)
[2024-03-20] MEDS: PANTOPRAZOLE 40 MG/PACK PACK GT SCH (07:42)
[2024-03-20] MEDS ORDERED: IPRATROPIUM NEB FS 0.5 MG/2.5 ML AMPUL.NEB IH PRN (08:00)
[2024-03-20] MEDS ORDERED: ACETAMINOPHEN 650 MG/20.3 ML UDC GT PRN (08:00)
[2024-03-20] MEDS ORDERED: LACTULOSE 10 G/15 ML UDC (PYXIS) GT PRN (08:00)
[2024-03-20] MEDS ORDERED: ALBUTEROL FS 2.5 MG/0.5 ML VIAL.NEB NEB PRN (08:00)
[2024-03-20] MEDS ORDERED: IRON GLYCINATE GT SCH (09:00)
[2024-03-20] MEDS ORDERED: Medication Not On Formulary EA (Cranberry Extract (Cranberry) 425 MG) GT SCH (09:00)
[2024-03-20] MEDS: LETROZOLE 2.5 MG TABLET GT SCH (09:34)
[2024-03-20] MEDS: POLYVINYL ALCOHOL 15 ML BOTTLE EACHEYE SCH (09:34)
[2024-03-20] MEDS: DOCUSATE SODIUM LIQ 100 MG/10 ML UDC GT SCH (09:36)
[2024-03-20] MEDS: LEVETIRACETAM SOL (5 ML) 100 MG/ML UDC GT SCH (09:36)
[2024-03-20] MEDS: LACOSAMIDE ORAL SOLN 50 MG/5 ML UDC GT SCH (09:36)
[2024-03-20] MEDS: LEVOTHYROXINE SODIUM 100 MCG TABLET GT SCH (09:37)
[2024-03-20] MEDS: CLOPIDOGREL BISULFATE 75 MG TABLET GT SCH (09:37)
[2024-03-20] MEDS: ASPIRIN 81 MG TAB.CHEW GT SCH (09:37)
[2024-03-20] MEDS: LISINOPRIL (5MG) 5 MG TABLET GT SCH (09:37)
[2024-03-20] MEDS: CIPROFLOXACIN IV RTU 400 MG in PREMIX 1 EA IV SCH (09:39)
[2024-03-20] MEDS ORDERED: Z GUARD REMEDY 4 OZ OINT TP PRN (10:30)
[2024-03-20] MEDS: Z GUARD REMEDY 4 OZ OINT TP SCH (11:14)
[2024-03-20 13:09] LABS: ALBUMIN 2.2 g/dL (3.4-5.0); CALCIUM, SERUM 9.4 mg/dL (8.5-10.1); CARBON DIOXIDE 23 mmol/L (21-32); CHLORIDE 104 mmol/L (98-107); CREATININE 0.9 mg/dL (0.6-1.3); GLUCOSE 242 mg/dL (74-106); MAGNESIUM 2.2 mg/dL (1.8-2.4); PHOSPHORUS 2.3 mg/dL (2.5-4.9); POTASSIUM 4.4 mmol/L (3.5-5.1); SODIUM SERUM 135 mmol/L (136-145); UREA NITROGEN, BLOOD 22 mg/dL (7-18)
[2024-03-20] MEDS: NEUTRA PHOS 1 POWD.PACKET GT ONE (15:38)
[2024-03-20 16:00] VITALS: BP 105/53; TEMP 97.6; O2SAT 95
[2024-03-20 16:29] LABS: BASOPHILS % (AUTO) 0.4 % (0.0-2.0); EOSINOPHILS # (AUTO) 2.3 K/uL (0.0-0.7); HEMATOCRIT 30 % (33-45); HEMOGLOBIN 9.9 g/dL (11.5-14.8); MEAN CORPUSCULAR HEMOGLOBIN 30 PG (26.0-33.0); MEAN CORPUSCULAR HGB CONC 33 g/dl (31.0-36.0); MEAN CORPUSCULAR VOLUME 90 fL (82-100); MONOCYTES # (AUTO) 0.9 K/uL (0.1-1.30); MONOCYTES % (AUTO) 9.4 % (2.0-12.0); NEUTROPHILS # (AUTO) 5.5 K/uL (1.8-8.9); NEUTROPHILS % (AUTO) 56.2 % (43.0-81.0); PLATELET COUNT (AUTO) 394 K/uL (150-450); RED BLOOD CELL COUNT(AUTO) 3.35 MIL/uL (4.0-5.2); RED CELL DISTRIBUTION WIDTH 16.8 % (11.5-15.0); WHITE BLOOD COUNT (AUTO) 9.7 K/uL (4.3-11.0)
[2024-03-20] MEDS: HYDROCHLOROTHIAZIDE 25 MG TABLET GT SCH (17:06)
[2024-03-20] MEDS: CHOLECALCIFEROL 1,000 UNIT TABLET (VIT D3) GT SCH (17:13)
[2024-03-20] MEDS: PROSOURCE / PROSTAT (PYXIS) 30 ML UDC GT SCH (17:19)
[2024-03-20 20:00] VITALS: BP 113/48; TEMP 98; O2SAT 98
[2024-03-20 21:15] LABS: ANISOCYTOSIS 2+; EOSINOPHILS % (MANUAL) 17 % (0-4); LYMPHOCYTES % (MANUAL) 10 % (16-48); MONOCYTES % (MANUAL) 6 % (0-11.0); NEUTROPHILS % (MANUAL) 67 (42-76); PLATELET ESTIMATE ADEQUATE
[2024-03-20] MEDS: ATORVASTATIN 10 MG TABLET GT SCH (21:26)
[2024-03-21] MEDS: GLUCERNA 1.2 1,000 ML BOTTLE NG PRN (06:14)
[2024-03-21 07:30] VITALS: BP 103/80; TEMP 98.1; O2SAT 99
[2024-03-21 08:06] LABS: CALCIUM, SERUM 9.9 mg/dL (8.5-10.1); CARBON DIOXIDE 23 mmol/L (21-32); CHLORIDE 108 mmol/L (98-107); CREATININE 0.8 mg/dL (0.6-1.3); GLUCOSE 229 mg/dL (74-106); PHOSPHORUS 2.9 mg/dL (2.5-4.9); POTASSIUM 4.5 mmol/L (3.5-5.1); SODIUM SERUM 142 mmol/L (136-145); UREA NITROGEN, BLOOD 19 mg/dL (7-18)
[2024-03-21] MEDS: FERROUS SULFATE (325 MG) 325 MG/TAB TABLET PO SCH (16:09)
[2024-03-21 18:37] VITALS: BP 121/68; TEMP 98.1; O2SAT 90
[2024-03-21 20:00] VITALS: BP 109/79; TEMP 97.7; O2SAT 98
[2024-03-22 08:00] VITALS: BP 125/69; TEMP 98.2; O2SAT 92
[2024-03-22 09:48] VITALS: BP 125/69
[2024-03-22 10:15] LABS: CALCIUM, SERUM 9.9 mg/dL (8.5-10.1); CARBON DIOXIDE 24 mmol/L (21-32); CHLORIDE 109 mmol/L (98-107); CREATININE 0.9 mg/dL (0.6-1.3); GLUCOSE 228 mg/dL (74-106); POTASSIUM 4.2 mmol/L (3.5-5.1); SODIUM SERUM 141 mmol/L (136-145); UREA NITROGEN, BLOOD 21 mg/dL (7-18)
== END 2024-03-22 15:24 | DRG 177 ==
LOC: ER 18:48 → MED 23:32
PROVIDERS: ADMIT Nurse Practitioner Family; ATTEND Internal Medicine
DX: J69.0 Pneumonitis due to inhalation of food and vomit (principal); G93.41 Metabolic encephalopathy; J96.01 Acute respiratory failure with hypoxia; E44.1 Mild protein-calorie malnutrition; N39.0 Urinary tract infection, site not specified; I69.351 Hemiplegia and hemiparesis following cerebral infarction affecting right dominant side; K56.41 Fecal impaction; N95.0 Postmenopausal bleeding; F02.80 Dementia in other diseases classified elsewhere, unspecified severity, without behavioral disturbance, psychotic disturbance, mood disturbance, and anxiety; G20.A1 Parkinson's disease without dyskinesia, without mention of fluctuations; I70.0 Atherosclerosis of aorta; K21.9 Gastro-esophageal reflux disease without esophagitis; Z93.1 Gastrostomy status; Z85.3 Personal history of malignant neoplasm of breast; E03.9 Hypothyroidism, unspecified; M79.7 Fibromyalgia; R53.1 Weakness; R26.9 Unspecified abnormalities of gait and mobility; Z98.890 Other specified postprocedural states; Z88.0 Allergy status to penicillin; Z88.1 Allergy status to other antibiotic agents; Z88.2 Allergy status to sulfonamides; Z91.041 Radiographic dye allergy status; Z79.4 Long term (current) use of insulin; Z79.890 Hormone replacement therapy; Z79.82 Long term (current) use of aspirin; Z79.899 Other long term (current) drug therapy; R13.10 Dysphagia, unspecified; I10 Essential (primary) hypertension; E11.9 Type 2 diabetes mellitus without complications; E78.5 Hyperlipidemia, unspecified; E88.09 Other disorders of plasma-protein metabolism, not elsewhere classified; F20.9 Schizophrenia, unspecified; K57.30 Diverticulosis of large intestine without perforation or abscess without bleeding; B96.89 Other specified bacterial agents as the cause of diseases classified elsewhere; Z79.02 Long term (current) use of antithrombotics/antiplatelets
CPT/HCPCS: 36415; 76856-TC; 80048-TC; 80076-TC; 82040-TC; 83605-TC; 83735-TC; 84100-TC; 84702-TC; 85025-TC; 85730-TC; 87081-TC; A4216; A4223; G0378; J0744; J1953; J7030; J7050; Q9967

== ENCOUNTER 2024-04-17 11:52 | Inpatient (IN) | payer MEDICARE, OTHER ==
[~2024-04-17] VITALS: Ht 152.4 cm; Wt 66.7 kg
[2024-04-17] VITALS (16 sets, daily range): BP systolic 78–151; BP diastolic 42–135; TEMP 102.1; O2SAT 90–96
[~2024-04-17 11:52] MED LIST changes: +*INS REG SQ; +AMIN30LI66 GT; +CLOB15CR5 TP; -FERR325T28 GT; +GLUC1KIT IM; +IPRA4AER IH; +IRON GLYCINATE GT; -LEVO500T90 PO
[2024-04-17] MEDS: IV NS 0.9% 1,000 ML BAG IV ONE (12:30)
[2024-04-17] MEDS: MEROPENEM 1 G in IV NS 0.9% 100 ML IV ONE (12:30)
[2024-04-17] MEDS: VANCOMYCIN 1 GM in IV D5W 250 ML IV ONE (12:30)
[2024-04-17] MEDS ORDERED: ALBU2.5V13 NEB (12:50)
[2024-04-17 13:35] LABS: BASOPHILS % (AUTO) 0.2 % (0.0-2.0); HEMATOCRIT 33 % (33-45); LYMPHOCYTES # (AUTO) 0.9 K/uL (0.8-4.8); MONOCYTES # (AUTO) 0.9 K/uL (0.1-1.30); NEUTROPHILS # (AUTO) 15.5 K/uL (1.8-8.9)
[2024-04-17 13:39] LABS: EOSINOPHILS % (AUTO) 0.2 % (0.0-6.0); HEMOGLOBIN 11.3 g/dL (11.5-14.8); LYMPHOCYTES % (AUTO) 5.2 % (20.0-44.0); MEAN CORPUSCULAR HEMOGLOBIN 32 PG (26.0-33.0); MEAN CORPUSCULAR HGB CONC 34 g/dl (31.0-36.0); MEAN CORPUSCULAR VOLUME 93 fL (82-100); MONOCYTES % (AUTO) 5.4 % (2.0-12.0); PLATELET COUNT (AUTO) 202 K/uL (150-450); RED BLOOD CELL COUNT(AUTO) 3.56 MIL/uL (4.0-5.2); RED CELL DISTRIBUTION WIDTH 19.5 % (11.5-15.0); WHITE BLOOD COUNT (AUTO) 17.4 K/uL (4.3-11.0)
[2024-04-17 13:46] LABS: INR 1.01 (0.91-1.10); PARTIAL THROMBOPLASTIN TIME 25.1 SEC (24.3-34.3); PROTHROMBIN TIME 10.7 SECS (9.2-11.1)
[2024-04-17 14:13] LABS: LACTIC ACID 2.6 mmol/L (0.4-2.0)
[2024-04-17 14:17] LABS: ALANINE AMINOTRANSFERASE 28 U/L (12-78); ALBUMIN 2.5 g/dL (3.4-5.0); ALKALINE PHOSPHATASE 113 U/L (46-116); ASPARTATE AMINOTRANSFERASE 56 U/L (15-37); BILIRUBIN,DIRECT 0.1 mg/dL (0.0-0.2); BILIRUBIN,TOTAL 0.3 mg/dL (0.2-1.0); CALCIUM, SERUM 9.3 mg/dL (8.5-10.1); CARBON DIOXIDE 30 mmol/L (21-32); CHLORIDE 113 mmol/L (98-107); GLUCOSE 359 mg/dL (74-106); NT-PRO BNP 1350 pg/mL (0-125); POTASSIUM 4.6 mmol/L (3.5-5.1); SODIUM SERUM 152 mmol/L (136-145); TOTAL PROTEIN, SERUM 7.5 g/dL (6.4-8.2)
[2024-04-17 14:18] LABS: CREATININE 2.5 mg/dL (0.6-1.3); UREA NITROGEN, BLOOD 146 mg/dL (7-18)
[2024-04-17 14:25] LABS: ANISOCYTOSIS 1+; BAND % (MANUAL) 2 % (0.0-5.0); LYMPHOCYTES % (MANUAL) 5 % (16-48); MONOCYTES % (MANUAL) 1 % (0-11.0); NEUTROPHILS % (MANUAL) 92 (42-76); PLATELET ESTIMATE ADEQUATE; STOMATOCYTES 1+
[2024-04-17 15:21] LABS: APPEARANCE,URINE SLIGHTLY CLOUDY (CLEAR); BILIRUBIN,URINE NEGATIVE (NEGATIVE); BLOOD, URINE 3+ Ery/uL (NEGATIVE); COLOR,URINE YELLOW (YELLOW); KETONES,URINE TRACE mg/dL (NEGATIVE); LEUKOCYTE ESTERASE ,URINE 3+ (NEGATIVE); NITRITE, URINE NEGATIVE (NEGATIVE); PH,URINE >8.5 (5.0-8.0); PROTEIN,URINE 2+ mg/dl (NEGATIVE); UGLUCOSE NEGATIVE (NEGATIVE); UROBILINOGEN,URINE 0.2 EU/dL (0.2)
[2024-04-17 15:32] LABS: BACTERIA,URINE Many /HPF (None Seen); RBC,URINE TOO NUMEROUS TO COUN /HPF (0-2); SQUAMOUS EPITHELIAL CELL,UR None Seen /HPF (None Seen); TRIPLE PHOSPHATE CRYSTAL,UR Few /HPF (None Seen)
[2024-04-17 15:33] LABS: ADD URINE CULTURE YES
[2024-04-17] MEDS: NOREPINEPHRINE 8 MG in IV NS 0.9% 250 ML IV ONE (17:00)
[2024-04-17] MEDS ORDERED: ALBUTEROL FS 2.5 MG/0.5 ML VIAL.NEB NEB PRN (19:30)
[2024-04-17] MEDS ORDERED: ONDANSETRON HCL/PF 4 MG/2 ML VIAL IVP PRN (19:30)
[2024-04-17] MEDS ORDERED: DEXTROSE 50%-WATER 50 ML DISP.SYRIN IV PRN (19:30)
[2024-04-17] MEDS ORDERED: GLUCERNA 1.2 1,000 ML BOTTLE GT PRN (19:30)
[2024-04-17] MEDS ORDERED: ACETAMINOPHEN 325 MG TABLET PO PRN (19:30)
[2024-04-17] MEDS ORDERED: Z GUARD REMEDY 4 OZ OINT TP PRN (19:30)
[2024-04-17] MEDS: IV LR 1000 ML 1,000 ML IV SCH (21:12)
[2024-04-17] MEDS: LORAZEPAM 1 MG TABLET GT SCH (21:18)
[2024-04-17] MEDS: ATORVASTATIN 10 MG TABLET GT SCH (21:19)
[2024-04-17] MEDS: ENOXAPARIN SODIUM 30 MG/0.3 ML DISP.SYRIN SQ SCH (21:20)
[2024-04-17] MEDS: CEFEPIME 2 GM in IV D5W 100 ML IV SCH (21:21)
[2024-04-17] MEDS: NOREPINEPHRINE 8 MG in IV D5W 242 ML IV PRN (21:37)
[2024-04-17] MEDS: BLOOD SUGAR DIAGNOSTIC 1 EACH STRIP IN SCH (21:42)
[2024-04-17] MEDS: INSULIN REGULAR, HUMAN 100 UNIT/ML 3 ML VIAL SQ PRN (21:48)
[2024-04-17] MEDS: GLUCERNA 1.2 1,000 ML BOTTLE GT PRN (22:21)
[2024-04-18] VITALS (96 sets, daily range): BP systolic 69–153; BP diastolic 30–133; TEMP 97.8–100.4; O2SAT 84–100
[2024-04-18] MEDS: IV LR 1000 ML 1,000 ML IV PRN (08:50)
[2024-04-18 08:58] LABS: ABG BASE EXCESS 0.4 mmol/L (-2.0-3.0); ABG OXYGEN SATURATION 98.7 % (94.0-98.0); ABG PCO2 29.3 mmHg (32.0-45.0); ABG PH 7.508 (7.350-7.450); ABG PO2 147.8 mmHg (83.0-108.0); ABG TOTAL HEMOGLOBIN 10.9 G/dL (12.0-16.0); COHb 0.3 % (0.5-1.5); MetHb 0.3 % (0.0-1.5); O2Hb 98.1 % (94.0-97.0); SITE, ABG LEFT RADIAL
[2024-04-18] MEDS: LETROZOLE 2.5 MG TABLET GT SCH (09:21)
[2024-04-18] MEDS: LEVETIRACETAM SOL (5 ML) 100 MG/ML UDC GT SCH (09:21)
[2024-04-18] MEDS: PANTOPRAZOLE 40 MG/PACK PACK GT SCH (09:21)
[2024-04-18] MEDS: LEVOTHYROXINE SODIUM 100 MCG TABLET GT SCH (09:22)
[2024-04-18] MEDS: CLOPIDOGREL BISULFATE 75 MG TABLET GT SCH (09:22)
[2024-04-18] MEDS: THERAHONEY GEL 1.5 OZ TUBE TP SCH (09:22)
[2024-04-18] MEDS: ASPIRIN 81 MG TAB.CHEW GT SCH (09:22)
[2024-04-18] MEDS: TRIAMCINOLONE ACETONIDE 0.1% CR 15 GM TUBE TP SCH (14:14)
[2024-04-18 14:25] LABS: BASOPHILS % (AUTO) 0.2 % (0.0-2.0); EOSINOPHILS # (AUTO) 0.1 K/uL (0.0-0.7); EOSINOPHILS % (AUTO) 0.6 % (0.0-6.0); HEMATOCRIT 28 % (33-45); LYMPHOCYTES # (AUTO) 1.3 K/uL (0.8-4.8); LYMPHOCYTES % (AUTO) 6.3 % (20.0-44.0); MEAN CORPUSCULAR HEMOGLOBIN 30 PG (26.0-33.0); MEAN CORPUSCULAR HGB CONC 32 g/dl (31.0-36.0); MEAN CORPUSCULAR VOLUME 94 fL (82-100); MONOCYTES # (AUTO) 0.4 K/uL (0.1-1.30); MONOCYTES % (AUTO) 1.9 % (2.0-12.0); NEUTROPHILS # (AUTO) 19.3 K/uL (1.8-8.9); PLATELET COUNT (AUTO) 146 K/uL (150-450); RED BLOOD CELL COUNT(AUTO) 2.99 MIL/uL (4.0-5.2); RED CELL DISTRIBUTION WIDTH 19.4 % (11.5-15.0); WHITE BLOOD COUNT (AUTO) 21.2 K/uL (4.3-11.0)
[2024-04-18 14:38] LABS: CREATININE 1.3 mg/dL (0.6-1.3); MAGNESIUM 2.9 mg/dL (1.8-2.4); PHOSPHORUS 1.5 mg/dL (2.5-4.9); POTASSIUM 3.5 mmol/L (3.5-5.1)
[2024-04-18 14:44] LABS: CALCIUM, SERUM 8.7 mg/dL (8.5-10.1)
[2024-04-18 14:48] LABS: THYROID STIMULATING HORMONE 24.13 uIU/mL (0.358-3.74)
[2024-04-18 15:07] LABS: CREATININE, URINE 30.7 MG/DL (30.0-125.0); URINE TOTAL PROTEIN 109.3 mg/dL (0-11.9)
[2024-04-18] MEDS: NEPRO 1,000 ML BOTTLE GT PRN (16:12)
[2024-04-18] MEDS: NEUTRA PHOS 1 POWD.PACKET GT ONE (16:13)
[2024-04-18] MEDS: VANCOMYCIN 1 GM in IV D5W 250ml IV SCH (16:13)
[2024-04-18 16:48] LABS: BAND % (MANUAL) 1 % (0.0-5.0); LYMPHOCYTES % (MANUAL) 7 % (16-48); MONOCYTES % (MANUAL) 1 % (0-11.0); NEUTROPHILS % (MANUAL) 91 (42-76)
[2024-04-18 16:49] LABS: PLATELET ESTIMATE DECREASED
[2024-04-18 16:50] LABS: ANISOCYTOSIS 1+
[2024-04-19] VITALS (79 sets, daily range): BP systolic 73–160; BP diastolic 43–137; TEMP 97.8–99; O2SAT 95–100
[2024-04-19] MEDS ORDERED: DEXTROSE 50%-WATER 50 ML DISP.SYRIN IV PRN (09:00)
[2024-04-19 09:13] LABS: BASOPHILS % (AUTO) 0.2 % (0.0-2.0); EOSINOPHILS # (AUTO) 0.9 K/uL (0.0-0.7); EOSINOPHILS % (AUTO) 4.7 % (0.0-6.0); HEMATOCRIT 27 % (33-45); HEMOGLOBIN 8.5 g/dL (11.5-14.8); LYMPHOCYTES % (AUTO) 5.6 % (20.0-44.0); MEAN CORPUSCULAR HEMOGLOBIN 30 PG (26.0-33.0); MEAN CORPUSCULAR HGB CONC 32 g/dl (31.0-36.0); MEAN CORPUSCULAR VOLUME 94 fL (82-100); MONOCYTES # (AUTO) 0.3 K/uL (0.1-1.30); MONOCYTES % (AUTO) 1.9 % (2.0-12.0); NEUTROPHILS # (AUTO) 16.2 K/uL (1.8-8.9); NEUTROPHILS % (AUTO) 87.6 % (43.0-81.0); PLATELET COUNT (AUTO) 131 K/uL (150-450); RED BLOOD CELL COUNT(AUTO) 2.81 MIL/uL (4.0-5.2); RED CELL DISTRIBUTION WIDTH 19.2 % (11.5-15.0); WHITE BLOOD COUNT (AUTO) 18.4 K/uL (4.3-11.0)
[2024-04-19 10:42] LABS: ALBUMIN 1.8 g/dL (3.4-5.0); BILIRUBIN,TOTAL 0.3 mg/dL (0.2-1.0); CALCIUM, SERUM 9.4 mg/dL (8.5-10.1); CREATININE 1.1 mg/dL (0.6-1.3); MAGNESIUM 2.6 mg/dL (1.8-2.4); PHOSPHORUS 1.8 mg/dL (2.5-4.9); POTASSIUM 3.6 mmol/L (3.5-5.1)
[2024-04-19 11:22] LABS: ABG BASE EXCESS 0.6 mmol/L (-2.0-3.0); ABG PCO2 29.7 mmHg (32.0-45.0); ABG PH 7.509 (7.350-7.450); ABG PO2 58.7 mmHg (83.0-108.0); ABG TOTAL HEMOGLOBIN 10.2 G/dL (12.0-16.0); COHb 0.2 % (0.5-1.5); O2Hb 90.8 % (94.0-97.0); SITE, ABG RIGHT RADIAL
[2024-04-19] MEDS ORDERED: VANCOMYCIN 1 GM in IV D5W 250ml IV SCH (12:30)
[2024-04-19] MEDS: BLOOD SUGAR DIAGNOSTIC 1 EACH STRIP IN SCH (12:31)
[2024-04-19] MEDS: INSULIN REGULAR, HUMAN 100 UNIT/ML 3 ML VIAL SQ PRN (12:37)
[2024-04-19 13:15] LABS: BAND % (MANUAL) 1 % (0.0-5.0); EOSINOPHILS % (MANUAL) 4 % (0-4); LYMPHOCYTES % (MANUAL) 5 % (16-48); MONOCYTES % (MANUAL) 3 % (0-11.0); MYELOCYTES % 1 % (0-0); NEUTROPHILS % (MANUAL) 85 (42-76)
[2024-04-19 13:16] LABS: ANISOCYTOSIS 1+; PLATELET ESTIMATE DECREASED; PROMYELOCYTES % 1 % (0-0)
[2024-04-19] MEDS: IV NS 0.9% 250 ML IV PRN (13:48)
[2024-04-19] MEDS: NEUTRA PHOS 1 POWD.PACKET NG ONE (15:57)
[2024-04-20] VITALS (29 sets, daily range): BP systolic 82–206; BP diastolic 41–161; TEMP 97.8–99.5; O2SAT 96–100
[2024-04-20 04:53] LABS: BASOPHILS % (AUTO) 0.2 % (0.0-2.0); EOSINOPHILS # (AUTO) 1.1 K/uL (0.0-0.7); EOSINOPHILS % (AUTO) 8.2 % (0.0-6.0); HEMATOCRIT 24 % (33-45); HEMOGLOBIN 7.7 g/dL (11.5-14.8); LYMPHOCYTES # (AUTO) 0.7 K/uL (0.8-4.8); LYMPHOCYTES % (AUTO) 5.6 % (20.0-44.0); MEAN CORPUSCULAR HEMOGLOBIN 30 PG (26.0-33.0); MEAN CORPUSCULAR HGB CONC 33 g/dl (31.0-36.0); MEAN CORPUSCULAR VOLUME 93 fL (82-100); MONOCYTES # (AUTO) 0.4 K/uL (0.1-1.30); MONOCYTES % (AUTO) 2.9 % (2.0-12.0); NEUTROPHILS # (AUTO) 11.2 K/uL (1.8-8.9); NEUTROPHILS % (AUTO) 83.1 % (43.0-81.0); PLATELET COUNT (AUTO) 110 K/uL (150-450); RED BLOOD CELL COUNT(AUTO) 2.55 MIL/uL (4.0-5.2); RED CELL DISTRIBUTION WIDTH 18.6 % (11.5-15.0); WHITE BLOOD COUNT (AUTO) 13.4 K/uL (4.3-11.0)
[2024-04-20 05:12] LABS: CALCIUM, SERUM 8.5 mg/dL (8.5-10.1); CARBON DIOXIDE 32 mmol/L (21-32); CHLORIDE 116 mmol/L (98-107); CREATININE 0.8 mg/dL (0.6-1.3); GLUCOSE 185 mg/dL (74-106); PHOSPHORUS 1.9 mg/dL (2.5-4.9); POTASSIUM 3.4 mmol/L (3.5-5.1); SODIUM SERUM 149 mmol/L (136-145); UREA NITROGEN, BLOOD 33 mg/dL (7-18)
[2024-04-20] MEDS: POTASSIUM CHLORIDE 20 MEQ POWDER PACKET GT ONE (09:33)
[2024-04-20] MEDS: NEUTRA PHOS 1 POWD.PACKET GT ONE (09:33)
[2024-04-20] MEDS: VANCOMYCIN HCL 1.25 GM in IV D5W 250 ML IV SCH (16:32)
[2024-04-20 16:35] LABS: CALCIUM, SERUM 8.7 mg/dL (8.5-10.1); CREATININE 0.9 mg/dL (0.6-1.3)
[2024-04-21 01:00] VITALS: BP 108/54; TEMP 99.5; O2SAT 95
[2024-04-21] MEDS: ACETAMINOPHEN 650 MG/20.3 ML UDC GT PRN (03:05)
[2024-04-21 03:10] LABS: PTH, INTACT 163 pg/mL (15-65)
[2024-04-21 04:00] VITALS: BP 102/54; TEMP 99.5; O2SAT 95
[2024-04-21 07:20] LABS: BASOPHILS % (AUTO) 0.2 % (0.0-2.0); EOSINOPHILS # (AUTO) 1.1 K/uL (0.0-0.7); EOSINOPHILS % (AUTO) 11.4 % (0.0-6.0); HEMATOCRIT 22 % (33-45); HEMOGLOBIN 7.5 g/dL (11.5-14.8); LYMPHOCYTES # (AUTO) 0.8 K/uL (0.8-4.8); LYMPHOCYTES % (AUTO) 8.7 % (20.0-44.0); MEAN CORPUSCULAR HEMOGLOBIN 32 PG (26.0-33.0); MEAN CORPUSCULAR HGB CONC 34 g/dl (31.0-36.0); MEAN CORPUSCULAR VOLUME 93 fL (82-100); MONOCYTES # (AUTO) 0.4 K/uL (0.1-1.30); MONOCYTES % (AUTO) 4.5 % (2.0-12.0); NEUTROPHILS # (AUTO) 7.1 K/uL (1.8-8.9); NEUTROPHILS % (AUTO) 75.2 % (43.0-81.0); PLATELET COUNT (AUTO) 119 K/uL (150-450); RED BLOOD CELL COUNT(AUTO) 2.35 MIL/uL (4.0-5.2); RED CELL DISTRIBUTION WIDTH 18.5 % (11.5-15.0); WHITE BLOOD COUNT (AUTO) 9.4 K/uL (4.3-11.0)
[2024-04-21 07:31] LABS: CALCIUM, SERUM 8.4 mg/dL (8.5-10.1); CREATININE 0.8 mg/dL (0.6-1.3); MAGNESIUM 1.8 mg/dL (1.8-2.4); PHOSPHORUS 1.9 mg/dL (2.5-4.9); POTASSIUM 3.7 mmol/L (3.5-5.1)
[2024-04-21 08:00] VITALS: BP_SYST 133; BP_DIAS 106; BP_DIAS 6; TEMP 98.7; O2SAT 98
[2024-04-21] MEDS: FREE WATER VIA TUBE FEEDING GT SCH (09:13)
[2024-04-21 11:47] LABS: EOSINOPHILS % (MANUAL) 15 % (0-4); LYMPHOCYTES % (MANUAL) 11 % (16-48); MONOCYTES % (MANUAL) 3 % (0-11.0); MYELOCYTES % 2 % (0-0); NEUTROPHILS % (MANUAL) 69 (42-76)
[2024-04-21 11:48] LABS: ANISOCYTOSIS 1+; PLATELET ESTIMATE DECREASED
[2024-04-21 12:00] VITALS: BP 104/72; TEMP 98.7; O2SAT 100
[2024-04-21 16:00] VITALS: BP 100/67; TEMP 97.5; O2SAT 95
[2024-04-21] MEDS: NEUTRA PHOS 1 POWD.PACKET NG ONE (17:13)
[2024-04-21 20:00] VITALS: BP 106/49; TEMP 99.1; O2SAT 98
[2024-04-22] VITALS: BP 104/61; TEMP 99.1; O2SAT 100
[2024-04-22 04:00] VITALS: BP 120/54; TEMP 99; O2SAT 100
[2024-04-22 06:08] LABS: *SPE A/G RATIO 0.6 (0.7-1.7); *SPE ALPHA-1-GLOBULIN 0.4 g/dL (0.0-0.4); *SPE ALPHA-2-GLOBULIN 0.9 g/dL (0.4-1.0); *SPE BETA GLOBULIN 0.9 g/dL (0.7-1.3); *SPE GLOBULIN, TOTAL 3.2 g/dL (2.2-3.9); *SPE M-SPIKE Not Observed g/dL (Not Observed); *SPE PROTEIN TOTAL 5.2 g/dL (6.0-8.5)
[2024-04-22 08:00] VITALS: BP_SYST 115; BP_SYST 118; BP_DIAS 47; BP_DIAS 64; TEMP 97.7; TEMP 98.1; O2SAT 94; O2SAT 98
[2024-04-22 12:00] VITALS: BP 95/82; TEMP 97.6; O2SAT 94
[2024-04-22 12:07] LABS: BASOPHILS % (AUTO) 0.2 % (0.0-2.0); EOSINOPHILS # (AUTO) 1.5 K/uL (0.0-0.7); EOSINOPHILS % (AUTO) 13.8 % (0.0-6.0); HEMATOCRIT 26 % (33-45); HEMOGLOBIN 8.4 g/dL (11.5-14.8); LYMPHOCYTES # (AUTO) 0.9 K/uL (0.8-4.8); LYMPHOCYTES % (AUTO) 8.4 % (20.0-44.0); MEAN CORPUSCULAR HEMOGLOBIN 31 PG (26.0-33.0); MEAN CORPUSCULAR HGB CONC 33 g/dl (31.0-36.0); MEAN CORPUSCULAR VOLUME 93 fL (82-100); MONOCYTES # (AUTO) 0.6 K/uL (0.1-1.30); MONOCYTES % (AUTO) 5.4 % (2.0-12.0); NEUTROPHILS % (AUTO) 72.2 % (43.0-81.0); PLATELET COUNT (AUTO) 161 K/uL (150-450); RED BLOOD CELL COUNT(AUTO) 2.73 MIL/uL (4.0-5.2); RED CELL DISTRIBUTION WIDTH 18.7 % (11.5-15.0); WHITE BLOOD COUNT (AUTO) 11.1 K/uL (4.3-11.0)
[2024-04-22 12:18] LABS: CALCIUM, SERUM 8.8 mg/dL (8.5-10.1); CREATININE 0.8 mg/dL (0.6-1.3); MAGNESIUM 1.9 mg/dL (1.8-2.4); PHOSPHORUS 1.9 mg/dL (2.5-4.9); POTASSIUM 3.9 mmol/L (3.5-5.1)
[2024-04-22 16:00] VITALS: BP 140/110; TEMP 98.2; O2SAT 98
[2024-04-22] MEDS: NEUTRA PHOS 1 POWD.PACKET GT ONE (16:10)
[2024-04-22 20:00] VITALS: BP 157/118; TEMP 97.4; O2SAT 98
[2024-04-23] VITALS (8 sets, daily range): BP systolic 98–128; BP diastolic 56–74; TEMP 97.3–98.6; O2SAT 97–99
[2024-04-23 14:45] LABS: BASOPHILS % (AUTO) 0.1 % (0.0-2.0); EOSINOPHILS % (AUTO) 18.1 % (0.0-6.0); HEMATOCRIT 21 % (33-45); HEMOGLOBIN 7.3 g/dL (11.5-14.8); LYMPHOCYTES % (AUTO) 8.5 % (20.0-44.0); MEAN CORPUSCULAR HEMOGLOBIN 31 PG (26.0-33.0); MEAN CORPUSCULAR HGB CONC 34 g/dl (31.0-36.0); MEAN CORPUSCULAR VOLUME 92 fL (82-100); MONOCYTES # (AUTO) 0.7 K/uL (0.1-1.30); MONOCYTES % (AUTO) 6.6 % (2.0-12.0); NEUTROPHILS # (AUTO) 7.4 K/uL (1.8-8.9); NEUTROPHILS % (AUTO) 66.7 % (43.0-81.0); PLATELET COUNT (AUTO) 177 K/uL (150-450); RED BLOOD CELL COUNT(AUTO) 2.34 MIL/uL (4.0-5.2); WHITE BLOOD COUNT (AUTO) 11.2 K/uL (4.3-11.0)
[2024-04-23 14:47] LABS: CALCIUM, SERUM 8.8 mg/dL (8.5-10.1); CREATININE 0.8 mg/dL (0.6-1.3); POTASSIUM 3.8 mmol/L (3.5-5.1)
[2024-04-23] MEDS: NEUTRA PHOS 1 POWD.PACKET GT ONE (16:09)
[2024-04-24] VITALS (8 sets, daily range): BP systolic 114–146; BP diastolic 42–93; TEMP 97.7–99; O2SAT 96–100
[2024-04-24 06:38] LABS: BASOPHILS % (AUTO) 0.1 % (0.0-2.0); EOSINOPHILS # (AUTO) 1.9 K/uL (0.0-0.7); EOSINOPHILS % (AUTO) 17.2 % (0.0-6.0); HEMATOCRIT 27 % (33-45); LYMPHOCYTES # (AUTO) 0.9 K/uL (0.8-4.8); LYMPHOCYTES % (AUTO) 8.6 % (20.0-44.0); MEAN CORPUSCULAR HEMOGLOBIN 31 PG (26.0-33.0); MEAN CORPUSCULAR HGB CONC 33 g/dl (31.0-36.0); MEAN CORPUSCULAR VOLUME 93 fL (82-100); MONOCYTES # (AUTO) 0.7 K/uL (0.1-1.30); MONOCYTES % (AUTO) 6.1 % (2.0-12.0); NEUTROPHILS # (AUTO) 7.3 K/uL (1.8-8.9); PLATELET COUNT (AUTO) 214 K/uL (150-450); RED CELL DISTRIBUTION WIDTH 18.4 % (11.5-15.0); WHITE BLOOD COUNT (AUTO) 10.8 K/uL (4.3-11.0)
[2024-04-24 07:22] LABS: CREATININE 0.8 mg/dL (0.6-1.3); MAGNESIUM 2.2 mg/dL (1.8-2.4); PHOSPHORUS 2.3 mg/dL (2.5-4.9); POTASSIUM 4.2 mmol/L (3.5-5.1)
[2024-04-24 07:38] LABS: CALCIUM, SERUM 9.5 mg/dL (8.5-10.1)
[2024-04-24] MEDS: NEUTRA PHOS 1 POWD.PACKET GT ONE (16:32)
[2024-04-25] VITALS: BP 115/64; TEMP 98.3; O2SAT 92
[2024-04-25 04:00] VITALS: BP 110/87; TEMP 97.7; O2SAT 94
[2024-04-25 08:00] VITALS: BP 105/44; TEMP 98.4; O2SAT 100
[2024-04-25 11:29] LABS: CALCIUM, SERUM 9.2 mg/dL (8.5-10.1); CREATININE 0.7 mg/dL (0.6-1.3); PHOSPHORUS 2.3 mg/dL (2.5-4.9); POTASSIUM 3.8 mmol/L (3.5-5.1)
[2024-04-25 12:00] VITALS: BP 112/50; TEMP 98; O2SAT 96
[2024-04-25 16:00] VITALS: BP 114/81; TEMP 99.3; O2SAT 93
[2024-04-25] MEDS: Sodium Phosphate 15 MMOL in IV NS 0.9% 245 ML IV SCH (17:24)
[2024-04-25 20:00] VITALS: BP 117/78; TEMP 97.8; O2SAT 97
[2024-04-25 21:48] LABS: OCCULT BLOOD STOOL NEGATIVE (NEGATIVE)
[2024-04-26] VITALS (7 sets, daily range): BP systolic 102–127; BP diastolic 49–69; TEMP 98.1–98.5; O2SAT 97–100
[2024-04-26 12:15] LABS: CALCIUM, SERUM 8.9 mg/dL (8.5-10.1); CREATININE 0.7 mg/dL (0.6-1.3); PHOSPHORUS 2.9 mg/dL (2.5-4.9); POTASSIUM 3.5 mmol/L (3.5-5.1)
[2024-04-27 00:35] VITALS: BP 131/67; TEMP 97.9; O2SAT 95
[2024-04-27 05:59] VITALS: BP 117/59; TEMP 98; O2SAT 100
[2024-04-27 08:00] VITALS: BP 145/94; TEMP 97.5; O2SAT 95
[2024-04-27 08:08] LABS: CALCIUM, SERUM 9.7 mg/dL (8.5-10.1); CREATININE 0.7 mg/dL (0.6-1.3); POTASSIUM 4.4 mmol/L (3.5-5.1)
[2024-04-27 12:00] VITALS: BP 124/61; TEMP 97.8; O2SAT 96
[2024-04-27] MEDS: PERMETHRIN 5% CRM 60 GM TUBE TP ONE (15:20)
[2024-04-27 16:33] VITALS: BP 128/73; TEMP 98.3; O2SAT 96
[2024-04-27 20:00] VITALS: BP 100/57; TEMP 99.5; O2SAT 96
[2024-04-28] VITALS: BP 125/101; TEMP 99.1; O2SAT 94
[2024-04-28 04:00] VITALS: BP 135/119; TEMP 99.1; O2SAT 100
[2024-04-28 07:02] LABS: CALCIUM, SERUM 9.8 mg/dL (8.5-10.1); CREATININE 0.7 mg/dL (0.6-1.3); POTASSIUM 3.9 mmol/L (3.5-5.1)
[2024-04-28 08:00] VITALS: BP 133/59; TEMP 98.6; O2SAT 100
[2024-04-28 12:00] VITALS: BP 125/46; TEMP 97.9; O2SAT 100
[2024-04-28 16:00] VITALS: BP 109/61; TEMP 98.2; O2SAT 100
== END 2024-04-28 18:59 | DRG 853 ==
LOC: ER 12:20 → TELE1 15:59 → ICU 19:01 → TELE-TD 04-20 18:15 → TELE1 04-21 10:12
PROVIDERS: ADMIT Nurse Practitioner Acute Care; ATTEND Nurse Practitioner Family
PROC: 02HV33Z Insertion of Infusion Device into Superior Vena Cava, Percutaneous Approach (ICD-10-PCS; 2024-04-18)
PROC: B548ZZA Ultrasonography of Superior Vena Cava, Guidance (ICD-10-PCS; 2024-04-18)
PROC: 0JB90ZZ Excision of Buttock Subcutaneous Tissue and Fascia, Open Approach (ICD-10-PCS; principal; 2024-04-22)
DX: A41.9 Sepsis, unspecified organism (principal); I21.A1 Myocardial infarction type 2; L89.323 Pressure ulcer of left buttock, stage 3; J96.01 Acute respiratory failure with hypoxia; R65.21 Severe sepsis with septic shock; R57.1 Hypovolemic shock; J69.0 Pneumonitis due to inhalation of food and vomit; D68.59 Other primary thrombophilia; N17.9 Acute kidney failure, unspecified; I69.351 Hemiplegia and hemiparesis following cerebral infarction affecting right dominant side; N39.0 Urinary tract infection, site not specified; E87.0 Hyperosmolality and hypernatremia; E87.20 Acidosis, unspecified; K21.9 Gastro-esophageal reflux disease without esophagitis; M79.7 Fibromyalgia; Z20.822 Contact with and (suspected) exposure to COVID-19; G20.A1 Parkinson's disease without dyskinesia, without mention of fluctuations; F02.80 Dementia in other diseases classified elsewhere, unspecified severity, without behavioral disturbance, psychotic disturbance, mood disturbance, and anxiety; I70.0 Atherosclerosis of aorta; Z93.1 Gastrostomy status; E78.5 Hyperlipidemia, unspecified; E03.9 Hypothyroidism, unspecified; R53.1 Weakness; R26.9 Unspecified abnormalities of gait and mobility; Z98.890 Other specified postprocedural states; Z88.1 Allergy status to other antibiotic agents; Z88.2 Allergy status to sulfonamides; Z88.0 Allergy status to penicillin; Z79.899 Other long term (current) drug therapy; Z79.4 Long term (current) use of insulin; Z79.890 Hormone replacement therapy; Z79.02 Long term (current) use of antithrombotics/antiplatelets; Z79.51 Long term (current) use of inhaled steroids; N18.9 Chronic kidney disease, unspecified; M89.8X9 Other specified disorders of bone, unspecified site; I12.9 Hypertensive chronic kidney disease with stage 1 through stage 4 chronic kidney disease, or unspecified chronic kidney disease; I25.10 Atherosclerotic heart disease of native coronary artery without angina pectoris; G40.909 Epilepsy, unspecified, not intractable, without status epilepticus; Z79.82 Long term (current) use of aspirin; F09 Unspecified mental disorder due to known physiological condition; E86.0 Dehydration; D64.9 Anemia, unspecified; D69.6 Thrombocytopenia, unspecified; E87.6 Hypokalemia; F20.9 Schizophrenia, unspecified; L30.9 Dermatitis, unspecified; R13.10 Dysphagia, unspecified; B96.4 Proteus (mirabilis) (morganii) as the cause of diseases classified elsewhere; Z74.01 Bed confinement status; Y95 Nosocomial condition
CPT/HCPCS: 31720; 36415; 36600; 71045-TC; 76770-TC; 80048-TC; 80053-TC; 80061-TC; 80076-TC; 80202-TC; 81001; 82272-TC; 82550-TC; 82553; 82570-TC; 82803-TC; 82962-TC; 83605-TC; 83735-TC; 83880; 83970; 84100-TC; 84155; 84165; 84300-TC; 84443-TC; 84484-TC; 85025-TC; 85730-TC; 87040-TC; 87081-TC; 87086-TC; 93307-TC; 94762-TC; 94799-TC; A4223; A9563; G0378; J0692; J1650; J1815; J1953; J2185; J3370; J7050; J7060; J7120

== ENCOUNTER 2024-05-17 09:37 | Emergency (ER) | payer MEDICARE, OTHER ==
[~2024-05-17] VITALS: Ht 152.4 cm; Wt 68.0 kg
[~2024-05-17 09:37] MED LIST changes: +ALBU2.5V13 NEB; -IPRA4AER IH; -SOD62.5V IV
[2024-05-17] MEDS ORDERED: DIATR MEGLU/DIATRIZOATE SODIUM 30 ML BOTTLE (GASTROGRAPHIN) ONE (10:29)
[2024-05-17 14:54] VITALS: BP 106/70; TEMP 98; O2SAT 99
== END 2024-05-17 14:55 ==
LOC: ER 09:49
DX: K94.29 Other complications of gastrostomy (principal); E03.9 Hypothyroidism, unspecified; F02.80 Dementia in other diseases classified elsewhere, unspecified severity, without behavioral disturbance, psychotic disturbance, mood disturbance, and anxiety; G20.A1 Parkinson's disease without dyskinesia, without mention of fluctuations; I10 Essential (primary) hypertension; K21.9 Gastro-esophageal reflux disease without esophagitis; M79.7 Fibromyalgia; Z79.82 Long term (current) use of aspirin; Z79.890 Hormone replacement therapy; Z79.899 Other long term (current) drug therapy; Z85.3 Personal history of malignant neoplasm of breast; Z86.73 Personal history of transient ischemic attack (TIA), and cerebral infarction without residual deficits; Z88.0 Allergy status to penicillin; Z88.1 Allergy status to other antibiotic agents; Z88.2 Allergy status to sulfonamides; Z88.8 Allergy status to other drugs, medicaments and biological substances; Z90.89 Acquired absence of other organs; Z91.041 Radiographic dye allergy status; Z86.69 Personal history of other diseases of the nervous system and sense organs; Z86.79 Personal history of other diseases of the circulatory system; Z87.39 Personal history of other diseases of the musculoskeletal system and connective tissue
CPT/HCPCS: 99284; 43762; 74018; Q9963

== ENCOUNTER 2024-05-18 09:17 | Emergency (ER) | payer MEDICARE, OTHER ==
[~2024-05-18] VITALS: Ht 170.2 cm; Wt 77.1 kg
[2024-05-18] MEDS: DIATR MEGLU/DIATRIZOATE SODIUM 120 ML BOTTLE (GASTROGRAPHIN) PR ONE (16:15)
[2024-05-18] MEDS ORDERED: DIATR MEGLU/DIATRIZOATE SODIUM 30 ML BOTTLE (GASTROGRAPHIN) ONE (16:16)
[2024-05-18] MEDS ORDERED: hydrALAZINE HCL IV 20 MG VIAL ONE (19:10)
[2024-05-18] MEDS: hydrALAZINE HCL IV 20 MG VIAL IV ONE (19:23)
[2024-05-18 21:55] VITALS: BP 112/77; TEMP 98; O2SAT 99
== END 2024-05-18 21:55 ==
LOC: ER 09:26
DX: K94.29 Other complications of gastrostomy (principal); E03.9 Hypothyroidism, unspecified; F02.80 Dementia in other diseases classified elsewhere, unspecified severity, without behavioral disturbance, psychotic disturbance, mood disturbance, and anxiety; G20.A1 Parkinson's disease without dyskinesia, without mention of fluctuations; I10 Essential (primary) hypertension; K21.9 Gastro-esophageal reflux disease without esophagitis; M79.7 Fibromyalgia; Z79.82 Long term (current) use of aspirin; Z79.890 Hormone replacement therapy; Z79.899 Other long term (current) drug therapy; Z85.3 Personal history of malignant neoplasm of breast; Z86.73 Personal history of transient ischemic attack (TIA), and cerebral infarction without residual deficits; Z88.0 Allergy status to penicillin; Z88.1 Allergy status to other antibiotic agents; Z88.2 Allergy status to sulfonamides; Z88.8 Allergy status to other drugs, medicaments and biological substances; Z90.89 Acquired absence of other organs; Z91.041 Radiographic dye allergy status
CPT/HCPCS: 99285; 43762; 96374; 74018; J0360; Q9963 ×2

== ENCOUNTER 2024-06-11 10:14 | Emergency (ER) | payer MEDICARE, OTHER ==
[~2024-06-11] VITALS: Ht 167.6 cm; Wt 80.3 kg
[2024-06-11] MEDS ORDERED: DIATR MEGLU/DIATRIZOATE SODIUM 30 ML BOTTLE (GASTROGRAPHIN) ONE (11:17)
[2024-06-11 17:34] VITALS: BP 102/81; TEMP 98.4; O2SAT 94
== END 2024-06-11 17:34 ==
LOC: ER 10:21
DX: K94.23 Gastrostomy malfunction (principal); E03.9 Hypothyroidism, unspecified; F02.80 Dementia in other diseases classified elsewhere, unspecified severity, without behavioral disturbance, psychotic disturbance, mood disturbance, and anxiety; G20.A1 Parkinson's disease without dyskinesia, without mention of fluctuations; I10 Essential (primary) hypertension; K21.9 Gastro-esophageal reflux disease without esophagitis; M79.7 Fibromyalgia; Z79.02 Long term (current) use of antithrombotics/antiplatelets; Z79.82 Long term (current) use of aspirin; Z79.890 Hormone replacement therapy; Z79.899 Other long term (current) drug therapy; Z85.3 Personal history of malignant neoplasm of breast; Z86.73 Personal history of transient ischemic attack (TIA), and cerebral infarction without residual deficits; Z88.0 Allergy status to penicillin; Z88.1 Allergy status to other antibiotic agents; Z88.2 Allergy status to sulfonamides; Z88.8 Allergy status to other drugs, medicaments and biological substances; Z90.89 Acquired absence of other organs; Z91.041 Radiographic dye allergy status
CPT/HCPCS: 99285; 43762; 74018; Q9963

== ENCOUNTER 2024-07-20 10:33 | Inpatient (IN) | payer MEDICARE, OTHER ==
[2024-07-20] VITALS (15 sets, daily range): BP systolic 63–149; BP diastolic 40–137; TEMP 94; O2SAT 94–100
[~2024-07-20] VITALS: Ht 165.1 cm; Wt 74.8 kg
[2024-07-20 11:27] LABS: BASOPHILS % (AUTO) 0.2 % (0.0-2.0); EOSINOPHILS # (AUTO) 5.9 K/uL (0.0-0.7); HEMATOCRIT 24 % (33-45); LYMPHOCYTES # (AUTO) 1.5 K/uL (0.8-4.8); LYMPHOCYTES % (AUTO) 8.5 % (20.0-44.0); MEAN CORPUSCULAR HEMOGLOBIN 32 PG (26.0-33.0); MEAN CORPUSCULAR HGB CONC 33 g/dl (31.0-36.0); MEAN CORPUSCULAR VOLUME 96 fL (82-100); MONOCYTES # (AUTO) 0.6 K/uL (0.1-1.30); MONOCYTES % (AUTO) 3.4 % (2.0-12.0); NEUTROPHILS # (AUTO) 9.2 K/uL (1.8-8.9); NEUTROPHILS % (AUTO) 53.8 % (43.0-81.0); PLATELET COUNT (AUTO) 200 K/uL (150-450); RED BLOOD CELL COUNT(AUTO) 2.49 MIL/uL (4.0-5.2); RED CELL DISTRIBUTION WIDTH 15.3 % (11.5-15.0); WHITE BLOOD COUNT (AUTO) 17.2 K/uL (4.3-11.0)
[2024-07-20 11:28] LABS: EOSINOPHILS % (AUTO) 34.1 % (0.0-6.0)
[2024-07-20] MEDS: IV NS 0.9% 1,000 ML BAG IV ONE ×2 (11:37→13:05)
[2024-07-20 11:46] LABS: PARTIAL THROMBOPLASTIN TIME 32.4 SEC (24.3-34.3); PROTHROMBIN TIME 10.6 SECS (9.2-11.1)
[2024-07-20 11:55] LABS: LACTIC ACID 2.2 mmol/L (0.4-2.0)
[2024-07-20] MEDS: LEVOFLOXACIN 750 MG /D5W 150ML 150 ML IV ONE (11:55)
[2024-07-20 11:56] LABS: ALANINE AMINOTRANSFERASE 37 U/L (12-78); ALBUMIN 1.9 g/dL (3.4-5.0); ALKALINE PHOSPHATASE 104 U/L (46-116); ASPARTATE AMINOTRANSFERASE 40 U/L (15-37); BILIRUBIN,DIRECT 0.1 mg/dL (0.0-0.2); BILIRUBIN,TOTAL 0.2 mg/dL (0.2-1.0); CALCIUM, SERUM 9.7 mg/dL (8.5-10.1); CARBON DIOXIDE 28 mmol/L (21-32); CHLORIDE 107 mmol/L (98-107); CREATININE 1.9 mg/dL (0.6-1.3); GLUCOSE 65 mg/dL (74-106); POTASSIUM 4.7 mmol/L (3.5-5.1); SODIUM SERUM 143 mmol/L (136-145); TOTAL PROTEIN, SERUM 6.8 g/dL (6.4-8.2)
[2024-07-20] MEDS ORDERED: CRAN3875 GT (11:58)
[2024-07-20] MEDS ORDERED: ACET650S26 GT (11:58)
[2024-07-20] MEDS ORDERED: MULT-213 PO (11:58)
[2024-07-20] MEDS ORDERED: ASCO500T10 GT (11:58)
[2024-07-20] MEDS ORDERED: LEVO125T8 PO (11:58)
[2024-07-20] MEDS ORDERED: INSU100I30 SQ (11:58)
[2024-07-20] MEDS ORDERED: PANT40SU2 GT (11:58)
[2024-07-20 12:01] LABS: UREA NITROGEN, BLOOD 92 mg/dL (7-18)
[2024-07-20] MEDS ORDERED: NOREPINEPHRINE 8MG/250ML RTU 250 ML IV ONE (12:27)
[2024-07-20 12:40] LABS: EOSINOPHILS % (MANUAL) 23 % (0-4); LYMPHOCYTES % (MANUAL) 10 % (16-48); MONOCYTES % (MANUAL) 3 % (0-11.0); NEUTROPHILS % (MANUAL) 64 (42-76); PLATELET ESTIMATE ADEQUATE
[2024-07-20] MEDS: NOREPINEPHRINE 8 MG in IV NS 0.9% 250 ML IV ONE (13:07)
[2024-07-20] MEDS: CEFEPIME 1 GM in IV D5W 50 ML IV ONE (13:16)
[2024-07-20] MEDS: VANCOMYCIN 1 GM in IV D5W 250 ML IV ONE (13:30)
[2024-07-20 14:02] LABS: APPEARANCE,URINE CLEAR (CLEAR); BILIRUBIN,URINE NEGATIVE (NEGATIVE); BLOOD, URINE 2+ Ery/uL (NEGATIVE); COLOR,URINE YELLOW (YELLOW); KETONES,URINE NEGATIVE (NEGATIVE); LEUKOCYTE ESTERASE ,URINE 2+ (NEGATIVE); NITRITE, URINE NEGATIVE (NEGATIVE); PROTEIN,URINE TRACE mg/dl (NEGATIVE); UGLUCOSE NEGATIVE (NEGATIVE); UROBILINOGEN,URINE 0.2 EU/dL (0.2)
[2024-07-20 14:13] LABS: ADD URINE CULTURE YES; BACTERIA,URINE Few /HPF (None Seen); SQUAMOUS EPITHELIAL CELL,UR Many /HPF (None Seen)
[2024-07-20] MEDS ORDERED: ONDANSETRON HCL/PF 4 MG/2 ML VIAL IVP PRN (14:30)
[2024-07-20] MEDS ORDERED: Z GUARD REMEDY 4 OZ OINT TP PRN (14:30)
[2024-07-20] MEDS: ENOXAPARIN SODIUM 30 MG/0.3 ML DISP.SYRIN SQ SCH (15:00)
[2024-07-20] MEDS ORDERED: ENOXAPARIN SODIUM 30 MG/0.3 ML DISP.SYRIN ONE (16:04)
[2024-07-20] MEDS ORDERED: ALBUTEROL FS 2.5 MG/3 ML VIAL.NEB ONE (18:57)
[2024-07-20] MEDS: ALBUTEROL FS 2.5 MG/3 ML VIAL.NEB NEB PRN (19:00)
[2024-07-20] MEDS: IV NS 0.9% 1,000 ML IV PRN (21:16)
[2024-07-20] MEDS: diphenhydrAMINE HCL 50 MG/ML VIAL IV PRN (21:16)
[2024-07-20] MEDS: NOREPINEPHRINE 8 MG in IV D5W 242 ML IV PRN (21:17)
[2024-07-20] MEDS: VANCOMYCIN 750 MG in IV D5W 250 ML IV ONE (21:34)
[2024-07-20] MEDS: NOREPINEPHRINE 8MG/250ML RTU 250 ML IV ONE (21:34)
[2024-07-21] VITALS (90 sets, daily range): BP systolic 73–167; BP diastolic 35–144; TEMP 96–97.8; O2SAT 93–100
[2024-07-21] MEDS: CEFEPIME 1 GM in IV D5W 50 ML IV SCH (01:00)
[2024-07-21 04:41] LABS: BASOPHILS % (AUTO) 0.1 % (0.0-2.0); EOSINOPHILS # (AUTO) 2.2 K/uL (0.0-0.7); EOSINOPHILS % (AUTO) 9.4 % (0.0-6.0); HEMATOCRIT 25 % (33-45); HEMOGLOBIN 8.1 g/dL (11.5-14.8); LYMPHOCYTES % (AUTO) 4.3 % (20.0-44.0); MEAN CORPUSCULAR HEMOGLOBIN 31 PG (26.0-33.0); MEAN CORPUSCULAR HGB CONC 32 g/dl (31.0-36.0); MEAN CORPUSCULAR VOLUME 96 fL (82-100); MONOCYTES # (AUTO) 0.8 K/uL (0.1-1.30); MONOCYTES % (AUTO) 3.4 % (2.0-12.0); NEUTROPHILS # (AUTO) 19.4 K/uL (1.8-8.9); NEUTROPHILS % (AUTO) 82.8 % (43.0-81.0); PLATELET COUNT (AUTO) 227 K/uL (150-450); RED BLOOD CELL COUNT(AUTO) 2.61 MIL/uL (4.0-5.2); RED CELL DISTRIBUTION WIDTH 15.5 % (11.5-15.0); WHITE BLOOD COUNT (AUTO) 23.4 K/uL (4.3-11.0)
[2024-07-21 04:52] LABS: ALBUMIN 1.9 g/dL (3.4-5.0); CALCIUM, SERUM 9.2 mg/dL (8.5-10.1); CREATININE 1.5 mg/dL (0.6-1.3); MAGNESIUM 2.8 mg/dL (1.8-2.4); PHOSPHORUS 3.3 mg/dL (2.5-4.9); POTASSIUM 4.1 mmol/L (3.5-5.1)
[2024-07-21] MEDS: PANTOPRAZOLE 40 MG VIAL IV SCH (08:17)
[2024-07-21] MEDS: NEOMY SULF/BACITRAC ZN/POLY 15 GM TUBE TP SCH (09:29)
[2024-07-21] MEDS: PERMETHRIN 5% CRM 60 GM TUBE TP ONE (16:15)
[2024-07-21] MEDS: VANCOMYCIN 750 MG in IV D5W 250 ML IV SCH (17:38)
[2024-07-21] MEDS: LORATADINE 10 MG TABLET PO SCH (21:30)
[2024-07-21] MEDS ORDERED: diphenhydrAMINE HCL 25 MG CAPSULE PO PRN (21:30)
[2024-07-21] MEDS: TRIAMCINOLONE ACETONIDE 0.5% 15 GM TUBE TP SCH (22:33)
[2024-07-22] VITALS (27 sets, daily range): BP systolic 93–150; BP diastolic 49–132; TEMP 96.5–97.8; O2SAT 78–100
[2024-07-22 04:30] LABS: BASOPHILS % (AUTO) 0.2 % (0.0-2.0); HEMATOCRIT 24 % (33-45); HEMOGLOBIN 7.8 g/dL (11.5-14.8); LYMPHOCYTES # (AUTO) 0.8 K/uL (0.8-4.8); LYMPHOCYTES % (AUTO) 5.5 % (20.0-44.0); MEAN CORPUSCULAR HEMOGLOBIN 32 PG (26.0-33.0); MEAN CORPUSCULAR HGB CONC 33 g/dl (31.0-36.0); MEAN CORPUSCULAR VOLUME 97 fL (82-100); MONOCYTES # (AUTO) 0.6 K/uL (0.1-1.30); MONOCYTES % (AUTO) 4.1 % (2.0-12.0); NEUTROPHILS # (AUTO) 7.8 K/uL (1.8-8.9); NEUTROPHILS % (AUTO) 51.1 % (43.0-81.0); PLATELET COUNT (AUTO) 187 K/uL (150-450); RED BLOOD CELL COUNT(AUTO) 2.46 MIL/uL (4.0-5.2); RED CELL DISTRIBUTION WIDTH 16.1 % (11.5-15.0); WHITE BLOOD COUNT (AUTO) 15.2 K/uL (4.3-11.0)
[2024-07-22 04:38] LABS: EOSINOPHILS % (AUTO) 39.1 % (0.0-6.0)
[2024-07-22 05:00] LABS: ALBUMIN 1.8 g/dL (3.4-5.0); BILIRUBIN,TOTAL 0.3 mg/dL (0.2-1.0); CALCIUM, SERUM 9.5 mg/dL (8.5-10.1); CREATININE 1.2 mg/dL (0.6-1.3); MAGNESIUM 2.6 mg/dL (1.8-2.4); PHOSPHORUS 2.8 mg/dL (2.5-4.9); POTASSIUM 3.9 mmol/L (3.5-5.1); TOTAL PROTEIN, SERUM 6.8 g/dL (6.4-8.2)
[2024-07-22 05:40] LABS: EOSINOPHILS % (MANUAL) 30 % (0-4); LYMPHOCYTES % (MANUAL) 5 % (16-48); MONOCYTES % (MANUAL) 3 % (0-11.0); NEUTROPHILS % (MANUAL) 62 (42-76)
[2024-07-22 05:41] LABS: PLATELET ESTIMATE ADEQUATE
[2024-07-22 05:42] LABS: ANISOCYTOSIS 1+
[2024-07-22] MEDS: FREE WATER VIA TUBE FEEDING GT SCH (07:43)
[2024-07-22] MEDS: MEROPENEM 500 MG in IV NS 0.9% 50 ML IV SCH (08:02)
[2024-07-22] MEDS ORDERED: DIATR MEGLU/DIATRIZOATE SODIUM 30 ML BOTTLE (GASTROGRAPHIN) ONE (08:12)
[2024-07-22] MEDS: IV 1/2NS 1000 ML 1,000 ML IV PRN (09:12)
[2024-07-22] MEDS: QUETIAPINE FUMARATE 25 MG TABLET PO SCH (14:56)
[2024-07-22] MEDS: MEROPENEM 500MG/NS 50 ML PB IV ONE (21:47)
[2024-07-23] VITALS (49 sets, daily range): BP systolic 99–149; BP diastolic 50–111; TEMP 90.6–97.8; O2SAT 92–100
[2024-07-23 04:20] LABS: BASOPHILS % (AUTO) 0.2 % (0.0-2.0); EOSINOPHILS # (AUTO) 4.6 K/uL (0.0-0.7); HEMATOCRIT 23 % (33-45); HEMOGLOBIN 7.5 g/dL (11.5-14.8); LYMPHOCYTES # (AUTO) 0.6 K/uL (0.8-4.8); LYMPHOCYTES % (AUTO) 6.9 % (20.0-44.0); MEAN CORPUSCULAR HEMOGLOBIN 32 PG (26.0-33.0); MEAN CORPUSCULAR HGB CONC 33 g/dl (31.0-36.0); MEAN CORPUSCULAR VOLUME 97 fL (82-100); MONOCYTES # (AUTO) 0.4 K/uL (0.1-1.30); MONOCYTES % (AUTO) 4.4 % (2.0-12.0); NEUTROPHILS # (AUTO) 3.7 K/uL (1.8-8.9); NEUTROPHILS % (AUTO) 39.2 % (43.0-81.0); PLATELET COUNT (AUTO) 156 K/uL (150-450); RED BLOOD CELL COUNT(AUTO) 2.32 MIL/uL (4.0-5.2); RED CELL DISTRIBUTION WIDTH 15.8 % (11.5-15.0); WHITE BLOOD COUNT (AUTO) 9.4 K/uL (4.3-11.0)
[2024-07-23 04:45] LABS: POTASSIUM 4.3 mmol/L (3.5-5.1)
[2024-07-23 05:33] LABS: EOSINOPHILS % (AUTO) 49.3 % (0.0-6.0)
[2024-07-23 09:08] LABS: PTH, INTACT 56 pg/mL (15-65)
[2024-07-23] MEDS: BLOOD SUGAR DIAGNOSTIC 1 EACH STRIP IN SCH (12:18)
[2024-07-23 14:57] LABS: EOSINOPHILS % (MANUAL) 47 % (0-4); LYMPHOCYTES % (MANUAL) 7 % (16-48); MONOCYTES % (MANUAL) 3 % (0-11.0); NEUTROPHILS % (MANUAL) 43 (42-76); PLATELET ESTIMATE ADEQUATE
[2024-07-23 15:00] LABS: ANISOCYTOSIS 1+
[2024-07-23] MEDS: GLUCERNA 1.2 1,000 ML BOTTLE NG PRN (17:06)
[2024-07-24] VITALS: BP 123/55; TEMP 90.7; O2SAT 99
[2024-07-24 04:00] VITALS: BP 115/51; TEMP 96.3; O2SAT 99
[2024-07-24] MEDS: DEXTROSE 50%-WATER 50 ML DISP.SYRIN IV PRN (06:38)
[2024-07-24 08:00] VITALS: BP 111/49; TEMP 99; O2SAT 95
[2024-07-24 08:26] LABS: POTASSIUM 3.9 mmol/L (3.5-5.1)
[2024-07-24 10:15] LABS: ABG BASE EXCESS -5.7 mmol/L (-2.0-3.0); ABG OXYGEN SATURATION 94.7 % (94.0-98.0); ABG PCO2 23.8 mmHg (32.0-45.0); ABG PH 7.473 (7.350-7.450); ABG PO2 75.3 mmHg (83.0-108.0); ABG TOTAL HEMOGLOBIN 7.6 G/dL (12.0-16.0); COHb 0.3 % (0.5-1.5); MetHb 0.1 % (0.0-1.5); O2Hb 94.3 % (94.0-97.0); SITE, ABG RIGHT RADIAL
[2024-07-24] MEDS: PANTOPRAZOLE 40 MG/PACK PACK GT SCH (10:19)
[2024-07-24 12:00] VITALS: BP 121/65; TEMP 97.2; O2SAT 95
[2024-07-24 16:00] VITALS: BP 135/73; TEMP 97.9; O2SAT 97
[2024-07-24 20:00] VITALS: BP 153/77; TEMP 97.3; O2SAT 95
[2024-07-24] MEDS: INSULIN REGULAR, HUMAN 100 UNIT/ML 3 ML VIAL SQ PRN (21:25)
[2024-07-25] VITALS: BP 101/71; TEMP 98.2; O2SAT 94
[2024-07-25 04:00] VITALS: BP 144/63; TEMP 98.4; O2SAT 96
[2024-07-25 07:07] LABS: *SPE A/G RATIO 0.5 (0.7-1.7); *SPE ALBUMIN 2.1 g/dL (2.9-4.4); *SPE ALPHA-1-GLOBULIN 0.6 g/dL (0.0-0.4); *SPE BETA GLOBULIN 0.9 g/dL (0.7-1.3); *SPE M-SPIKE Not Observed g/dL (Not Observed); *SPE PROTEIN TOTAL 6.1 g/dL (6.0-8.5); *SPEGAMMA GLOBULIN 1.5 g/dL (0.4-1.8)
[2024-07-25 08:05] VITALS: BP 149/73; TEMP 98.6; O2SAT 97
[2024-07-25 09:00] LABS: CALCIUM, SERUM 8.9 mg/dL (8.5-10.1); CREATININE 0.8 mg/dL (0.6-1.3)
[2024-07-25 09:09] LABS: BASOPHILS % (AUTO) 0.2 % (0.0-2.0); EOSINOPHILS # (AUTO) 0.3 K/uL (0.0-0.7); EOSINOPHILS % (AUTO) 3.7 % (0.0-6.0); HEMATOCRIT 21 % (33-45); HEMOGLOBIN 7.1 g/dL (11.5-14.8); MEAN CORPUSCULAR HEMOGLOBIN 32 PG (26.0-33.0); MEAN CORPUSCULAR HGB CONC 34 g/dl (31.0-36.0); MEAN CORPUSCULAR VOLUME 96 fL (82-100); MONOCYTES # (AUTO) 0.5 K/uL (0.1-1.30); MONOCYTES % (AUTO) 7.1 % (2.0-12.0); NEUTROPHILS # (AUTO) 5.8 K/uL (1.8-8.9); PLATELET COUNT (AUTO) 175 K/uL (150-450); RED BLOOD CELL COUNT(AUTO) 2.18 MIL/uL (4.0-5.2); RED CELL DISTRIBUTION WIDTH 15.7 % (11.5-15.0); WHITE BLOOD COUNT (AUTO) 7.6 K/uL (4.3-11.0)
[2024-07-25 12:05] VITALS: BP 138/92; TEMP 97.7; O2SAT 94
[2024-07-25 15:28] LABS: EOSINOPHILS % (MANUAL) 1 % (0-4); LYMPHOCYTES % (MANUAL) 8 % (16-48); MONOCYTES % (MANUAL) 3 % (0-11.0); MYELOCYTES % 3 % (0-0); NEUTROPHILS % (MANUAL) 85 (42-76); PLATELET ESTIMATE ADEQUATE
[2024-07-25 15:30] LABS: ANISOCYTOSIS 1+
[2024-07-25 16:00] VITALS: BP 106/93; TEMP 97.2; O2SAT 100
[2024-07-25 20:00] VITALS: BP 105/74; TEMP 97.7; O2SAT 99
[2024-07-26] VITALS (14 sets, daily range): BP systolic 115–131; BP diastolic 51–95; TEMP 96.6–98.2; O2SAT 97–100
[2024-07-26 08:55] LABS: CALCIUM, SERUM 8.5 mg/dL (8.5-10.1); CREATININE 0.7 mg/dL (0.6-1.3); POTASSIUM 3.9 mmol/L (3.5-5.1)
[2024-07-26] MEDS: FUROSEMIDE 40 MG/4 ML VIAL IV ONE (10:04)
[2024-07-26 10:09] LABS: ABG BASE EXCESS -2.8 mmol/L (-2.0-3.0); ABG OXYGEN SATURATION 95.4 % (94.0-98.0); ABG PCO2 40.4 mmHg (32.0-45.0); ABG PH 7.361 (7.350-7.450); ABG PO2 88.2 mmHg (83.0-108.0); COHb 0.4 % (0.5-1.5); MetHb 0.3 % (0.0-1.5); O2Hb 94.7 % (94.0-97.0); SITE, ABG LEFT RADIAL
[2024-07-26] MEDS: ACETYLCYSTEINE 20% SOLN 800 MG/4 ML VIAL NEB SCH (10:55)
[2024-07-26] MEDS: IPRATROPIUM NEB FS 0.5 MG/2.5 ML AMPUL.NEB NEB SCH (11:00)
[2024-07-26] MEDS: ALBUTEROL FS 2.5 MG/3 ML VIAL.NEB NEB SCH (11:00)
[2024-07-26] MEDS ORDERED: DEXTROSE 50%-WATER 50 ML DISP.SYRIN IV PRN (20:00)
[2024-07-26] MEDS: INSULIN REGULAR, HUMAN 100 UNIT/ML 3 ML VIAL SQ PRN (23:14)
[2024-07-26] MEDS: BLOOD SUGAR DIAGNOSTIC 1 EACH STRIP IN SCH (23:14)
[2024-07-27] VITALS (19 sets, daily range): BP systolic 109–148; BP diastolic 44–58; TEMP 97.2–99; O2SAT 96–100
[2024-07-27 07:36] LABS: BASOPHILS % (AUTO) 0.2 % (0.0-2.0); EOSINOPHILS # (AUTO) 1.3 K/uL (0.0-0.7); EOSINOPHILS % (AUTO) 13.7 % (0.0-6.0); HEMATOCRIT 21 % (33-45); HEMOGLOBIN 7.3 g/dL (11.5-14.8); LYMPHOCYTES # (AUTO) 1.1 K/uL (0.8-4.8); LYMPHOCYTES % (AUTO) 11.4 % (20.0-44.0); MEAN CORPUSCULAR HEMOGLOBIN 32 PG (26.0-33.0); MEAN CORPUSCULAR HGB CONC 34 g/dl (31.0-36.0); MEAN CORPUSCULAR VOLUME 95 fL (82-100); MONOCYTES # (AUTO) 0.8 K/uL (0.1-1.30); MONOCYTES % (AUTO) 8.7 % (2.0-12.0); NEUTROPHILS # (AUTO) 6.1 K/uL (1.8-8.9); PLATELET COUNT (AUTO) 207 K/uL (150-450); RED BLOOD CELL COUNT(AUTO) 2.25 MIL/uL (4.0-5.2); RED CELL DISTRIBUTION WIDTH 15.7 % (11.5-15.0); WHITE BLOOD COUNT (AUTO) 9.3 K/uL (4.3-11.0)
[2024-07-27 07:42] LABS: CALCIUM, SERUM 9.3 mg/dL (8.5-10.1); CARBON DIOXIDE 25 mmol/L (21-32); CHLORIDE 115 mmol/L (98-107); CREATININE 0.8 mg/dL (0.6-1.3); GLUCOSE 133 mg/dL (74-106); SODIUM SERUM 152 mmol/L (136-145); UREA NITROGEN, BLOOD 19 mg/dL (7-18)
[2024-07-27 11:12] LABS: PLATELET ESTIMATE ADEQUATE
[2024-07-27 11:15] LABS: EOSINOPHILS % (MANUAL) 13 % (0-4); LYMPHOCYTES % (MANUAL) 15 % (16-48); MONOCYTES % (MANUAL) 6 % (0-11.0); NEUTROPHILS % (MANUAL) 66 (42-76)
[2024-07-27 11:31] LABS: ANISOCYTOSIS 1+
[2024-07-27] MEDS: FREE WATER VIA TUBE FEEDING GT SCH (12:37)
[2024-07-27] MEDS: FUROSEMIDE 20 MG/2 ML VIAL IV STA (13:14)
[2024-07-27 14:58] LABS: CALCIUM, SERUM 9.1 mg/dL (8.5-10.1); CREATININE 0.8 mg/dL (0.6-1.3); POTASSIUM 3.8 mmol/L (3.5-5.1)
[2024-07-28] VITALS (17 sets, daily range): BP systolic 123–156; BP diastolic 50–92; TEMP 97.7–99.1; O2SAT 97–100
[2024-07-28] MEDS ORDERED: MERO1PIG IV (11:03)
[2024-07-28] MEDS ORDERED: VANC750F2 IV (11:03)
[2024-07-28 15:28] LABS: BASOPHILS # (AUTO) 0.1 K/uL (0.0-0.2); BASOPHILS % (AUTO) 0.4 % (0.0-2.0); EOSINOPHILS # (AUTO) 0.6 K/uL (0.0-0.7); LYMPHOCYTES # (AUTO) 1.2 K/uL (0.8-4.8); LYMPHOCYTES % (AUTO) 8.2 % (20.0-44.0); MEAN CORPUSCULAR HEMOGLOBIN 31 PG (26.0-33.0); MEAN CORPUSCULAR HGB CONC 33 g/dl (31.0-36.0); MEAN CORPUSCULAR VOLUME 95 fL (82-100); MONOCYTES # (AUTO) 1.2 K/uL (0.1-1.30); MONOCYTES % (AUTO) 8.1 % (2.0-12.0); NEUTROPHILS # (AUTO) 11.3 K/uL (1.8-8.9); NEUTROPHILS % (AUTO) 79.3 % (43.0-81.0); PLATELET COUNT (AUTO) 250 K/uL (150-450); RED BLOOD CELL COUNT(AUTO) 2.06 MIL/uL (4.0-5.2); RED CELL DISTRIBUTION WIDTH 15.7 % (11.5-15.0); WHITE BLOOD COUNT (AUTO) 14.3 K/uL (4.3-11.0)
[2024-07-28 15:44] LABS: HEMATOCRIT 20 % (33-45); HEMOGLOBIN 6.4 g/dL (11.5-14.8)
[2024-07-28 16:00] LABS: CALCIUM, SERUM 9.2 mg/dL (8.5-10.1); CREATININE 0.8 mg/dL (0.6-1.3); PHOSPHORUS 2.1 mg/dL (2.5-4.9); POTASSIUM 3.7 mmol/L (3.5-5.1)
[2024-07-28 20:06] LABS: EOSINOPHILS % (MANUAL) 6 % (0-4); LYMPHOCYTES % (MANUAL) 15 % (16-48); MONOCYTES % (MANUAL) 9 % (0-11.0); NEUTROPHILS % (MANUAL) 70 (42-76); PLATELET ESTIMATE ADEQU
[2024-07-28 20:07] LABS: ANISOCYTOSIS 1+; ROULEAUX 1+
[2024-07-29] VITALS (14 sets, daily range): BP systolic 126–143; BP diastolic 53–90; TEMP 98–98.8; O2SAT 96–100
[2024-07-29 08:34] LABS: CALCIUM, SERUM 9.5 mg/dL (8.5-10.1); CREATININE 0.7 mg/dL (0.6-1.3); POTASSIUM 4.1 mmol/L (3.5-5.1)
[2024-07-29 08:50] LABS: BASOPHILS % (AUTO) 0.5 % (0.0-2.0); EOSINOPHILS # (AUTO) 1.1 K/uL (0.0-0.7); EOSINOPHILS % (AUTO) 10.4 % (0.0-6.0); HEMATOCRIT 26 % (33-45); HEMOGLOBIN 8.6 g/dL (11.5-14.8); LYMPHOCYTES # (AUTO) 1.1 K/uL (0.8-4.8); LYMPHOCYTES % (AUTO) 11.2 % (20.0-44.0); MEAN CORPUSCULAR HEMOGLOBIN 30 PG (26.0-33.0); MEAN CORPUSCULAR HGB CONC 33 g/dl (31.0-36.0); MEAN CORPUSCULAR VOLUME 90 fL (82-100); MONOCYTES % (AUTO) 9.4 % (2.0-12.0); NEUTROPHILS # (AUTO) 7.1 K/uL (1.8-8.9); NEUTROPHILS % (AUTO) 68.5 % (43.0-81.0); PLATELET COUNT (AUTO) 267 K/uL (150-450); RED BLOOD CELL COUNT(AUTO) 2.86 MIL/uL (4.0-5.2); RED CELL DISTRIBUTION WIDTH 21.3 % (11.5-15.0); WHITE BLOOD COUNT (AUTO) 10.3 K/uL (4.3-11.0)
[2024-07-29 10:32] LABS: EOSINOPHILS % (MANUAL) 4 % (0-4); LYMPHOCYTES % (MANUAL) 7 % (16-48); MONOCYTES % (MANUAL) 2 % (0-11.0); MYELOCYTES % 5 % (0-0); NEUTROPHILS % (MANUAL) 82 (42-76)
[2024-07-29 10:33] LABS: ANISOCYTOSIS 1+; PLATELET ESTIMATE ADEQUATE
== END 2024-07-29 13:00 | DRG 871 ==
LOC: ER 10:42 → ICU 19:13 → TELE1 07-23 18:24 → TELE-TD 07-26 16:56 → TELE1 07-28 10:46
PROVIDERS: ADMIT Nurse Practitioner Family; ATTEND Internal Medicine
PROC: 30233N1 Transfusion of Nonautologous Red Blood Cells into Peripheral Vein, Percutaneous Approach (ICD-10-PCS; principal; 2024-07-28)
DX: A41.02 Sepsis due to Methicillin resistant Staphylococcus aureus (principal); J15.69 Pneumonia due to other Gram-negative bacteria; J96.01 Acute respiratory failure with hypoxia; J15.9 Unspecified bacterial pneumonia; N17.0 Acute kidney failure with tubular necrosis; J69.0 Pneumonitis due to inhalation of food and vomit; R65.21 Severe sepsis with septic shock; E44.1 Mild protein-calorie malnutrition; I69.351 Hemiplegia and hemiparesis following cerebral infarction affecting right dominant side; N39.0 Urinary tract infection, site not specified; E87.20 Acidosis, unspecified; D68.59 Other primary thrombophilia; N17.9 Acute kidney failure, unspecified; G93.40 Encephalopathy, unspecified; E87.0 Hyperosmolality and hypernatremia; Z20.822 Contact with and (suspected) exposure to COVID-19; F02.80 Dementia in other diseases classified elsewhere, unspecified severity, without behavioral disturbance, psychotic disturbance, mood disturbance, and anxiety; G20.A1 Parkinson's disease without dyskinesia, without mention of fluctuations; E11.40 Type 2 diabetes mellitus with diabetic neuropathy, unspecified; Z85.3 Personal history of malignant neoplasm of breast; I10 Essential (primary) hypertension; I70.0 Atherosclerosis of aorta; K21.9 Gastro-esophageal reflux disease without esophagitis; E03.9 Hypothyroidism, unspecified; M79.7 Fibromyalgia; Z98.890 Other specified postprocedural states; Z88.0 Allergy status to penicillin; Z88.2 Allergy status to sulfonamides; Z88.1 Allergy status to other antibiotic agents; Z91.041 Radiographic dye allergy status; Z79.4 Long term (current) use of insulin; Z79.890 Hormone replacement therapy; Z79.51 Long term (current) use of inhaled steroids; Z79.02 Long term (current) use of antithrombotics/antiplatelets; Z79.82 Long term (current) use of aspirin; Z79.899 Other long term (current) drug therapy; B96.89 Other specified bacterial agents as the cause of diseases classified elsewhere; D64.9 Anemia, unspecified; E78.5 Hyperlipidemia, unspecified; L30.9 Dermatitis, unspecified; G40.909 Epilepsy, unspecified, not intractable, without status epilepticus; I25.10 Atherosclerotic heart disease of native coronary artery without angina pectoris; R13.10 Dysphagia, unspecified; E88.09 Other disorders of plasma-protein metabolism, not elsewhere classified; Z68.29 Body mass index [BMI] 29.0-29.9, adult; E66.9 Obesity, unspecified; Y95 Nosocomial condition; F20.9 Schizophrenia, unspecified; E86.0 Dehydration; L98.9 Disorder of the skin and subcutaneous tissue, unspecified; L29.9 Pruritus, unspecified; K94.29 Other complications of gastrostomy; Y83.3 Surgical operation with formation of external stoma as the cause of abnormal reaction of the patient, or of later complication, without mention of misadventure at the time of the procedure; Y92.129 Unspecified place in nursing home as the place of occurrence of the external cause
CPT/HCPCS: 31720; 36415; 36600; 71045-TC; 74018; 80048-TC; 80053-TC; 80076-TC; 80202-TC; 81001; 82040-TC; 82550-TC; 82553; 82803-TC; 82962-TC; 83605-TC; 83735-TC; 83970; 84100-TC; 84155; 84165; 84484-TC; 85025-TC; 85730-TC; 86850-TC; 87040-TC; 87081-TC; 87086-TC; 93307-TC; 94761-TC; 94799-TC; A4223; C1751; G0378; J0692; J1200; J1650; J1815; J1940; J1956; J2185; J2470; J3370; J3371; J3490; J7030; J7050; J7060; P9016; Q9963

== ENCOUNTER 2024-07-30 04:12 | Inpatient (IN) | payer MEDICARE, OTHER ==
[~2024-07-30] VITALS: Ht 165.1 cm; Wt 83.5 kg
[2024-07-30] VITALS (22 sets, daily range): BP systolic 90–123; BP diastolic 38–79; TEMP 96.4–97.3; O2SAT 84–100
[~2024-07-30 04:12] MED LIST changes: +ACET650S26 GT; +ASCO500T10 GT; +CRAN3875 GT; -CRAN425C6 GT; +INSU100I30 SQ; -LEVO100T GT; +LEVO125T8 PO; +MERO1PIG IV; +MULT-213 PO; -OMEP20CA15 GT; +PANT40SU2 GT; +VANC750F2 IV
[2024-07-30] MEDS: DEXTROSE 50%-WATER 50 ML DISP.SYRIN IV ONE (04:30)
[2024-07-30] MEDS: IV NS 0.9% 500 ML BAG IV ONE (04:30)
[2024-07-30] MEDS ORDERED: LEVETIRACETAM (500MG) 500 MG/5 ML VIAL IV ONE (04:33)
[2024-07-30] MEDS: LEVETIRACETAM (500MG) 1,000 MG in IV NS 0.9% 90 ML IV SCH (04:42)
[2024-07-30 04:50] LABS: BASOPHILS % (AUTO) 0.2 % (0.0-2.0); EOSINOPHILS # (AUTO) 3.5 K/uL (0.0-0.7); EOSINOPHILS % (AUTO) 21.2 % (0.0-6.0); HEMATOCRIT 25 % (33-45); LYMPHOCYTES # (AUTO) 1.4 K/uL (0.8-4.8); LYMPHOCYTES % (AUTO) 8.1 % (20.0-44.0); MEAN CORPUSCULAR HEMOGLOBIN 29 PG (26.0-33.0); MEAN CORPUSCULAR HGB CONC 32 g/dl (31.0-36.0); MEAN CORPUSCULAR VOLUME 91 fL (82-100); MONOCYTES # (AUTO) 1.3 K/uL (0.1-1.30); MONOCYTES % (AUTO) 7.5 % (2.0-12.0); NEUTROPHILS # (AUTO) 10.5 K/uL (1.8-8.9); PLATELET COUNT (AUTO) 334 K/uL (150-450); RED BLOOD CELL COUNT(AUTO) 2.75 MIL/uL (4.0-5.2); RED CELL DISTRIBUTION WIDTH 20.8 % (11.5-15.0); WHITE BLOOD COUNT (AUTO) 16.6 K/uL (4.3-11.0)
[2024-07-30 04:57] LABS: APPEARANCE,URINE CLOUDY (CLEAR); BILIRUBIN,URINE NEGATIVE (NEGATIVE); BLOOD, URINE NEGATIVE Ery/uL (NEGATIVE); COLOR,URINE YELLOW (YELLOW); KETONES,URINE NEGATIVE (NEGATIVE); LEUKOCYTE ESTERASE ,URINE TRACE (NEGATIVE); NITRITE, URINE NEGATIVE (NEGATIVE); PROTEIN,URINE TRACE mg/dl (NEGATIVE); UGLUCOSE NEGATIVE (NEGATIVE); UROBILINOGEN,URINE 0.2 EU/dL (0.2)
[2024-07-30 05:00] LABS: SERUM AMMONIA 15 umol/L (11-32)
[2024-07-30 05:05] LABS: ALANINE AMINOTRANSFERASE 32 U/L (12-78); ALKALINE PHOSPHATASE 101 U/L (46-116); ASPARTATE AMINOTRANSFERASE 29 U/L (15-37); BILIRUBIN,DIRECT 0.1 mg/dL (0.0-0.2); BILIRUBIN,TOTAL 0.3 mg/dL (0.2-1.0); CARBON DIOXIDE 32 mmol/L (21-32); CHLORIDE 107 mmol/L (98-107); CREATININE 0.7 mg/dL (0.6-1.3); GLUCOSE 136 mg/dL (74-106); INR 1.07 (0.91-1.10); PARTIAL THROMBOPLASTIN TIME 30.5 SEC (24.3-34.3); PROTHROMBIN TIME 11.3 SECS (9.2-11.1); SODIUM SERUM 143 mmol/L (136-145); TOTAL PROTEIN, SERUM 6.6 g/dL (6.4-8.2); UREA NITROGEN, BLOOD 20 mg/dL (7-18)
[2024-07-30 05:06] LABS: ADD URINE CULTURE NO; AMPHETAMINE, URINE NEGATIVE (NEGATIVE); BACTERIA,URINE Rare /HPF (None Seen); BARBITURATE, URINE NEGATIVE (NEGATIVE); BENZODIAZEPINE, URINE POSITIVE (NEGATIVE); CANNABINOID, URINE NEGATIVE (NEGATIVE); COCCAINE, URINE NEGATIVE (NEGATIVE); OPIATE, URINE NEGATIVE (NEGATIVE); PHENCYCLIDINE SCREEN,URINE NEGATIVE (NEGATIVE); RBC,URINE 0-2 /HPF (0-2); SQUAMOUS EPITHELIAL CELL,UR Moderate /HPF (None Seen)
[2024-07-30 05:06] LABS: ACETAMINOPHEN <10 ug/ml (10-30); ALCOHOL, BLOOD < 3 mg/dL (0-10)
[2024-07-30 05:40] LABS: PHENOBARBITAL 1 ug/ml (15-39); PHENYTOIN (DILANTIN) < 0.5 ug/ml (10.0-20.0)
[2024-07-30] MEDS ORDERED: LEVETIRACETAM (500MG) 1,000 MG in IV NS 0.9% 90 ML IV STA (06:10)
[2024-07-30] MEDS ORDERED: LACTULOSE 10 G/15 ML UDC (PYXIS) GT PRN (06:30)
[2024-07-30] MEDS ORDERED: BISACODYL SUPP (10 MG) 10 MG/SUPP.RECT SUPP.RECT RC PRN (06:30)
[2024-07-30] MEDS ORDERED: hydrALAZINE HCL IV 20 MG VIAL IV PRN (06:30)
[2024-07-30] MEDS ORDERED: MORPHINE SULFATE INJ 2 MG/ML DISP.SYRIN IV PRN (06:30)
[2024-07-30] MEDS ORDERED: ENOXAPARIN SODIUM 40 MG/0.4 ML DISP.SYRIN SQ SCH ×2 (06:30→15:06)
[2024-07-30] MEDS ORDERED: MEROPENEM 1 G in IV NS 0.9% 100 ML IV SCH (06:30)
[2024-07-30] MEDS ORDERED: DEXTROSE 50%-WATER 50 ML DISP.SYRIN IV PRN (06:30)
[2024-07-30] MEDS ORDERED: ALBUTEROL FS 2.5 MG/0.5 ML VIAL.NEB NEB PRN ×2 (06:30→14:31)
[2024-07-30] MEDS ORDERED: ONDANSETRON HCL/PF 4 MG/2 ML VIAL IVP PRN (06:30)
[2024-07-30 08:09] LABS: ABG BASE EXCESS 2.6 mmol/L (-2.0-3.0); ABG OXYGEN SATURATION 88.7 % (94.0-98.0); ABG PH 7.391 (7.350-7.450); ABG PO2 62.3 mmHg (83.0-108.0); ABG TOTAL HEMOGLOBIN 8.3 G/dL (12.0-16.0); COHb 0.2 % (0.5-1.5); MetHb 0.4 % (0.0-1.5); O2Hb 88.2 % (94.0-97.0); SITE, ABG RIGHT RADIAL
[2024-07-30] MEDS ORDERED: LISINOPRIL (5MG) 5 MG TABLET GT SCH (09:00)
[2024-07-30] MEDS ORDERED: CLOPIDOGREL BISULFATE 75 MG TABLET GT SCH (09:00)
[2024-07-30] MEDS ORDERED: ASPIRIN 81 MG TAB.CHEW GT SCH (09:00)
[2024-07-30] MEDS ORDERED: LETROZOLE 2.5 MG TABLET GT SCH (09:00)
[2024-07-30] MEDS ORDERED: LEVOTHYROXINE SODIUM 125 MCG TABLET PO SCH (09:00)
[2024-07-30 10:56] LABS: ABG BASE EXCESS 3.1 mmol/L (-2.0-3.0); ABG OXYGEN SATURATION 99.2 % (94.0-98.0); ABG PCO2 39.4 mmHg (32.0-45.0); ABG PH 7.457 (7.350-7.450); ABG PO2 287.7 mmHg (83.0-108.0); ABG TOTAL HEMOGLOBIN 8.2 G/dL (12.0-16.0); COHb 0.1 % (0.5-1.5); MetHb 0.4 % (0.0-1.5); O2Hb 98.7 % (94.0-97.0)
[2024-07-30] MEDS: BLOOD SUGAR DIAGNOSTIC 1 EACH STRIP IN SCH (14:52)
[2024-07-30] MEDS: CLOPIDOGREL BISULFATE 75 MG TABLET GT SCH (14:55)
[2024-07-30] MEDS: ASPIRIN 81 MG TAB.CHEW GT SCH (14:56)
[2024-07-30] MEDS: LISINOPRIL (10MG) 10 MG TABLET GT SCH (14:56)
[2024-07-30] MEDS: MEROPENEM 1 G in IV NS 0.9% 100 ML IV SCH (14:59)
[2024-07-30] MEDS: LETROZOLE 2.5 MG TABLET GT SCH (15:01)
[2024-07-30] MEDS: LEVOTHYROXINE INJ 100 MCG VIAL IV SCH (15:02)
[2024-07-30] MEDS: LACOSAMIDE ORAL SOLN 50 MG/5 ML UDC GT SCH (16:30)
[2024-07-30] MEDS: PANTOPRAZOLE 40 MG/PACK PACK GT SCH (16:34)
[2024-07-30] MEDS: DOCUSATE SODIUM 100 MG CAPSULE PO SCH (16:34)
[2024-07-30] MEDS: ENOXAPARIN SODIUM 40 MG/0.4 ML DISP.SYRIN SQ SCH (16:37)
[2024-07-30] MEDS: INSULIN GLARGINE, 100 UNIT/ML CARTRIDGE SQ SCH (17:00)
[2024-07-30] MEDS: LEVETIRACETAM (500MG) 1,500 MG in IV NS 0.9% 85 ML IV SCH (17:08)
[2024-07-30] MEDS: ASCORBIC ACID 500 MG TABLET GT SCH (17:41)
[2024-07-30] MEDS: HYDROCHLOROTHIAZIDE 25 MG TABLET GT SCH (17:41)
[2024-07-30] MEDS: PROSOURCE / PROSTAT (PYXIS) 30 ML UDC GT SCH (17:41)
[2024-07-30] MEDS: CHOLECALCIFEROL 1,000 UNIT TABLET (VIT D3) GT SCH (17:42)
[2024-07-30] MEDS: VANCOMYCIN 750 MG in IV D5W 250 ML IV SCH (17:42)
[2024-07-30 19:15] LABS: THYROID STIMULATING HORMONE 27.92 uIU/mL (0.358-3.74)
[2024-07-30] MEDS: ATORVASTATIN 10 MG TABLET GT SCH (21:15)
[2024-07-30] MEDS: TRIAMCINOLONE ACETONIDE 0.5% 15 GM TUBE TP SCH (21:30)
[2024-07-31] VITALS (38 sets, daily range): BP systolic 82–137; BP diastolic 37–97; TEMP 97–97.6; O2SAT 88–100
[2024-07-31 04:24] LABS: ABG OXYGEN SATURATION 83.1 % (94.0-98.0); ABG PCO2 40.7 mmHg (32.0-45.0); ABG PH 7.444 (7.350-7.450); ABG PO2 47.2 mmHg (83.0-108.0); ABG TOTAL HEMOGLOBIN 8.8 G/dL (12.0-16.0); COHb 0.3 % (0.5-1.5); O2Hb 82.9 % (94.0-97.0); SITE, ABG LEFT RADIAL
[2024-07-31 04:25] LABS: BASOPHILS % (AUTO) 0.2 % (0.0-2.0); EOSINOPHILS # (AUTO) 2.6 K/uL (0.0-0.7); EOSINOPHILS % (AUTO) 23.3 % (0.0-6.0); HEMATOCRIT 23 % (33-45); HEMOGLOBIN 7.4 g/dL (11.5-14.8); LYMPHOCYTES # (AUTO) 0.6 K/uL (0.8-4.8); MEAN CORPUSCULAR HEMOGLOBIN 29 PG (26.0-33.0); MEAN CORPUSCULAR HGB CONC 32 g/dl (31.0-36.0); MEAN CORPUSCULAR VOLUME 91 fL (82-100); MONOCYTES # (AUTO) 0.6 K/uL (0.1-1.30); MONOCYTES % (AUTO) 5.5 % (2.0-12.0); NEUTROPHILS # (AUTO) 7.4 K/uL (1.8-8.9); PLATELET COUNT (AUTO) 290 K/uL (150-450); RED BLOOD CELL COUNT(AUTO) 2.53 MIL/uL (4.0-5.2); RED CELL DISTRIBUTION WIDTH 20.2 % (11.5-15.0); WHITE BLOOD COUNT (AUTO) 11.2 K/uL (4.3-11.0)
[2024-07-31 04:48] LABS: ALBUMIN 1.6 g/dL (3.4-5.0); BILIRUBIN,TOTAL 0.3 mg/dL (0.2-1.0); CALCIUM, SERUM 8.7 mg/dL (8.5-10.1); CREATININE 0.6 mg/dL (0.6-1.3); MAGNESIUM 2.1 mg/dL (1.8-2.4); PHOSPHORUS 2.5 mg/dL (2.5-4.9); TOTAL PROTEIN, SERUM 5.7 g/dL (6.4-8.2)
[2024-07-31] MEDS: LORAZEPAM INJ 2 MG/ML VIAL IV PRN ×2 (04:52→05:23)
[2024-07-31 06:18] LABS: ANISOCYTOSIS 1+; EOSINOPHILS % (MANUAL) 17 % (0-4); LYMPHOCYTES % (MANUAL) 3 % (16-48); MONOCYTES % (MANUAL) 3 % (0-11.0); NEUTROPHILS % (MANUAL) 77 (42-76); PLATELET ESTIMATE ADEQUATE
[2024-07-31 06:20] LABS: ABG BASE EXCESS 1.1 mmol/L (-2.0-3.0); ABG OXYGEN SATURATION 94.9 % (94.0-98.0); ABG PCO2 59.7 mmHg (32.0-45.0); ABG PH 7.293 (7.350-7.450); ABG PO2 90.2 mmHg (83.0-108.0); COHb 0.3 % (0.5-1.5); MetHb 0.2 % (0.0-1.5); O2Hb 94.4 % (94.0-97.0); SITE, ABG LEFT RADIAL
[2024-07-31] MEDS ORDERED: LORATADINE 10 MG TABLET PO SCH (09:00)
[2024-07-31] MEDS: CLOBETASOL 0.05% OINT 30 GM TUBE TP SCH (09:01)
[2024-07-31 09:25] LABS: ABG BASE EXCESS 3.4 mmol/L (-2.0-3.0); ABG OXYGEN SATURATION 98.8 % (94.0-98.0); ABG PCO2 45.9 mmHg (32.0-45.0); ABG PO2 188.7 mmHg (83.0-108.0); COHb 0.2 % (0.5-1.5); MetHb 0.7 % (0.0-1.5); O2Hb 97.9 % (94.0-97.0); SITE, ABG RIGHT RADIAL
[2024-07-31] MEDS: INSULIN REGULAR, HUMAN 100 UNIT/ML 3 ML VIAL SQ PRN (11:47)
[2024-07-31] MEDS: GLUCERNA 1.2 1,000 ML BOTTLE NG PRN (15:01)
[2024-07-31] MEDS: FLUCONAZOLE (100 MG) 100 MG TABLET PO SCH (22:15)
[2024-08-01] VITALS (79 sets, daily range): BP systolic 70–168; BP diastolic 38–108; TEMP 96–97.1; O2SAT 89–100
[2024-08-01 04:15] LABS: BASOPHILS % (AUTO) 0.2 % (0.0-2.0); EOSINOPHILS # (AUTO) 3.4 K/uL (0.0-0.7); HEMATOCRIT 23 % (33-45); HEMOGLOBIN 7.4 g/dL (11.5-14.8); LYMPHOCYTES # (AUTO) 0.7 K/uL (0.8-4.8); LYMPHOCYTES % (AUTO) 6.8 % (20.0-44.0); MEAN CORPUSCULAR HEMOGLOBIN 30 PG (26.0-33.0); MEAN CORPUSCULAR HGB CONC 33 g/dl (31.0-36.0); MEAN CORPUSCULAR VOLUME 91 fL (82-100); MONOCYTES # (AUTO) 0.6 K/uL (0.1-1.30); MONOCYTES % (AUTO) 5.9 % (2.0-12.0); NEUTROPHILS # (AUTO) 5.2 K/uL (1.8-8.9); NEUTROPHILS % (AUTO) 52.6 % (43.0-81.0); PLATELET COUNT (AUTO) 369 K/uL (150-450); RED BLOOD CELL COUNT(AUTO) 2.48 MIL/uL (4.0-5.2); RED CELL DISTRIBUTION WIDTH 19.6 % (11.5-15.0); WHITE BLOOD COUNT (AUTO) 9.9 K/uL (4.3-11.0)
[2024-08-01 04:17] LABS: EOSINOPHILS % (AUTO) 34.5 % (0.0-6.0)
[2024-08-01 04:41] LABS: CALCIUM, SERUM 9.1 mg/dL (8.5-10.1); CREATININE 0.5 mg/dL (0.6-1.3); MAGNESIUM 2.1 mg/dL (1.8-2.4); PHOSPHORUS 2.1 mg/dL (2.5-4.9); POTASSIUM 3.7 mmol/L (3.5-5.1)
[2024-08-01 04:46] LABS: ANISOCYTOSIS 1+; EOSINOPHILS % (MANUAL) 29 % (0-4); LYMPHOCYTES % (MANUAL) 10 % (16-48); MONOCYTES % (MANUAL) 5 % (0-11.0); MYELOCYTES % 1 % (0-0); NEUTROPHILS % (MANUAL) 55 (42-76); PLATELET ESTIMATE ADEQUATE
[2024-08-01 05:08] LABS: FOLIC ACID 13.8 ng/mL (>3.0)
[2024-08-01] MEDS: LACOSAMIDE 200 MG in IV NS 0.9% 100 ML IV SCH (10:02)
[2024-08-01] MEDS: PROPOFOL 100 ML IV PRN (10:29)
[2024-08-01 10:47] LABS: ABG OXYGEN SATURATION 97.1 % (94.0-98.0); ABG PH 7.474 (7.350-7.450); ABG PO2 89.9 mmHg (83.0-108.0); ABG TOTAL HEMOGLOBIN 8.7 G/dL (12.0-16.0); COHb 0.3 % (0.5-1.5); MetHb 0.1 % (0.0-1.5); O2Hb 96.7 % (94.0-97.0); PEEP,BG 0 cm H2O; SITE, ABG LEFT RADIAL; VT, ABG 500 mL
[2024-08-01] MEDS: NOREPINEPHRINE 8 MG in IV D5W 242 ML IV PRN (13:01)
[2024-08-01] MEDS: NEUTRA PHOS 1 POWD.PACKET NG ONE (16:18)
[2024-08-02] VITALS (88 sets, daily range): BP systolic 89–146; BP diastolic 44–83; TEMP 96.5–97.7; O2SAT 93–100
[2024-08-02 05:10] LABS: CALCIUM, SERUM 9.5 mg/dL (8.5-10.1); CREATININE 0.7 mg/dL (0.6-1.3); MAGNESIUM 2.2 mg/dL (1.8-2.4); PHOSPHORUS 2.3 mg/dL (2.5-4.9); POTASSIUM 3.9 mmol/L (3.5-5.1)
[2024-08-02] MEDS: LEVETIRACETAM SOL (5 ML) 100 MG/ML UDC GT SCH (08:20)
[2024-08-02] MEDS: LACOSAMIDE ORAL SOLN 50 MG/5 ML UDC GT SCH (08:21)
[2024-08-02 09:19] LABS: ABG BASE EXCESS 2.6 mmol/L (-2.0-3.0); ABG PCO2 34.9 mmHg (32.0-45.0); ABG PH 7.491 (7.350-7.450); ABG PO2 70.2 mmHg (83.0-108.0); ABG TOTAL HEMOGLOBIN 7.6 G/dL (12.0-16.0); COHb 0.2 % (0.5-1.5); MetHb 0.3 % (0.0-1.5); O2Hb 93.5 % (94.0-97.0); PEEP,BG 0 cm H2O; SITE, ABG RIGHT BRACHIAL; VT, ABG 475 mL
[2024-08-02 10:18] LABS: BASOPHILS % (AUTO) 0.3 % (0.0-2.0); EOSINOPHILS # (AUTO) 1.4 K/uL (0.0-0.7); EOSINOPHILS % (AUTO) 18.7 % (0.0-6.0); HEMATOCRIT 21 % (33-45); LYMPHOCYTES # (AUTO) 0.8 K/uL (0.8-4.8); LYMPHOCYTES % (AUTO) 10.5 % (20.0-44.0); MEAN CORPUSCULAR HEMOGLOBIN 29 PG (26.0-33.0); MEAN CORPUSCULAR HGB CONC 33 g/dl (31.0-36.0); MEAN CORPUSCULAR VOLUME 90 fL (82-100); MONOCYTES # (AUTO) 0.5 K/uL (0.1-1.30); MONOCYTES % (AUTO) 6.4 % (2.0-12.0); NEUTROPHILS # (AUTO) 4.7 K/uL (1.8-8.9); NEUTROPHILS % (AUTO) 64.1 % (43.0-81.0); PLATELET COUNT (AUTO) 385 K/uL (150-450); RED BLOOD CELL COUNT(AUTO) 2.34 MIL/uL (4.0-5.2); RED CELL DISTRIBUTION WIDTH 19.7 % (11.5-15.0); WHITE BLOOD COUNT (AUTO) 7.3 K/uL (4.3-11.0)
[2024-08-02 10:26] LABS: HEMOGLOBIN 6.9 g/dL (11.5-14.8)
[2024-08-02 11:28] LABS: EOSINOPHILS % (MANUAL) 11 % (0-4); LYMPHOCYTES % (MANUAL) 12 % (16-48); MONOCYTES % (MANUAL) 2 % (0-11.0); NEUTROPHILS % (MANUAL) 75 (42-76); PLATELET ESTIMATE ADEQUATE
[2024-08-02 11:29] LABS: ANISOCYTOSIS 1+
[2024-08-02] MEDS: LEVOFLOXACIN 750 MG /D5W 150ML 750 MG in PREMIX 1 EA IV SCH (12:16)
[2024-08-02] MEDS: NEUTRA PHOS 1 POWD.PACKET NG ONE (16:51)
[2024-08-03] VITALS (86 sets, daily range): BP systolic 87–156; BP diastolic 35–96; TEMP 96.5–97.8; O2SAT 95–100
[2024-08-03 06:05] LABS: BASOPHILS % (AUTO) 0.4 % (0.0-2.0); EOSINOPHILS # (AUTO) 2.3 K/uL (0.0-0.7); EOSINOPHILS % (AUTO) 22.3 % (0.0-6.0); HEMATOCRIT 28 % (33-45); HEMOGLOBIN 9.2 g/dL (11.5-14.8); LYMPHOCYTES # (AUTO) 0.7 K/uL (0.8-4.8); LYMPHOCYTES % (AUTO) 6.6 % (20.0-44.0); MEAN CORPUSCULAR HEMOGLOBIN 29 PG (26.0-33.0); MEAN CORPUSCULAR HGB CONC 33 g/dl (31.0-36.0); MEAN CORPUSCULAR VOLUME 88 fL (82-100); MONOCYTES # (AUTO) 0.7 K/uL (0.1-1.30); NEUTROPHILS # (AUTO) 6.5 K/uL (1.8-8.9); NEUTROPHILS % (AUTO) 63.7 % (43.0-81.0); PLATELET COUNT (AUTO) 432 K/uL (150-450); RED BLOOD CELL COUNT(AUTO) 3.13 MIL/uL (4.0-5.2); RED CELL DISTRIBUTION WIDTH 18.3 % (11.5-15.0); WHITE BLOOD COUNT (AUTO) 10.1 K/uL (4.3-11.0)
[2024-08-03 06:20] LABS: CALCIUM, SERUM 9.1 mg/dL (8.5-10.1); CARBON DIOXIDE 28 mmol/L (21-32); CHLORIDE 111 mmol/L (98-107); CREATININE 0.7 mg/dL (0.6-1.3); GLUCOSE 140 mg/dL (74-106); MAGNESIUM 1.8 mg/dL (1.8-2.4); POTASSIUM 3.9 mmol/L (3.5-5.1); SODIUM SERUM 146 mmol/L (136-145); UREA NITROGEN, BLOOD 22 mg/dL (7-18)
[2024-08-03 08:18] LABS: ABG BASE EXCESS 2.5 mmol/L (-2.0-3.0); ABG OXYGEN SATURATION 96.1 % (94.0-98.0); ABG PCO2 34.4 mmHg (32.0-45.0); ABG PO2 84.5 mmHg (83.0-108.0); ABG TOTAL HEMOGLOBIN 11.1 G/dL (12.0-16.0); COHb 0.1 % (0.5-1.5); MetHb 0.1 % (0.0-1.5); O2Hb 95.9 % (94.0-97.0); PEEP,BG 0 cm H2O; SITE, ABG LEFT RADIAL; VT, ABG 475 mL
[2024-08-03 10:13] LABS: EOSINOPHILS % (MANUAL) 16 % (0-4); LYMPHOCYTES % (MANUAL) 7 % (16-48); MONOCYTES % (MANUAL) 2 % (0-11.0); NEUTROPHILS % (MANUAL) 75 (42-76); PLATELET ESTIMATE ADEQUATE
[2024-08-03 10:14] LABS: ANISOCYTOSIS 1+
[2024-08-03] MEDS ORDERED: VANCOMYCIN 500 MG in IV D5W 100ml IV SCH (18:00)
[2024-08-04] VITALS (77 sets, daily range): BP systolic 108–152; BP diastolic 38–80; TEMP 96.5–97.8; O2SAT 90–100
[2024-08-04 04:53] LABS: BASOPHILS % (AUTO) 0.2 % (0.0-2.0); EOSINOPHILS # (AUTO) 2.4 K/uL (0.0-0.7); EOSINOPHILS % (AUTO) 27.9 % (0.0-6.0); HEMATOCRIT 28 % (33-45); HEMOGLOBIN 9.2 g/dL (11.5-14.8); LYMPHOCYTES # (AUTO) 0.7 K/uL (0.8-4.8); LYMPHOCYTES % (AUTO) 7.8 % (20.0-44.0); MEAN CORPUSCULAR HEMOGLOBIN 29 PG (26.0-33.0); MEAN CORPUSCULAR HGB CONC 33 g/dl (31.0-36.0); MEAN CORPUSCULAR VOLUME 88 fL (82-100); MONOCYTES # (AUTO) 0.8 K/uL (0.1-1.30); NEUTROPHILS # (AUTO) 4.6 K/uL (1.8-8.9); NEUTROPHILS % (AUTO) 55.1 % (43.0-81.0); PLATELET COUNT (AUTO) 507 K/uL (150-450); RED BLOOD CELL COUNT(AUTO) 3.13 MIL/uL (4.0-5.2); RED CELL DISTRIBUTION WIDTH 18.5 % (11.5-15.0); WHITE BLOOD COUNT (AUTO) 8.4 K/uL (4.3-11.0)
[2024-08-04 05:14] LABS: CREATININE 0.8 mg/dL (0.6-1.3); MAGNESIUM 1.9 mg/dL (1.8-2.4); PHOSPHORUS 3.5 mg/dL (2.5-4.9); POTASSIUM 3.6 mmol/L (3.5-5.1)
[2024-08-04] MEDS: VANCOMYCIN 500 MG in IV D5W 100ml IV SCH (05:26)
[2024-08-04 05:43] LABS: BAND % (MANUAL) 2 % (0.0-5.0); EOSINOPHILS % (MANUAL) 18 % (0-4); LYMPHOCYTES % (MANUAL) 10 % (16-48); MONOCYTES % (MANUAL) 12 % (0-11.0); NEUTROPHILS % (MANUAL) 58 (42-76)
[2024-08-04 05:44] LABS: ANISOCYTOSIS 1+; BASOPHILS % (MANUAL) 0 % (0.0-2.0); PLATELET ESTIMATE ADEQUATE
[2024-08-04] MEDS: LEVOTHYROXINE SODIUM 125 MCG TABLET GT SCH (09:11)
[2024-08-04] MEDS ORDERED: POLYETHYLENE GLYCOL 3350 17 GM POWD.PACK PO PRN (10:30)
[2024-08-05] VITALS (43 sets, daily range): BP systolic 103–151; BP diastolic 37–69; TEMP 96.5–98.8; O2SAT 97–100
[2024-08-05 04:39] LABS: BASOPHILS % (AUTO) 0.4 % (0.0-2.0); EOSINOPHILS # (AUTO) 2.2 K/uL (0.0-0.7); HEMATOCRIT 27 % (33-45); HEMOGLOBIN 9.2 g/dL (11.5-14.8); LYMPHOCYTES # (AUTO) 0.7 K/uL (0.8-4.8); MEAN CORPUSCULAR HEMOGLOBIN 30 PG (26.0-33.0); MEAN CORPUSCULAR HGB CONC 34 g/dl (31.0-36.0); MEAN CORPUSCULAR VOLUME 88 fL (82-100); MONOCYTES # (AUTO) 0.8 K/uL (0.1-1.30); MONOCYTES % (AUTO) 8.6 % (2.0-12.0); NEUTROPHILS % (AUTO) 57.7 % (43.0-81.0); PLATELET COUNT (AUTO) 482 K/uL (150-450); RED BLOOD CELL COUNT(AUTO) 3.03 MIL/uL (4.0-5.2); RED CELL DISTRIBUTION WIDTH 18.6 % (11.5-15.0); WHITE BLOOD COUNT (AUTO) 8.8 K/uL (4.3-11.0)
[2024-08-05 05:04] LABS: EOSINOPHILS % (AUTO) 25.3 % (0.0-6.0)
[2024-08-05 05:05] LABS: CALCIUM, SERUM 9.2 mg/dL (8.5-10.1); CREATININE 0.8 mg/dL (0.6-1.3); MAGNESIUM 1.8 mg/dL (1.8-2.4); PHOSPHORUS 3.8 mg/dL (2.5-4.9)
[2024-08-05 08:59] LABS: ANISOCYTOSIS 1+; EOSINOPHILS % (MANUAL) 23 % (0-4); LYMPHOCYTES % (MANUAL) 9 % (16-48); MONOCYTES % (MANUAL) 8 % (0-11.0); NEUTROPHILS % (MANUAL) 60 (42-76); PLATELET ESTIMATE ADEQUATE
[2024-08-05] MEDS: LETROZOLE 2.5 MG TABLET PO SCH (11:30)
[2024-08-05] MEDS: LEVOFLOXACIN (250MG) 250 MG TABLET GT SCH (12:27)
[2024-08-05] MEDS ORDERED: IOHEXOL-300 100 ML VIAL IV ONE (16:29)
[2024-08-05] MEDS ORDERED: IV NS 0.9% 250 ML IV ONE (16:33)
[2024-08-05 17:59] LABS: THYROID STIMULATING HORMONE 57.87 uIU/mL (0.358-3.74)
[2024-08-05 23:09] LABS: VITAMIN B1 THIAMINE,WB 138.6 nmol/L (66.5-200.0)
[2024-08-06] VITALS (33 sets, daily range): BP systolic 103–131; BP diastolic 40–78; TEMP 98.4–99.8; O2SAT 94–100
[2024-08-06 05:08] LABS: BASOPHILS % (AUTO) 0.1 % (0.0-2.0); EOSINOPHILS # (AUTO) 1.7 K/uL (0.0-0.7); EOSINOPHILS % (AUTO) 19.9 % (0.0-6.0); HEMATOCRIT 28 % (33-45); HEMOGLOBIN 9.2 g/dL (11.5-14.8); LYMPHOCYTES # (AUTO) 0.5 K/uL (0.8-4.8); LYMPHOCYTES % (AUTO) 5.5 % (20.0-44.0); MEAN CORPUSCULAR HEMOGLOBIN 29 PG (26.0-33.0); MEAN CORPUSCULAR HGB CONC 33 g/dl (31.0-36.0); MEAN CORPUSCULAR VOLUME 88 fL (82-100); MONOCYTES # (AUTO) 0.9 K/uL (0.1-1.30); MONOCYTES % (AUTO) 10.2 % (2.0-12.0); NEUTROPHILS # (AUTO) 5.5 K/uL (1.8-8.9); NEUTROPHILS % (AUTO) 64.3 % (43.0-81.0); PLATELET COUNT (AUTO) 516 K/uL (150-450); RED BLOOD CELL COUNT(AUTO) 3.13 MIL/uL (4.0-5.2); RED CELL DISTRIBUTION WIDTH 18.3 % (11.5-15.0); WHITE BLOOD COUNT (AUTO) 8.5 K/uL (4.3-11.0)
[2024-08-06 05:17] LABS: CALCIUM, SERUM 9.7 mg/dL (8.5-10.1); CREATININE 0.9 mg/dL (0.6-1.3)
[2024-08-06 05:23] LABS: D-DIMER 3.52 mg/L(FEU (0.17-0.50); INR 1.03 (0.91-1.10); PARTIAL THROMBOPLASTIN TIME 34.2 SEC (24.3-34.3); PROTHROMBIN TIME 10.9 SECS (9.2-11.1)
[2024-08-06] MEDS: HEPARIN SODIUM, PORCINE 5000 UNITS/1 ML VIAL SQ SCH (11:52)
[2024-08-06] MEDS: SOD FERRIC GLUC 125 MG in IV NS 0.9% 100 ML IV SCH (13:51)
[2024-08-06] MEDS: DOCUSATE SODIUM LIQ 100 MG/10 ML UDC NG SCH (17:39)
[2024-08-06] MEDS: INSULIN GLARGINE, 100 UNIT/ML CARTRIDGE SQ SCH (21:45)
[2024-08-07] VITALS (27 sets, daily range): BP systolic 98–159; BP diastolic 40–108; TEMP 97.8–100.1; O2SAT 96–100
[2024-08-07] MEDS: ACETAMINOPHEN 325 MG TABLET PO PRN (00:08)
[2024-08-07 04:38] LABS: BASOPHILS % (AUTO) 0.3 % (0.0-2.0); EOSINOPHILS # (AUTO) 2.5 K/uL (0.0-0.7); HEMATOCRIT 26 % (33-45); HEMOGLOBIN 8.7 g/dL (11.5-14.8); LYMPHOCYTES # (AUTO) 0.7 K/uL (0.8-4.8); LYMPHOCYTES % (AUTO) 8.8 % (20.0-44.0); MEAN CORPUSCULAR HEMOGLOBIN 29 PG (26.0-33.0); MEAN CORPUSCULAR HGB CONC 33 g/dl (31.0-36.0); MEAN CORPUSCULAR VOLUME 88 fL (82-100); MONOCYTES % (AUTO) 13.9 % (2.0-12.0); NEUTROPHILS # (AUTO) 3.2 K/uL (1.8-8.9); NEUTROPHILS % (AUTO) 43.2 % (43.0-81.0); PLATELET COUNT (AUTO) 498 K/uL (150-450); RED BLOOD CELL COUNT(AUTO) 2.98 MIL/uL (4.0-5.2); RED CELL DISTRIBUTION WIDTH 18.3 % (11.5-15.0); WHITE BLOOD COUNT (AUTO) 7.5 K/uL (4.3-11.0)
[2024-08-07 04:50] LABS: EOSINOPHILS % (AUTO) 33.8 % (0.0-6.0)
[2024-08-07 05:04] LABS: CALCIUM, SERUM 9.8 mg/dL (8.5-10.1); CREATININE 1.2 mg/dL (0.6-1.3)
[2024-08-07 05:42] LABS: ANISOCYTOSIS 1+; BAND % (MANUAL) 2 % (0.0-5.0); EOSINOPHILS % (MANUAL) 20 % (0-4); LYMPHOCYTES % (MANUAL) 11 % (16-48); MONOCYTES % (MANUAL) 14 % (0-11.0); NEUTROPHILS % (MANUAL) 53 (42-76); PLATELET ESTIMATE ADEQUATE
[2024-08-07] MEDS: IV D5/ 0.9% NACL 1,000 ML IV SCH (06:01)
[2024-08-07 08:10] LABS: CANCER AG, 125 26.5 U/mL (0.0-38.1); CARCINOEMBRYONIC ANTIGEN (CEA) 4.1 ng/mL (0.0-4.7); FOLIC ACID 7.3 ng/mL (>3.0); IMMUNOGLOBULIN A, SERUM 339 mg/dL (64-422); IMMUNOGLOBULIN G, SERUM 1321 mg/dL (586-1602); IMMUNOGLOBULIN M, SERUM 44 mg/dL (26-217)
[2024-08-07] MEDS: VECURONIUM 10 MG VIAL IV PRN (14:38)
[2024-08-07] MEDS: MIDAZOLAM HCL 2 MG/2ML VIAL IV PRN (14:39)
[2024-08-07] MEDS: FENTANYL PF 100MCG/2ML AMPUL IV PRN (14:39)
[2024-08-08] VITALS (18 sets, daily range): BP systolic 104–158; BP diastolic 39–90; TEMP 98.1–101.9; O2SAT 96–100
[2024-08-08 04:56] LABS: BASOPHILS % (AUTO) 0.3 % (0.0-2.0); EOSINOPHILS # (AUTO) 2.7 K/uL (0.0-0.7); EOSINOPHILS % (AUTO) 22.5 % (0.0-6.0); HEMATOCRIT 29 % (33-45); HEMOGLOBIN 9.4 g/dL (11.5-14.8); LYMPHOCYTES # (AUTO) 0.7 K/uL (0.8-4.8); LYMPHOCYTES % (AUTO) 5.9 % (20.0-44.0); MEAN CORPUSCULAR HEMOGLOBIN 29 PG (26.0-33.0); MEAN CORPUSCULAR HGB CONC 32 g/dl (31.0-36.0); MEAN CORPUSCULAR VOLUME 88 fL (82-100); MONOCYTES # (AUTO) 1.4 K/uL (0.1-1.30); MONOCYTES % (AUTO) 11.5 % (2.0-12.0); NEUTROPHILS # (AUTO) 7.2 K/uL (1.8-8.9); NEUTROPHILS % (AUTO) 59.8 % (43.0-81.0); PLATELET COUNT (AUTO) 547 K/uL (150-450); RED BLOOD CELL COUNT(AUTO) 3.28 MIL/uL (4.0-5.2); RED CELL DISTRIBUTION WIDTH 18.7 % (11.5-15.0)
[2024-08-08 05:12] LABS: CALCIUM, SERUM 9.6 mg/dL (8.5-10.1); POTASSIUM 3.7 mmol/L (3.5-5.1)
[2024-08-08 08:09] LABS: AFP, TUMOR MARKER <1.8 ng/mL (0.0-8.7); CARBOHYDRATE AG 19-9 13 U/mL (0-35)
[2024-08-08] MEDS: D5W IV SCH (23:37)
[2024-08-08] MEDS: GENTAMICIN IV SCH (23:37)
[2024-08-08] MEDS: GENTAMICIN 80 MG/2 ML VIAL ONE ×2 (23:43)
[2024-08-09] VITALS: BP 103/80; TEMP 98.5; O2SAT 100
[2024-08-09 04:00] VITALS: BP 108/57; TEMP 99.1; O2SAT 100
[2024-08-09 07:22] LABS: BASOPHILS % (AUTO) 0.2 % (0.0-2.0); EOSINOPHILS # (AUTO) 1.4 K/uL (0.0-0.7); EOSINOPHILS % (AUTO) 10.1 % (0.0-6.0); HEMATOCRIT 27 % (33-45); LYMPHOCYTES % (AUTO) 7.4 % (20.0-44.0); MEAN CORPUSCULAR HEMOGLOBIN 29 PG (26.0-33.0); MEAN CORPUSCULAR HGB CONC 34 g/dl (31.0-36.0); MEAN CORPUSCULAR VOLUME 88 fL (82-100); MONOCYTES # (AUTO) 0.9 K/uL (0.1-1.30); MONOCYTES % (AUTO) 6.7 % (2.0-12.0); NEUTROPHILS # (AUTO) 10.4 K/uL (1.8-8.9); NEUTROPHILS % (AUTO) 75.6 % (43.0-81.0); PLATELET COUNT (AUTO) 513 K/uL (150-450); RED BLOOD CELL COUNT(AUTO) 3.08 MIL/uL (4.0-5.2); RED CELL DISTRIBUTION WIDTH 18.6 % (11.5-15.0); WHITE BLOOD COUNT (AUTO) 13.7 K/uL (4.3-11.0)
[2024-08-09 07:54] LABS: CALCIUM, SERUM 9.3 mg/dL (8.5-10.1); CREATININE 1.1 mg/dL (0.6-1.3); POTASSIUM 3.7 mmol/L (3.5-5.1)
[2024-08-09 08:00] VITALS: BP 117/50; TEMP 99.1; O2SAT 100
[2024-08-09 12:00] VITALS: BP 95/49; TEMP 99.1; O2SAT 98
[2024-08-09 16:00] VITALS: BP 105/54; TEMP 98.6; O2SAT 98
[2024-08-09 16:55] LABS: D-DIMER 2.14 mg/L(FEU (0.17-0.50); INR 1.14 (0.91-1.10); PARTIAL THROMBOPLASTIN TIME 43.7 SEC (24.3-34.3)
[2024-08-09 20:00] VITALS: BP 105/71; TEMP 99; O2SAT 98
[2024-08-10] VITALS: BP 91/51; TEMP 99; O2SAT 99
[2024-08-10 04:00] VITALS: BP 98/52; TEMP 99.3; O2SAT 96
[2024-08-10 07:41] LABS: BASOPHILS % (AUTO) 0.2 % (0.0-2.0); EOSINOPHILS # (AUTO) 1.1 K/uL (0.0-0.7); EOSINOPHILS % (AUTO) 6.7 % (0.0-6.0); HEMATOCRIT 25 % (33-45); LYMPHOCYTES % (AUTO) 6.5 % (20.0-44.0); MEAN CORPUSCULAR HEMOGLOBIN 28 PG (26.0-33.0); MEAN CORPUSCULAR HGB CONC 32 g/dl (31.0-36.0); MEAN CORPUSCULAR VOLUME 88 fL (82-100); MONOCYTES # (AUTO) 1.2 K/uL (0.1-1.30); MONOCYTES % (AUTO) 7.5 % (2.0-12.0); NEUTROPHILS # (AUTO) 12.6 K/uL (1.8-8.9); NEUTROPHILS % (AUTO) 79.1 % (43.0-81.0); PLATELET COUNT (AUTO) 426 K/uL (150-450); RED CELL DISTRIBUTION WIDTH 18.9 % (11.5-15.0)
[2024-08-10 07:51] LABS: CALCIUM, SERUM 9.7 mg/dL (8.5-10.1); CREATININE 1.2 mg/dL (0.6-1.3); POTASSIUM 3.7 mmol/L (3.5-5.1)
[2024-08-10 07:57] LABS: D-DIMER 2.37 mg/L(FEU (0.17-0.50); INR 1.07 (0.91-1.10); PARTIAL THROMBOPLASTIN TIME 36.9 SEC (24.3-34.3); PROTHROMBIN TIME 11.3 SECS (9.2-11.1)
[2024-08-10 08:00] VITALS: BP 105/45; TEMP 98.6; O2SAT 97
[2024-08-10 12:00] VITALS: BP 103/43; TEMP 98.8; O2SAT 98
[2024-08-10 16:00] VITALS: BP 105/52; TEMP 98.6; O2SAT 97
[2024-08-10 20:00] VITALS: BP 105/56; TEMP 101.1; O2SAT 95
[2024-08-10] MEDS: METRONIDAZOLE 500 MG TABLET PO SCH (21:44)
[2024-08-10] MEDS ORDERED: GENTAMICIN IV SCH (23:00)
[2024-08-10] MEDS ORDERED: D5W IV SCH (23:00)
[2024-08-10] MEDS: GENTAMICIN IV SCH (23:18)
[2024-08-10] MEDS: D5W IV SCH (23:18)
[2024-08-11] VITALS (7 sets, daily range): BP systolic 80–128; BP diastolic 40–65; TEMP 97.5–100; O2SAT 97–99
[2024-08-11] MEDS: IV NS 0.9% 250 ML BAG IV ONE (01:23)
[2024-08-11 07:35] LABS: BASOPHILS % (AUTO) 0.3 % (0.0-2.0); CALCIUM, SERUM 9.5 mg/dL (8.5-10.1); CREATININE 1.3 mg/dL (0.6-1.3); EOSINOPHILS # (AUTO) 1.9 K/uL (0.0-0.7); EOSINOPHILS % (AUTO) 13.8 % (0.0-6.0); HEMATOCRIT 23 % (33-45); HEMOGLOBIN 7.5 g/dL (11.5-14.8); LYMPHOCYTES % (AUTO) 7.6 % (20.0-44.0); MEAN CORPUSCULAR HEMOGLOBIN 29 PG (26.0-33.0); MEAN CORPUSCULAR HGB CONC 33 g/dl (31.0-36.0); MEAN CORPUSCULAR VOLUME 88 fL (82-100); MONOCYTES # (AUTO) 0.9 K/uL (0.1-1.30); MONOCYTES % (AUTO) 6.7 % (2.0-12.0); NEUTROPHILS # (AUTO) 9.8 K/uL (1.8-8.9); NEUTROPHILS % (AUTO) 71.6 % (43.0-81.0); PLATELET COUNT (AUTO) 369 K/uL (150-450); POTASSIUM 3.3 mmol/L (3.5-5.1); RED BLOOD CELL COUNT(AUTO) 2.61 MIL/uL (4.0-5.2); WHITE BLOOD COUNT (AUTO) 13.7 K/uL (4.3-11.0)
[2024-08-11 07:40] LABS: IRON, SERUM 37 ug/dl (50-175); TOTAL IRON BINDING CAPACITY 130 ug/dl (250-450)
[2024-08-11 08:46] LABS: FERRITIN 2161 ng/mL (8-388)
[2024-08-11] MEDS: POTASSIUM CHLORIDE 20 MEQ POWDER PACKET GT ONE (10:51)
[2024-08-11] MEDS ORDERED: POLYETHYLENE GLYCOL 3350 17 GM POWD.PACK GT PRN (12:00)
[2024-08-11] MEDS: METOCLOPRAMIDE HCL 10 MG/10 ML UDC GT SCH (12:23)
[2024-08-11] MEDS: MINERAL OIL 133 ML (PYXIS) 1 EA ENEMA RC ONE (12:23)
[2024-08-11] MEDS: LACTULOSE 10 G/15 ML UDC (PYXIS) GT ONE (12:23)
[2024-08-11] MEDS: POLYETHYLENE GLYCOL 3350 17 GM POWD.PACK GT SCH (21:26)
[2024-08-12 00:12] VITALS: BP 132/67; TEMP 97.7; O2SAT 99
[2024-08-12 05:25] VITALS: BP 129/67; TEMP 98.6; O2SAT 99
[2024-08-12 07:45] LABS: BASOPHILS % (AUTO) 0.2 % (0.0-2.0); CREATININE 1.1 mg/dL (0.6-1.3); EOSINOPHILS # (AUTO) 2.6 K/uL (0.0-0.7); HEMATOCRIT 26 % (33-45); HEMOGLOBIN 8.5 g/dL (11.5-14.8); LYMPHOCYTES # (AUTO) 0.7 K/uL (0.8-4.8); LYMPHOCYTES % (AUTO) 7.2 % (20.0-44.0); MEAN CORPUSCULAR HEMOGLOBIN 29 PG (26.0-33.0); MEAN CORPUSCULAR HGB CONC 33 g/dl (31.0-36.0); MEAN CORPUSCULAR VOLUME 88 fL (82-100); MONOCYTES # (AUTO) 0.8 K/uL (0.1-1.30); MONOCYTES % (AUTO) 8.2 % (2.0-12.0); NEUTROPHILS % (AUTO) 59.2 % (43.0-81.0); PLATELET COUNT (AUTO) 424 K/uL (150-450); POTASSIUM 4.1 mmol/L (3.5-5.1); RED BLOOD CELL COUNT(AUTO) 2.98 MIL/uL (4.0-5.2); RED CELL DISTRIBUTION WIDTH 18.9 % (11.5-15.0); WHITE BLOOD COUNT (AUTO) 10.2 K/uL (4.3-11.0)
[2024-08-12 07:49] LABS: INR 1.06 (0.91-1.10); PROTHROMBIN TIME 11.2 SECS (9.2-11.1)
[2024-08-12 08:00] VITALS: BP 122/52; TEMP 98.6; O2SAT 99
[2024-08-12 08:28] LABS: D-DIMER 5.72 mg/L(FEU (0.17-0.50)
[2024-08-12] MEDS: PROSOURCE / PROSTAT (PYXIS) 30 ML UDC GT SCH (08:49)
[2024-08-12 09:36] LABS: EOSINOPHILS % (AUTO) 25.2 % (0.0-6.0)
[2024-08-12 12:00] VITALS: BP 119/90; TEMP 98.2; O2SAT 98
[2024-08-12 14:21] LABS: EOSINOPHILS % (MANUAL) 24 % (0-4); LYMPHOCYTES % (MANUAL) 6 % (16-48); NEUTROPHILS % (MANUAL) 70 (42-76); PLATELET ESTIMATE ADEQUATE
[2024-08-12 14:22] LABS: ANISOCYTOSIS 1+
[2024-08-12 16:00] VITALS: BP 145/89; TEMP 98.2; O2SAT 98
[2024-08-12 20:00] VITALS: BP 103/58; TEMP 99; O2SAT 97
[2024-08-13] VITALS: BP 119/54; TEMP 99; O2SAT 97
[2024-08-13 04:00] VITALS: BP 123/54; TEMP 98.4; O2SAT 96
[2024-08-13 07:34] LABS: BASOPHILS % (AUTO) 0.1 % (0.0-2.0); EOSINOPHILS # (AUTO) 0.2 K/uL (0.0-0.7); HEMATOCRIT 25 % (33-45); HEMOGLOBIN 8.2 g/dL (11.5-14.8); LYMPHOCYTES # (AUTO) 0.3 K/uL (0.8-4.8); LYMPHOCYTES % (AUTO) 1.7 % (20.0-44.0); MEAN CORPUSCULAR HEMOGLOBIN 29 PG (26.0-33.0); MEAN CORPUSCULAR HGB CONC 32 g/dl (31.0-36.0); MEAN CORPUSCULAR VOLUME 88 fL (82-100); MONOCYTES % (AUTO) 5.3 % (2.0-12.0); NEUTROPHILS # (AUTO) 17.4 K/uL (1.8-8.9); NEUTROPHILS % (AUTO) 91.9 % (43.0-81.0); PLATELET COUNT (AUTO) 389 K/uL (150-450); RED BLOOD CELL COUNT(AUTO) 2.88 MIL/uL (4.0-5.2); RED CELL DISTRIBUTION WIDTH 19.4 % (11.5-15.0)
[2024-08-13 07:55] LABS: CALCIUM, SERUM 9.5 mg/dL (8.5-10.1); CREATININE 1.3 mg/dL (0.6-1.3); PHOSPHORUS 3.2 mg/dL (2.5-4.9)
[2024-08-13 08:00] VITALS: BP 105/41; TEMP 99.3; O2SAT 97
[2024-08-13 12:00] VITALS: BP 105/41; TEMP 98.5; O2SAT 99
[2024-08-13 12:44] LABS: OCCULT BLOOD STOOL NEGATIVE (NEGATIVE)
[2024-08-13 16:00] VITALS: BP 107/56; TEMP 98.5; O2SAT 97
[2024-08-13 20:00] VITALS: BP 126/54; TEMP 97.7; O2SAT 96
[2024-08-13] MEDS: HEPARIN SODIUM, PORCINE 5000 UNITS/1 ML VIAL SQ SCH (20:31)
[2024-08-14] VITALS: BP 114/73; TEMP 98.9; O2SAT 95
[2024-08-14 04:00] VITALS: BP 133/63; TEMP 99; O2SAT 98
[2024-08-14 06:48] LABS: BASOPHILS # (AUTO) 0.1 K/uL (0.0-0.2); BASOPHILS % (AUTO) 0.5 % (0.0-2.0); EOSINOPHILS # (AUTO) 3.5 K/uL (0.0-0.7); HEMATOCRIT 25 % (33-45); LYMPHOCYTES # (AUTO) 0.9 K/uL (0.8-4.8); LYMPHOCYTES % (AUTO) 7.1 % (20.0-44.0); MEAN CORPUSCULAR HEMOGLOBIN 29 PG (26.0-33.0); MEAN CORPUSCULAR HGB CONC 33 g/dl (31.0-36.0); MEAN CORPUSCULAR VOLUME 88 fL (82-100); MONOCYTES % (AUTO) 7.8 % (2.0-12.0); NEUTROPHILS # (AUTO) 6.9 K/uL (1.8-8.9); NEUTROPHILS % (AUTO) 56.2 % (43.0-81.0); PLATELET COUNT (AUTO) 386 K/uL (150-450); RED CELL DISTRIBUTION WIDTH 18.8 % (11.5-15.0); WHITE BLOOD COUNT (AUTO) 12.3 K/uL (4.3-11.0)
[2024-08-14 07:57] LABS: EOSINOPHILS % (AUTO) 28.4 % (0.0-6.0)
[2024-08-14 08:00] VITALS: BP 116/77; TEMP 98.4; O2SAT 96
[2024-08-14 08:24] LABS: CALCIUM, SERUM 9.3 mg/dL (8.5-10.1); CARBON DIOXIDE 29 mmol/L (21-32); CHLORIDE 105 mmol/L (98-107); CREATININE 1.1 mg/dL (0.6-1.3); GLUCOSE 200 mg/dL (74-106); PHOSPHORUS 2.7 mg/dL (2.5-4.9); POTASSIUM 3.9 mmol/L (3.5-5.1); SODIUM SERUM 140 mmol/L (136-145); UREA NITROGEN, BLOOD 37 mg/dL (7-18)
[2024-08-14 11:04] LABS: EOSINOPHILS % (MANUAL) 25 % (0-4); LYMPHOCYTES % (MANUAL) 7 % (16-48); MONOCYTES % (MANUAL) 9 % (0-11.0); NEUTROPHILS % (MANUAL) 59 (42-76); PLATELET ESTIMATE ADEQUATE
[2024-08-14 11:05] LABS: ANISOCYTOSIS 1+; HYPOCHROMASIA 1+
[2024-08-14 12:00] VITALS: BP 117/49; TEMP 97.5; O2SAT 98
[2024-08-14 16:00] VITALS: BP 112/53; TEMP 97.5; O2SAT 97
[2024-08-14 20:00] VITALS: BP 116/54; TEMP 97.5; O2SAT 97
[2024-08-14] MEDS ORDERED: D5W IV SCH (23:00)
[2024-08-14] MEDS ORDERED: GENTAMICIN IV SCH (23:00)
[2024-08-15] VITALS: BP 126/45; TEMP 98.1; O2SAT 97
[2024-08-15 04:00] VITALS: BP 125/62; TEMP 98.1; O2SAT 99
[2024-08-15 07:08] LABS: *SPE A/G RATIO 0.5 (0.7-1.7); *SPE ALBUMIN 1.8 g/dL (2.9-4.4); *SPE ALPHA-1-GLOBULIN 0.3 g/dL (0.0-0.4); *SPE ALPHA-2-GLOBULIN 0.8 g/dL (0.4-1.0); *SPE BETA GLOBULIN 0.9 g/dL (0.7-1.3); *SPE GLOBULIN, TOTAL 3.4 g/dL (2.2-3.9); *SPE M-SPIKE Not Observed g/dL (Not Observed); *SPE PROTEIN TOTAL 5.2 g/dL (6.0-8.5); *SPEGAMMA GLOBULIN 1.3 g/dL (0.4-1.8)
[2024-08-15 07:17] LABS: BASOPHILS % (AUTO) 0.1 % (0.0-2.0); EOSINOPHILS # (AUTO) 4.7 K/uL (0.0-0.7); HEMATOCRIT 27 % (33-45); HEMOGLOBIN 8.8 g/dL (11.5-14.8); LYMPHOCYTES # (AUTO) 1.1 K/uL (0.8-4.8); LYMPHOCYTES % (AUTO) 7.7 % (20.0-44.0); MEAN CORPUSCULAR HEMOGLOBIN 29 PG (26.0-33.0); MEAN CORPUSCULAR HGB CONC 33 g/dl (31.0-36.0); MEAN CORPUSCULAR VOLUME 88 fL (82-100); NEUTROPHILS # (AUTO) 7.3 K/uL (1.8-8.9); NEUTROPHILS % (AUTO) 51.5 % (43.0-81.0); PLATELET COUNT (AUTO) 402 K/uL (150-450); RED BLOOD CELL COUNT(AUTO) 3.04 MIL/uL (4.0-5.2); RED CELL DISTRIBUTION WIDTH 19.2 % (11.5-15.0); WHITE BLOOD COUNT (AUTO) 14.1 K/uL (4.3-11.0)
[2024-08-15 07:24] LABS: EOSINOPHILS % (AUTO) 33.7 % (0.0-6.0)
[2024-08-15 07:42] LABS: CALCIUM, SERUM 9.5 mg/dL (8.5-10.1); CREATININE 0.9 mg/dL (0.6-1.3); PHOSPHORUS 2.5 mg/dL (2.5-4.9); POTASSIUM 3.9 mmol/L (3.5-5.1)
[2024-08-15 08:00] VITALS: BP 96/74; TEMP 98.2; O2SAT 98
[2024-08-15 11:21] LABS: ANISOCYTOSIS 1+; EOSINOPHILS % (MANUAL) 18 % (0-4); LYMPHOCYTES % (MANUAL) 10 % (16-48); MONOCYTES % (MANUAL) 4 % (0-11.0); NEUTROPHILS % (MANUAL) 68 (42-76); PLATELET ESTIMATE ADEQUATE
[2024-08-15 12:00] VITALS: BP 128/48; TEMP 99; O2SAT 99
[2024-08-15 16:00] VITALS: BP 98/69; TEMP 98.4; O2SAT 98
[2024-08-15 20:00] VITALS: BP 106/69; TEMP 98.2; O2SAT 98
[2024-08-15] MEDS: INSULIN GLARGINE, 100 UNIT/ML CARTRIDGE SQ SCH (21:51)
[2024-08-16] VITALS: BP 100/68; TEMP 98.4; O2SAT 98
[2024-08-16 04:00] VITALS: BP 114/57; TEMP 98.6; O2SAT 98
[2024-08-16 08:00] VITALS: BP 99/63; TEMP 97.7; O2SAT 98
[2024-08-16] MEDS: LORATADINE 10 MG TABLET PO SCH (08:45)
[2024-08-16 10:47] LABS: CALCIUM, SERUM 9.5 mg/dL (8.5-10.1); CREATININE 0.9 mg/dL (0.6-1.3); MAGNESIUM 2.3 mg/dL (1.8-2.4); PHOSPHORUS 2.8 mg/dL (2.5-4.9)
[2024-08-16 11:10] LABS: BASOPHILS % (AUTO) 0.2 % (0.0-2.0); EOSINOPHILS # (AUTO) 3.8 K/uL (0.0-0.7); HEMATOCRIT 26 % (33-45); HEMOGLOBIN 8.4 g/dL (11.5-14.8); LYMPHOCYTES # (AUTO) 1.3 K/uL (0.8-4.8); MEAN CORPUSCULAR HEMOGLOBIN 29 PG (26.0-33.0); MEAN CORPUSCULAR HGB CONC 33 g/dl (31.0-36.0); MEAN CORPUSCULAR VOLUME 88 fL (82-100); MONOCYTES # (AUTO) 0.5 K/uL (0.1-1.30); MONOCYTES % (AUTO) 5.5 % (2.0-12.0); NEUTROPHILS # (AUTO) 4.1 K/uL (1.8-8.9); NEUTROPHILS % (AUTO) 41.9 % (43.0-81.0); PLATELET COUNT (AUTO) 400 K/uL (150-450); RED BLOOD CELL COUNT(AUTO) 2.93 MIL/uL (4.0-5.2); RED CELL DISTRIBUTION WIDTH 18.9 % (11.5-15.0); WHITE BLOOD COUNT (AUTO) 9.7 K/uL (4.3-11.0)
[2024-08-16 11:15] LABS: EOSINOPHILS % (AUTO) 39.4 % (0.0-6.0)
[2024-08-16 12:00] VITALS: BP 117/91; TEMP 97.7; O2SAT 98
[2024-08-16] MEDS: diphenhydrAMINE HCL 50 MG/ML VIAL IV PRN (13:59)
[2024-08-16] MEDS: ALPRAZOLAM 0.25 MG TABLET GT PRN (13:59)
[2024-08-16 16:00] VITALS: BP 100/51; TEMP 97.9; O2SAT 99
[2024-08-16 17:10] LABS: ANISOCYTOSIS 1+; BAND % (MANUAL) 1 % (0.0-5.0); EOSINOPHILS % (MANUAL) 40 % (0-4); LYMPHOCYTES % (MANUAL) 11 % (16-48); METAMYELOCYTES % 1 % (0-0); MONOCYTES % (MANUAL) 8 % (0-11.0); NEUTROPHILS % (MANUAL) 39 (42-76); PLATELET ESTIMATE ADEQUATE
[2024-08-16 20:00] VITALS: BP 113/53; TEMP 97.5; O2SAT 100
[2024-08-17] VITALS: BP 98/74; TEMP 98.2; O2SAT 100
[2024-08-17 04:00] VITALS: BP 123/60; TEMP 97.9; O2SAT 100
[2024-08-17 08:00] VITALS: BP 136/60; TEMP 98.1; O2SAT 100
[2024-08-17 12:00] VITALS: BP 128/67; TEMP 98.4; O2SAT 100
[2024-08-17] MEDS ORDERED: IOHEXOL-300 100 ML VIAL IV ONE (14:35)
[2024-08-17] MEDS ORDERED: IV NS 0.9% 0 ML IV ONE (14:36)
[2024-08-17] MEDS ORDERED: POLYETHYLENE GLYCOL 3350 17 GM POWD.PACK GT PRN (15:49)
[2024-08-17 16:00] VITALS: BP 121/41; TEMP 97.7; O2SAT 97
[2024-08-17 20:00] VITALS: BP 146/86; TEMP 98.6; O2SAT 97
[2024-08-18] VITALS: BP 125/63; TEMP 98.6; O2SAT 99
[2024-08-18 04:00] VITALS: BP 140/63; TEMP 98.6; O2SAT 99
[2024-08-18 08:00] VITALS: BP 146/86; TEMP 98.6; O2SAT 97
[2024-08-18 08:37] LABS: BASOPHILS % (AUTO) 0.3 % (0.0-2.0); HEMATOCRIT 27 % (33-45); HEMOGLOBIN 8.8 g/dL (11.5-14.8); LYMPHOCYTES # (AUTO) 1.3 K/uL (0.8-4.8); LYMPHOCYTES % (AUTO) 10.4 % (20.0-44.0); MEAN CORPUSCULAR HEMOGLOBIN 29 PG (26.0-33.0); MEAN CORPUSCULAR HGB CONC 33 g/dl (31.0-36.0); MEAN CORPUSCULAR VOLUME 90 fL (82-100); MONOCYTES # (AUTO) 0.8 K/uL (0.1-1.30); MONOCYTES % (AUTO) 6.1 % (2.0-12.0); NEUTROPHILS # (AUTO) 6.2 K/uL (1.8-8.9); NEUTROPHILS % (AUTO) 50.9 % (43.0-81.0); PLATELET COUNT (AUTO) 439 K/uL (150-450); RED BLOOD CELL COUNT(AUTO) 3.01 MIL/uL (4.0-5.2); RED CELL DISTRIBUTION WIDTH 19.2 % (11.5-15.0); WHITE BLOOD COUNT (AUTO) 12.2 K/uL (4.3-11.0)
[2024-08-18 08:38] LABS: CALCIUM, SERUM 9.9 mg/dL (8.5-10.1); CREATININE 0.9 mg/dL (0.6-1.3); MAGNESIUM 2.3 mg/dL (1.8-2.4); PHOSPHORUS 3.2 mg/dL (2.5-4.9); POTASSIUM 4.1 mmol/L (3.5-5.1)
[2024-08-18 08:45] LABS: EOSINOPHILS % (AUTO) 32.3 % (0.0-6.0)
[2024-08-18 10:10] LABS: ANISOCYTOSIS 1+; EOSINOPHILS % (MANUAL) 33 % (0-4); LYMPHOCYTES % (MANUAL) 10 % (16-48); MONOCYTES % (MANUAL) 3 % (0-11.0); NEUTROPHILS % (MANUAL) 54 (42-76); PLATELET ESTIMATE ADEQUATE
[2024-08-18 12:00] VITALS: BP 134/52; TEMP 98.6; O2SAT 98
[2024-08-18 16:00] VITALS: BP 136/64; TEMP 98.4; O2SAT 98
[2024-08-18 20:00] VITALS: BP 125/71; TEMP 99; O2SAT 98
[2024-08-19] VITALS: BP 136/71; TEMP 99.1; O2SAT 99
[2024-08-19 04:00] VITALS: BP 135/72; TEMP 98.8; O2SAT 99
[2024-08-19 06:54] LABS: BASOPHILS % (AUTO) 0.3 % (0.0-2.0); EOSINOPHILS # (AUTO) 3.1 K/uL (0.0-0.7); HEMATOCRIT 27 % (33-45); LYMPHOCYTES # (AUTO) 1.2 K/uL (0.8-4.8); LYMPHOCYTES % (AUTO) 12.1 % (20.0-44.0); MEAN CORPUSCULAR HEMOGLOBIN 29 PG (26.0-33.0); MEAN CORPUSCULAR HGB CONC 33 g/dl (31.0-36.0); MEAN CORPUSCULAR VOLUME 88 fL (82-100); MONOCYTES # (AUTO) 0.8 K/uL (0.1-1.30); NEUTROPHILS # (AUTO) 5.1 K/uL (1.8-8.9); NEUTROPHILS % (AUTO) 49.4 % (43.0-81.0); PLATELET COUNT (AUTO) 429 K/uL (150-450); RED BLOOD CELL COUNT(AUTO) 3.07 MIL/uL (4.0-5.2); RED CELL DISTRIBUTION WIDTH 19.5 % (11.5-15.0); WHITE BLOOD COUNT (AUTO) 10.2 K/uL (4.3-11.0)
[2024-08-19 07:21] LABS: CALCIUM, SERUM 9.4 mg/dL (8.5-10.1); CREATININE 0.9 mg/dL (0.6-1.3); MAGNESIUM 2.1 mg/dL (1.8-2.4); PHOSPHORUS 2.9 mg/dL (2.5-4.9); POTASSIUM 4.2 mmol/L (3.5-5.1)
[2024-08-19 07:52] LABS: EOSINOPHILS % (AUTO) 30.2 % (0.0-6.0)
[2024-08-19 08:00] VITALS: BP 133/70; TEMP 98.3; O2SAT 99
[2024-08-19] MEDS: ACETAMINOPHEN 650 MG/20.3 ML UDC PO PRN (09:52)
[2024-08-19 10:22] LABS: ABG BASE EXCESS 4.8 mmol/L (-2.0-3.0); ABG OXYGEN SATURATION 96.8 % (94.0-98.0); ABG PCO2 35.9 mmHg (32.0-45.0); ABG PH 7.511 (7.350-7.450); ABG TOTAL HEMOGLOBIN 8.9 G/dL (12.0-16.0); COHb 0.3 % (0.5-1.5); MetHb 0.2 % (0.0-1.5); O2Hb 96.3 % (94.0-97.0); PEEP,BG 0 cm H2O; SITE, ABG LEFT RADIAL; VT, ABG 400 mL
[2024-08-19 12:00] VITALS: BP 135/65; TEMP 98; O2SAT 99
[2024-08-19 16:00] VITALS: BP 132/65; TEMP 98; O2SAT 99
[2024-08-19 16:02] LABS: BAND % (MANUAL) 1 % (0.0-5.0); EOSINOPHILS % (MANUAL) 28 % (0-4); LYMPHOCYTES % (MANUAL) 14 % (16-48); MONOCYTES % (MANUAL) 8 % (0-11.0); NEUTROPHILS % (MANUAL) 49 (42-76)
[2024-08-19 16:03] LABS: ANISOCYTOSIS 1+; PLATELET ESTIMATE ADEQUATE
[2024-08-19 16:05] LABS: OVALOCYTES OCC; TEAR DROP CELLS OCC
[2024-08-19 20:00] VITALS: BP 131/60; TEMP 98.6; O2SAT 99
[2024-08-20] VITALS: BP 131/60; TEMP 98.6; O2SAT 99
[2024-08-20 04:00] VITALS: BP_SYST 106; BP_SYST 131; BP_DIAS 60; BP_DIAS 90; TEMP 98.6; TEMP 98.9; O2SAT 99
[2024-08-20 07:36] LABS: BASOPHILS % (AUTO) 0.2 % (0.0-2.0); EOSINOPHILS # (AUTO) 2.9 K/uL (0.0-0.7); HEMATOCRIT 28 % (33-45); HEMOGLOBIN 9.2 g/dL (11.5-14.8); LYMPHOCYTES # (AUTO) 1.1 K/uL (0.8-4.8); LYMPHOCYTES % (AUTO) 11.1 % (20.0-44.0); MEAN CORPUSCULAR HEMOGLOBIN 29 PG (26.0-33.0); MEAN CORPUSCULAR HGB CONC 33 g/dl (31.0-36.0); MEAN CORPUSCULAR VOLUME 90 fL (82-100); MONOCYTES # (AUTO) 0.9 K/uL (0.1-1.30); MONOCYTES % (AUTO) 9.1 % (2.0-12.0); NEUTROPHILS # (AUTO) 5.1 K/uL (1.8-8.9); NEUTROPHILS % (AUTO) 50.7 % (43.0-81.0); PLATELET COUNT (AUTO) 420 K/uL (150-450); RED BLOOD CELL COUNT(AUTO) 3.11 MIL/uL (4.0-5.2); RED CELL DISTRIBUTION WIDTH 19.7 % (11.5-15.0); WHITE BLOOD COUNT (AUTO) 10.1 K/uL (4.3-11.0)
[2024-08-20 07:59] LABS: EOSINOPHILS % (AUTO) 28.9 % (0.0-6.0)
[2024-08-20 10:53] VITALS: BP 118/67; TEMP 98.5; O2SAT 99
[2024-08-20 14:14] VITALS: BP 121/67; TEMP 98.5; O2SAT 99
[2024-08-20 15:14] LABS: EOSINOPHILS % (MANUAL) 13 % (0-4); LYMPHOCYTES % (MANUAL) 14 % (16-48); MONOCYTES % (MANUAL) 5 % (0-11.0); NEUTROPHILS % (MANUAL) 68 (42-76); PLATELET ESTIMATE ADEQUATE
[2024-08-20 15:15] LABS: ANISOCYTOSIS 1+
[2024-08-20 16:44] VITALS: BP 129/67; TEMP 98.5; O2SAT 99
[2024-08-20 20:00] VITALS: BP 137/84; TEMP 98.4; O2SAT 97
[2024-08-21] VITALS: BP 125/72; TEMP 97.8; O2SAT 97
[2024-08-21 04:00] VITALS: BP 140/60; TEMP 98.7; O2SAT 98
[2024-08-21 07:34] LABS: BASOPHILS % (AUTO) 0.2 % (0.0-2.0); EOSINOPHILS # (AUTO) 3.2 K/uL (0.0-0.7); HEMATOCRIT 29 % (33-45); HEMOGLOBIN 9.5 g/dL (11.5-14.8); LYMPHOCYTES % (AUTO) 8.4 % (20.0-44.0); MEAN CORPUSCULAR HEMOGLOBIN 29 PG (26.0-33.0); MEAN CORPUSCULAR HGB CONC 33 g/dl (31.0-36.0); MEAN CORPUSCULAR VOLUME 88 fL (82-100); MONOCYTES # (AUTO) 0.9 K/uL (0.1-1.30); MONOCYTES % (AUTO) 7.7 % (2.0-12.0); NEUTROPHILS # (AUTO) 6.7 K/uL (1.8-8.9); NEUTROPHILS % (AUTO) 56.8 % (43.0-81.0); PLATELET COUNT (AUTO) 456 K/uL (150-450); RED BLOOD CELL COUNT(AUTO) 3.23 MIL/uL (4.0-5.2); RED CELL DISTRIBUTION WIDTH 19.4 % (11.5-15.0); WHITE BLOOD COUNT (AUTO) 11.8 K/uL (4.3-11.0)
[2024-08-21 07:41] LABS: EOSINOPHILS % (AUTO) 26.9 % (0.0-6.0)
[2024-08-21 08:05] VITALS: BP 107/73; TEMP 98.1; O2SAT 98
[2024-08-21] MEDS ORDERED: LACO10SO GT (10:13)
[2024-08-21] MEDS ORDERED: LEVE100S GT (10:13)
[2024-08-21 10:38] LABS: EOSINOPHILS % (MANUAL) 25 % (0-4); LYMPHOCYTES % (MANUAL) 8 % (16-48); MONOCYTES % (MANUAL) 9 % (0-11.0); NEUTROPHILS % (MANUAL) 58 (42-76)
[2024-08-21 10:39] LABS: ANISOCYTOSIS 1+; PLATELET ESTIMATE INCREASED
[2024-08-21 10:40] LABS: STOMATOCYTES FEW
[2024-08-21 12:05] VITALS: BP 113/90; TEMP 98.1; O2SAT 98
== END 2024-08-21 13:25 | DRG 4 ==
LOC: ER 04:14 → TRANSITION 09:36 → ICU IN 10:26 → ICU 11:58 → TELE1 08-08 17:22
PROVIDERS: ADMIT Student in an Organized Health Care Education/Training Program; ATTEND Internal Medicine
PROC: 5A1955Z Respiratory Ventilation, Greater than 96 Consecutive Hours (ICD-10-PCS; principal; 2024-08-01)
PROC: 0BH17EZ Insertion of Endotracheal Airway into Trachea, Via Natural or Artificial Opening (ICD-10-PCS; 2024-08-01)
PROC: 30233N1 Transfusion of Nonautologous Red Blood Cells into Peripheral Vein, Percutaneous Approach (ICD-10-PCS; 2024-08-02)
PROC: 0B113F4 Bypass Trachea to Cutaneous with Tracheostomy Device, Percutaneous Approach (ICD-10-PCS; 2024-08-07)
PROC: 0BJ08ZZ Inspection of Tracheobronchial Tree, Via Natural or Artificial Opening Endoscopic (ICD-10-PCS; 2024-08-07)
DX: G40.909 Epilepsy, unspecified, not intractable, without status epilepticus (principal); J96.21 Acute and chronic respiratory failure with hypoxia; A41.9 Sepsis, unspecified organism; R65.21 Severe sepsis with septic shock; J96.22 Acute and chronic respiratory failure with hypercapnia; D68.59 Other primary thrombophilia; E44.0 Moderate protein-calorie malnutrition; N17.9 Acute kidney failure, unspecified; I69.351 Hemiplegia and hemiparesis following cerebral infarction affecting right dominant side; B37.49 Other urogenital candidiasis; E86.0 Dehydration; D75.839 Thrombocytosis, unspecified; E03.9 Hypothyroidism, unspecified; E78.5 Hyperlipidemia, unspecified; E88.09 Other disorders of plasma-protein metabolism, not elsewhere classified; F25.9 Schizoaffective disorder, unspecified; K21.9 Gastro-esophageal reflux disease without esophagitis; R13.10 Dysphagia, unspecified; Z87.440 Personal history of urinary (tract) infections; Z88.0 Allergy status to penicillin; Z88.2 Allergy status to sulfonamides; Z93.1 Gastrostomy status; I25.10 Atherosclerotic heart disease of native coronary artery without angina pectoris; Z85.3 Personal history of malignant neoplasm of breast; Z86.14 Personal history of Methicillin resistant Staphylococcus aureus infection; Z79.82 Long term (current) use of aspirin; Z79.4 Long term (current) use of insulin; Z92.21 Personal history of antineoplastic chemotherapy; Z79.899 Other long term (current) drug therapy; M79.7 Fibromyalgia; E83.9 Disorder of mineral metabolism, unspecified; I10 Essential (primary) hypertension; D63.8 Anemia in other chronic diseases classified elsewhere; E11.40 Type 2 diabetes mellitus with diabetic neuropathy, unspecified; E11.649 Type 2 diabetes mellitus with hypoglycemia without coma; L90.5 Scar conditions and fibrosis of skin; L98.8 Other specified disorders of the skin and subcutaneous tissue; L25.9 Unspecified contact dermatitis, unspecified cause; E66.9 Obesity, unspecified; Z68.30 Body mass index [BMI] 30.0-30.9, adult; G20.A1 Parkinson's disease without dyskinesia, without mention of fluctuations; K76.89 Other specified diseases of liver; K59.00 Constipation, unspecified; Z87.01 Personal history of pneumonia (recurrent); F02.80 Dementia in other diseases classified elsewhere, unspecified severity, without behavioral disturbance, psychotic disturbance, mood disturbance, and anxiety; Z79.811 Long term (current) use of aromatase inhibitors
CPT/HCPCS: 31623; 31720; 36415; 36600; 70450-TC; 71045-TC; 71250-TC; 74018; 76604-TC; 76700-TC; 80048-TC; 80053-TC; 80076-TC; 80170-TC; 80184; 80185-TC; 80202-TC; 81001; 82105; 82140-TC; 82272-TC; 82378; 82607-TC; 82728-TC; 82784; 82803-TC; 82962-TC; 83540-TC; 83615-TC; 83735-TC; 83921; 84100-TC; 84155; 84165; 84425; 84443-TC; 84478-TC; 84484-TC; 85025-TC; 85396; 85730-TC; 86300; 86301; 86304; 86334; 86850-TC; 87040-TC; 87081-TC; 87086-TC; 93970-TC; 94002-TC; 94003-TC; 94760-TC; 94762-TC; 94799-TC; 95819-TC; 99082-TC; A4216; A4223; A4623; A7526; C1769; G0378; G0480; J1200; J1580; J1644; J1650; J1815; J1953; J1956; J2060; J2185; J2250; J2916; J3010; J3370; J3371; J3490; J7030; J7040; J7042; J7050; J7060; J8597; P9016; Q9967

== ENCOUNTER 2024-09-27 19:26 | Inpatient (IN) | payer MEDICARE, OTHER ==
[~2024-09-27] VITALS: Ht 157.5 cm; Wt 78.5 kg
[~2024-09-27 19:26] MED LIST changes: +CEFE1VIA3 IV; +LEVO125T8 GT; -LEVO125T8 PO; -MERO1PIG IV; -VANC750F2 IV; +VANC750V IV
[2024-09-27 20:15] LABS: BASOPHILS % (AUTO) 0.2 % (0.0-2.0); EOSINOPHILS # (AUTO) 1.5 K/uL (0.0-0.7); EOSINOPHILS % (AUTO) 10.3 % (0.0-6.0); HEMATOCRIT 22 % (33-45); HEMOGLOBIN 7.1 g/dL (11.5-14.8); LYMPHOCYTES # (AUTO) 0.7 K/uL (0.8-4.8); LYMPHOCYTES % (AUTO) 4.5 % (20.0-44.0); MEAN CORPUSCULAR HEMOGLOBIN 31 PG (26.0-33.0); MEAN CORPUSCULAR HGB CONC 33 g/dl (31.0-36.0); MEAN CORPUSCULAR VOLUME 94 fL (82-100); MONOCYTES # (AUTO) 0.7 K/uL (0.1-1.30); MONOCYTES % (AUTO) 4.8 % (2.0-12.0); NEUTROPHILS # (AUTO) 11.6 K/uL (1.8-8.9); NEUTROPHILS % (AUTO) 80.2 % (43.0-81.0); PLATELET COUNT (AUTO) 250 K/uL (150-450); RED BLOOD CELL COUNT(AUTO) 2.31 MIL/uL (4.0-5.2); RED CELL DISTRIBUTION WIDTH 21.9 % (11.5-15.0); WHITE BLOOD COUNT (AUTO) 14.5 K/uL (4.3-11.0)
[2024-09-27 20:25] LABS: CALCIUM, SERUM 10.2 mg/dL (8.5-10.1); CREATININE 0.8 mg/dL (0.6-1.3); POTASSIUM 5.1 mmol/L (3.5-5.1)
[2024-09-27 20:30] LABS: ALBUMIN 2.4 g/dL (3.4-5.0); BILIRUBIN,DIRECT 0.1 mg/dL (0.0-0.2); BILIRUBIN,TOTAL 0.2 mg/dL (0.2-1.0); TOTAL PROTEIN, SERUM 7.7 g/dL (6.4-8.2)
[2024-09-27 20:33] LABS: INR 1.03 (0.91-1.10); PARTIAL THROMBOPLASTIN TIME 35.2 SEC (24.3-34.3); PROTHROMBIN TIME 10.9 SECS (9.2-11.1)
[2024-09-27] MEDS ORDERED: ACETAMINOPHEN 325 MG TABLET PO PRN (22:00)
[2024-09-27] MEDS ORDERED: IV NS 0.9% 1,000 ML IV PRN (22:00)
[2024-09-27] MEDS ORDERED: ZOLPIDEM TARTRATE 5 MG TABLET PO PRN (22:00)
[2024-09-27] MEDS ORDERED: MAGNESIUM HYDROXIDE 30 ML UDC PO PRN (22:00)
[2024-09-27] MEDS ORDERED: ONDANSETRON HCL/PF 4 MG/2 ML VIAL IVP PRN (22:00)
[2024-09-27] MEDS ORDERED: Z GUARD REMEDY 4 OZ OINT TP PRN (22:00)
[2024-09-27] MEDS ORDERED: MAG HYDROX/AL HYDROX/SIMETH 30 ML UDC PO PRN (22:00)
[2024-09-27] MEDS ORDERED: HYDROCODONE/APAP 5/325MG TABLET GT PRN (23:30)
[2024-09-27] MEDS ORDERED: LORAZEPAM INJ 2 MG/ML VIAL IM PRN (23:30)
[2024-09-28] VITALS (11 sets, daily range): BP systolic 104–140; BP diastolic 50–100; TEMP 95.5–98.2; O2SAT 96–100
[2024-09-28] MEDS: LEVETIRACETAM SOL (5 ML) 100 MG/ML UDC GT SCH (00:21)
[2024-09-28] MEDS ORDERED: VANCOMYCIN 1.5 GM in IV D5W 500 ML IV ONE (00:30)
[2024-09-28] MEDS: IV D5/0.45 NACL 1,000 ML IV PRN (01:17)
[2024-09-28] MEDS ORDERED: CLINDAMYCIN 900 MG/6 ML VIAL ONE (01:40)
[2024-09-28] MEDS: CLINDAMYCIN 600 MG in IV NS 0.9% 46 ML IV SCH ×2 (02:00→08:28)
[2024-09-28 07:33] LABS: CALCIUM, SERUM 10.3 mg/dL (8.5-10.1); CREATININE 0.8 mg/dL (0.6-1.3); MAGNESIUM 2.3 mg/dL (1.8-2.4); PHOSPHORUS 3.8 mg/dL (2.5-4.9)
[2024-09-28] MEDS ORDERED: CHLO473M5 PO (08:07)
[2024-09-28] MEDS ORDERED: LEVE100S GT (08:07)
[2024-09-28] MEDS ORDERED: ALBU2.5V38 NEB (08:07)
[2024-09-28] MEDS ORDERED: LORA-258 GT (08:07)
[2024-09-28] MEDS ORDERED: FERR220S2 GT (08:07)
[2024-09-28] MEDS ORDERED: DIPH25TA27 PO (08:07)
[2024-09-28] MEDS: LORAZEPAM 1 MG TABLET GT SCH (08:27)
[2024-09-28] MEDS: LEVOTHYROXINE SODIUM 125 MCG TABLET PO SCH (08:27)
[2024-09-28] MEDS: PANTOPRAZOLE 40 MG VIAL IV SCH (08:28)
[2024-09-28] MEDS: LACOSAMIDE ORAL SOLN 50 MG/5 ML UDC GT SCH (08:28)
[2024-09-28 08:39] LABS: BASOPHILS % (AUTO) 0.3 % (0.0-2.0); EOSINOPHILS # (AUTO) 1.7 K/uL (0.0-0.7); EOSINOPHILS % (AUTO) 16.2 % (0.0-6.0); LYMPHOCYTES # (AUTO) 0.7 K/uL (0.8-4.8); LYMPHOCYTES % (AUTO) 6.9 % (20.0-44.0); MEAN CORPUSCULAR HEMOGLOBIN 31 PG (26.0-33.0); MEAN CORPUSCULAR HGB CONC 34 g/dl (31.0-36.0); MEAN CORPUSCULAR VOLUME 93 fL (82-100); MONOCYTES # (AUTO) 0.5 K/uL (0.1-1.30); MONOCYTES % (AUTO) 4.6 % (2.0-12.0); NEUTROPHILS # (AUTO) 7.6 K/uL (1.8-8.9); PLATELET COUNT (AUTO) 239 K/uL (150-450); RED BLOOD CELL COUNT(AUTO) 2.16 MIL/uL (4.0-5.2); RED CELL DISTRIBUTION WIDTH 22.2 % (11.5-15.0); WHITE BLOOD COUNT (AUTO) 10.6 K/uL (4.3-11.0)
[2024-09-28 08:42] LABS: HEMATOCRIT 20 % (33-45); HEMOGLOBIN 6.8 g/dL (11.5-14.8)
[2024-09-28] MEDS ORDERED: LISINOPRIL (5MG) 5 MG TABLET GT SCH (09:00)
[2024-09-28 09:36] LABS: IRON, SERUM 32 ug/dl (50-175); TOTAL IRON BINDING CAPACITY 235 ug/dl (250-450)
[2024-09-28] MEDS: LISINOPRIL (5MG) 5 MG TABLET GT SCH (12:40)
[2024-09-28 12:55] LABS: EOSINOPHILS % (MANUAL) 7 % (0-4); LYMPHOCYTES % (MANUAL) 6 % (16-48); MONOCYTES % (MANUAL) 3 % (0-11.0); NEUTROPHILS % (MANUAL) 84 (42-76); PLATELET ESTIMATE ADEQUATE
[2024-09-28 12:56] LABS: ANISOCYTOSIS 1+
[2024-09-28] MEDS: LETROZOLE 2.5 MG TABLET GT SCH (17:00)
[2024-09-28] MEDS: HYDROCHLOROTHIAZIDE 25 MG TABLET GT SCH (17:11)
[2024-09-28] MEDS: ALBUTEROL FS 2.5 MG/0.5 ML VIAL.NEB NEB PRN (20:42)
[2024-09-28] MEDS: INSULIN GLARGINE, 100 UNIT/ML CARTRIDGE SQ SCH (21:34)
[2024-09-29] VITALS: BP 128/61; TEMP 97.8; O2SAT 100
[2024-09-29 04:00] VITALS: BP 131/67; TEMP 97.7; O2SAT 97
[2024-09-29 07:07] LABS: APPEARANCE,URINE SLIGHTLY CLOUDY (CLEAR); BILIRUBIN,URINE NEGATIVE (NEGATIVE); BLOOD, URINE TRACE-INTA Ery/uL (NEGATIVE); COLOR,URINE YELLOW (YELLOW); KETONES,URINE NEGATIVE (NEGATIVE); LEUKOCYTE ESTERASE ,URINE 1+ (NEGATIVE); NITRITE, URINE POSITIVE (NEGATIVE); PROTEIN,URINE NEGATIVE (NEGATIVE); UGLUCOSE NEGATIVE (NEGATIVE); UROBILINOGEN,URINE 0.2 EU/dL (0.2)
[2024-09-29 07:43] LABS: ADD URINE CULTURE YES; BACTERIA,URINE Few /HPF (None Seen); SQUAMOUS EPITHELIAL CELL,UR 0-2 /HPF (None Seen); TRIPLE PHOSPHATE CRYSTAL,UR Few /HPF (None Seen); YEAST,URINE Hyphal filaments /HPF (None Seen)
[2024-09-29 08:05] VITALS: BP 138/73; TEMP 97.9; O2SAT 100
[2024-09-29 08:16] LABS: CREATININE, URINE < 13.0 MG/DL (30.0-125.0); URINE SODIUM, RANDOM 88 mmol/l (40-220); URINE TOTAL PROTEIN 20.6 mg/dL (0-11.9)
[2024-09-29 10:47] LABS: EOSINOPHIL,URINE None Seen
[2024-09-29 11:45] LABS: CALCIUM, SERUM 10.1 mg/dL (8.5-10.1); CREATININE 0.7 mg/dL (0.6-1.3)
[2024-09-29 12:05] VITALS: BP 138/102; TEMP 97.6; O2SAT 100
[2024-09-29] MEDS ORDERED: IV NS 0.9% 250 ML IV ONE (13:53)
[2024-09-29] MEDS ORDERED: IOHEXOL-350 100 ML VIAL IV ONE (13:53)
[2024-09-29] MEDS: SOD FERRIC GLUC 125 MG in IV NS 0.9% 100 ML IV SCH (14:57)
[2024-09-29 16:05] VITALS: BP 118/51; TEMP 97.7; O2SAT 100
[2024-09-29 17:25] LABS: BASOPHILS % (AUTO) 0.3 % (0.0-2.0); EOSINOPHILS # (AUTO) 3.4 K/uL (0.0-0.7); HEMATOCRIT 23 % (33-45); HEMOGLOBIN 7.6 g/dL (11.5-14.8); LYMPHOCYTES % (AUTO) 9.7 % (20.0-44.0); MEAN CORPUSCULAR HEMOGLOBIN 30 PG (26.0-33.0); MEAN CORPUSCULAR HGB CONC 33 g/dl (31.0-36.0); MEAN CORPUSCULAR VOLUME 91 fL (82-100); MONOCYTES # (AUTO) 0.5 K/uL (0.1-1.30); MONOCYTES % (AUTO) 5.4 % (2.0-12.0); NEUTROPHILS # (AUTO) 5.1 K/uL (1.8-8.9); PLATELET COUNT (AUTO) 221 K/uL (150-450); RED BLOOD CELL COUNT(AUTO) 2.52 MIL/uL (4.0-5.2); RED CELL DISTRIBUTION WIDTH 22.8 % (11.5-15.0)
[2024-09-29 17:36] LABS: EOSINOPHILS % (AUTO) 33.6 % (0.0-6.0)
[2024-09-29 19:07] LABS: OCCULT BLOOD STOOL NEGATIVE (NEGATIVE)
[2024-09-29 19:49] LABS: EOSINOPHILS % (MANUAL) 32 % (0-4); LYMPHOCYTES % (MANUAL) 11 % (16-48); MONOCYTES % (MANUAL) 1 % (0-11.0); NEUTROPHILS % (MANUAL) 56 (42-76)
[2024-09-29 19:50] LABS: ANISOCYTOSIS 1+; PLATELET ESTIMATE ADEQUATE
[2024-09-29 20:00] VITALS: BP 127/68; TEMP 98.1; O2SAT 99
[2024-09-29] MEDS: DEXTROSE 50%-WATER 50 ML DISP.SYRIN IV PRN (22:33)
[2024-09-29] MEDS: BLOOD SUGAR DIAGNOSTIC 1 EACH STRIP IN SCH (23:12)
[2024-09-29] MEDS: INSULIN REGULAR, HUMAN 100 UNIT/ML 3 ML VIAL SQ PRN (23:13)
[2024-09-30] VITALS: BP 125/51; TEMP 98.2; O2SAT 98
[2024-09-30 04:00] VITALS: BP 126/76; TEMP 98.4; O2SAT 100
[2024-09-30 06:57] LABS: BASOPHILS % (AUTO) 0.4 % (0.0-2.0); EOSINOPHILS # (AUTO) 2.8 K/uL (0.0-0.7); HEMATOCRIT 23 % (33-45); HEMOGLOBIN 7.6 g/dL (11.5-14.8); LYMPHOCYTES # (AUTO) 0.8 K/uL (0.8-4.8); LYMPHOCYTES % (AUTO) 10.3 % (20.0-44.0); MEAN CORPUSCULAR HEMOGLOBIN 31 PG (26.0-33.0); MEAN CORPUSCULAR HGB CONC 33 g/dl (31.0-36.0); MEAN CORPUSCULAR VOLUME 94 fL (82-100); MONOCYTES # (AUTO) 0.4 K/uL (0.1-1.30); MONOCYTES % (AUTO) 4.7 % (2.0-12.0); NEUTROPHILS % (AUTO) 49.7 % (43.0-81.0); PLATELET COUNT (AUTO) 215 K/uL (150-450); RED BLOOD CELL COUNT(AUTO) 2.47 MIL/uL (4.0-5.2); RED CELL DISTRIBUTION WIDTH 22.5 % (11.5-15.0)
[2024-09-30 07:30] LABS: CALCIUM, SERUM 10.6 mg/dL (8.5-10.1); CREATININE 0.8 mg/dL (0.6-1.3); POTASSIUM 4.5 mmol/L (3.5-5.1)
[2024-09-30 08:04] LABS: EOSINOPHILS % (AUTO) 34.9 % (0.0-6.0)
[2024-09-30 08:10] VITALS: BP 126/79; TEMP 97.4; O2SAT 100
[2024-09-30] MEDS: PANTOPRAZOLE 40 MG TABLET.DR PO SCH (09:29)
[2024-09-30] MEDS ORDERED: JEVITY 1.2 CAL 1,000 ML BOTTLE GT PRN (11:00)
[2024-09-30] MEDS: LEVOFLOXACIN 750 MG /D5W 150ML 150 ML IV SCH (11:00)
[2024-09-30] MEDS: CLOTRIMAZOLE/BETAMETASONE DIPROPIONATE 15 GM TUBE TP SCH (11:00)
[2024-09-30 12:10] VITALS: BP 136/106; TEMP 97.4; O2SAT 100
[2024-09-30 13:48] LABS: EOSINOPHILS % (MANUAL) 28 % (0-4); LYMPHOCYTES % (MANUAL) 9 % (16-48); NEUTROPHILS % (MANUAL) 63 (42-76)
[2024-09-30 13:54] LABS: ANISOCYTOSIS 1+; PLATELET ESTIMATE ADEQUATE
[2024-09-30 16:05] VITALS: BP 123/52; TEMP 97.4; O2SAT 100
[2024-09-30] MEDS: GLUCERNA 1.2 1,000 ML BOTTLE NG PRN (17:37)
[2024-09-30 20:00] VITALS: BP 133/78; TEMP 97.3; O2SAT 95
[2024-10-01] VITALS: BP 108/49; TEMP 97.6; O2SAT 97
[2024-10-01 04:00] VITALS: BP 127/61; TEMP 97.3; O2SAT 100
[2024-10-01 07:08] LABS: BASOPHILS % (AUTO) 0.2 % (0.0-2.0); EOSINOPHILS # (AUTO) 2.5 K/uL (0.0-0.7); HEMATOCRIT 22 % (33-45); HEMOGLOBIN 7.3 g/dL (11.5-14.8); LYMPHOCYTES # (AUTO) 0.8 K/uL (0.8-4.8); LYMPHOCYTES % (AUTO) 8.7 % (20.0-44.0); MEAN CORPUSCULAR HEMOGLOBIN 31 PG (26.0-33.0); MEAN CORPUSCULAR HGB CONC 34 g/dl (31.0-36.0); MEAN CORPUSCULAR VOLUME 91 fL (82-100); MONOCYTES # (AUTO) 0.6 K/uL (0.1-1.30); MONOCYTES % (AUTO) 6.5 % (2.0-12.0); NEUTROPHILS # (AUTO) 5.1 K/uL (1.8-8.9); NEUTROPHILS % (AUTO) 56.7 % (43.0-81.0); PLATELET COUNT (AUTO) 199 K/uL (150-450); RED BLOOD CELL COUNT(AUTO) 2.39 MIL/uL (4.0-5.2); RED CELL DISTRIBUTION WIDTH 22.2 % (11.5-15.0); WHITE BLOOD COUNT (AUTO) 9.1 K/uL (4.3-11.0)
[2024-10-01 08:00] VITALS: BP 140/69; TEMP 97.9; O2SAT 100
[2024-10-01 08:18] LABS: EOSINOPHILS % (AUTO) 27.9 % (0.0-6.0)
[2024-10-01 09:13] LABS: MAGNESIUM 1.8 mg/dL (1.8-2.4)
[2024-10-01 10:53] LABS: CALCIUM, SERUM 10.1 mg/dL (8.5-10.1); CARBON DIOXIDE 21 mmol/L (21-32); CHLORIDE 109 mmol/L (98-107); CREATININE 0.8 mg/dL (0.6-1.3); GLUCOSE 66 mg/dL (74-106); PHOSPHORUS 3.9 mg/dL (2.5-4.9); POTASSIUM 4.2 mmol/L (3.5-5.1); SODIUM SERUM 141 mmol/L (136-145); UREA NITROGEN, BLOOD 16 mg/dL (7-18)
[2024-10-01 11:28] LABS: EOSINOPHILS % (MANUAL) 23 % (0-4); LYMPHOCYTES % (MANUAL) 14 % (16-48); MONOCYTES % (MANUAL) 2 % (0-11.0); NEUTROPHILS % (MANUAL) 61 (42-76)
[2024-10-01 11:29] LABS: PLATELET ESTIMATE ADEQUATE
[2024-10-01 11:32] LABS: ANISOCYTOSIS 1+; OVALOCYTES 1+
[2024-10-01 12:00] VITALS: BP 96/48; TEMP 97.6; O2SAT 100
[2024-10-01] MEDS: IV NS 0.9% 500 ML IV ONE ×2 (12:10→15:46)
[2024-10-01] MEDS: MIDODRINE HCL (5MG) 5 MG TABLET PO SCH (16:42)
[2024-10-01 17:30] VITALS: BP 122/46; TEMP 97.9; O2SAT 100
[2024-10-01 20:00] VITALS: BP 124/59; TEMP 97.7; O2SAT 100
[2024-10-01] MEDS: MUPIROCIN OINT 2% 22 GM TUBE NS SCH (20:36)
[2024-10-01] MEDS: IV D5/0.45 NACL 1,000 ML IV SCH (22:52)
[2024-10-02] VITALS: BP 178/69; TEMP 97.9; O2SAT 97
[2024-10-02] MEDS: BLOOD SUGAR DIAGNOSTIC 1 EACH STRIP IN SCH (00:10)
[2024-10-02 04:00] VITALS: BP 142/73; TEMP 97.9; O2SAT 100
[2024-10-02 06:34] LABS: BASOPHILS % (AUTO) 0.1 % (0.0-2.0); EOSINOPHILS # (AUTO) 1.8 K/uL (0.0-0.7); EOSINOPHILS % (AUTO) 19.1 % (0.0-6.0); HEMATOCRIT 22 % (33-45); HEMOGLOBIN 7.4 g/dL (11.5-14.8); LYMPHOCYTES # (AUTO) 0.9 K/uL (0.8-4.8); LYMPHOCYTES % (AUTO) 9.9 % (20.0-44.0); MEAN CORPUSCULAR HEMOGLOBIN 31 PG (26.0-33.0); MEAN CORPUSCULAR HGB CONC 33 g/dl (31.0-36.0); MEAN CORPUSCULAR VOLUME 92 fL (82-100); MONOCYTES # (AUTO) 0.6 K/uL (0.1-1.30); MONOCYTES % (AUTO) 6.4 % (2.0-12.0); NEUTROPHILS # (AUTO) 5.9 K/uL (1.8-8.9); NEUTROPHILS % (AUTO) 64.5 % (43.0-81.0); PLATELET COUNT (AUTO) 214 K/uL (150-450); RED CELL DISTRIBUTION WIDTH 22.2 % (11.5-15.0); WHITE BLOOD COUNT (AUTO) 9.2 K/uL (4.3-11.0)
[2024-10-02 07:20] LABS: CALCIUM, SERUM 9.8 mg/dL (8.5-10.1); CREATININE 0.9 mg/dL (0.6-1.3); MAGNESIUM 1.8 mg/dL (1.8-2.4); POTASSIUM 4.8 mmol/L (3.5-5.1)
[2024-10-02 08:00] VITALS: BP 140/73; TEMP 97.5; O2SAT 98
[2024-10-02 10:23] LABS: EOSINOPHILS % (MANUAL) 22 % (0-4); LYMPHOCYTES % (MANUAL) 5 % (16-48); MONOCYTES % (MANUAL) 3 % (0-11.0); NEUTROPHILS % (MANUAL) 70 (42-76); PLATELET ESTIMATE ADEQUATE
[2024-10-02 10:24] LABS: ANISOCYTOSIS 1+
[2024-10-02 11:55] LABS: IRON, SERUM 201 ug/dl (50-175); TOTAL IRON BINDING CAPACITY 217 ug/dl (250-450)
[2024-10-02 12:00] VITALS: BP 145/71; TEMP 97.5; O2SAT 100
[2024-10-02 12:03] LABS: FERRITIN 1246 ng/mL (8-388)
[2024-10-02] MEDS ORDERED: LEVE100S GT (12:09)
[2024-10-02] MEDS ORDERED: INSU100V28 SQ (12:09)
[2024-10-02] MEDS ORDERED: CLOT15CR5 TP (12:09)
[2024-10-02] MEDS ORDERED: NUT.237L45 NG (12:09)
[2024-10-02] MEDS ORDERED: MIDO5TAB4 PO (12:09)
[2024-10-02] MEDS ORDERED: LEVO750P5 IV (12:09)
[2024-10-02] MEDS ORDERED: SOD62.5V IV (12:09)
[2024-10-02 12:54] LABS: D-DIMER 1.75 mg/L(FEU (0.17-0.50); INR 1.04 (0.91-1.10); PARTIAL THROMBOPLASTIN TIME 39.1 SEC (24.3-34.3)
[2024-10-02 13:00] VITALS: BP 145/74
== END 2024-10-02 16:32 | DRG 812 ==
LOC: ER 19:46 → TELE1 22:18
PROVIDERS: ADMIT Student in an Organized Health Care Education/Training Program; ATTEND Nurse Practitioner Family
PROC: 5A1955Z Respiratory Ventilation, Greater than 96 Consecutive Hours (ICD-10-PCS; principal; 2024-09-27)
PROC: 30233N1 Transfusion of Nonautologous Red Blood Cells into Peripheral Vein, Percutaneous Approach (ICD-10-PCS; 2024-09-27)
DX: D64.9 Anemia, unspecified (principal); D68.59 Other primary thrombophilia; E44.0 Moderate protein-calorie malnutrition; J96.11 Chronic respiratory failure with hypoxia; J96.12 Chronic respiratory failure with hypercapnia; Z99.11 Dependence on respirator [ventilator] status; C77.3 Secondary and unspecified malignant neoplasm of axilla and upper limb lymph nodes; I69.351 Hemiplegia and hemiparesis following cerebral infarction affecting right dominant side; G93.49 Other encephalopathy; J90 Pleural effusion, not elsewhere classified; N17.9 Acute kidney failure, unspecified; E86.0 Dehydration; R60.9 Edema, unspecified; D63.8 Anemia in other chronic diseases classified elsewhere; E78.5 Hyperlipidemia, unspecified; Z74.01 Bed confinement status; Z93.1 Gastrostomy status; Z93.0 Tracheostomy status; R13.10 Dysphagia, unspecified; I70.0 Atherosclerosis of aorta; E03.9 Hypothyroidism, unspecified; G40.909 Epilepsy, unspecified, not intractable, without status epilepticus; I10 Essential (primary) hypertension; I25.10 Atherosclerotic heart disease of native coronary artery without angina pectoris; M79.7 Fibromyalgia; Z88.2 Allergy status to sulfonamides; Z88.1 Allergy status to other antibiotic agents; Z88.0 Allergy status to penicillin; Z91.041 Radiographic dye allergy status; Z79.4 Long term (current) use of insulin; Z79.890 Hormone replacement therapy; Z79.51 Long term (current) use of inhaled steroids; Z79.02 Long term (current) use of antithrombotics/antiplatelets; Z79.899 Other long term (current) drug therapy; Z79.82 Long term (current) use of aspirin; Z85.3 Personal history of malignant neoplasm of breast; E88.09 Other disorders of plasma-protein metabolism, not elsewhere classified; E66.9 Obesity, unspecified; Z68.32 Body mass index [BMI] 32.0-32.9, adult; Z17.0 Estrogen receptor positive status [ER+]; F02.80 Dementia in other diseases classified elsewhere, unspecified severity, without behavioral disturbance, psychotic disturbance, mood disturbance, and anxiety; F01.50 Vascular dementia, unspecified severity, without behavioral disturbance, psychotic disturbance, mood disturbance, and anxiety; G20.A1 Parkinson's disease without dyskinesia, without mention of fluctuations; F25.9 Schizoaffective disorder, unspecified; Z74.09 Other reduced mobility; K21.9 Gastro-esophageal reflux disease without esophagitis; K80.20 Calculus of gallbladder without cholecystitis without obstruction; L30.9 Dermatitis, unspecified; B35.3 Tinea pedis; L60.3 Nail dystrophy; M89.8X9 Other specified disorders of bone, unspecified site; Z87.440 Personal history of urinary (tract) infections; E86.9 Volume depletion, unspecified; E61.1 Iron deficiency
CPT/HCPCS: 31720; 36415; 71045-TC; 71250-TC; 80048-TC; 80076-TC; 81001; 82272-TC; 82570-TC; 82728-TC; 82962-TC; 83540-TC; 83735-TC; 83880; 84100-TC; 84300-TC; 85025-TC; 85396; 85730-TC; 86850-TC; 87040-TC; 87070-TC; 87081-TC; 87086-TC; 87186-TC; 87205-TC; 94002-TC; 94003-TC; 94760-TC; 94762-TC; 94799-TC; 99082-TC; A4223; A6213; A6253; G0378; J1815; J1953; J1956; J2470; J2916; J3371; J3490; J7030; J7040; J7050; J7060; P9016; Q9967

== ENCOUNTER 2024-10-23 10:00 | Emergency (ER) | payer MEDICARE, OTHER ==
[~2024-10-23] VITALS: Ht 152.4 cm; Wt 77.1 kg
[~2024-10-23 10:00] MED LIST changes: -ACET325T53 GT; +ALBU2.5V38 NEB; -ASCO500T10 GT; -CEFE1VIA3 IV; +CHLO473M5 PO; -CLOB15CR5 TP; +CLOT15CR5 TP; +DIPH25TA27 PO; +FERR220S2 GT; +INSU100V28 SQ; -IRON GLYCINATE GT; +LEVO750P5 IV; +LORA-258 GT; -LORA-259 GT; +MIDO5TAB4 PO; -MULT-213 PO; +NUT.237L45 NG; +SOD62.5V IV; -VANC750V IV
[2024-10-23 13:23] VITALS: BP 121/81; TEMP 97.8; O2SAT 99
== END 2024-10-23 13:24 ==
LOC: ER 10:19
DX: K94.23 Gastrostomy malfunction (principal); E03.9 Hypothyroidism, unspecified; E11.9 Type 2 diabetes mellitus without complications; G20.A1 Parkinson's disease without dyskinesia, without mention of fluctuations; F02.80 Dementia in other diseases classified elsewhere, unspecified severity, without behavioral disturbance, psychotic disturbance, mood disturbance, and anxiety; G93.49 Other encephalopathy; I10 Essential (primary) hypertension; M79.7 Fibromyalgia; Z79.02 Long term (current) use of antithrombotics/antiplatelets; Z79.811 Long term (current) use of aromatase inhibitors; Z79.82 Long term (current) use of aspirin; Z79.899 Other long term (current) drug therapy; Z86.73 Personal history of transient ischemic attack (TIA), and cerebral infarction without residual deficits; Z88.0 Allergy status to penicillin; Z88.1 Allergy status to other antibiotic agents; Z88.2 Allergy status to sulfonamides; Z88.8 Allergy status to other drugs, medicaments and biological substances; Z90.89 Acquired absence of other organs; Z86.79 Personal history of other diseases of the circulatory system; Z87.09 Personal history of other diseases of the respiratory system; Z79.4 Long term (current) use of insulin
CPT/HCPCS: 31720; 94002-TC; 94799-TC

== ENCOUNTER 2024-12-15 07:41 | Emergency (ER) | payer MEDICARE, OTHER ==
[~2024-12-15] VITALS: Ht 167.6 cm; Wt 84.4 kg
[2024-12-15 10:27] VITALS: BP 121/40; TEMP 98.6; O2SAT 99
== END 2024-12-15 10:28 ==
LOC: ER 07:54
DX: K94.23 Gastrostomy malfunction (principal); E03.9 Hypothyroidism, unspecified; G20.A1 Parkinson's disease without dyskinesia, without mention of fluctuations; F02.80 Dementia in other diseases classified elsewhere, unspecified severity, without behavioral disturbance, psychotic disturbance, mood disturbance, and anxiety; E11.9 Type 2 diabetes mellitus without complications; I10 Essential (primary) hypertension; M79.7 Fibromyalgia; Z79.82 Long term (current) use of aspirin; Z79.899 Other long term (current) drug therapy; Z86.73 Personal history of transient ischemic attack (TIA), and cerebral infarction without residual deficits; Z88.0 Allergy status to penicillin; Z88.1 Allergy status to other antibiotic agents; Z88.2 Allergy status to sulfonamides; Z88.8 Allergy status to other drugs, medicaments and biological substances; Z90.89 Acquired absence of other organs; Z87.19 Personal history of other diseases of the digestive system; Z87.39 Personal history of other diseases of the musculoskeletal system and connective tissue; Z85.9 Personal history of malignant neoplasm, unspecified; Z79.4 Long term (current) use of insulin
CPT/HCPCS: 94002-TC; 94799-TC

== ENCOUNTER 2025-02-14 04:21 | Emergency (ER) | payer MEDICARE, OTHER ==
[~2025-02-14] VITALS: Ht 157.5 cm; Wt 63.5 kg
[2025-02-14] MEDS ORDERED: DIATR MEGLU/DIATRIZOATE SODIUM 30 ML BOTTLE (GASTROGRAPHIN) ONE (04:43)
[2025-02-14 12:08] VITALS: BP 140/75; TEMP 98.5; O2SAT 99
== END 2025-02-14 12:10 ==
LOC: ER 04:25
DX: Z46.59 Encounter for fitting and adjustment of other gastrointestinal appliance and device (principal); E11.9 Type 2 diabetes mellitus without complications; E03.9 Hypothyroidism, unspecified; F02.80 Dementia in other diseases classified elsewhere, unspecified severity, without behavioral disturbance, psychotic disturbance, mood disturbance, and anxiety; G20.A1 Parkinson's disease without dyskinesia, without mention of fluctuations; I10 Essential (primary) hypertension; K76.89 Other specified diseases of liver; M79.7 Fibromyalgia; Z79.811 Long term (current) use of aromatase inhibitors; Z79.82 Long term (current) use of aspirin; Z79.899 Other long term (current) drug therapy; Z86.73 Personal history of transient ischemic attack (TIA), and cerebral infarction without residual deficits; Z88.0 Allergy status to penicillin; Z88.1 Allergy status to other antibiotic agents; Z88.2 Allergy status to sulfonamides; Z88.8 Allergy status to other drugs, medicaments and biological substances; Z90.89 Acquired absence of other organs; Z91.041 Radiographic dye allergy status
CPT/HCPCS: 74018; Q9963